=== PATIENT | male | born 1985 | race Caucasian/White ===

== ENCOUNTER 2016-12-15 19:39 | Emergency (ER) | payer SELFPAY ==
[2016-12-15 20:02] VITALS: BP 160/82
--- NOTE | 2016-12-15 20:08 | UC ---
Skin Complaint HPI - HPI Summary HPI Summary: The patient comes in today for: 1. Skin complaint: Onset: 2 days ago. Palliative/provocative: Touching makes is worse. Rest makes it better. Quality: Soreness. Region: Left upper leg. Severity: 8/10 Time: Constant. Associated symptoms: FEvers: None. Treatment: He poked it with a needle--2 days ago. No other abscesses. Diabetes: Present--"borderline type 2" diagnosed 2 years ago. He was on metformin, but not at this time. * - History of Current Complaint Chief Complaint: UCGeneralIllness Time Seen by Provider: 12/15/16 19:44 Stated Complaint: MATOS ON LEG Hx Obtained From: Patient - Allergy/Home Medications Allergies/Adverse Reactions: Allergies Allergy/AdvReac Type Severity Reaction Status Date / Time No Known Allergies Allergy Verified 12/15/16 19:49 Review of Systems Constitutional: Negative Skin: Rash Eyes: Negative ENT: Negative Respiratory: Negative Cardiovascular: Negative Gastrointestinal: Negative All Other Systems Reviewed And Are Negative: Yes PMH/Surg Hx/FS Hx/Imm Hx Previously Healthy: No Endocrine History Of: Reports: Diabetes - NOT ON MEDS--he stopped taking metformin due to $ Denies: Thyroid Disease, Hyperthyroidism, Hypothyroidism, Dyslipidemia Cardiovascular History Of: Reports: Hypertension - not on meds Denies: Cardiac Disorders, Pacemaker/ICD, Myocardial Infarction, Congestive Heart Failure, Atrial Fibrillation, Deep Vein Thrombosis, Bleeding Disorders Respiratory History Of: Reports: Asthma - He used to have this. GI/ History Of: Reports: Kidney Stones - Kidney stones 2 months ago. Denies: Gastroesophageal Reflux, Ulcer, Gastrointestinal Bleed, Gall Bladder Disease, Diverticulitis, Renal Disease, Urosepsis Neurological History Of: Denies: TIA, CVA, Dementia, Seizures, Migraine Psychological History Of: Reports: Anxiety, Depression - no depression over a year. Denies: Post Traumatic Stress Disorder Cancer History Of: Denies: Lung Cancer, Colorectal Cancer, Breast Cancer, Prostate Cancer, Cervical Cancer Other History Of: Negative For: HIV, Hepatitis B, Hepatitis C, Anticoagulant Therapy - Surgical History Surgical History: Yes Surgery Procedure, Year, and Place: T & A. Knee surgery 2005. Left ankle surgery - Family History Known Family History: Positive: Cardiac Disease - [place], Hypertension, Other - EtOH abuse - Social History Occupation: Employed Full-time Alcohol Use: None Alcohol Amount: once a month - h/o ETOH abuse Substance Use Type: None Substance Use Comment - Amount & Last Used: bottle of vodka 10/28 Smoking Status (MU): Heavy Every Day Tobacco Smoker Type: Cigarettes Amount Used/How Often: 1-2 PPD Have You Smoked in the Last Year: Yes Household Exposure Type: Cigarettes - Immunization History Most Recent Influenza Vaccination: Fall 2012 Most Recent Tetanus Shot: UTD Most Recent Pneumonia Vaccination: Never Physical Exam Triage Information Reviewed: Yes Appearance: Well-Appearing, No Pain Distress, Well-Nourished Vital Signs: Initial Vital Signs Temp 98.4 F 12/15/16 19:51 Pulse 97 12/15/16 19:51 Resp 18 12/15/16 19:51 BP 160/82 12/15/16 19:51 Pulse Ox 96 12/15/16 19:51 Vital Signs Reviewed: Yes Eyes: Positive: Conjunctiva Clear. Negative: Discharge ENT: Positive: Hearing grossly normal. Negative: Pharyngeal erythema, Nasal congestion, Nasal drainage, TM bulging, TM dull, TM red, Tonsillar swelling, Tonsillar exudate Dental: Negative: Gross Decay/Caries @, Dental Fracture @ Neck: Positive: Supple, Nontender, No Lymphadenopathy. Negative: Nuchal Rigidity Respiratory: Positive: Lungs clear, No respiratory distress, No accessory muscle use. Negative: Crackles, Wheezing Cardiovascular: Positive: RRR, No Murmur Abdomen Description: Positive: Nontender, No Organomegaly, Soft. Negative: Distended, Guarding Musculoskeletal: Positive: Strength Intact, ROM Intact Neurological: Positive: Alert, Muscle Tone Normal Psychological: Positive: Age Appropriate Behavior, Consolable Skin: Positive: Other - He has a 1-2 cm erythematous and fluctuant skin lesion of the upper, inner/posterior thigh.. Negative: rashes Diagnostics - Laboratory Diagnostic Studies Completed/Ordered: Random blood sugar was 377. Course/Dx - Course Course Of Treatment: I & D: After 1-2 cc of 2% lidocaine with epi was instilled and adequate anesthesia was obtained, a "X" incision was made in the fluctuant area and bloody purulent material came out. A gauze drain was put in after running the hemostat in to break up any pus pockets. Dressing was applied and the woman seat covers trimmer told how to dress the wound daily. He refused any diabetic medication at this time despite being told he had a 377 random blood sugar. - Differential Diagnoses - Skin Complaint Differential Diagnoses: Cellulitis, Impetigo - Diagnoses Provider Diagnoses: uncontrolled diabetes. Left upper, inner thigh abscess. High blood pressure. Discharge - Discharge Plan Condition: Stable Disposition: HOME Patient Education Materials: Abscess (ED), Cellulitis (ED), Incision and Drainage (ED) Referrals: Nick Shipley MD [Primary Care Provider] - 3 Days (Please see your primary care provider tomorrow or in the next several days to see how well you are doing. Please inspect the area for redness, swelling, drainage, bleeding and tenderness. This should be improving over the next several days to a week. Please be re-seen in several days to see how well you are doing. If you get worse, please be seen sooner. Apply hot compresses to the area for 20 minutes 4- 5 times a day. ) Additional Instructions: See your primary care provider as soon as you can for your diabetic care. See your primary care provider early next week to check your blood pressure.
[2016-12-15] MEDS ORDERED: Lidocaine 2% W/EPI 1:100,000* 20 ML MDV ONE (20:22)
[2016-12-15] MEDS ORDERED: Cephalexin CAP* 500 MG PO ONE (21:02)
[2016-12-15] MEDS ORDERED: HYDROcodone/ACETAMIN 5-325 MG* 1 TAB PO ONE (21:03)
== END 2016-12-15 21:15 | disposition home or self-care (01) ==
LOC: UCEAST 19:39
DX: L02.416 Cutaneous abscess of left lower limb (principal); E11.9 Type 2 diabetes mellitus without complications; R03.0 Elevated blood-pressure reading, without diagnosis of hypertension; F17.210 Nicotine dependence, cigarettes, uncomplicated
CPT/HCPCS: 10060; 87070; 87205; 87640; 87641; 99212; A9270-GY; G0463

== ENCOUNTER 2017-05-21 10:52 | Emergency (ER) | payer SELFPAY ==
[2017-05-21 13:26] VITALS: BP 160/100
--- NOTE | 2017-05-22 19:43 | UC ---
Abdominal Pain Male HPI - HPI Summary HPI Summary: pt presents with abd pain that started last night. earlier that day pt was lifting a 250lb tractor wheel. no pain in the moment. however, when the pt lay down for sleep that night, he developed severe pain in the epigastrium along with significant increase in the size of his ventral hernia. pain is worsened with the supine position and received by upright positions. pt also reports a 27 lbs unintentional wt loss in the past couple of months. he has been to busy with work in the past 6 months to get dm and htn meds refilled. - History of Current Complaint Chief Complaint: UCAbdominalPain Stated Complaint: PAIN WITH HERNIA Time Seen by Provider: 05/21/17 12:56 Hx Obtained From: Patient Onset/Duration: Sudden Onset, Lasting Days, Still Present Timing: Constant Severity Initially: Moderate Severity Currently: Moderate Pain Intensity: 8 Pain Scale Used: 0-10 Numeric Location: Epigastric Radiates: No Character: Sharp Aggravating Factor(s): Nothing - supine position Alleviating Factor(s): Position Associated Signs And Symptoms: Negative: Diaphoresis, Fever, Cough, Chest Pain, Dizzy, Back Pain, Constipation, Blood in Stool, Urinary Symptoms, Decreased Appetite, Nausea, Vomiting, Diarrhea - Risk Factors Cardiac Risk Factors: Hypertension, Smoking, Diabetes, Family History - Allergies/Home Medications Allergies/Adverse Reactions: Allergies Allergy/AdvReac Type Severity Reaction Status Date / Time No Known Allergies Allergy Verified 05/21/17 11:15 PMH/Surg Hx/FS Hx/Imm Hx Endocrine History: Diabetes Cardiovascular History: Hypertension Respiratory History: Asthma GI/ History: Other Other GI/ History: hernia Psychological History: Anxiety, Depression, Post Traumatic Stress Disorder Other History Of: Negative For: HIV, Hepatitis B, Hepatitis C, Anticoagulant Therapy - Surgical History Surgical History: Yes Surgery Procedure, Year, and Place: T & A. Knee surgery 2005. 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 Lives: With Family Alcohol Use: None Alcohol Amount: once a month - h/o ETOH abuse Substance Use Type: None Substance Use Comment - Amount & Last Used: bottle of vodka 10/28 Smoking Status (MU): Heavy Every Day Tobacco Smoker Type: Cigarettes Amount Used/How Often: 1-2 PPD Have You Smoked in the Last Year: Yes Household Exposure Type: Cigarettes - Immunization History Most Recent Influenza Vaccination: Fall 2012 Most Recent Tetanus Shot: UTD Most Recent Pneumonia Vaccination: Never Review of Systems Constitutional: Negative Skin: Negative ENT: Negative Respiratory: Negative Cardiovascular: Negative Gastrointestinal: Abdominal Pain Genitourinary: Negative Motor: Negative Neurovascular: Negative Musculoskeletal: Other: - hernia Neurological: Negative Is Patient Immunocompromised?: No All Other Systems Reviewed And Are Negative: Yes Physical Exam Triage Information Reviewed: Yes Appearance: Well-Appearing, Pain Distress - moderate, Obese Vital Signs: Initial Vital Signs Temp 96.3 F 05/21/17 11:11 Pulse 92 05/21/17 11:11 Resp 12 05/21/17 11:11 BP 179/92 05/21/17 11:11 Pulse Ox 98 05/21/17 11:11 Vital Signs Reviewed: Yes Eyes: Positive: Conjunctiva Clear. Negative: Discharge ENT: Positive: Hearing grossly normal. Negative: Muffled/hoarse voice Neck: Positive: Supple Respiratory: Positive: Lungs clear, Normal breath sounds, No respiratory distress, No accessory muscle use Cardiovascular: Positive: RRR, No Murmur Abdomen Description: Positive: Soft, Distended - over epigastrum, Hernia @ - ventral over epigastrum. Negative: Nontender - epigastrium, CVA Tenderness (R) , CVA Tenderness (L), McBurney's Point Tenderness Bowel Sounds: Positive: Present Musculoskeletal Exam: Normal Neurological: Positive: Alert, Muscle Tone Normal Psychological: Positive: Age Appropriate Behavior Skin Exam: Normal Abd Pain Male Course/Dx - Differential Dx/Clinical Impression Differential Diagnosis/HQI/PQRI: Abdominal Aortic Aneurysm, Bowel Obstruction, Constipation, Pancreatitis, Other - incarcerated hernia Provider Diagnoses: incarcerated hernia Discharge - Discharge Plan Condition: Stable Disposition: AGAINST MEDICAL ADVICE Referrals: No Primary Care Phys,NOPCP [Primary Care Provider] -
== END 2017-05-21 13:15 | disposition left against medical advice (07) ==
LOC: UCEAST 10:52
DX: K43.6 Other and unspecified ventral hernia with obstruction, without gangrene (principal); R10.13 Epigastric pain; E11.9 Type 2 diabetes mellitus without complications; I10 Essential (primary) hypertension; J45.909 Unspecified asthma, uncomplicated; F41.9 Anxiety disorder, unspecified; F32.9 Major depressive disorder, single episode, unspecified; E66.9 Obesity, unspecified; F17.210 Nicotine dependence, cigarettes, uncomplicated
CPT/HCPCS: 99212; G0463

== ENCOUNTER → 2017-05-24 14:09 | Emergency (ER) | payer SELFPAY ==
[~2017-05-24 14:09] MED LIST: Iodixanol* (CONTRAST) 320 MG/ML 100 ML SDV IV ONE; Ketorolac INJ* 30 MG/ML 1 ML VIAL IV PUSH ONE; NS 0.9% 1000 ML* 1,000 ML IV ONE; Ondansetron INJ* 2 MG/ML VIAL IV ONE; metFORMIN* 500 MG TAB PO ONE
[2017-05-24 15:29] LABS: Hematocrit 42 % (42-52); Hemoglobin 14.6 g/dl (14.0-18.0); Mean Corpuscular HGB Conc 35 g/dl (31-36); Mean Corpuscular Hemoglobin 30 pg (27-31); Mean Corpuscular Volume 85 fL (80-94); Mean Platelet Volume 10 um3 (7.4-10.4); Red Blood Count 4.95 10^6/ul (4.0-5.4); Red Cell Distribution Width 14 % (10.5-15); White Blood Count 9.4 10^3/ul (3.5-10.8)
[2017-05-24 15:48] LABS: Albumin 3.8 g/dL (3.2-5.2); BUN/Creatinine Ratio 13.8 (8-20); C Reactive Protein 15.75 mg/L (< 5.00); Calcium 9.3 mg/dL (8.6-10.3); EGFR African American 130.8 (>60); EGFR Non-African American 101.7 (>60); Globulin 3.3 g/dL (2-4); Total Bilirubin 0.4 mg/dL (0.2-1.0); Total Protein 7.1 g/dL (6.4-8.9)
[2017-05-24 16:18] VITALS: BP 134/61
--- NOTE | 2017-05-24 17:29 | RAD ---
INDICATION: Painful ventral hernia for multiple days with concern for potential incarceration. Elevated blood pressure. COMPARISON: May 26, 2016 RIGHT upper quadrant ultrasound. March 15, 2016 CT. TECHNIQUE: Multidetector CT images were obtained from the lung bases to the ischial tuberosities with 141 mL Visipaque 320 IV and oral contrast. Multiplanar reformation. REPORT: Unremarkable visualized inferior thorax. Fatty infiltration of the liver with focal sparing at the cody hepatis and gallbladder fossa. No suspicious focal hepatic lesions. Enlarged liver measuring [address] abnormality of the gallbladder. Mild partial fatty replacement of the pancreas. Small splenule at the hilum of the unremarkable spleen. Negative for CT abnormality of the upper GI, small bowel, retrocecal appendix, colon. Moderate stool in the colon without significant rectal distention. Negative for ascites or free air. Tiny fat-containing umbilical hernia without compelling inflammatory change. Normal adrenal glands. Unremarkable kidneys with symmetric nephrograms and pyelograms. Unremarkable nondilated ureters and partially distended urinary bladder. Unremarkable prostate and seminal vesicles. Upper normal short axis diameter external iliac lymph nodes with normal fatty hilar architecture without concern. Negative for lymphadenopathy. Normal diameter abdominal aorta and iliac arteries. Physiologic distention of the IVC. Bilateral L5 spondylolysis without significant associated spondylolisthesis. No suspicious focal osseous lesions evident. IMPRESSION: 1. Hepatomegaly. Fatty infiltration of the liver. 2. Normal appendix documented. 3. Tiny fat-containing umbilical hernia without compelling inflammatory change.
[2017-05-24 17:39] LABS: Urine Bacteria Absent (Absent); Urine Bilirubin Negative (Negative); Urine Glucose 3+(>=500 mg/dL) (Negative); Urine Nitrite Negative (Negative)
--- NOTE | 2017-05-24 18:27 | ED ---
Vasiliy Acharya Angela, scribed for Faraz Butler MD on 05/24/17 at 1512 . Abdominal Pain/Male - HPI Summary HPI Summary: This pt is a 32 y/o male presenting to [facility] c/o hernia abd pain for 1.5 weeks. Pt reports sharp sever sharp and it has never been this bad. His pain is aggravated with eating. Pt states that when he leans forward his hernia is more prominent. He notes that his bowel movements have been abnormal for a couple of weeks. Pt denies vomiting, fever, chills, diarrhea, SOB, chest pain. Pt went to Urgent care 3 days ago but was not transferred to the ED. He is a current every day smoker. Pt denies past abd surgeries. PMHx: diabetes. - History of Current Complaint Chief Complaint: EDAbdPain Stated Complaint: ABD PAIN/HIGH BP Time Seen by Provider: 05/24/17 14:54 Hx Obtained From: Patient Onset/Duration: Lasting Days Timing: Lasting Days Pain Intensity: 7 Pain Scale Used: 0-10 Numeric Location: Diffuse Radiates: No Character: Sharp Aggravating Factor(s): Other: - leaning forward Alleviating Factor(s): Nothing Associated Signs And Symptoms: Negative: Fever, Chest Pain, Back Pain, Vomiting , Diarrhea - Allergies/Home Medications Allergies/Adverse Reactions: Allergies Allergy/AdvReac Type Severity Reaction Status Date / Time No Known Allergies Allergy Verified 05/21/17 11:15 PMH/Surg Hx/FS Hx/Imm Hx Endocrine/Hematology History: Reports: Hx Diabetes - NOT ON MEDS--he stopped taking metformin due to $ Denies: Hx Anticoagulant Therapy, Hx Blood Disorders, Hx Blood Transfusions, Hx Bone Marrow Disease, Hx Systemic Lupus Erythematosus, Hx Sickle Cell Disease , Hx Thyroid Disease, Hx Anemia, Hx Unexplained Bleeding, Other Endocrine/ Hematological Disorders Cardiovascular History: Reports: Hx Hypertension - not on meds, Other Cardiovascular Problems/Disorders - CARDIAC CATH 2011 Denies: Hx Aneurysm, Hx Angina, Hx Angioplasty, Hx Auto Implanted Cardiovert Defib, Hx Cardiac Arrest, Hx Cardiomegaly, Hx Congenital Heart Disease, Hx Congestive Heart Failure, Hx Coronary Artery Disease, Hx Deep Vein Thrombosis, Hx Embolism, Hx Hypercholesterolemia, Hx Hypotension, Hx Myocardial Infarction, Hx Pacemaker/ICD, Hx Peripheral Vascular Disease, Hx Rheumatic Fever, Hx Syncope , Hx Valvular Heart Disease Respiratory History: Reports: Hx Asthma - He used to have this., Hx Chronic Bronchitis, Hx Seasonal Allergies Denies: Hx Chronic Obstructive Pulmonary Disease (COPD), Hx Cystic Fibrosis, Hx Lung Cancer, Hx Pleural Effusion, Hx Pneumonia, Hx Pulmonary Edema, Hx Pulmonary Embolism, Hx Sleep Apnea GI History: Reports: Hx Gastroesophageal Reflux Disease Denies: Hx Gall Bladder Disease, Hx Gastrointestinal Bleed, Hx Ulcer, Hx Urosepsis History: Reports: Hx Kidney Stones - Kidney stones 2 months ago. Denies: Hx Dialysis, Hx Renal Disease Musculoskeletal History: Reports: Hx Orthopedic Injury - Right Knee Sensory History: Reports: Hx Contacts or Glasses Denies: Hx Cataracts, Hx Eye Injury, Hx Eye Prosthesis, Hx Glaucoma, Hx Legally Blind, Hx Macular Degeneration, Hx Vision Problem, Hx Deafness, Hx Hearing Aid, Hx Hearing Problem, Other Sensory Impairments Opthamlomology History: Reports: Hx Contacts or Glasses Denies: Hx Cataracts, Hx Eye Injury, Hx Eye Prosthesis, Hx Glaucoma, Hx Legally Blind, Hx Macular Degeneration, Hx Vision Problem, Other Sensory Impairments Neurological History: Denies: Hx Dementia, Hx Developmental Delay, Hx Headaches, Hx Migraine, Hx Nerve Disease, Hx Seizures, Hx Spinal Cord Injury, Hx Transient Ischemic Attacks (TIA), Other Neuro Impairments/Disorders Psychiatric History: Reports: Hx Anxiety, Hx Depression - no depression over a year., Hx Inpatient Treatment, Hx Community Mental Health Tx, Hx Suicide Attempt - OD/Jump from parking garage, Hx of Violent Episodes Against Others, Hx Substance Abuse Denies: Hx Attention Deficit Hyperactivity Disorder, Hx Eating Disorder, Hx Panic Disorder, Hx Post Traumatic Stress Disorder, Hx Schizophrenia, Hx Bipolar Disorder, Other Psychiatric Issues/Disorders - Surgical History Surgery Procedure, Year, and Place: T & A. Knee surgery 2005. Left ankle surgery Hx Anesthesia Reactions: No - Immunization History Date of Tetanus Vaccine: Unknown Date of Influenza Vaccine: None Infectious Disease History: Denies: Hx Clostridium Difficile, Hx Hepatitis, Hx Human Immunodeficiency Virus (HIV), Hx of Known/Suspected MRSA, Hx Shingles, Hx Tuberculosis, Hx Known/ Suspected VRE, Hx Known/Suspected VRSA, History Other Infectious Disease, Traveled Outside the [place] in Last 30 Days - Family History Known Family History: Positive: None, Cardiac Disease - [place], Hypertension, Other - EtOH abuse - Social History Alcohol Use: None Alcohol Amount: once a month - h/o ETOH abuse Hx Substance Use: Yes - cocaine, marijuana - 2012 Substance Use Type: Reports: None Substance Use Comment - Amount & Last Used: bottle of vodka 10/28 Hx Tobacco Use: Yes Smoking Status (MU): Heavy Every Day Tobacco Smoker Type: Cigarettes Amount Used/How Often: 1-2 PPD Have You Smoked in the Last Year: Yes Review of Systems Negative: Fever, Chills Eyes: Negative ENT: Negative Negative: Chest Pain Negative: Shortness Of Breath Positive: Abdominal Pain, Other - different than usual bowel movements.. Negative: Vomiting, Diarrhea, Nausea Genitourinary: Negative Musculoskeletal: Negative Skin: Negative Neurological: Negative All Other Systems Reviewed And Are Negative: Yes Physical Exam - Summary Physical Exam Summary: The patient is well-nourished in no acute distress and in no acute pain. The skin is warm and dry and skin color reflects adequate perfusion. HEENT: The head is normocephalic and atraumatic. The pupils are equal and reactive. The conjunctivae are clear and without drainage. Nares are patent and without drainage. Mouth reveals moist mucous membranes and the throat is without erythema and exudate. The external ears are intact. The ear canals are patent and without drainage. The tympanic membranes are intact. Neck is supple with full range of motion and non-tender. Respiratory: Chest is non-tender. Lungs are clear to auscultation and breath sounds are symmetrical and equal. Cardiovascular: Hear is regular rate and rhythm. There is no murmur or rub auscultated. There is no peripheral edema. Abdomen: The abdomen is soft and non-tender. There are normal bowel sounds heard in all four quadrants. There is a ventral hernia that is exacerbated when leaning forward, it does not appear it is incarcerated. Musculoskeletal: There is no back pain noted. Extremities are non-tender with full range of motion. There is good capillary refill. There is no peripheral edema or calf tenderness elicited. Neurological: Patient is alert and oriented to person, place and time. The patient has symmetrical motor strength in all four extremities. Psychiatric: The patient has an appropriate affect and does not exhibit any anxiety or depression. Triage Information Reviewed: Yes Vital Signs On Initial Exam: Initial Vitals Temp Pulse Resp BP Pulse Ox 97.3 F 87 20 170/93 97 05/24/17 14:11 05/24/17 14:11 05/24/17 14:11 05/24/17 14:11 05/24/17 14:11 Vital Signs Reviewed: Yes Diagnostics - Vital Signs Vital Signs Temp Pulse Resp BP Pulse Ox 05/24/17 14:11 97.3 F 87 20 170/93 97 - Laboratory Lab Results: Lab Results 05/24/17 05/24/17 05/24/17 Range/Units 15:19 15:19 15:19 WBC 9.4 (3.5-10.8) 10^3/ul RBC 4.95 (4.0-5.4) 10^6/ul Hgb 14.6 (14.0-18.0) g/dl Hct 42 (42-52) % MCV 85 (80-94) fL MCH 30 (27-31) pg MCHC 35 (31-36) g/dl RDW 14 (10.5-15) % Plt Count 181 (150-450) 10^3/ul MPV 10 (7.4-10.4) um3 Neut % (Auto) 62.0 (38-83) % Lymph % (Auto) 29.7 (25-47) % [place] % (Auto) 5.9 (1-9) % Eos % (Auto) 1.3 (0-6) % Baso % (Auto) 1.1 (0-2) % Absolute Neuts (auto) 5.8 (1.5-7.7) 10^3/ul Absolute Lymphs (auto) 2.8 (1.0-4.8) 10^3/ul Absolute Monos (auto) 0.6 (0-0.8) 10^3/ul Absolute Eos (auto) 0.1 (0-0.6) 10^3/ul Absolute Basos (auto) 0.1 (0-0.2) 10^3/ul Absolute Nucleated RBC 0 10^3/ul Nucleated RBC % 0 Sodium 130 L (133-145) mmol/L Potassium 4.0 (3.5-5.0) mmol/L Chloride 98 L (101-111) mmol/L Carbon Dioxide 23 (22-32) mmol/L Anion Gap 9 (2-11) mmol/L BUN 12 (6-24) mg/dL Creatinine 0.87 (0.67-1.17) mg/dL Est GFR ( Amer) 130.8 (>60) Est GFR (Non-Af Amer) 101.7 (>60) BUN/Creatinine Ratio 13.8 (8-20) Glucose 479 H (70-100) mg/dL Lactic Acid 1.7 (0.5-2.0) mmol/L Calcium 9.3 (8.6-10.3) mg/dL Total Bilirubin 0.40 (0.2-1.0) mg/dL AST 26 (13-39) U/L ALT 27 (7-52) U/L Alkaline Phosphatase 101 (34-104) U/L C-Reactive Protein 15.75 H (< 5.00) mg/L Total Protein 7.1 (6.4-8.9) g/dL Albumin 3.8 (3.2-5.2) g/dL Globulin 3.3 (2-4) g/dL Albumin/Globulin Ratio 1.2 (1-3) Amylase 51 (29-103) U/L Lipase 35 (11.0-82.0) U/L Urine Color Urine Appearance Urine pH (5-9) Ur Specific [place] (1.010-1.030) Urine Protein (Negative) Urine Ketones (Negative) Urine Blood (Negative) Urine Nitrate (Negative) Urine Bilirubin (Negative) Urine Urobilinogen (Negative) Ur Leukocyte Esterase (Negative) Urine WBC (Auto) (Absent) Urine RBC (Auto) (Absent) Urine Bacteria (Absent) Urine Glucose (Negative) 05/24/17 Range/Units 17:11 WBC (3.5-10.8) 10^3/ul RBC (4.0-5.4) 10^6/ul Hgb (14.0-18.0) g/dl Hct (42-52) % MCV (80-94) fL MCH (27-31) pg MCHC (31-36) g/dl RDW (10.5-15) % Plt Count (150-450) 10^3/ul MPV (7.4-10.4) um3 Neut % (Auto) (38-83) % Lymph % (Auto) (25-47) % [place] % (Auto) (1-9) % Eos % (Auto) (0-6) % Baso % (Auto) (0-2) % Absolute Neuts (auto) (1.5-7.7) 10^3/ul Absolute Lymphs (auto) (1.0-4.8) 10^3/ul Absolute Monos (auto) (0-0.8) 10^3/ul Absolute Eos (auto) (0-0.6) 10^3/ul Absolute Basos (auto) (0-0.2) 10^3/ul Absolute Nucleated RBC 10^3/ul Nucleated RBC % Sodium (133-145) mmol/L Potassium (3.5-5.0) mmol/L Chloride (101-111) mmol/L Carbon Dioxide (22-32) mmol/L Anion Gap (2-11) mmol/L BUN (6-24) mg/dL Creatinine (0.67-1.17) mg/dL Est GFR ( Amer) (>60) Est GFR (Non-Af Amer) (>60) BUN/Creatinine Ratio (8-20) Glucose (70-100) mg/dL Lactic Acid (0.5-2.0) mmol/L Calcium (8.6-10.3) mg/dL Total Bilirubin (0.2-1.0) mg/dL AST (13-39) U/L ALT (7-52) U/L Alkaline Phosphatase (34-104) U/L C-Reactive Protein (< 5.00) mg/L Total Protein (6.4-8.9) g/dL Albumin (3.2-5.2) g/dL Globulin (2-4) g/dL Albumin/Globulin Ratio (1-3) Amylase (29-103) U/L Lipase (11.0-82.0) U/L Urine Color Straw Urine Appearance Clear Urine pH 6.0 (5-9) Ur Specific [place] > 1.060 H (1.010-1.030) Urine Protein 1+(30 mg/dl) H (Negative) Urine Ketones Negative (Negative) Urine Blood Negative (Negative) Urine Nitrate Negative (Negative) Urine Bilirubin Negative (Negative) Urine Urobilinogen Negative (Negative) Ur Leukocyte Esterase Negative (Negative) Urine WBC (Auto) Absent (Absent) Urine RBC (Auto) Absent (Absent) Urine Bacteria Absent (Absent) Urine Glucose 3+(>=500 mg/dl) H (Negative) Result Diagrams: 05/24/17 15:19 05/24/17 15:19 Lab Statement: Any lab studies that have been ordered have been reviewed, and results considered in the medical decision making process. - CT Abd/Pel CT CT Interpretation: Positive (See Comments) - IMPRESSION: 1. Hepatomegaly. Fatty infiltration of the liver. 2. Normal appendix documented. 3. Tiny fat- containing umbilical hernia without compelling inflammatory change. ED physician has reviewed this radiology report and agrees. CT Interpretation Completed By: Radiologist Abdominal Pain Fem Course/Dx - Course Assessment/Plan: Pt is a 32 y/o male presenting to [facility] c/o ventral hernia pain for 1.5 weeks. Elevated BP noted. Labs and CT abd/pel were obtained. In the ED course, pt was given IV fluids, Toradol, and zofran. Labs reveal glucose of 479 and CRP of 15.75. UA shows Ur specific gravity >1.060, Urine protein 1+, urine glucose of 3+. CT abd/pel reveals 1) Hepatomegaly. Fatty infiltration of the liver. 2) Normal appendix documented. 3) Tiny fat-containing umbilical hernia without compelling inflammatory change. Pt will be discharged home in stable condition with Metformin. - Diagnoses Differential Diagnosis/HQI/PQRI: Bowel Obstruction, Other - incarcerated hernia , diabetes mellitus with poor control, dehydration Provider Diagnoses: Small umbilical hernia, Hyperglycemia secondary to non-compliant Discharge - Discharge Plan Condition: Stable Disposition: HOME Prescriptions: metFORMIN* [Glucophage 500 MG TAB *] 500 mg PO BID #60 tab Patient Education Materials: Umbilical Hernia (ED), Diabetic Hyperglycemia (ED) Referrals: [facility] PHYSICIAN REFERRAL [Outside] Additional Instructions: Your blood pressure was elevated during today's visit. Please establish a primary care provider and follow up with your primary. The documentation as recorded by the Vasiliy peace Angela accurately reflects the service I personally performed and the decisions made by , Faraz Butler MD.
== END | disposition home or self-care (01) ==
LOC: ED 14:09
DX: R10.9 Unspecified abdominal pain (principal); K42.9 Umbilical hernia without obstruction or gangrene; E13.65 Other specified diabetes mellitus with hyperglycemia; F17.210 Nicotine dependence, cigarettes, uncomplicated
CPT/HCPCS: 36415; 74177; 80053; 81003; 81015; 82150; 83605; 83690; 85025; 86140; 96374; 99282; J1885; J2405; Q9967

== ENCOUNTER 2017-08-30 19:46 | Emergency (ER) | payer SELFPAY ==
[2017-08-30] MEDS ORDERED: ALPRAZolam TAB* 0.5 MG PO ONE (20:08)
[2017-08-30 20:40] LABS: Hemoglobin 15.4 g/dl (14.0-18.0); Mean Corpuscular HGB Conc 34 g/dl (31-36); Red Cell Distribution Width 13 % (10.5-15)
[2017-08-30 20:42] LABS: Hematocrit 45 % (42-52); Mean Corpuscular Hemoglobin 29 pg (27-31); Mean Corpuscular Volume 86 fL (80-94); Mean Platelet Volume 9 um3 (7.4-10.4); Red Blood Count 5.23 10^6/ul (4.0-5.4); White Blood Count 11.9 10^3/ul (3.5-10.8)
[2017-08-30 20:43] LABS: Comments Flag Yes
[2017-08-30 20:53] LABS: Albumin 3.8 g/dL (3.2-5.2); BUN/Creatinine Ratio 19.3 (8-20); Calcium 9.2 mg/dL (8.6-10.3); EGFR African American 129.1 (>60); EGFR Non-African American 100.4 (>60); Globulin 3.6 g/dL (2-4); Total Bilirubin 0.4 mg/dL (0.2-1.0); Total Protein 7.4 g/dL (6.4-8.9)
[2017-08-30 20:55] LABS: Troponin I 0.01 ng/mL (<0.04)
[2017-08-30] MEDS ORDERED: NS 0.9% 1000 ML* 1,000 ML IV ONE ×2 (20:57→23:04)
[2017-08-30] MEDS ORDERED: Insulin REGULAR(*) 1 UNITS UNIT IV PUSH ONE ×2 (20:58→23:03)
[2017-08-30] MEDS ORDERED: metFORMIN* 500 MG TAB PO ONE (21:00)
--- NOTE | 2017-08-30 21:09 | RAD ---
HISTORY: Chest pain COMPARISONS: April 06, 2015 VIEWS: 1: frontal portable view of the chest at 8:15 PM FINDINGS: LINES AND TUBES: None. CARDIOMEDIASTINAL SILHOUETTE: The cardiomediastinal silhouette is normal for portable technique. PLEURA: The costophrenic angles are sharp. No pleural abnormalities are noted. LUNG PARENCHYMA: The lungs are clear. ABDOMEN: The upper abdomen is clear. There is no subphrenic gas. BONES AND SOFT TISSUES: No bone or soft tissue abnormalities are noted. IMPRESSION: NO ACTIVE CARDIOPULMONARY DISEASE.
[2017-08-30 21:45] LABS: Venous Bicarbonate HCO3 23.5 mmol/L (24-28)
[2017-08-31] MEDS ORDERED: Insulin REGULAR(*) 1 UNITS UNIT IV PUSH ONE (00:30)
--- NOTE | 2017-08-31 00:50 | ED ---
Francia Acharya Gabriel, scribClark Fenton MD on 08/30/17 at 2007 . HPI Chest Pain - HPI Summary HPI Summary: This patient is a 32 year old M presenting to [facility] with a chief complaint of CP since 3 days prior. The patient rates the twitching pain 4/10 in severity, lasting for a few seconds, and coming in intermittent episodes. Symptoms aggravated by stress. Patient reports palpitations. He states the pain does not radiate and is brought on when he is stressed at work and fights with his fianc. - History of Current Complaint Chief Complaint: EDChestPainROMI Time Seen by Provider: 08/30/17 20:00 Hx Obtained From: Patient Onset/Duration: Resolved Timing: Intermittent, Lasting Seconds Initial Severity: Mild Current Severity: None Pain Intensity: 4 Pain Scale Used: 0-10 Numeric Chest Pain Location: Diffuse Chest Pain Radiates: No Character: Other: - palpitations - Allergy/Home Medications Allergies/Adverse Reactions: Allergies Allergy/AdvReac Type Severity Reaction Status Date / Time No Known Allergies Allergy Verified 05/21/17 11:15 PMH/Surg Hx/FS Hx/Imm Hx Previously Healthy: No Endocrine/Hematology History: Reports: Hx Diabetes - NOT ON MEDS--he stopped taking metformin due to $ Denies: Hx Anticoagulant Therapy, Hx Blood Disorders, Hx Blood Transfusions, Hx Bone Marrow Disease, Hx Systemic Lupus Erythematosus, Hx Sickle Cell Disease , Hx Thyroid Disease, Hx Anemia, Hx Unexplained Bleeding, Other Endocrine/ Hematological Disorders Cardiovascular History: Reports: Hx Hypertension - not on meds, Other Cardiovascular Problems/Disorders - CARDIAC CATH 2011 Denies: Hx Aneurysm, Hx Angina, Hx Angioplasty, Hx Auto Implanted Cardiovert Defib, Hx Cardiac Arrest, Hx Cardiomegaly, Hx Congenital Heart Disease, Hx Congestive Heart Failure, Hx Coronary Artery Disease, Hx Deep Vein Thrombosis, Hx Embolism, Hx Hypercholesterolemia, Hx Hypotension, Hx Myocardial Infarction, Hx Pacemaker/ICD, Hx Peripheral Vascular Disease, Hx Rheumatic Fever, Hx Syncope , Hx Valvular Heart Disease Respiratory History: Reports: Hx Asthma - He used to have this., Hx Chronic Bronchitis, Hx Seasonal Allergies Denies: Hx Chronic Obstructive Pulmonary Disease (COPD), Hx Cystic Fibrosis, Hx Lung Cancer, Hx Pleural Effusion, Hx Pneumonia, Hx Pulmonary Edema, Hx Pulmonary Embolism, Hx Sleep Apnea GI History: Reports: Hx Gastroesophageal Reflux Disease Denies: Hx Gall Bladder Disease, Hx Gastrointestinal Bleed, Hx Ulcer, Hx Urosepsis History: Reports: Hx Kidney Stones - Kidney stones 2 months ago. Denies: Hx Dialysis, Hx Renal Disease Musculoskeletal History: Reports: Hx Orthopedic Injury - Right Knee Sensory History: Reports: Hx Contacts or Glasses Denies: Hx Cataracts, Hx Eye Injury, Hx Eye Prosthesis, Hx Glaucoma, Hx Legally Blind, Hx Macular Degeneration, Hx Vision Problem, Hx Deafness, Hx Hearing Aid, Hx Hearing Problem, Other Sensory Impairments Opthamlomology History: Reports: Hx Contacts or Glasses Denies: Hx Cataracts, Hx Eye Injury, Hx Eye Prosthesis, Hx Glaucoma, Hx Legally Blind, Hx Macular Degeneration, Hx Vision Problem, Other Sensory Impairments Neurological History: Denies: Hx Dementia, Hx Developmental Delay, Hx Headaches, Hx Migraine, Hx Nerve Disease, Hx Seizures, Hx Spinal Cord Injury, Hx Transient Ischemic Attacks (TIA), Other Neuro Impairments/Disorders Psychiatric History: Reports: Hx Anxiety, Hx Depression - no depression over a year., Hx Inpatient Treatment, Hx Community Mental Health Tx, Hx Suicide Attempt - OD/Jump from parking garage, Hx of Violent Episodes Against Others, Hx Substance Abuse Denies: Hx Attention Deficit Hyperactivity Disorder, Hx Eating Disorder, Hx Panic Disorder, Hx Post Traumatic Stress Disorder, Hx Schizophrenia, Hx Bipolar Disorder, Other Psychiatric Issues/Disorders - Surgical History Surgery Procedure, Year, and Place: T & A. Knee surgery 2005. Left ankle surgery Hx Anesthesia Reactions: No - Immunization History Date of Tetanus Vaccine: Unknown Date of Influenza Vaccine: None Infectious Disease History: No Infectious Disease History: Denies: Hx Clostridium Difficile, Hx Hepatitis, Hx Human Immunodeficiency Virus (HIV), Hx of Known/Suspected MRSA, Hx Shingles, Hx Tuberculosis, Hx Known/ Suspected VRE, Hx Known/Suspected VRSA, History Other Infectious Disease, Traveled Outside the [place] in Last 30 Days - Family History Known Family History: Positive: Cardiac Disease - [place], Hypertension, Other - EtOH abuse - Social History Alcohol Use: None Alcohol Amount: once a month - h/o ETOH abuse Hx Substance Use: Yes - cocaine, marijuana - 2012 Substance Use Type: Reports: None Substance Use Comment - Amount & Last Used: bottle of vodka 10/28 Hx Tobacco Use: Yes Smoking Status (MU): Heavy Every Day Tobacco Smoker Type: Cigarettes Amount Used/How Often: 1-2 PPD Have You Smoked in the Last Year: Yes Review of Systems Negative: Fever Positive: Palpitations, Chest Pain All Other Systems Reviewed And Are Negative: Yes Physical Exam - Summary Physical Exam Summary: VITAL SIGNS: Reviewed. GENERAL: Patient is a morbidly obese male who is lying comfortable in the stretcher. Patient is not in any acute respiratory distress. Pt appears to be somewhat anxious HEAD AND FACE: No signs of trauma. No ecchymosis, hematomas or skull depressions. No sinus tenderness. EYES: PERRLA, EOMI x 2, No injected conjunctiva, no nystagmus. EARS: Hearing grossly intact. Ear canals and tympanic membranes are within normal limits. MOUTH: Oropharynx within normal limits. NECK: Supple, trachea is midline, no adenopathy, no JVD, no carotid bruit, no c- spine tenderness, neck with full ROM. CHEST: Symmetric, no tenderness at palpation LUNGS: Clear to auscultation bilaterally. No wheezing or crackles. CVS: Regular rate and rhythm, S1 and S2 present, no murmurs or gallops appreciated. ABDOMEN: Soft, non-tender. No signs of distention. No rebound no guarding, and no masses palpated. Bowel sounds are normal. EXTREMITIES: FROM in all major joints, no edema, no cyanosis or clubbing. NEURO: Alert and oriented x 3. No acute neurological deficits. Speech is normal and follows commands. SKIN: Dry and warm Triage Information Reviewed: Yes Vital Signs On Initial Exam: Initial Vitals Temp Pulse Resp BP Pulse Ox 98.6 F 102 16 188/64 96 08/30/17 19:49 08/30/17 19:49 08/30/17 19:49 08/30/17 19:49 08/30/17 19:49 Vital Signs Reviewed: Yes Diagnostics - Vital Signs Vital Signs Temp Pulse Resp BP Pulse Ox 08/30/17 19:49 98.6 F 102 16 188/64 96 - Laboratory Result Diagrams: 08/30/17 20:30 08/30/17 20:30 Lab Statement: Any lab studies that have been ordered have been reviewed, and results considered in the medical decision making process. - Radiology CXR Radiology Interpretation Completed By: Radiologist - NO ACTIVE CARDIOPULMONARY DISEASE. ED physician has reviewed this radiology report. - EKG 1950 Cardiac Rate: Tachycardia EKG Rhythm: Sinus Tachycardia - at 101 BPM EKG Interpretation: normal axis and interval, no acute ischemic changes Chest Pain Course/Dx - Course Assessment/Plan: This patient is a 32 year old M presenting to [facility] with a chief complaint of CP since 3 days prior. The patient rates the twitching pain 4 /10 in severity, lasting for a few seconds, and coming in intermittent episodes. Symptoms aggravated by stress. Patient reports palpitations. He states the pain does not radiate and is brought on when he is stressed at work and fights with his fianc. An EKG reveals 101 normal axis and interval no acute ischemic changes. CXR reveals, per radiologist, NO ACTIVE CARDIOPULMONARY DISEASE. Test results with no significant abnormalities except for Glucose of 471. In the ED course the patient was given insulin, Xanax, and IV fluids. There was an offer of admittance but he does not want to be admitted because he has to work in the morning. I explained risk elevated blood sugar, coma, and . Patient will be leaving AMA with prescription for metformin and referral packet. The patient is agreeable with this plan. - Diagnoses Provider Diagnoses: Hyperglycemia, Diabetes Discharge - Discharge Plan Condition: Stable Disposition: AGAINST MEDICAL ADVICE Prescriptions: Metformin HCl [Glucophage] 1,000 mg PO BID #60 tab Patient Education Materials: Metformin (By mouth) Referrals: [facility]IAN REFERRAL [Outside] - 3 Days No Primary Care Phys,NOPCP [Primary Care Provider] - Additional Instructions: RETURN TO THE EMERGENCY DEPARTMENT FOR CHANGING OR WORSENING SYMPTOMS. The documentation as recorded by the Francia peace Gabriel accurately reflects the service I personally performed and the decisions made by me, Clark Klein MD.
[2017-08-31 01:08] VITALS: BP 165/69
== END 2017-08-31 01:05 | disposition left against medical advice (07) ==
LOC: ED 19:46
DX: E11.65 Type 2 diabetes mellitus with hyperglycemia (principal); R00.2 Palpitations; R07.89 Other chest pain; R00.0 Tachycardia, unspecified; I10 Essential (primary) hypertension; J45.909 Unspecified asthma, uncomplicated; K21.9 Gastro-esophageal reflux disease without esophagitis; Z87.442 Personal history of urinary calculi; F41.9 Anxiety disorder, unspecified; F32.9 Major depressive disorder, single episode, unspecified; E66.01 Morbid (severe) obesity due to excess calories; F17.210 Nicotine dependence, cigarettes, uncomplicated
CPT/HCPCS: 36415; 71010; 80053; 82803; 84484; 85025; 93005; 96361; 96374; 96376; 99285; A9270-GY

== ENCOUNTER 2017-10-20 08:43 | Emergency (ER) | payer SELFPAY ==
[2017-10-20 09:04] VITALS: BP 160/100
[2017-10-20] MEDS ORDERED: Ibuprofen TAB* 800 MG PO ONE (09:30)
--- NOTE | 2017-10-20 09:36 | ED ---
Upper Extremity Pain - HPI Summary HPI Summary: Patient here with left upper extremity pain status post fall down stairs prior to arrival. Reports he was walking down the stairs holding the railing with his right hand when the railing gave out and he slipped and fell down the steps onto his left side. Currently has pain and limited range of motion in his left shoulder and elbow. Also has pain in his humeral area. Denies numbness tingling or weakness. Can move his fingers and wrists without difficulty although he does report some elbow pain with supination. No previous injury to this side. Denies head injury, neck injury, back injury. He also admits his ribs feel fine and he can take deep breaths without pain or shortness of breath. He has not had anything for pain prior to arrival. - History of Current Complaint Chief Complaint: EDExtremityUpper Stated Complaint: ARM AND SHOULDER INJURY Time Seen by Provider: 10/20/17 09:20 Hx Obtained From: Patient - Allergies/Home Medications Allergies/Adverse Reactions: Allergies Allergy/AdvReac Type Severity Reaction Status Date / Time No Known Allergies Allergy Verified 05/21/17 11:15 PMH/Surg Hx/FS Hx/Imm Hx Previously Healthy: Yes Endocrine/Hematology History: Reports: Hx Diabetes - NOT ON MEDS--he stopped taking metformin due to $ Denies: Hx Anticoagulant Therapy, Hx Blood Disorders, Hx Blood Transfusions, Hx Bone Marrow Disease, Hx Systemic Lupus Erythematosus, Hx Sickle Cell Disease , Hx Thyroid Disease, Hx Anemia, Hx Unexplained Bleeding, Other Endocrine/ Hematological Disorders Cardiovascular History: Reports: Hx Hypertension - was on atenolol - NOT ON MEDS --he stopped taking due to $, Other Cardiovascular Problems/Disorders - CARDIAC CATH 2011 Denies: Hx Aneurysm, Hx Angina, Hx Angioplasty, Hx Auto Implanted Cardiovert Defib, Hx Cardiac Arrest, Hx Cardiomegaly, Hx Congenital Heart Disease, Hx Congestive Heart Failure, Hx Coronary Artery Disease, Hx Deep Vein Thrombosis, Hx Embolism, Hx Hypercholesterolemia, Hx Hypotension, Hx Myocardial Infarction, Hx Pacemaker/ICD, Hx Peripheral Vascular Disease, Hx Rheumatic Fever, Hx Syncope , Hx Valvular Heart Disease Respiratory History: Reports: Hx Asthma - He used to have this., Hx Chronic Bronchitis, Hx Seasonal Allergies Denies: Hx Chronic Obstructive Pulmonary Disease (COPD), Hx Cystic Fibrosis, Hx Lung Cancer, Hx Pleural Effusion, Hx Pneumonia, Hx Pulmonary Edema, Hx Pulmonary Embolism, Hx Sleep Apnea GI History: Reports: Hx Gastroesophageal Reflux Disease - pt denies this today Denies: Hx Gall Bladder Disease, Hx Gastrointestinal Bleed, Hx Ulcer, Hx Urosepsis History: Reports: Hx Kidney Stones - Kidney stones 2 months ago. Denies: Hx Dialysis, Hx Renal Disease Musculoskeletal History: Reports: Hx Orthopedic Injury - Right Knee Sensory History: Reports: Hx Contacts or Glasses Denies: Hx Cataracts, Hx Eye Injury, Hx Eye Prosthesis, Hx Glaucoma, Hx Legally Blind, Hx Macular Degeneration, Hx Vision Problem, Hx Deafness, Hx Hearing Aid, Hx Hearing Problem, Other Sensory Impairments Opthamlomology History: Reports: Hx Contacts or Glasses Denies: Hx Cataracts, Hx Eye Injury, Hx Eye Prosthesis, Hx Glaucoma, Hx Legally Blind, Hx Macular Degeneration, Hx Vision Problem, Other Sensory Impairments Neurological History: Denies: Hx Dementia, Hx Developmental Delay, Hx Headaches, Hx Migraine, Hx Nerve Disease, Hx Seizures, Hx Spinal Cord Injury, Hx Transient Ischemic Attacks (TIA), Other Neuro Impairments/Disorders Psychiatric History: Reports: Hx Anxiety, Hx Depression - no depression over a year., Hx Inpatient Treatment, Hx Community Mental Health Tx, Hx Suicide Attempt - OD/Jump from parking garage, Hx of Violent Episodes Against Others, Hx Substance Abuse Denies: Hx Attention Deficit Hyperactivity Disorder, Hx Eating Disorder, Hx Panic Disorder, Hx Post Traumatic Stress Disorder, Hx Schizophrenia, Hx Bipolar Disorder, Other Psychiatric Issues/Disorders - Surgical History Surgery Procedure, Year, and Place: T & A. Knee surgery 2005. Left ankle surgery Hx Anesthesia Reactions: No - Immunization History Date of Tetanus Vaccine: Unknown Date of Influenza Vaccine: None Infectious Disease History: No Infectious Disease History: Denies: Hx Clostridium Difficile, Hx Hepatitis, Hx Human Immunodeficiency Virus (HIV), Hx of Known/Suspected MRSA, Hx Shingles, Hx Tuberculosis, Hx Known/ Suspected VRE, Hx Known/Suspected VRSA, History Other Infectious Disease, Traveled Outside the [place] in Last 30 Days - Family History Known Family History: Positive: Cardiac Disease - [place] - father, "9 times", Hypertension, Other - EtOH abuse - Social History Occupation: Employed Full-time - [employer] Lives: With Family - fiance Alcohol Use: None Alcohol Amount: once a month - h/o ETOH abuse Hx Substance Use: Yes - cocaine, marijuana - 2013 Substance Use Type: Reports: None Substance Use Comment - Amount & Last Used: bottle of vodka 10/28 Hx Tobacco Use: Yes - not currently smoking - switched to smokeless tob Smoking Status (MU): Heavy Every Day Tobacco Smoker Type: Cigarettes - quit last month Sep 2017, Smokeless Tobacco - as of now 2017 Amount Used/How Often: 1-2 PPD Have You Smoked in the Last Year: Yes Review of Systems Constitutional: Negative Negative: Fever, Chills, Fatigue Eyes: Negative Negative: Photophobia, Blurred Vision, Diplopia ENT: Negative Negative: Epistaxis, Dental Pain, Sore Throat Cardiovascular: Negative Negative: Chest Pain Respiratory: Negative Negative: Shortness Of Breath Gastrointestinal: Negative Negative: Abdominal Pain Positive: no symptoms reported Positive: Arthralgia, Myalgia, Decreased ROM. Negative: Edema Skin: Negative Neurological: Negative Psychological: Normal All Other Systems Reviewed And Are Negative: Yes Physical Exam Triage Information Reviewed: Yes Vital Signs On Initial Exam: Initial Vitals Temp Pulse Resp BP Pulse Ox 98.1 F 98 20 160/100 95 10/20/17 09:02 10/20/17 09:02 10/20/17 09:02 10/20/17 09:02 10/20/17 09:02 Vital Signs Reviewed: Yes Appearance: Positive: Well-Appearing, Pain Distress - mild to moderate at rest Skin: Positive: Warm, Skin Color Reflects Adequate Perfusion, Dry - no gross deformity, no ecchymosis, no erythema, no skin breakdown/tenting Head/Face: Positive: Normal Head/Face Inspection Eyes: Positive: Normal, EOMI, ASHLI, Conjunctiva Clear ENT: Positive: Normal ENT inspection, Hearing grossly normal, Pharynx normal - remnants of chewing tob present Neck: Positive: Supple, Nontender Respiratory/Lung Sounds: Positive: Clear to Auscultation, Breath Sounds Present - ribs NTTP Cardiovascular: Positive: Normal, Pulses are Symmetrical in both Upper and Lower Extremities Abdomen Description: Positive: Nontender, Soft Musculoskeletal: Positive: Strength/ROM Intact - phalanges, wrist, 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 Course/Dx - Course Course Of Treatment: Patient presents with left upper extremity pain after falling down steps this morning by accident. His x-ray was reviewed and reveals possible proximal radial head fracture, nondisplaced. He was placed in a sugar tong splint which he tolerated well and reports improvement of symptoms. He was also provided with pain medication, discharge instructions, danger signs and symptoms, and instructions on how to follow up with librarian specialist which he plans to do today. - Diagnoses Provider Diagnoses: Left radial head fracture Discharge - Discharge Plan Condition: Stable Disposition: HOME Prescriptions: Acetaminophen TAB* [Tylenol TAB*] 975 mg PO Q6H PRN #20 tab PRN Reason: Pain Ibuprofen TAB* [Motrin TAB* 800 MG] 800 mg PO Q8HR PRN #20 tab PRN Reason: Pain Patient Education Materials: Elbow Fracture (ED), How to Use a Sling (ED), Splint Care (ED) Forms: *Work Release Referrals: Chase Ritchie MD [Medical Doctor] - Additional Instructions: Rest, ice, elevate and keep splint clean, dry and in place until seen by librarian specialist. Call today to schedule an appointment. For pain, you may take ibuprofen 800mg every 8 hours with food with acetaminophen 975mg every 6 hours. *If you develop numbness, tingling, weakness of fingers or pain is worse in arm , you may loosen ROB wrap around splint and elevate arm for 20 minutes. If symptoms persist, return to ED
--- NOTE | 2017-10-20 10:29 | RAD ---
HISTORY: Left humerus pain status post fall, left elbow pain status post fall COMPARISONS: April 27, 2014 VIEWS: 4, Frontal, lateral, and oblique views of the left elbow FINDINGS: BONE DENSITY: Normal. BONES: There is minimal cortical irregularity of the articular surface of the radial head suggestive of nondisplaced fracture. JOINTS: There is no arthropathy. ALIGNMENT: There is no dislocation. SOFT TISSUES: Unremarkable. OTHER FINDINGS: None. IMPRESSION: PROBABLE NONDISPLACED FRACTURE OF THE RADIAL HEAD
--- NOTE | 2017-10-20 10:37 | RAD ---
HISTORY: Left humerus and shoulder pain, fall COMPARISONS: September 08, 2016 VIEWS: 7, Frontal internal rotation, external rotation, outlet, and axillary views of the left shoulder with frontal internal rotation and external rotation views of the left humerus FINDINGS: BONE DENSITY: Normal. BONES: There is no displaced fracture. JOINTS: There is mild osteoarthritis of the AC joint. ALIGNMENT: There is no dislocation. SOFT TISSUES: Unremarkable. OTHER FINDINGS: None. IMPRESSION: NO ACUTE OSSEOUS INJURY TO THE LEFT SHOULDER OR LEFT HUMERUS. IF SYMPTOMS PERSIST, RECOMMEND REPEAT IMAGING.
[2017-10-20] MEDS ORDERED: Acetaminophen TAB* 325 MG PO ONE (10:55)
== END 2017-10-20 11:14 | disposition home or self-care (01) ==
LOC: ED 08:43
DX: S52.122A Displaced fracture of head of left radius, initial encounter for closed fracture (principal); F17.210 Nicotine dependence, cigarettes, uncomplicated; W10.9XXA Fall (on) (from) unspecified stairs and steps, initial encounter; E11.9 Type 2 diabetes mellitus without complications; I10 Essential (primary) hypertension
CPT/HCPCS: 29125; 99282; A9270-GY

== ENCOUNTER 2018-01-12 13:12 | Emergency (ER) | payer SELFPAY ==
--- NOTE | 2018-01-12 14:16 | RAD ---
HISTORY: Palpitation COMPARISONS: August 30, 2017 VIEWS: 1: frontal portable view of the chest at 2:04 PM. The left costophrenic angle is cut off. FINDINGS: LINES AND TUBES: None. CARDIOMEDIASTINAL SILHOUETTE: The cardiomediastinal silhouette is normal for portable technique. PLEURA: The right costophrenic angle is sharp. The left costophrenic angle is cut off. LUNG PARENCHYMA: The lungs are clear. ABDOMEN: The upper abdomen is clear. There is no subphrenic gas. BONES AND SOFT TISSUES: No bone or soft tissue abnormalities are noted. IMPRESSION: LIMITED STUDY. NO ACTIVE CARDIOPULMONARY DISEASE.
[2018-01-12 14:24] LABS: ABS Basophils 0.1 10^3/ul (0-0.2); ABS Eosinophils 0.1 10^3/ul (0-0.6); ABS Lymphocytes 2.9 10^3/ul (1.0-4.8); ABS Monocytes 0.6 10^3/ul (0-0.8); ABS Neutrophils 6.9 10^3/ul (1.5-7.7); ABS Nucleated RBC 0 10^3/ul; Hematocrit 43 % (42-52); Lymphocyte % 27.2 % (25-47); Mean Corpuscular HGB Conc 35 g/dl (31-36); Mean Corpuscular Hemoglobin 30 pg (27-31); Mean Corpuscular Volume 84 fL (80-94); Nucleated Red Blood Cells % 0; Platelet Count 224 10^3/ul (150-450); Red Blood Count 5.05 10^6/ul (4.0-5.4); Red Cell Distribution Width 13 % (10.5-15); White Blood Count 10.6 10^3/ul (3.5-10.8)
[2018-01-12 14:42] LABS: EGFR Non-African American 110.4 (>60)
[2018-01-12] MEDS ORDERED: Magnesium Sulfate 1 GM IV* 1 GM/100 ML BAG IV ONE (14:48)
[2018-01-12 14:49] LABS: INR 0.9 (0.77-1.02)
[2018-01-12] MEDS ORDERED: Insulin REGULAR(*) 1 UNITS UNIT IV PUSH ONE (14:49)
[2018-01-12 15:37] LABS: Urine Appearance Clear; Urine Blood Negative (Negative); Urine Color Straw; Urine Ketones Negative (Negative); Urine Protein 2+(100 mg/dL) (Negative); Urine Specific Gravity 1.026 (1.010-1.030); Urine Urobilinogen Negative (Negative)
[2018-01-12 15:40] VITALS: BP 144/98
--- NOTE | 2018-01-12 21:09 | ED ---
Satnam Acharya Stephanie, scribed for Jeremy Eagle on 01/12/18 at 1358 . Palpitations / Dysrhythmia - HPI Summary HPI Summary: The pt is a 32 y/o M presenting to the ED with c/o palpitations that began at 13 :00 today. Symptoms include increased HR. The pt denies CP and SOB. The pt states he stood up out of his car and felt his HR elevated and checked his pulse and felt skips. He reports recent stress with being in-between jobs. The pt reports he has hx of uncontrolled diabetes which was diagnosed a few years ago.He has not taken medications in 3 months due to lack of insurance. A1C was 12.5 last month; blood sugar was 560 last month. - History of Current Complaint Chief Complaint: EDDysrhythmPalp Time Seen by Provider: 01/12/18 13:22 Hx Obtained From: Patient Onset/Duration: Sudden Onset, Lasting Minutes, Resolved Timing: Constant Severity Currently: Mild Character: Fast, Skipped Beats Aggravating: Exertion Alleviating: Nothing - Allergy/Home Medications Allergies/Adverse Reactions: Allergies Allergy/AdvReac Type Severity Reaction Status Date / Time No Known Allergies Allergy Verified 05/21/17 11:15 PMH/Surg Hx/FS Hx/Imm Hx Endocrine/Hematology History: Reports: Hx Diabetes - NOT ON MEDS--he stopped taking metformin due to $ Denies: Hx Anticoagulant Therapy, Hx Blood Disorders, Hx Blood Transfusions, Hx Bone Marrow Disease, Hx Systemic Lupus Erythematosus, Hx Sickle Cell Disease , Hx Thyroid Disease, Hx Anemia, Hx Unexplained Bleeding, Other Endocrine/ Hematological Disorders Cardiovascular History: Reports: Hx Hypertension - was on atenolol - NOT ON MEDS --he stopped taking due to $, Other Cardiovascular Problems/Disorders - CARDIAC CATH 2011 Denies: Hx Aneurysm, Hx Angina, Hx Angioplasty, Hx Auto Implanted Cardiovert Defib, Hx Cardiac Arrest, Hx Cardiomegaly, Hx Congenital Heart Disease, Hx Congestive Heart Failure, Hx Coronary Artery Disease, Hx Deep Vein Thrombosis, Hx Embolism, Hx Hypercholesterolemia, Hx Hypotension, Hx Myocardial Infarction, Hx Pacemaker/ICD, Hx Peripheral Vascular Disease, Hx Rheumatic Fever, Hx Syncope , Hx Valvular Heart Disease Respiratory History: Reports: Hx Asthma - He used to have this., Hx Chronic Bronchitis, Hx Seasonal Allergies Denies: Hx Chronic Obstructive Pulmonary Disease (COPD), Hx Cystic Fibrosis, Hx Lung Cancer, Hx Pleural Effusion, Hx Pneumonia, Hx Pulmonary Edema, Hx Pulmonary Embolism, Hx Sleep Apnea GI History: Reports: Hx Gastroesophageal Reflux Disease - pt denies this today Denies: Hx Gall Bladder Disease, Hx Gastrointestinal Bleed, Hx Ulcer, Hx Urosepsis History: Reports: Hx Kidney Stones - Kidney stones 2 months ago. Denies: Hx Dialysis, Hx Renal Disease Musculoskeletal History: Reports: Hx Orthopedic Injury - Right Knee Sensory History: Reports: Hx Contacts or Glasses Denies: Hx Cataracts, Hx Eye Injury, Hx Eye Prosthesis, Hx Glaucoma, Hx Legally Blind, Hx Macular Degeneration, Hx Vision Problem, Hx Deafness, Hx Hearing Aid, Hx Hearing Problem, Other Sensory Impairments Opthamlomology History: Reports: Hx Contacts or Glasses Denies: Hx Cataracts, Hx Eye Injury, Hx Eye Prosthesis, Hx Glaucoma, Hx Legally Blind, Hx Macular Degeneration, Hx Vision Problem, Other Sensory Impairments Neurological History: Denies: Hx Dementia, Hx Developmental Delay, Hx Headaches, Hx Migraine, Hx Nerve Disease, Hx Seizures, Hx Spinal Cord Injury, Hx Transient Ischemic Attacks (TIA), Other Neuro Impairments/Disorders Psychiatric History: Reports: Hx Anxiety, Hx Depression - no depression over a year., Hx Inpatient Treatment, Hx Community Mental Health Tx, Hx Suicide Attempt - OD/Jump from parking garage, Hx of Violent Episodes Against Others, Hx Substance Abuse Denies: Hx Attention Deficit Hyperactivity Disorder, Hx Eating Disorder, Hx Panic Disorder, Hx Post Traumatic Stress Disorder, Hx Schizophrenia, Hx Bipolar Disorder, Other Psychiatric Issues/Disorders - Surgical History Surgery Procedure, Year, and Place: T & A. Knee surgery 2005. Left ankle surgery Hx Anesthesia Reactions: No - Immunization History Date of Tetanus Vaccine: Unknown Date of Influenza Vaccine: None Infectious Disease History: No Infectious Disease History: Denies: Hx Clostridium Difficile, Hx Hepatitis, Hx Human Immunodeficiency Virus (HIV), Hx of Known/Suspected MRSA, Hx Shingles, Hx Tuberculosis, Hx Known/ Suspected VRE, Hx Known/Suspected VRSA, History Other Infectious Disease, Traveled Outside the [place] in Last 30 Days - Family History Known Family History: Positive: Cardiac Disease - [place] - father, "9 times", Hypertension, Other - EtOH abuse - Social History Occupation: Employed Part-time Lives: Alone Alcohol Use: None Alcohol Amount: once a month - h/o ETOH abuse Hx Substance Use: Yes - cocaine, marijuana - 2013 Substance Use Type: Reports: None Substance Use Comment - Amount & Last Used: bottle of vodka 10/28 Hx Tobacco Use: Yes - not currently smoking - switched to smokeless tob Smoking Status (MU): Former Smoker Type: Cigarettes - quit last month Sep 2017, Smokeless Tobacco - as of now 2017 Amount Used/How Often: 1-2 PPD Have You Smoked in the Last Year: Yes Review of Systems Negative: Fever Positive: Other - palpitation, increased HR. Negative: Chest Pain Negative: Shortness Of Breath All Other Systems Reviewed And Are Negative: Yes Physical Exam - Summary Physical Exam Summary: Appearance: Well appearing, no pain distress Skin: warm, dry, reflects adequate perfusion Head/face: normal Eyes: EOMI, ASHLI ENT: normal Neck: supple, non-tender Respiratory: CTA, breath sounds present Cardiovascular: RRR, pulses symmetrical Abdomen: non-tender, soft Bowel: present Musculoskeletal: normal, strength/ROM intact Neuro: normal, sensory motor intact, A&Ox3 Triage Information Reviewed: Yes Vital Signs On Initial Exam: Initial Vitals Temp Pulse Resp BP Pulse Ox 97.1 F 101 18 165/84 97 01/12/18 13:18 01/12/18 13:18 01/12/18 13:18 01/12/18 13:18 01/12/18 13:18 Vital Signs Reviewed: Yes Diagnostics - Vital Signs Vital Signs Temp Pulse Resp BP Pulse Ox 01/12/18 13:28 112 15 178/102 95 01/12/18 13:18 97.1 F 101 18 165/84 97 - Laboratory Lab Results: Lab Results 01/12/18 01/12/18 01/12/18 Range/Units 14:11 14:11 14:11 WBC 10.6 (3.5-10.8) 10^3/ul RBC 5.05 (4.0-5.4) 10^6/ul Hgb 15.0 (14.0-18.0) g/dl Hct 43 (42-52) % MCV 84 (80-94) fL MCH 30 (27-31) pg MCHC 35 (31-36) g/dl RDW 13 (10.5-15) % Plt Count 224 (150-450) 10^3/ul MPV 9.0 (7.4-10.4) um3 Neut % (Auto) 65.2 (38-83) % Lymph % (Auto) 27.2 (25-47) % [place] % (Auto) 5.4 (0-7) % Eos % (Auto) 1.0 (0-6) % Baso % (Auto) 1.2 (0-2) % Absolute Neuts (auto) 6.9 (1.5-7.7) 10^3/ul Absolute Lymphs (auto) 2.9 (1.0-4.8) 10^3/ul Absolute Monos (auto) 0.6 (0-0.8) 10^3/ul Absolute Eos (auto) 0.1 (0-0.6) 10^3/ul Absolute Basos (auto) 0.1 (0-0.2) 10^3/ul Absolute Nucleated RBC 0 10^3/ul Nucleated RBC % 0 INR (Anticoag Therapy) (0.77-1.02) APTT (26.0-36.3) seconds Sodium 133 L (139-145) mmol/L Potassium 4.2 (3.5-5.0) mmol/L Chloride 99 L (101-111) mmol/L Carbon Dioxide 25 (22-32) mmol/L Anion Gap 9 (2-11) mmol/L BUN 12 (6-24) mg/dL Creatinine 0.81 (0.67-1.17) mg/dL Est GFR ( Amer) 142.0 (>60) Est GFR (Non-Af Amer) 110.4 (>60) BUN/Creatinine Ratio 14.8 (8-20) Glucose 402 H (70-100) mg/dL Calcium 9.3 (8.6-10.3) mg/dL Magnesium 1.8 L (1.9-2.7) mg/dL Total Bilirubin 0.40 (0.2-1.0) mg/dL AST 45 H (13-39) U/L ALT 39 (7-52) U/L Alkaline Phosphatase 106 H (34-104) U/L Troponin I 0.00 (<0.04) ng/mL B-Natriuretic Peptide 28 ( - 100) pg/mL Total Protein 7.6 (6.4-8.9) g/dL Albumin 4.0 (3.2-5.2) g/dL Globulin 3.6 (2-4) g/dL Albumin/Globulin Ratio 1.1 (1-3) TSH 2.23 (0.34-5.60) mcIU/mL Urine Color Urine Appearance Urine pH (5-9) Ur Specific [place] (1.010-1.030) Urine Protein (Negative) Urine Ketones (Negative) Urine Blood (Negative) Urine Nitrate (Negative) Urine Bilirubin (Negative) Urine Urobilinogen (Negative) Ur Leukocyte Esterase (Negative) Urine WBC (Auto) (Absent) Urine RBC (Auto) (Absent) Urine Bacteria (Absent) Urine Glucose (Negative) 01/12/18 01/12/18 01/12/18 Range/Units 14:11 15:22 16:31 WBC (3.5-10.8) 10^3/ul RBC (4.0-5.4) 10^6/ul Hgb (14.0-18.0) g/dl Hct (42-52) % MCV (80-94) fL MCH (27-31) pg MCHC (31-36) g/dl RDW (10.5-15) % Plt Count (150-450) 10^3/ul MPV (7.4-10.4) um3 Neut % (Auto) (38-83) % Lymph % (Auto) (25-47) % [place] % (Auto) (0-7) % Eos % (Auto) (0-6) % Baso % (Auto) (0-2) % Absolute Neuts (auto) (1.5-7.7) 10^3/ul Absolute Lymphs (auto) (1.0-4.8) 10^3/ul Absolute Monos (auto) (0-0.8) 10^3/ul Absolute Eos (auto) (0-0.6) 10^3/ul Absolute Basos (auto) (0-0.2) 10^3/ul Absolute Nucleated RBC 10^3/ul Nucleated RBC % INR (Anticoag Therapy) 0.90 (0.77-1.02) APTT 33.7 (26.0-36.3) seconds Sodium (139-145) mmol/L Potassium (3.5-5.0) mmol/L Chloride (101-111) mmol/L Carbon Dioxide (22-32) mmol/L Anion Gap (2-11) mmol/L BUN (6-24) mg/dL Creatinine (0.67-1.17) mg/dL Est GFR ( Amer) (>60) Est GFR (Non-Af Amer) (>60) BUN/Creatinine Ratio (8-20) Glucose 313 H (70-100) mg/dL Calcium (8.6-10.3) mg/dL Magnesium (1.9-2.7) mg/dL Total Bilirubin (0.2-1.0) mg/dL AST (13-39) U/L ALT (7-52) U/L Alkaline Phosphatase (34-104) U/L Troponin I (<0.04) ng/mL B-Natriuretic Peptide ( - 100) pg/mL Total Protein (6.4-8.9) g/dL Albumin (3.2-5.2) g/dL Globulin (2-4) g/dL Albumin/Globulin Ratio (1-3) TSH (0.34-5.60) mcIU/mL Urine Color Straw Urine Appearance Clear Urine pH 6.0 (5-9) Ur Specific [place] 1.026 (1.010-1.030) Urine Protein 2+(100 mg/dl) A (Negative) Urine Ketones Negative (Negative) Urine Blood Negative (Negative) Urine Nitrate Negative (Negative) Urine Bilirubin Negative (Negative) Urine Urobilinogen Negative (Negative) Ur Leukocyte Esterase Negative (Negative) Urine WBC (Auto) Absent (Absent) Urine RBC (Auto) Trace(0-2/hpf) (Absent) Urine Bacteria Absent (Absent) Urine Glucose 3+(>=500 mg/dl) A (Negative) Result Diagrams: 01/12/18 14:11 01/12/18 14:11 Lab Statement: Any lab studies that have been ordered have been reviewed, and results considered in the medical decision making process. - Radiology CXR Xray Interpretation: No Acute Changes Radiology Interpretation Completed By: Radiologist - LIMITED STUDY. NO ACTIVE CARDIOPULMONARY DISEASE. ED physician has reviewed this report. - EKG 14:00 Cardiac Rate: NL - 98 PM EKG Interpretation: Sinus arrhythmia Course/Dx - Course Assessment/Plan: Pt is a 32 y/o M presenting to the ED with c/o palpitations that began at 13:00 today. Symptoms include increased HR. The pt denies CP and SOB. Blood work, urinalysis, chest XR, EKG were obtained. In the ED the pt's glucose level is still elevated at 313. Pt reports he would like to leave against medical advice. Benefits and risks of leaving AMA were discussed with the pt. The pt has signed the AMA form. Pt was given a prescription for Metformin. - Diagnoses Differential Diagnosis/HQI/PQRI: Positive: Hyperventilation, Paroxymal SVT, Other - hyperglycemia Provider Diagnoses: Diabetes, Hyperglycemia, Palpitations Discharge - Sign-Out/Discharge Documenting (check all that apply): Discharge/Admit/Transfer - discharge - Discharge Plan Condition: Good Disposition: AGAINST MEDICAL ADVICE Prescriptions: Metformin ER (NF) 500 mg PO BID #60 tab Patient Education Materials: Heart Palpitations (ED), Type 2 Diabetes in Adults (ED), Diabetic Hyperglycemia (ED) Referrals: [facility] [place] PHYSICIAN REFERRAL [Outside] No Primary Care Phys,NOPCP [Primary Care Provider] - Additional Instructions: Please establish a primary care provider and follow up in 3 days. RETURN TO THE ED FOR ANY WORSENING SYMPTOMS. - Billing Disposition and Condition Condition: GOOD Disposition: AMA The documentation as recorded by the Satnam peace Stephanie accurately reflects the service I personally performed and the decisions made by , Jeremy Eagle.
== END 2018-01-12 17:26 | disposition left against medical advice (07) ==
LOC: ED 13:12
DX: E11.65 Type 2 diabetes mellitus with hyperglycemia (principal); R00.2 Palpitations
CPT/HCPCS: 36415; 71045; 80053; 81003; 81015; 82947; 83735; 83880; 84443; 84484; 85025; 85610; 85730; 93005; 96374; 99283; J3475

== ENCOUNTER 2018-02-18 07:46 | Emergency (ER) | payer SELFPAY ==
[2018-02-18] MEDS ORDERED: Aspirin 81 mg CHEW TAB* 81 MG TAB.CHEW PO ONE (08:02)
[2018-02-18] MEDS ORDERED: NS 0.9% 1000 ML* 2,000 ML IV ONE (08:07)
[2018-02-18 08:30] LABS: ABS Basophils 0.1 10^3/ul (0-0.2); ABS Eosinophils 0.2 10^3/ul (0-0.6); ABS Lymphocytes 3.7 10^3/ul (1.0-4.8); ABS Monocytes 0.6 10^3/ul (0-0.8); ABS Neutrophils 6.7 10^3/ul (1.5-7.7); ABS Nucleated RBC 0 10^3/ul; Eosinophil % 1.5 % (0-6); Hematocrit 39 % (42-52); Hemoglobin 13.6 g/dl (14.0-18.0); Lymphocyte % 32.9 % (25-47); Mean Corpuscular HGB Conc 35 g/dl (31-36); Mean Corpuscular Hemoglobin 30 pg (27-31); Mean Corpuscular Volume 84 fL (80-94); Mean Platelet Volume 9.1 um3 (7.4-10.4); Nucleated Red Blood Cells % 0; Platelet Count 205 10^3/ul (150-450); Red Cell Distribution Width 13 % (10.5-15); White Blood Count 11.2 10^3/ul (3.5-10.8)
[2018-02-18 08:39] LABS: INR 0.88 (0.77-1.02)
[2018-02-18 08:49] LABS: EGFR Non-African American 113.7 (>60)
--- NOTE | 2018-02-18 09:08 | RAD ---
INDICATION: Chest pain. History of obstructive lung disease and tobacco use. COMPARISON: January 12, 2018 chest radiograph and May 24, [address] TECHNIQUE: Dual energy PA and routine lateral views of the chest were obtained. REPORT: Clear lungs and pleural spaces. Negative for pneumothorax. The heart, pulmonary vasculature, and mediastinal contours are unremarkable. Unremarkable osseous structures and soft tissue contours. IMPRESSION: No evidence for acute intrathoracic disease.
[2018-02-18 10:55] LABS: Urine Appearance Clear; Urine Blood Negative (Negative); Urine Color Yellow; Urine Ketones Negative (Negative); Urine Protein 2+(100 mg/dL) (Negative); Urine Specific Gravity 1.029 (1.010-1.030); Urine Urobilinogen Negative (Negative)
[2018-02-18] MEDS ORDERED: Omeprazole CAP* 20 MG PO ONE (11:10)
[2018-02-18] MEDS ORDERED: metFORMIN* 500 MG TAB PO ONE (11:10)
[2018-02-18 11:16] VITALS: BP 129/78
--- NOTE | 2018-02-18 11:20 | ED ---
Kelly Acharya Emily, scribed for Dustin Mera MD on 02/18/18 at 0939 . HPI Chest Pain - HPI Summary HPI Summary: This patient is a 32 year old M presenting to [facility] with a chief complaint of intermittent chest tightness that began yesterday night approximately 2200 while working. He reports that the chest pain lasts 5 to 6 seconds begins slightly left of mid sternal and radiates to left chest. The patient rates the pain 3/10 in severity. Symptoms aggravated by nothing. Symptoms alleviated by nothing. Patient reports L shoulder pain that is aggravated by movement of the arm. Patient denies SOB, diaphoresis, nausea, vomiting, diarrhea, fever, chills , cough, and chest congestion. - History of Current Complaint Chief Complaint: EDChestPainROMI Time Seen by Provider: 02/18/18 08:00 Hx Obtained From: Patient Onset/Duration: Started Hours Ago, Still Present Timing: Constant Initial Severity: Mild Current Severity: Mild Pain Intensity: 3 Pain Scale Used: 0-10 Numeric Chest Pain Location: Left Lateral Chest Pain Radiates: Yes Chest Pain Radiates To:: Other - L chest Character: Tightness Aggravating Factor(s): Nothing Alleviating Factor(s): Nothing Associated Signs and Symptoms: Positive: Other: - Positive L shoulder pain. Negative SOB, diaphoresis, nausea, vomiting, diarrhea, fever, chills, cough, and chest congestion. - Allergy/Home Medications Allergies/Adverse Reactions: Allergies Allergy/AdvReac Type Severity Reaction Status Date / Time No Known Allergies Allergy Verified 02/18/18 07:49 Home Medications: Home Medications Naproxen Sodium [Aleve] 2 tab PO DAILY 02/18/18 [History Confirmed 02/18/18] PMH/Surg Hx/FS Hx/Imm Hx Previously Healthy: No Endocrine/Hematology History: Reports: Hx Diabetes - NOT ON MEDS--he stopped taking metformin due to $ Denies: Hx Anticoagulant Therapy, Hx Blood Disorders, Hx Blood Transfusions, Hx Bone Marrow Disease, Hx Systemic Lupus Erythematosus, Hx Sickle Cell Disease , Hx Thyroid Disease, Hx Anemia, Hx Unexplained Bleeding, Other Endocrine/ Hematological Disorders Cardiovascular History: Reports: Hx Hypertension - was on atenolol - NOT ON MEDS --he stopped taking due to $, Other Cardiovascular Problems/Disorders - CARDIAC CATH 2011 Denies: Hx Aneurysm, Hx Angina, Hx Angioplasty, Hx Auto Implanted Cardiovert Defib, Hx Cardiac Arrest, Hx Cardiomegaly, Hx Congenital Heart Disease, Hx Congestive Heart Failure, Hx Coronary Artery Disease, Hx Deep Vein Thrombosis, Hx Embolism, Hx Hypercholesterolemia, Hx Hypotension, Hx Myocardial Infarction, Hx Pacemaker/ICD, Hx Peripheral Vascular Disease, Hx Rheumatic Fever, Hx Syncope , Hx Valvular Heart Disease Respiratory History: Reports: Hx Asthma - He used to have this., Hx Chronic Bronchitis, Hx Seasonal Allergies Denies: Hx Chronic Obstructive Pulmonary Disease (COPD), Hx Cystic Fibrosis, Hx Lung Cancer, Hx Pleural Effusion, Hx Pneumonia, Hx Pulmonary Edema, Hx Pulmonary Embolism, Hx Sleep Apnea GI History: Reports: Hx Gastroesophageal Reflux Disease - pt denies this today Denies: Hx Gall Bladder Disease, Hx Gastrointestinal Bleed, Hx Ulcer, Hx Urosepsis History: Reports: Hx Kidney Stones - Kidney stones 2 months ago. Denies: Hx Dialysis, Hx Renal Disease Musculoskeletal History: Reports: Hx Orthopedic Injury - Right Knee Sensory History: Reports: Hx Contacts or Glasses Denies: Hx Cataracts, Hx Eye Injury, Hx Eye Prosthesis, Hx Glaucoma, Hx Legally Blind, Hx Macular Degeneration, Hx Vision Problem, Hx Deafness, Hx Hearing Aid, Hx Hearing Problem, Other Sensory Impairments Opthamlomology History: Reports: Hx Contacts or Glasses Denies: Hx Cataracts, Hx Eye Injury, Hx Eye Prosthesis, Hx Glaucoma, Hx Legally Blind, Hx Macular Degeneration, Hx Vision Problem, Other Sensory Impairments Neurological History: Denies: Hx Dementia, Hx Developmental Delay, Hx Headaches, Hx Migraine, Hx Nerve Disease, Hx Seizures, Hx Spinal Cord Injury, Hx Transient Ischemic Attacks (TIA), Other Neuro Impairments/Disorders Psychiatric History: Reports: Hx Anxiety, Hx Depression - no depression over a year., Hx Inpatient Treatment, Hx Community Mental Health Tx, Hx Suicide Attempt - OD/Jump from parking garage, Hx of Violent Episodes Against Others, Hx Substance Abuse Denies: Hx Attention Deficit Hyperactivity Disorder, Hx Eating Disorder, Hx Panic Disorder, Hx Post Traumatic Stress Disorder, Hx Schizophrenia, Hx Bipolar Disorder, Other Psychiatric Issues/Disorders - Surgical History Surgery Procedure, Year, and Place: T & A. Knee surgery 2005. Left ankle surgery Hx Anesthesia Reactions: No - Immunization History Date of Tetanus Vaccine: Unknown Date of Influenza Vaccine: None Infectious Disease History: No Infectious Disease History: Denies: Hx Clostridium Difficile, Hx Hepatitis, Hx Human Immunodeficiency Virus (HIV), Hx of Known/Suspected MRSA, Hx Shingles, Hx Tuberculosis, Hx Known/ Suspected VRE, Hx Known/Suspected VRSA, History Other Infectious Disease, Traveled Outside the [place] in Last 30 Days - Family History Known Family History: Positive: Cardiac Disease - [place] - father, "9 times", father at 55 from [place], Hypertension, Other - EtOH abuse - Social History Occupation: Employed Full-time Lives: With Family Alcohol Use: Occasionally Alcohol Amount: once a month - h/o ETOH abuse Hx Substance Use: Yes - cocaine, marijuana - 2012 Substance Use Type: Reports: Cocaine, Marijuana Substance Use Comment - Amount & Last Used: bottle of vodka 10/28 Hx Tobacco Use: Yes - not currently smoking - switched to smokeless tob Smoking Status (MU): Current Every Day Smoker Type: Cigarettes - quit last month Sep 2017, Smokeless Tobacco - as of now 2017 Amount Used/How Often: 1-2 PPD Have You Smoked in the Last Year: Yes Review of Systems Negative: Fever, Chills, Skin Diaphoresis Positive: Chest Pain Positive: Other - Negative chest congestion. Negative: Shortness Of Breath, Cough Negative: Vomiting, Diarrhea, Nausea Positive: Other - Positive L shoulder pain All Other Systems Reviewed And Are Negative: Yes Physical Exam - Summary Physical Exam Summary: General: well-appearing, no pain distress Skin: warm, color reflects adequate perfusion, dry Head: normal Eyes: EOMI, ASHLI ENT: normal Neck: supple, nontender Respiratory: CTA, breath sounds present Cardiovascular: RRR Abdomen: soft, nontender Bowel: present Musculoskeletal: normal, strength/ROM intact Neurological: sensory/motor intact, A&O x3 Psychological: affect/mood appropriate Triage Information Reviewed: Yes Vital Signs On Initial Exam: Initial Vitals Temp Pulse Resp BP Pulse Ox 97.2 F 107 18 151/104 96 02/18/18 07:50 02/18/18 07:50 02/18/18 07:50 02/18/18 07:50 02/18/18 07:50 Vital Signs Reviewed: Yes Diagnostics - Vital Signs Vital Signs Temp Pulse Resp BP Pulse Ox 02/18/18 09:19 100 24 149/102 96 02/18/18 09:18 18 02/18/18 08:33 97 16 137/84 97 02/18/18 08:11 97 02/18/18 08:00 107 16 96 02/18/18 07:56 111 16 164/98 97 02/18/18 07:50 97.2 F 107 18 151/104 96 - Laboratory Lab Results: Lab Results 02/18/18 02/18/18 02/18/18 Range/Units 08:20 08:20 08:20 WBC 11.2 H (3.5-10.8) 10^3/ul RBC 4.60 (4.0-5.4) 10^6/ul Hgb 13.6 L (14.0-18.0) g/dl Hct 39 L (42-52) % MCV 84 (80-94) fL MCH 30 (27-31) pg MCHC 35 (31-36) g/dl RDW 13 (10.5-15) % Plt Count 205 (150-450) 10^3/ul MPV 9.1 (7.4-10.4) um3 Neut % (Auto) 59.5 (38-83) % Lymph % (Auto) 32.9 (25-47) % [place] % (Auto) 5.1 (0-7) % Eos % (Auto) 1.5 (0-6) % Baso % (Auto) 1.0 (0-2) % Absolute Neuts (auto) 6.7 (1.5-7.7) 10^3/ul Absolute Lymphs (auto) 3.7 (1.0-4.8) 10^3/ul Absolute Monos (auto) 0.6 (0-0.8) 10^3/ul Absolute Eos (auto) 0.2 (0-0.6) 10^3/ul Absolute Basos (auto) 0.1 (0-0.2) 10^3/ul Absolute Nucleated RBC 0 10^3/ul Nucleated RBC % 0 INR (Anticoag Therapy) 0.88 (0.77-1.02) APTT 34.1 (26.0-36.3) seconds D-Dimer, Quantitative < 200 (Less Than 230) ng/mL Sodium 132 L (139-145) mmol/L Potassium 3.8 (3.5-5.0) mmol/L Chloride 98 L (101-111) mmol/L Carbon Dioxide 25 (22-32) mmol/L Anion Gap 9 (2-11) mmol/L BUN 14 (6-24) mg/dL Creatinine 0.79 (0.67-1.17) mg/dL Est GFR ( Amer) 146.2 (>60) Est GFR (Non-Af Amer) 113.7 (>60) BUN/Creatinine Ratio 17.7 (8-20) Glucose 443 H (70-100) mg/dL Lactic Acid (0.5-2.0) mmol/L Calcium 9.1 (8.6-10.3) mg/dL Magnesium 1.8 L (1.9-2.7) mg/dL Total Bilirubin 0.40 (0.2-1.0) mg/dL AST 34 (13-39) U/L ALT 39 (7-52) U/L Alkaline Phosphatase 120 H (34-104) U/L Total Creatine Kinase 139 (10-223) U/L CK-MB (CK-2) 2.0 (0.6-6.3) ng/mL Troponin I 0.00 (<0.04) ng/mL B-Natriuretic Peptide ( - 100) pg/mL Total Protein 6.8 (6.4-8.9) g/dL Albumin 3.7 (3.2-5.2) g/dL Globulin 3.1 (2-4) g/dL Albumin/Globulin Ratio 1.2 (1-3) TSH 3.81 (0.34-5.60) mcIU/mL 02/18/18 02/18/18 Range/Units 08:20 08:20 WBC (3.5-10.8) 10^3/ul RBC (4.0-5.4) 10^6/ul Hgb (14.0-18.0) g/dl Hct (42-52) % MCV (80-94) fL MCH (27-31) pg MCHC (31-36) g/dl RDW (10.5-15) % Plt Count (150-450) 10^3/ul MPV (7.4-10.4) um3 Neut % (Auto) (38-83) % Lymph % (Auto) (25-47) % [place] % (Auto) (0-7) % Eos % (Auto) (0-6) % Baso % (Auto) (0-2) % Absolute Neuts (auto) (1.5-7.7) 10^3/ul Absolute Lymphs (auto) (1.0-4.8) 10^3/ul Absolute Monos (auto) (0-0.8) 10^3/ul Absolute Eos (auto) (0-0.6) 10^3/ul Absolute Basos (auto) (0-0.2) 10^3/ul Absolute Nucleated RBC 10^3/ul Nucleated RBC % INR (Anticoag Therapy) (0.77-1.02) APTT (26.0-36.3) seconds D-Dimer, Quantitative (Less Than 230) ng/mL Sodium (139-145) mmol/L Potassium (3.5-5.0) mmol/L Chloride (101-111) mmol/L Carbon Dioxide (22-32) mmol/L Anion Gap (2-11) mmol/L BUN (6-24) mg/dL Creatinine (0.67-1.17) mg/dL Est GFR ( Amer) (>60) Est GFR (Non-Af Amer) (>60) BUN/Creatinine Ratio (8-20) Glucose (70-100) mg/dL Lactic Acid 1.8 (0.5-2.0) mmol/L Calcium (8.6-10.3) mg/dL Magnesium (1.9-2.7) mg/dL Total Bilirubin (0.2-1.0) mg/dL AST (13-39) U/L ALT (7-52) U/L Alkaline Phosphatase (34-104) U/L Total Creatine Kinase (10-223) U/L CK-MB (CK-2) (0.6-6.3) ng/mL Troponin I (<0.04) ng/mL B-Natriuretic Peptide 16 ( - 100) pg/mL Total Protein (6.4-8.9) g/dL Albumin (3.2-5.2) g/dL Globulin (2-4) g/dL Albumin/Globulin Ratio (1-3) TSH (0.34-5.60) mcIU/mL Result Diagrams: 02/18/18 08:20 02/18/18 08:20 Lab Statement: Any lab studies that have been ordered have been reviewed, and results considered in the medical decision making process. - Radiology CXR Radiology Interpretation Completed By: Radiologist - CXR reveals, per radiologist, no evidence for acute intrathoracic disease. ED physician has reviewed this radiology report. - EKG 0752 Cardiac Rate: Tachycardia EKG Rhythm: Sinus Rhythm - [address] Segment: Normal EKG Interpretation: Flipped T wave in lead 3 EKG Comparison: No Significant Change - Since EKG taken on 01/12/2018 Re-Evaluation - Re-Evaluation First Eval Re-Evaluation Time: 11:05 Change: Improved Comment: Discussed results and plan of care with pt Chest Pain Course/Dx - Course Course Of Treatment: CHEST PAIN WAS AT 10PM YESTERDAY THEREFORE, NO SECOND TROPONIN DRAWN. DISCUSSED BLOOD SUGAR CONTROL. THE PATIENT HAD BEEN ON METFORMIN 1000MG PO BID WHICH WAS NOT ADEQUATELY CONTROLLING HIS BLOOD SUGAR. HE GOT A NEW RX FOR DM THAT WAS TOO EXPENSIVE SO, HAS NOT BEEN TAKING ANY MEDICATION. HE HAS NO HEALTH INSURANCE WITH HIS NEW JOB. HE IS DUE TO QUALIFY FOR HEALTH INSURANCE IN APRIL OF THIS YEAR. HE STATES HE COULD AFFORD THE METFORMIN 1000MG PO BID IT IS GENERIC. HAS HAD GERD SX. WILL TAKE OMEPRAZOLE OTC. F/U PMD; RETURN IF WORSE. - Diagnoses Provider Diagnoses: Chest pain, GERD (gastroesophageal reflux disease), Diabetes type 2, uncontrolled Discharge - Sign-Out/Discharge Documenting (check all that apply): Discharge/Admit/Transfer - Discharge Plan Condition: Stable Disposition: HOME Prescriptions: metFORMIN* [Glucophage 1000 MG TAB *] 1,000 mg PO BID #60 tab Patient Education Materials: Chest Pain (ED), Type 2 Diabetes in Adults (ED), Diabetic Hyperglycemia (ED), Gastroesophageal Reflux Disease (ED) Referrals: [facility] [place] [facility]IAN REFERRAL [Outside] Additional Instructions: FOLLOW UP WITH YOUR DOCTOR. TAKE THE METFORMIN 1000MG TWICE A DAY. TAKE OMEPRAZOLE 20MG TWICE A DAY. RETURN TO THE EMERGENCY DEPARTMENT FOR ANY WORSENING OF YOUR CONDITION; CHEST PAIN, SHORTNESS OF BREATH, YOU FEEL ILL OR QUESTIONS OR CONCERNS. - Billing Disposition and Condition Condition: STABLE Disposition: HOME The documentation as recorded by the Kelly peace Emily accurately reflects the service I personally performed and the decisions made by me, Dustin Mera MD.
== END 2018-02-18 11:24 | disposition home or self-care (01) ==
LOC: ED 07:46
DX: M25.512 Pain in left shoulder (principal); K21.9 Gastro-esophageal reflux disease without esophagitis; E11.9 Type 2 diabetes mellitus without complications; R07.9 Chest pain, unspecified; F17.210 Nicotine dependence, cigarettes, uncomplicated
CPT/HCPCS: 36415; 71046; 80053; 81003; 81015; 82550; 82553; 83605; 83735; 83880; 84443; 84484; 85025; 85379; 85610; 85730; 87086; 93005; 96360; 99283; A9270-GY

== ENCOUNTER 2018-03-30 04:37 | Emergency (ER) | payer OTHER ==
[2018-03-30] MEDS ORDERED: Ibuprofen TAB* 400 MG PO ONE (05:03)
--- NOTE | 2018-03-30 05:10 | ED ---
Upper Extremity Pain - HPI Summary HPI Summary: Pt is a 33 y/o M w/ left forearm pain and tingling. At work at around 0330 today , a hoist dropped a 35 lbs load on pt's left forearm. Pt states that pain is worst close to back of elbow. Pain is rated 7/10 on triage and pt notes that movement worsens pain. He reports taking an Aleve at 0345. Pt has HTN. - History of Current Complaint Chief Complaint: EDExtremityUpper Stated Complaint: LT ARM INJURY Time Seen by Provider: 03/30/18 04:57 Hx Obtained From: Patient Mechanism Of Injury: Blunt Trauma - 35 lbs load dropped from a raised hoist. Onset/Duration: Started Hours Ago - accident occurred around 0330 at work today , Still Present Timing: Lasting Hours Severity Currently: Moderate - 6/10 Pain Location: Forearm - left Aggravating Factor(s): Movement Alleviating Factor(s): Nothing - Allergies/Home Medications Allergies/Adverse Reactions: Allergies Allergy/AdvReac Type Severity Reaction Status Date / Time No Known Allergies Allergy Verified 03/30/18 04:40 Home Medications: Home Medications NK [No Home Medications Reported] 03/30/18 [History Confirmed 03/30/18] PMH/Surg Hx/FS Hx/Imm Hx Endocrine/Hematology History: Reports: Hx Diabetes - NOT ON MEDS--he stopped taking metformin due to $ Denies: Hx Anticoagulant Therapy, Hx Blood Disorders, Hx Blood Transfusions, Hx Bone Marrow Disease, Hx Systemic Lupus Erythematosus, Hx Sickle Cell Disease , Hx Thyroid Disease, Hx Anemia, Hx Unexplained Bleeding, Other Endocrine/ Hematological Disorders Cardiovascular History: Reports: Hx Hypertension - was on atenolol - NOT ON MEDS --he stopped taking due to $, Other Cardiovascular Problems/Disorders - CARDIAC CATH 2011 Denies: Hx Aneurysm, Hx Angina, Hx Angioplasty, Hx Auto Implanted Cardiovert Defib, Hx Cardiac Arrest, Hx Cardiomegaly, Hx Congenital Heart Disease, Hx Congestive Heart Failure, Hx Coronary Artery Disease, Hx Deep Vein Thrombosis, Hx Embolism, Hx Hypercholesterolemia, Hx Hypotension, Hx Myocardial Infarction, Hx Pacemaker/ICD, Hx Peripheral Vascular Disease, Hx Rheumatic Fever, Hx Syncope , Hx Valvular Heart Disease Respiratory History: Reports: Hx Asthma - He used to have this., Hx Chronic Bronchitis, Hx Seasonal Allergies Denies: Hx Chronic Obstructive Pulmonary Disease (COPD), Hx Cystic Fibrosis, Hx Lung Cancer, Hx Pleural Effusion, Hx Pneumonia, Hx Pulmonary Edema, Hx Pulmonary Embolism, Hx Sleep Apnea GI History: Reports: Hx Gastroesophageal Reflux Disease - pt denies this today Denies: Hx Gall Bladder Disease, Hx Gastrointestinal Bleed, Hx Ulcer, Hx Urosepsis History: Reports: Hx Kidney Stones - Kidney stones 2 months ago. Denies: Hx Dialysis, Hx Renal Disease Musculoskeletal History: Reports: Hx Orthopedic Injury - Right Knee Sensory History: Reports: Hx Contacts or Glasses Denies: Hx Cataracts, Hx Eye Injury, Hx Eye Prosthesis, Hx Glaucoma, Hx Legally Blind, Hx Macular Degeneration, Hx Vision Problem, Hx Deafness, Hx Hearing Aid, Hx Hearing Problem, Other Sensory Impairments Opthamlomology History: Reports: Hx Contacts or Glasses Denies: Hx Cataracts, Hx Eye Injury, Hx Eye Prosthesis, Hx Glaucoma, Hx Legally Blind, Hx Macular Degeneration, Hx Vision Problem, Other Sensory Impairments Neurological History: Denies: Hx Dementia, Hx Developmental Delay, Hx Headaches, Hx Migraine, Hx Nerve Disease, Hx Seizures, Hx Spinal Cord Injury, Hx Transient Ischemic Attacks (TIA), Other Neuro Impairments/Disorders Psychiatric History: Reports: Hx Anxiety, Hx Depression - no depression over a year., Hx Inpatient Treatment, Hx Community Mental Health Tx, Hx Suicide Attempt - OD/Jump from parking garage, Hx of Violent Episodes Against Others, Hx Substance Abuse Denies: Hx Attention Deficit Hyperactivity Disorder, Hx Eating Disorder, Hx Panic Disorder, Hx Post Traumatic Stress Disorder, Hx Schizophrenia, Hx Bipolar Disorder, Other Psychiatric Issues/Disorders - Surgical History Surgery Procedure, Year, and Place: T & A. Knee surgery 2005. Left ankle surgery Hx Anesthesia Reactions: No - Immunization History Date of Tetanus Vaccine: Unknown Date of Influenza Vaccine: None Infectious Disease History: No Infectious Disease History: Denies: Hx Clostridium Difficile, Hx Hepatitis, Hx Human Immunodeficiency Virus (HIV), Hx of Known/Suspected MRSA, Hx Shingles, Hx Tuberculosis, Hx Known/ Suspected VRE, Hx Known/Suspected VRSA, History Other Infectious Disease, Traveled Outside the [place] in Last 30 Days - Family History Known Family History: Positive: Cardiac Disease - [place] - father, "9 times", father at 55 from [place], Hypertension, Other - EtOH abuse - Social History Alcohol Use: Occasionally Alcohol Amount: once a month - h/o ETOH abuse Hx Substance Use: Yes - cocaine, marijuana - 2013 Substance Use Type: Reports: Cocaine, Marijuana Substance Use Comment - Amount & Last Used: bottle of vodka 10/28 Hx Tobacco Use: Yes - not currently smoking - switched to smokeless tob Smoking Status (MU): Current Every Day Smoker Type: Cigarettes - quit last month Sep 2017, Smokeless Tobacco - as of now 2017 Amount Used/How Often: 1-2 PPD Have You Smoked in the Last Year: Yes Review of Systems Positive: Other - high BP Positive: Other - left forearm pain and tingling sensation All Other Systems Reviewed And Are Negative: Yes Physical Exam - Summary Physical Exam Summary: Appearance: Well-appearing, Well-nourished, lying in bed comfortably Skin: Warm, dry, no obvious rash Eyes: sclera anicteric, no conjunctival pallor ENT: mucous membranes moist, pharynx appears normal Neck: Supple, nontender Respiratory: Clear to auscultation, no signs of respiratory distress Cardiovascular: Normal S1, S2. No murmurs. Normal distal pulses in tibial and radial bilaterally. Abdomen: Soft, nontender, normal active bowel sounds present Musculoskeletal: Normal, Strength/ROM Intact. Tenderness on left proximal forearm next to the elbow. Neurological: A&Ox3, awake and alert, mentation is normal, speech is fluent and appropriate Psychiatric: affect is normal, does not appear anxious or depressed Triage Information Reviewed: Yes Vital Signs On Initial Exam: Initial Vitals Temp Pulse Resp BP Pulse Ox 97.6 F 100 17 161/107 97 03/30/18 04:40 03/30/18 04:40 03/30/18 04:40 03/30/18 04:40 03/30/18 04:40 Vital Signs Reviewed: Yes Diagnostics - Vital Signs Vital Signs Temp Pulse Resp BP Pulse Ox 03/30/18 04:40 97.6 F 100 17 161/107 97 - Laboratory Lab Statement: Any lab studies that have been ordered have been reviewed, and results considered in the medical decision making process. - Radiology Left Forearm X-Ray Xray Interpretation: No Acute Changes Radiology Interpretation Completed By: ED Physician - Normal forearm, pending official report Left Elbow X-Ray Xray Interpretation: No Acute Changes Radiology Interpretation Completed By: ED Physician - Normal Elbow X-Ray, pending official report Course/Dx - Diagnoses Provider Diagnoses: Contusion of left forearm Discharge - Sign-Out/Discharge Documenting (check all that apply): Patient Departure - Discharge Plan Condition: Good Disposition: HOME Patient Education Materials: Contusion in Adults (ED) Referrals: Eduardo NEGRO,Alfredito Blackwell [Primary Care Provider] - - Billing Disposition and Condition Condition: GOOD Disposition: Home
[2018-03-30 06:27] VITALS: BP 147/96
--- NOTE | 2018-03-30 08:28 | RAD ---
Indication: Left elbow pain and injury 4 views of left elbow are reviewed and compared to previous exam dated November 13, 2014. There is deformity of the radial head which is unchanged from previous exam. No definite joint effusion is noted. No definite fracture is noted. IMPRESSION: There is slight deformity of the radial head which is likely due to prior injury as it appears to be similar to that seen on November 13, 2017. No joint effusion is noted.
--- NOTE | 2018-03-30 08:35 | RAD ---
Indication: Left forearm injury. 2 views of the forearm demonstrates hyper ostosis of the ulna. No fracture is noted. IMPRESSION: Hyperostosis of the ulna without evidence of fracture.
== END 2018-03-30 06:26 | disposition home or self-care (01) ==
LOC: ED 04:37
DX: S50.12XA Contusion of left forearm, initial encounter (principal); W20.8XXA Other cause of strike by thrown, projected or falling object, initial encounter; Y92.9 Unspecified place or not applicable; M85.832 Other specified disorders of bone density and structure, left forearm; I10 Essential (primary) hypertension; E11.9 Type 2 diabetes mellitus without complications; F17.290 Nicotine dependence, other tobacco product, uncomplicated; Z91.120 Patient's intentional underdosing of medication regimen due to financial hardship
CPT/HCPCS: 99282; A9270-GY

== ENCOUNTER 2018-05-27 07:28 | Emergency (ER) | payer SELFPAY ==
--- NOTE | 2018-05-27 08:11 | ED ---
Lower Extremity - HPI Summary HPI Summary: Pt. is a 33 y.o male who presents emergency department for right calf pain times roughly one week. Patient does not recall any specific injuries but notes that he was camping last week and was stepping in and out of a camper. He was seen at [facility] yesterday and they were concerned for possible DVT and he is referred to the ER. Patient denies chest pain or shortness of breath. Past medical history of diabetes. Symptoms are mild in severity. Walking makes symptoms worse. Rest makes symptoms better. Denies recent surgeries, long car trips, history of hypercoagulability. - History of Current Complaint Chief Complaint: EDExtremityLower Stated Complaint: POSS BLOOD CLOT RT LEG Time Seen by Provider: 05/27/18 07:50 Hx Obtained From: Patient Pain Intensity: 6 - Allergies/Home Medications Allergies/Adverse Reactions: Allergies Allergy/AdvReac Type Severity Reaction Status Date / Time No Known Allergies Allergy Verified 05/27/18 07:48 PMH/Surg Hx/FS Hx/Imm Hx Previously Healthy: Yes Endocrine/Hematology History: Reports: Hx Diabetes - NOT ON MEDS--he stopped taking metformin due to $ Denies: Hx Anticoagulant Therapy, Hx Blood Disorders, Hx Blood Transfusions, Hx Bone Marrow Disease, Hx Systemic Lupus Erythematosus, Hx Sickle Cell Disease , Hx Thyroid Disease, Hx Anemia, Hx Unexplained Bleeding, Other Endocrine/ Hematological Disorders Cardiovascular History: Reports: Hx Hypertension - was on atenolol - NOT ON MEDS --he stopped taking due to $, Other Cardiovascular Problems/Disorders - CARDIAC CATH 2011 Denies: Hx Aneurysm, Hx Angina, Hx Angioplasty, Hx Auto Implanted Cardiovert Defib, Hx Cardiac Arrest, Hx Cardiomegaly, Hx Congenital Heart Disease, Hx Congestive Heart Failure, Hx Coronary Artery Disease, Hx Deep Vein Thrombosis, Hx Embolism, Hx Hypercholesterolemia, Hx Hypotension, Hx Myocardial Infarction, Hx Pacemaker/ICD, Hx Peripheral Vascular Disease, Hx Rheumatic Fever, Hx Syncope , Hx Valvular Heart Disease Respiratory History: Reports: Hx Asthma - He used to have this., Hx Chronic Bronchitis, Hx Seasonal Allergies Denies: Hx Chronic Obstructive Pulmonary Disease (COPD), Hx Cystic Fibrosis, Hx Lung Cancer, Hx Pleural Effusion, Hx Pneumonia, Hx Pulmonary Edema, Hx Pulmonary Embolism, Hx Sleep Apnea GI History: Reports: Hx Gastroesophageal Reflux Disease - pt denies this today Denies: Hx Gall Bladder Disease, Hx Gastrointestinal Bleed, Hx Ulcer, Hx Urosepsis History: Reports: Hx Kidney Stones - Kidney stones 2 months ago. Denies: Hx Dialysis, Hx Renal Disease Musculoskeletal History: Reports: Hx Orthopedic Injury - Right Knee Sensory History: Reports: Hx Contacts or Glasses Denies: Hx Cataracts, Hx Eye Injury, Hx Eye Prosthesis, Hx Glaucoma, Hx Legally Blind, Hx Macular Degeneration, Hx Vision Problem, Hx Deafness, Hx Hearing Aid, Hx Hearing Problem, Other Sensory Impairments Opthamlomology History: Reports: Hx Contacts or Glasses Denies: Hx Cataracts, Hx Eye Injury, Hx Eye Prosthesis, Hx Glaucoma, Hx Legally Blind, Hx Macular Degeneration, Hx Vision Problem, Other Sensory Impairments Neurological History: Denies: Hx Dementia, Hx Developmental Delay, Hx Headaches, Hx Migraine, Hx Nerve Disease, Hx Seizures, Hx Spinal Cord Injury, Hx Transient Ischemic Attacks (TIA), Other Neuro Impairments/Disorders Psychiatric History: Reports: Hx Anxiety, Hx Depression - no depression over a year., Hx Inpatient Treatment, Hx Community Mental Health Tx, Hx Suicide Attempt - OD/Jump from parking garage, Hx of Violent Episodes Against Others, Hx Substance Abuse Denies: Hx Attention Deficit Hyperactivity Disorder, Hx Eating Disorder, Hx Panic Disorder, Hx Post Traumatic Stress Disorder, Hx Schizophrenia, Hx Bipolar Disorder, Other Psychiatric Issues/Disorders - Surgical History Surgery Procedure, Year, and Place: T & A. Knee surgery 2005. Left ankle surgery Hx Anesthesia Reactions: No - Immunization History Date of Tetanus Vaccine: Unknown Date of Influenza Vaccine: None Infectious Disease History: No Infectious Disease History: Denies: Hx Clostridium Difficile, Hx Hepatitis, Hx Human Immunodeficiency Virus (HIV), Hx of Known/Suspected MRSA, Hx Shingles, Hx Tuberculosis, Hx Known/ Suspected VRE, Hx Known/Suspected VRSA, History Other Infectious Disease, Traveled Outside the [place] in Last 30 Days - Family History Known Family History: Positive: Cardiac Disease - [place] - father, "9 times", father at 55 from [place], Hypertension, Other - EtOH abuse - Social History Occupation: Employed Full-time Lives: With Family Alcohol Use: None Alcohol Amount: once a month - h/o ETOH abuse Hx Substance Use: Yes - cocaine, marijuana - 2012 Substance Use Type: Reports: None Substance Use Comment - Amount & Last Used: bottle of vodka 10/28 Hx Tobacco Use: Yes - not currently smoking - switched to smokeless tob Smoking Status (MU): Heavy Every Day Tobacco Smoker Type: Cigarettes, Smokeless Tobacco Amount Used/How Often: 1-2 PPD Have You Smoked in the Last Year: Yes Review of Systems Constitutional: Negative Negative: Fever, Chills Cardiovascular: Negative Negative: Chest Pain Respiratory: Negative Negative: Shortness Of Breath Positive: Other - Right calf pain Skin: Negative All Other Systems Reviewed And Are Negative: Yes Physical Exam Triage Information Reviewed: Yes Vital Signs On Initial Exam: Initial Vitals Temp Pulse Resp BP Pulse Ox 97.0 F 90 16 155/92 98 05/27/18 07:46 05/27/18 07:46 05/27/18 07:46 05/27/18 07:46 05/27/18 07:46 Vital Signs Reviewed: Yes Appearance: Positive: Well-Appearing - Pt. sitting on bed in NAD. Skin: Positive: Warm, Dry Head/Face: Positive: Normal Head/Face Inspection Eyes: Positive: Normal, EOMI Neck: Positive: Supple Musculoskeletal: Positive: Other - Mild tenderness to the mid lateral aspect of the right calf. No erythema, edema, increased warmth, or breaks in the skin. Neurological: Positive: Normal, CN Intact II-III Psychiatric: Positive: Affect/Mood Appropriate Diagnostics - Vital Signs Vital Signs Temp Pulse Resp BP Pulse Ox 05/27/18 07:46 97.0 F 90 16 155/92 98 - Laboratory Lab Statement: Any lab studies that have been ordered have been reviewed, and results considered in the medical decision making process. Lower Extremity Course/Dx - Course Course Of Treatment: Pt. presenting for ongoing right calf pain. No signs of infection or trauma on exam. Venous duplex is negative for DVT or acute findings , per radiology. Results discussed. Advised to ice and elevate, activity as tolerated, NSAIDS. It was noted that pt. has stopped DM and HTN meds due to tello. Strongly advised pt. to call his PCP tomorrow for re-evaluation and to discuss medications. Pt understands and agrees with plan. - Diagnoses Differential Diagnosis/HQI/PQRI: Positive: Cellulitis, Contusion, DVT, Sprain, Strain Provider Diagnoses: Strain of calf muscle Discharge - Sign-Out/Discharge Documenting (check all that apply): Patient Departure - Discharge Plan Condition: Good Disposition: HOME Patient Education Materials: Muscle Strain (ED) Forms: *Work Release Referrals: [facility] [Outside] No Primary Care Phys,NOPCP [Primary Care Provider] - Additional Instructions: Call your PCP tomorrow for an appointment Ice and elevate NSAIDS for pain as directed such as ibuprofen Return to ER if symptoms change or worsen - Billing Disposition and Condition Condition: GOOD Disposition: Home
--- NOTE | 2018-05-27 09:00 | RAD ---
Indication: Right lower extremity pain.. Duplex Doppler sonography of the deep venous system of the right lower extremity deep venous system was performed. Bilaterally the common femoral veins appear patent and compressible. Right proximal greater saphenous vein, proximal deep femoral vein, femoral vein, popliteal vein, posterior tibial veins and peroneal veins appear patent and compressible. IMPRESSION: NO EVIDENCE OF DEEP VENOUS THROMBOSIS IS IDENTIFIED.
[2018-05-27 09:23] VITALS: BP 154/123
== END 2018-05-27 09:21 | disposition home or self-care (01) ==
LOC: ED 07:28
DX: S86.911A Strain of unspecified muscle(s) and tendon(s) at lower leg level, right leg, initial encounter (principal); X58.XXXA Exposure to other specified factors, initial encounter; Y93.9 Activity, unspecified; Y92.9 Unspecified place or not applicable; F17.210 Nicotine dependence, cigarettes, uncomplicated
CPT/HCPCS: 99282

== ENCOUNTER 2018-05-30 16:24 | Emergency (ER) | payer SELFPAY ==
[2018-05-30 16:36] VITALS: BP 179/105
== END 2018-05-30 19:00 | disposition left against medical advice (07) ==
LOC: ED 16:24
DX: R00.2 Palpitations (principal); Z53.21 Procedure and treatment not carried out due to patient leaving prior to being seen by health care provider

== ENCOUNTER 2018-05-30 18:09 | Emergency (ER) | payer SELFPAY ==
--- NOTE | 2018-05-30 18:46 | UC ---
Palpitation/Dysrhythmia HP - HPI Summary HPI Summary: The patient is a 33-year-old male that presents here for evaluation of palpitations. He has a long history of palpitations. Out 4 months ago he had a Holter monitor as well as an echocardiogram. He has been on a beta juanita in the past for hypertension but has not taken one for a number of months. Smokes one and half to 2 packs of cigarettes a day. He drinks 10 sodas a day. He states that he has been experiencing palpitations which have worsened over the past 3-4 days. He was seen in the emergency room a few days ago and had a DVT ruled out in his right leg. He has had a small patch of pain tenderness and warmth in his right calf. He has had no chest pain or shortness of breath. He has had no syncope or near syncope. - History of Current Complaint Chief Complaint: UCCardiac Stated Complaint: RACING HEART Time Seen by Provider: 05/30/18 18:24 Hx Obtained From: Patient Onset/Duration: Gradual Onset, Lasting Days Timing: Constant Severity Initially: Mild Severity Currently: Mild Pain Intensity: 0 Pain Scale Used: 0-10 Numeric Character: Fast Aggravating Factor(s): Nothing Alleviating Factor(s): Nothing Associated Signs & Symptoms: Negative: Lightheadedness, Dizzy, Syncope, Chest Pain, Shortness of Breath, Diaphoresis, Nausea, Vomiting - Allergy/Home Medications Allergies/Adverse Reactions: Allergies Allergy/AdvReac Type Severity Reaction Status Date / Time No Known Allergies Allergy Verified 05/30/18 18:17 PMH/Surg Hx/FS Hx/Imm Hx Previously Healthy: Yes Endocrine History: Diabetes - non compliant with meds Cardiovascular History: Hypertension - stopped beta juanita Other History Of: Negative For: HIV, Hepatitis B, Hepatitis C, Anticoagulant Therapy - Surgical History Surgical History: Yes Surgery Procedure, Year, and Place: T & A. Knee surgery 2005. Left ankle surgery - Family History Known Family History: Positive: Cardiac Disease - [place] - father, "9 times", father at 55 from [place], Hypertension, Other - EtOH abuse - Social History Alcohol Use: None Alcohol Amount: once a month - h/o ETOH abuse Substance Use Type: None Substance Use Comment - Amount & Last Used: bottle of vodka 10/28 Smoking Status (MU): Heavy Every Day Tobacco Smoker Type: Cigarettes, Smokeless Tobacco Amount Used/How Often: 1-2 PPD Have You Smoked in the Last Year: Yes Household Exposure Type: Cigarettes Cessation Counseling: Patient Advised to Stop - Immunization History Most Recent Influenza Vaccination: Fall 2012 Most Recent Tetanus Shot: UTD Most Recent Pneumonia Vaccination: Never Review of Systems Constitutional: Negative Skin: Negative Eyes: Negative ENT: Negative Respiratory: Negative Cardiovascular: Palpitations Gastrointestinal: Negative Genitourinary: Negative Motor: Negative Neurovascular: Negative Musculoskeletal: Calf Tenderness - see image Neurological: Negative Psychological: Negative Is Patient Immunocompromised?: No All Other Systems Reviewed And Are Negative: Yes Physical Exam Triage Information Reviewed: Yes Appearance: Well-Appearing, No Pain Distress, Other: - bmi 44+ Vital Signs: Initial Vital Signs Temp 98.9 F 05/30/18 18:14 Pulse 121 05/30/18 18:14 Resp 21 05/30/18 18:14 BP 173/109 05/30/18 18:14 Pulse Ox 97 05/30/18 18:14 Eyes: Positive: Conjunctiva Clear ENT: Positive: Hearing grossly normal. Negative: Pharyngeal erythema, Nasal congestion, Trismus, Muffled voice, Hoarse voice Neck: Positive: Supple, Nontender, No Lymphadenopathy Respiratory: Positive: Lungs clear, Normal breath sounds, No respiratory distress, No accessory muscle use Cardiovascular: Positive: RRR, No Murmur, Tachycardia Abdomen Description: Positive: Nontender Bowel Sounds: Positive: Present Musculoskeletal: Positive: ROM Intact, No Edema, Other: - see image Neurological: Positive: Alert Psychological Exam: Normal Skin Exam: Other - RASH LEFT AXILLA C/W LIBAN Palpitations Course/Dx - Differential Dx/Diagnosis Provider Diagnoses: palpitations. hypertension- untreated. diabetes - untreated. yeast infection left axilla Discharge - Sign-Out/Discharge Documenting (check all that apply): Patient Departure All imaging exams completed and their final reports reviewed: No Studies - Discharge Plan Condition: Stable Disposition: HOME Prescriptions: Atenolol TAB* [Tenormin TAB* 25 MG] 25 mg PO DAILY #30 tab Clotrimazole/Betamethasone* [Lotrisone Cream*] 1 applic TOPICAL BID #1 tube Naproxen Sodium [Naproxen ER 375 mg tab] 375 mg PO TID PRN #30 tab PRN Reason: Pain Patient Education Materials: Heart Palpitations (ED), Superficial Thrombophlebitis (ED), Hypertension (ED) Referrals: No Primary Care Phys,NOPCP [Primary Care Provider] - Additional Instructions: heat to painful area on calf decrease your aspirin use to 81 mg day YOU NEED TO STOP SMOKING YOU NEED TO DECREASE OR STOP YOU CAFFEINE USE SEE YOUR MD AT [facility]...FIRST AVAILABLE APPT YOU NEED TO GET RESTARTED ON YOUR DIABETIC MEDS AND F/U RE. YOUR PALPITATIONS AND BP TO ER FOR NEW OR WORSENING SYMPTOMS - Billing Disposition and Condition Condition: STABLE Disposition: Home Images Front/Back of Body, Lg ([place]): 1 - red/warm/ no calf swelling or popliteal tenderness
[2018-05-30 18:52] VITALS: BP 153/96
== END 2018-05-30 19:17 | disposition home or self-care (01) ==
LOC: UCEAST 18:09
DX: R00.2 Palpitations (principal); I10 Essential (primary) hypertension; E11.9 Type 2 diabetes mellitus without complications; B37.2 Candidiasis of skin and nail; F17.210 Nicotine dependence, cigarettes, uncomplicated
CPT/HCPCS: 93005; 99211; G0463

== ENCOUNTER 2018-06-03 11:30 | Emergency (ER) | payer SELFPAY ==
[2018-06-03 12:19] VITALS: BP 148/96
--- NOTE | 2018-06-03 13:19 | UC ---
Lower Extremity/Ankle HPI - HPI Summary HPI Summary: The patient is a 33-year-old male who comes in for evaluation of right calf pain. He was seen here on 05/27/18 for evaluation of the same. He was sent to the emergency room. There he had a venous Doppler study. The venous Doppler study showed no DVT. He states they diagnosed him with a muscle strain. Then he was told to take ibuprofen. I saw the patient here on 05/30/18. At that point he was complaining of palpitations. Been noncompliant with his beta juanita. He told me his right calf pain had not changed since his ER visit. I saw him his exam was consistent with some superficial thrombophlebitis. I had him stop his his Motrin. We started him on naproxen. I told him to apply heat to the area frequently. He started using a heating pad. Followed up with his primary the next day. He states at [facility] he had another ultrasound performed. This ultrasound was done on 05/31 or 06/01. Again he was told that he did not have a blood clot. He presents here today for reexamination due to worsening calf pain and swelling. He denies any chest pain or shortness of breath. His palpitations have resolved since restarting his beta juanita. He denies any chest pain or shortness of breath. - History of Current Complaint Chief Complaint: UCLowerExtremity Stated Complaint: RIGHT CALF COMPLAINT Time Seen by Provider: 06/03/18 12:56 Hx Obtained From: Patient Onset/Duration: Gradual Onset, Lasting Days Severity Initially: Mild Severity Currently: Moderate Pain Intensity: 6 Pain Scale Used: 0-10 Numeric Aggravating Factor(s): Standing, Ambulation Alleviating Factor(s): Rest, Elevation, Other - heat Able to Bear Weight: Yes Legs: 1 - 10 cm below tibial tubercle. R 50cm. L47cm 2 - 20 cm below tibial tubercle. R 38.5 L35.5cm 3 - tender /warm/indurated/no redness - Allergies/Home Medications Allergies/Adverse Reactions: Allergies Allergy/AdvReac Type Severity Reaction Status Date / Time No Known Allergies Allergy Verified 06/03/18 12:20 Home Medications: Home Medications Aspirin [Aspir-Low] 2 tab PO DAILY 06/03/18 [History Confirmed 06/03/18] PMH/Surg Hx/FS Hx/Imm Hx Previously Healthy: Yes Endocrine History: Diabetes Cardiovascular History: Hypertension Other History Of: Negative For: HIV, Hepatitis B, Hepatitis C, Anticoagulant Therapy - Surgical History Surgical History: Yes Surgery Procedure, Year, and Place: T & A. Knee surgery 2005. Left ankle surgery - Family History Known Family History: Positive: Cardiac Disease - [place] - father, "9 times", father at 55 from [place], Hypertension, Other - EtOH abuse - Social History Alcohol Use: None Alcohol Amount: once a month - h/o ETOH abuse Substance Use Type: None Substance Use Comment - Amount & Last Used: bottle of vodka 10/28 Smoking Status (MU): Heavy Every Day Tobacco Smoker Type: Cigarettes, Smokeless Tobacco Amount Used/How Often: 1-2 PPD Have You Smoked in the Last Year: Yes Household Exposure Type: Cigarettes - Immunization History Most Recent Influenza Vaccination: Fall 2012 Most Recent Tetanus Shot: UTD Most Recent Pneumonia Vaccination: Never Review of Systems Constitutional: Negative Skin: Negative Eyes: Negative ENT: Negative Respiratory: Negative Cardiovascular: Negative Gastrointestinal: Negative Genitourinary: Negative Motor: Negative Neurovascular: Negative Musculoskeletal: Myalgia Neurological: Negative Psychological: Negative Is Patient Immunocompromised?: No All Other Systems Reviewed And Are Negative: Yes Physical Exam Triage Information Reviewed: Yes Appearance: Well-Appearing, No Pain Distress, Well-Nourished Vital Signs: Initial Vital Signs Temp 98.9 F 06/03/18 12:16 Pulse 90 06/03/18 12:16 Resp 18 06/03/18 12:16 BP 148/96 06/03/18 12:16 Pulse Ox 95 06/03/18 12:16 Vital Signs Reviewed: Yes Eyes: Positive: Conjunctiva Clear ENT: Positive: Hearing grossly normal. Negative: Nasal congestion, Nasal drainage, Muffled voice, Hoarse voice Neck: Positive: Supple, Nontender, No Lymphadenopathy Respiratory: Positive: Lungs clear, Normal breath sounds, No respiratory distress, Respiratory distress Cardiovascular: Positive: RRR, No Murmur Musculoskeletal: Positive: Edema @ - right calf swollen, Other: - see image Neurological: Positive: Alert Psychological Exam: Normal Skin Exam: Normal Lower Extremity Course/Dx - Course Course Of Treatment: Patients area of tenderness/induration has increased in size since initial visit. Warned re possibility of extension to DVT. area of swelling is very localized. No popliteal tenderness or cords. He declines going to ER for repeat doppler. will follow up with his PMD tomorrow - Differential Dx/Diagnosis Provider Diagnoses: worsening superfical thrombophelitis Discharge - Sign-Out/Discharge Documenting (check all that apply): Patient Departure All imaging exams completed and their final reports reviewed: No Studies - Discharge Plan Condition: Stable Disposition: HOME Prescriptions: Indomethacin CAP* [Indocin CAP*] 50 mg PO TID PRN #9 cap PRN Reason: Pain Patient Education Materials: Superficial Thrombophlebitis (ED) Referrals: No Primary Care Phys,NOPCP [Primary Care Provider] - Additional Instructions: see your MD tomorrow You need another ultrasound stop naproxen take indocin with food to er for new or worsening symptoms - Billing Disposition and Condition Condition: STABLE Disposition: Home
== END 2018-06-03 13:29 | disposition home or self-care (01) ==
LOC: UCEAST 11:30
DX: I80.01 Phlebitis and thrombophlebitis of superficial vessels of right lower extremity (principal); Z79.82 Long term (current) use of aspirin; F17.210 Nicotine dependence, cigarettes, uncomplicated
CPT/HCPCS: 99212; G0463

== ENCOUNTER 2018-06-04 18:25 | Observation (INO) | payer SELFPAY ==
--- NOTE | 2018-06-04 18:40 | ED ---
Lower Extremity - HPI Summary HPI Summary: This pt is a 33 y/o male presenting to [facility] c/o persistent right leg pain, swelling and redness for the past 1 week. Pt reports he had an ultrasound of right lower extremity on 05/27/19 which resulted negative for DVT. Pt went to [facility] on 05/31 or 06/01 and had another ultrasound that also resulted negative for DVT. Pt presents today for persistent right leg swelling and redness. Additionally notes palpitations, characterized as fast, according to his watch his HR was 143 [address] and since then it has been between 90-119 bpm. Denies chest pain, SOB, fever, knee pain. He states he saw Dr. Nieto yesterday and was told his right leg was 2 inches bigger than the left. Pt was advised to see his PCP today. NKDA. He is currently on 25 mg atenolol, aspirin BID (650 mg one in the morning and one at night). PMHx includes HTN, s/p cardiac cath in 2011. - History of Current Complaint Chief Complaint: EDExtremityLower Stated Complaint: RT LEG SWOLLEN AND PAIN Time Seen by Provider: 06/04/18 18:36 Hx Obtained From: Patient Mechanism Of Injury: Other - no trauma Onset of Pain: Days Onset/Duration: Days Severity Initially: Moderate Severity Currently: Severe Pain Intensity: 8 Pain Scale Used: 0-10 Numeric Timing: Constant Location: Is Discrete @ - right lower leg Character Of Pain: Aching Associated Signs And Symptoms: Positive: Swelling, Redness, Other - POS: palpitations. NEG: chest pain, SOB, fever.. Negative: Fever, Knee Pain Aggravating Factor(s): Nothing Alleviating Factor(s): Nothing Able to Bear Weight: Yes - Allergies/Home Medications Allergies/Adverse Reactions: Allergies Allergy/AdvReac Type Severity Reaction Status Date / Time No Known Allergies Allergy Verified 06/04/18 18:33 PMH/Surg Hx/FS Hx/Imm Hx Previously Healthy: No Endocrine/Hematology History: Reports: Hx Diabetes Denies: Hx Anticoagulant Therapy, Hx Blood Disorders, Hx Blood Transfusions, Hx Bone Marrow Disease, Hx Systemic Lupus Erythematosus, Hx Sickle Cell Disease , Hx Thyroid Disease, Hx Anemia, Hx Unexplained Bleeding, Other Endocrine/ Hematological Disorders Cardiovascular History: Reports: Hx Hypertension, Other Cardiovascular Problems/ Disorders - CARDIAC CATH 2011 Denies: Hx Aneurysm, Hx Angina, Hx Angioplasty, Hx Auto Implanted Cardiovert Defib, Hx Cardiac Arrest, Hx Cardiomegaly, Hx Congenital Heart Disease, Hx Congestive Heart Failure, Hx Coronary Artery Disease, Hx Deep Vein Thrombosis, Hx Embolism, Hx Hypercholesterolemia, Hx Hypotension, Hx Myocardial Infarction, Hx Pacemaker/ICD, Hx Peripheral Vascular Disease, Hx Rheumatic Fever, Hx Syncope , Hx Valvular Heart Disease Respiratory History: Reports: Hx Asthma, Hx Chronic Bronchitis, Hx Seasonal Allergies Denies: Hx Chronic Obstructive Pulmonary Disease (COPD), Hx Cystic Fibrosis, Hx Lung Cancer, Hx Pleural Effusion, Hx Pneumonia, Hx Pulmonary Edema, Hx Pulmonary Embolism, Hx Sleep Apnea GI History: Reports: Hx Gastroesophageal Reflux Disease Denies: Hx Gall Bladder Disease, Hx Gastrointestinal Bleed, Hx Ulcer, Hx Urosepsis History: Reports: Hx Kidney Stones Denies: Hx Dialysis, Hx Renal Disease Musculoskeletal History: Reports: Hx Orthopedic Injury - Right Knee Sensory History: Reports: Hx Contacts or Glasses Denies: Hx Cataracts, Hx Eye Injury, Hx Eye Prosthesis, Hx Glaucoma, Hx Legally Blind, Hx Macular Degeneration, Hx Vision Problem, Hx Deafness, Hx Hearing Aid, Hx Hearing Problem, Other Sensory Impairments Opthamlomology History: Reports: Hx Contacts or Glasses Denies: Hx Cataracts, Hx Eye Injury, Hx Eye Prosthesis, Hx Glaucoma, Hx Legally Blind, Hx Macular Degeneration, Hx Vision Problem, Other Sensory Impairments Neurological History: Denies: Hx Dementia, Hx Developmental Delay, Hx Headaches, Hx Migraine, Hx Nerve Disease, Hx Seizures, Hx Spinal Cord Injury, Hx Transient Ischemic Attacks (TIA), Other Neuro Impairments/Disorders Psychiatric History: Reports: Hx Anxiety, Hx Depression - no depression over a year., Hx Inpatient Treatment, Hx Community Mental Health Tx, Hx Suicide Attempt - OD/Jump from parking garage, Hx of Violent Episodes Against Others, Hx Substance Abuse Denies: Hx Attention Deficit Hyperactivity Disorder, Hx Eating Disorder, Hx Panic Disorder, Hx Post Traumatic Stress Disorder, Hx Schizophrenia, Hx Bipolar Disorder, Other Psychiatric Issues/Disorders - Surgical History Surgery Procedure, Year, and Place: T & A 1992. Knee surgery 2005. Left ankle surgery Hx Anesthesia Reactions: No - Immunization History Date of Tetanus Vaccine: Unknown Date of Influenza Vaccine: None Infectious Disease History: No Infectious Disease History: Denies: Hx Clostridium Difficile, Hx Hepatitis, Hx Human Immunodeficiency Virus (HIV), Hx of Known/Suspected MRSA, Hx Shingles, Hx Tuberculosis, Hx Known/ Suspected VRE, Hx Known/Suspected VRSA, History Other Infectious Disease, Traveled Outside the [place] in Last 30 Days - Family History Known Family History: Positive: Cardiac Disease - [place] - father, "9 times", father at 55 from [place], Hypertension, Other - EtOH abuse - Social History Alcohol Use: None Alcohol Amount: once a month - h/o ETOH abuse Hx Substance Use: Yes - cocaine, marijuana - 2012 Substance Use Type: Reports: None Substance Use Comment - Amount & Last Used: bottle of vodka 10/28 Hx Tobacco Use: Yes - not currently smoking - switched to smokeless tob Smoking Status (MU): Heavy Every Day Tobacco Smoker Type: Cigarettes, Smokeless Tobacco Amount Used/How Often: 1-2 PPD Have You Smoked in the Last Year: Yes Review of Systems Negative: Fever, Chills Positive: Palpitations. Negative: Chest Pain Negative: Shortness Of Breath Musculoskeletal: Other - right leg pain Positive: Edema - right leg Skin: Other - redness on right leg Neurological: Negative Psychological: Normal All Other Systems Reviewed And Are Negative: Yes Physical Exam - Summary Physical Exam Summary: Appearance: Well-appearing, moderate pain distress, well-nourished Skin: Warm, color reflects adequate perfusion, dry. Multiple tattoos on extremities, redness right lateral calf with induration, no fluctuance or mass Head: Normal Head/Face inspection, atraumatic Eyes: Conjunctiva clear ENT: Normal inspection Neck: Supple, no nodes, no JVD Respiratory: Lungs clear, normal breath sounds, no respiratory distress Cardio: Tachycardic, No murmur, pulses normal, brisk capillary refill Abdomen: Soft, nontender. Ventral hernia. Bowel sounds: Present Musculoskeletal: Strength Intact/ROM intact. Edema on right lower extremity. Pt has a 5 cm indurated red area on right lateral calf that is painful. Psychological: Normal Neuro: Alert, muscle tone normal, no focal deficit Triage Information Reviewed: Yes Vital Signs On Initial Exam: Initial Vitals Temp Pulse Resp BP Pulse Ox 97.6 F 97 20 166/99 96 06/04/18 18:31 06/04/18 18:31 06/04/18 18:31 06/04/18 18:31 06/04/18 18:31 Vital Signs Reviewed: Yes Diagnostics - Vital Signs Vital Signs Temp Pulse Resp BP Pulse Ox 06/04/18 18:31 97.6 F 97 20 166/99 96 - Laboratory Result Diagrams: 06/05/18 06:47 06/05/18 06:47 Lab Statement: Any lab studies that have been ordered have been reviewed, and results considered in the medical decision making process. - Radiology Chest XR Xray Interpretation: No Acute Changes - chest XR is negative Radiology Interpretation Completed By: ED Physician - Ultrasound No standard instances Ultrasound Interpretation: No Acute Changes - US of RLE IMPRESSION: Normal right lower extremity duplex venous ultrasound. Dr. Martinez has reviewed this report. Ultrasound Interpretation Completed By: Radiologist - EKG 19:47 Cardiac Rate: Tachycardia - at 101 bpm EKG Rhythm: Sinus Bradycardia ST Segment: Non-Specific - with normal early repolarization EKG Comparison: No Significant Change - no acute changes compared to prior on 09/04. Re-Evaluation - Re-Evaluation First Eval Re-Evaluation Time: 20:40 Change: Unchanged Comment: I reviewed the glucose level of 479 with the pt. Pt states he has been told he was diabetic and was placed on Metformin. The last time he took it was "months ago." I also reviewed the rest of the lab results, chest XR, and US results showing no DVT. His PCP is at [facility], unable to recall name. Currently notes right leg pain and feeling "edgy and antsy." Second Eval Re-Evaluation Time: 21:23 Change: Worse Comment: Pt has a 5 cm indurated red area on right lateral calf that is painful. Denies injection at site or new tattoo at site. No known injury. Pt will be admitted to Dr. Moon. Denies hx of MRSA. Third Eval Re-Evaluation Time: 22:30 Change: Unchanged Comment: c/o continued right leg pain. Will give hydrocodone 2 tabs po now x 1. Glu increased to 499. Fluids infusing. Insulin sub cut just being given 10 U. Lower Extremity Course/Dx - Course Course Of Treatment: Pt medications reviewed this visit. High blood pressure noted. Pt is a 33 y/o male who presents to the ED c/o persistent right leg swelling and redness for the past 1 week. ED provider noticed blood glucose of 479. Pt will be given IV fluids. Pt reports he was diagnosed diabetes and was placed on Metformin. He states he is noncompliant with medication and the last time he took Metformin was "months ago." States he was also recommeded a combo medication for DM but his insurance company denied it. Chest XR is negative. US of right lower extremity is negative for DVT. I consulted pt's case with Dr. Moon, hospitalist, who recommends IV fluids and Insulin with follow up from [facility] tomorrow. Pt has a 5 cm indurated red area on right lateral calf that is painful. Denies injection at site or new tattoo at site. No known injury reported. Given elevated glucoses with minimal response to fluids and insulin and persistent calf pain and swelling and now redness and induration and several outpatient visits for the same, pt will be admitted for control of his glucoses and initiation of therapy for cellulitis with IV antibiotics. He will be given Cefazolin for the cellulitis and Toradol for the pain. Pt will be admitted to [facility]. - Diagnoses Differential Diagnosis/HQI/PQRI: Positive: Cellulitis, DVT, Infection, Sprain, Strain Provider Diagnoses: Elevated blood pressure reading with diagnosis of hypertension, Poorly controlled diabetes mellitus, Right leg pain, Cellulitis - Physician Notifications Discussed Care Of Patient With: Myrna Moon - hospitalist Time Discussed With Above Provider: 20:51 Instructed by Provider To: Other - I discussed pt care with Dr. Moon, reeceist, who reports pt does not meet admission criteria and can be discharged home after fluids and Insulin with follow up from [facility] tomorrow. Discharge - Sign-Out/Discharge Documenting (check all that apply): Patient Departure - Admit to [facility] - Discharge Plan Condition: Guarded Disposition: ADMITTED TO [facility] - Billing Disposition and Condition Condition: GUARDED Disposition: Admitted to [facility] - Attestation Statements Document Initiated by Mary Aliceibjuan: Yes Documenting Scribe: Mariah Amanda Provider For Whom Pablo is Documenting (Include Credential): Dr. Breanne Martinez MD Scribe Attestation: Mariah Acharya scribed for Dr. Breanne Martinez MD on 06/11/18 at 2009. Scribe Documentation Reviewed: Yes Provider Attestation: The documentation as recorded by the Mariah epace accurately reflects the service I personally performed and the decisions made by me, Dr. Breanne Martinez MD
[2018-06-04 19:24] LABS: ABS Basophils 0.2 10^3/ul (0-0.2); ABS Eosinophils 0.2 10^3/ul (0-0.6); ABS Lymphocytes 3.5 10^3/ul (1.0-4.8); ABS Monocytes 0.6 10^3/ul (0-0.8); ABS Nucleated RBC 0 10^3/ul; Eosinophil % 1.2 % (0-6); Hematocrit 44 % (42-52); Hemoglobin 15.3 g/dl (14.0-18.0); Lymphocyte % 25.9 % (25-47); Mean Corpuscular HGB Conc 35 g/dl (31-36); Mean Corpuscular Hemoglobin 30 pg (27-31); Mean Corpuscular Volume 86 fL (80-94); Mean Platelet Volume 8.7 um3 (7.4-10.4); Nucleated Red Blood Cells % 0.2; Platelet Count 281 10^3/ul (150-450); Red Blood Count 5.11 10^6/ul (4.00-5.40); Red Cell Distribution Width 13 % (10.5-15); White Blood Count 13.4 10^3/ul (3.5-10.8)
[2018-06-04 19:34] LABS: INR 0.89 (0.77-1.02)
[2018-06-04 19:47] LABS: EGFR Non-African American 108.2 (>60)
--- NOTE | 2018-06-04 20:00 | RAD ---
EXAM: US Duplex Right Lower Extremity Veins CLINICAL HISTORY: 33 years old, male; Pain; Leg, lower; Right; Additional info: Right leg swelling, pain, worse since previous us TECHNIQUE: Real-time duplex ultrasound scan of the right lower extremity veins integrating B-mode two-dimensional vascular structure, Doppler spectral analysis, color flow Doppler imaging and compression. COMPARISON: US - LE VEIN R VL LOWER EXT VEINS RIGHT 05/27/2018 8:32 AM FINDINGS: Deep veins: Normal. No DVT in the visualized common femoral, femoral, proximal deep femoral or popliteal veins. The veins demonstrate normal color flow, are normally compressible, with normal phasic flow and/or augmentation response. Superficial veins: Normal. No thrombus in the visualized great saphenous vein. Soft tissues: Normal. No popliteal cyst. IMPRESSION: Normal right lower extremity duplex venous ultrasound.
[2018-06-04] MEDS ORDERED: Insulin LISPRO* 1 UNITS UNIT SUBCUT ONE ×2 (20:52→23:06)
[2018-06-04] MEDS ORDERED: Dextrose 50% Syringe 50 ML* 25 GM/50 ML SYRINGE IV PUSH PRN ×4 (20:52→23:06)
[2018-06-04] MEDS ORDERED: ceFAZolin 1 GM ADVAN(*) 1 GM in NS 0.9% 50 ML* 50 ML IVPB ONE (21:30)
[2018-06-04] MEDS: NS 0.9% 1000 ML* 2,000 ML IV ONE ×2 (21:31→21:32)
[2018-06-04] MEDS ORDERED: Ketorolac INJ* 30 MG/ML 1 ML VIAL IV PUSH ONE (21:33)
[2018-06-04] MEDS ORDERED: HYDROcodone/ACETAMIN 5-325 MG* 1 TAB PO ONE (22:32)
[2018-06-04 22:51] LABS: Urine Appearance Clear; Urine Blood Negative (Negative); Urine Color Straw; Urine Ketones Negative (Negative); Urine Protein 2+(100 mg/dL) (Negative); Urine Red Blood Cell Trace(0-2/hpf) (Absent); Urine Specific Gravity 1.033 (1.010-1.030); Urine Urobilinogen Negative (Negative); Urine White Blood Cell Absent (Absent)
[2018-06-04] MEDS ORDERED: Al Hydrox/Mg Hydrox/Simet LIQ* 30 ML UDC PO PRN (23:02)
[2018-06-04] MEDS ORDERED: Ondansetron INJ* 2 MG/ML VIAL IV PRN (23:02)
[2018-06-04] MEDS ORDERED: Senna TAB PO PRN (23:02)
[2018-06-04] MEDS ORDERED: Acetaminophen TAB* 325 MG PO PRN (23:02)
[2018-06-04] MEDS ORDERED: Docusate CAP* 100 MG PO PRN (23:02)
[2018-06-04] MEDS ORDERED: Insulin GLARGINE(*) 1 UNITS UNIT SUBCUT SCH (23:45)
[2018-06-04] MEDS: NS 0.9% 1000 ML*IV.FLUID IV ONE ×2 (23:49→23:50)
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
[2018-06-05] MEDS: NS 0.9% 1000 ML* 1,000 ML IV SCH ×2 (01:30→07:58)
[2018-06-05] MEDS ORDERED: Heparin VIAL(*) 5000 UNITS/ML VIAL (FIVE THOUSAND) SUBCUT SCH (06:00)
[2018-06-05] MEDS ORDERED: ceFAZolin 1 GM in Dextrose (*) 1 GM/50 ML BAG IVPB SCH (06:00)
[2018-06-05] MEDS ORDERED: oxyCODONE/Acetamin 5/325 MG* TAB PO PRN (06:56)
[2018-06-05 07:04] LABS: ABS Basophils 0.1 10^3/ul (0-0.2); ABS Eosinophils 0.2 10^3/ul (0-0.6); ABS Lymphocytes 3.4 10^3/ul (1.0-4.8); ABS Monocytes 0.7 10^3/ul (0-0.8); ABS Neutrophils 6.2 10^3/ul (1.5-7.7); ABS Nucleated RBC 0 10^3/ul; Hematocrit 37 % (42-52); Hemoglobin 13.1 g/dl (14.0-18.0); Lymphocyte % 32.1 % (25-47); Mean Corpuscular HGB Conc 35 g/dl (31-36); Mean Corpuscular Hemoglobin 30 pg (27-31); Mean Corpuscular Volume 84 fL (80-94); Mean Platelet Volume 8.8 um3 (7.4-10.4); Nucleated Red Blood Cells % 0; Platelet Count 222 10^3/ul (150-450); Red Cell Distribution Width 13 % (10.5-15); White Blood Count 10.6 10^3/ul (3.5-10.8)
[2018-06-05 07:21] LABS: EGFR Non-African American 129.9 (>60)
[2018-06-05] MEDS ORDERED: Insulin LISPRO* 1 UNITS UNIT SUBCUT SCH ×2 (07:30)
--- NOTE | 2018-06-05 08:02 | RAD ---
Indication: Tachycardia, hypertension. 2 views of the chest including dual energy PA views demonstrate no mediastinal shift. Heart is of normal size and configuration. Lung barrios are clear. When compared to previous exam of February 18, 2018 no significant change is noted. IMPRESSION: No active cardiopulmonary disease is noted. R0
[2018-06-05 08:36] VITALS: BP 158/85
[2018-06-05] MEDS ORDERED: Insulin GLARGINE(*) 1 UNITS UNIT SUBCUT SCH (09:00)
[2018-06-05] MEDS ORDERED: ceFAZolin 1 GM ADVAN(*) 1 GM in NS 0.9% 50 ML* 50 ML IVPB SCH ×2 (09:00→14:00)
[2018-06-05] MEDS ORDERED: Atenolol TAB* 25 MG PO SCH (11:00)
--- NOTE | 2018-06-06 10:39 | DS ---
CC: Dr. Dobson at [place]; Brandy Olvera DO; Dr. Patricio Marrufo at the [facility] DISCHARGE SUMMARY AGAINST MEDICAL ADVICE: DATE OF ADMISSION: 06/04/18 DATE OF DISCHARGE AGAINST MEDICAL ADVICE: 06/05/18 PRIMARY CARE PROVIDER: Dr. Dobson at [place]. DISCHARGE DIAGNOSES: 1. Uncontrolled type 2 diabetes. 2. Right lower extremity cellulitis. SECONDARY DIAGNOSES: 1. Hypertension. 2. History of alcohol and polysubstance abuse. 3. Depressive mood disorder. 4. Posttraumatic stress disorder. 5. Anxiety. 6. Personality disorder. MEDICATIONS LIST: 1. Atenolol 25 mg p.o. daily. 2. Aspirin 81 mg p.o. daily. 3. Metformin 500 mg p.o. b.i.d. New medications: 1. Naproxen 500 mg p.o. b.i.d. 2. Cephalexin 500 p.o. q.i.d. for 7 days. HOSPITAL COURSE: Mr. Carrillo is a 33-year-old male with a past medical history as stated above that presented to the emergency room with complaints of right lower extremity pain that has been going for approximately 3 weeks. He does not have insurance and has had poor followup. This was his 7th visi t between emergency room and urgent care for this pain. For more details about his presentation, I r efer you to his history and physical. His workup included a right lower extremity Doppler that showe d no DVT, it was normal study and a chest x-ray with no active cardiopulmonary disease. His CBC showed mild leukocytosis at 13.4, his ESR was elevated at 86 as well as his CRP at 44. The patient had been started on cefazolin IV, but he decided that he does not want to stay in the [facility] anymore. We talked about his right lower extremity cellulitis and his uncontrolled diabetes. The patient is aware that his A1c is 13.5. I had requested Endocrinology consultation, but the patie nt states that he cannot stay any longer. He is aware of the risks including progression of infectio n, loss of limb, and , but he states that he understands the risk, but cannot stay in the hospit al any longer. He does not have insurance. He is concerned with the bill that he is going to get. He states that in the near future, he will receive his card for [employer] and he underst ands that he needs to be seen by his primary care provider and follow up with Endocrinology. He says that his major issue now is medication as his primary care provider had prescribed other medication, but it would cost him 600 dollars a month and he says that this is his mortgage payment. At this poi nt, I prescribe cephalexin and naproxen. They are on the urgent rec's list. The patient will be dis charged against medical advice and he received education about the symptoms that should prompt his re turn to the emergency room. DIET: Heart-healthy, consistent carb diet. ACTIVITIES: As tolerated. DISPOSITION: Home against medical advice. STATUS WHILE IN THE HOSPITAL: Observation. Please keep in mind this is a summarized version of this patient's hospital stay. If you need more in formation, please feel free to call me at [phone] or please obtain full medical records. TIME SPENT: Approximately 40 minutes was spent to complete this discharge. [id number]/CPS #: [id number]
== END 2018-06-05 11:15 | disposition left against medical advice (07) ==
LOC: ED 18:25 → MED 23:02
PROVIDERS: ADMIT Pediatrics; ATTEND Internal Medicine
DX: E11.69 Type 2 diabetes mellitus with other specified complication (principal); L03.115 Cellulitis of right lower limb; I10 Essential (primary) hypertension; F10.11 Alcohol abuse, in remission; F19.10 Other psychoactive substance abuse, uncomplicated; F43.10 Post-traumatic stress disorder, unspecified; X58.XXXA Exposure to other specified factors, initial encounter; Y92.9 Unspecified place or not applicable; F41.9 Anxiety disorder, unspecified; F60.89 Other specific personality disorders; F32.9 Major depressive disorder, single episode, unspecified; Z79.82 Long term (current) use of aspirin
CPT/HCPCS: 36415; 71046; 80048; 80053; 80307; 80320; 81003; 81015; 82550; 82553; 82947; 83036; 83605; 83735; 83880; 84436; 84443; 84484; 85025; 85379; 85610; 85652; 85730; 86140; 87040; 93005; 96365; 96375; 96376; 99283; 99406; A9270-GY; G0378; G0480; J0690; J1644; J1885

== ENCOUNTER 2018-10-03 06:41 | Emergency (ER) | payer SELFPAY ==
[2018-10-03] MEDS ORDERED: Ketorolac INJ* 30 MG/ML 1 ML VIAL IV PUSH ONE (07:17)
[2018-10-03] MEDS ORDERED: NS 0.9% 1000 ML* 1,000 ML IV ONE (07:17)
[2018-10-03] MEDS ORDERED: Ondansetron ODT TAB* 4 MG PO ONE (07:17)
[2018-10-03 07:27] LABS: ABS Basophils 0 10^3/ul (0-0.2); ABS Eosinophils 0.2 10^3/ul (0-0.6); ABS Monocytes 0.5 10^3/ul (0-0.8); ABS Neutrophils 5.6 10^3/ul (1.5-7.7); ABS Nucleated RBC 0 10^3/ul; Eosinophil % 2.4 %; Hematocrit 43 % (42-52); Lymphocyte % 32.1 %; Mean Corpuscular HGB Conc 35 g/dl (31-36); Mean Corpuscular Hemoglobin 30 pg (27-31); Mean Corpuscular Volume 85 fL (80-94); Mean Platelet Volume 8.7 fL (7.4-10.4); Nucleated Red Blood Cells % 0.1; Platelet Count 198 10^3/ul (150-450); Red Blood Count 5.03 10^6/ul (4.00-5.40); Red Cell Distribution Width 13 % (10.5-15); White Blood Count 9.4 10^3/ul (3.5-10.8)
[2018-10-03] MEDS ORDERED: Ondansetron INJ* 2 MG/ML VIAL IV ONE (07:37)
[2018-10-03 07:43] LABS: Activated Partial Thrombo Time 33.7 seconds (26.0-36.3); INR 0.89 (0.77-1.02)
[2018-10-03 07:46] LABS: Albumin 3.5 g/dL (3.2-5.2); Albumin/Globulin Ratio 0.9 (1-3); BUN/Creatinine Ratio 15.5 (8-20); C Reactive Protein 13.43 mg/L (<8.01); Calcium 9.2 mg/dL (8.6-10.3); EGFR Non-African American 127.8 (>60); Globulin 3.7 g/dL (2-4); Magnesium 1.8 mg/dL (1.9-2.7); Potassium 4.2 mmol/L (3.5-5.0); Total Bilirubin 0.5 mg/dL (0.2-1.0); Total Protein 7.2 g/dL (6.4-8.9)
[2018-10-03] MEDS ORDERED: Insulin GLARGINE(*) 1 UNITS UNIT SUBCUT ONE (07:51)
[2018-10-03] MEDS ORDERED: Magnesium Oxide TAB* 400 MG PO ONE (08:26)
--- NOTE | 2018-10-03 08:31 | ED ---
Abdominal Pain/Male - HPI Summary HPI Summary: Patient presents with what he believes is a kidney stone. He reports he had right flank and side pain yesterday with blood in his urine and passed a yellow whitish stone through his urine. He did not save this. Seemed to feel better however later into the evening he developed right flank pain which led to nausea. This pain radiates around to side. He always has urinary frequency due to his poorly controlled diabetes - no changes of late. Denies dysuria, pyuria, penile or testicular pain and discharge. He has a history of kidney stones and this feels the same. He was followed by Dr. Holland many years ago however has not followed up since. He does admit to drinking multiple cups of caffeine a day. Also has diabetes which she treats with metformin 1000 mg by mouth twice a day and Lantus 10 mg at night. His blood sugars have been a little more elevated than usual however he admits he is usually in the 200-400 range (200 better, 400 worse). Has not taken metformin and uses Lantus since symptoms started yesterday. Denies fever, chills, headache, chest pain, shortness of breath, change in bowel habits. - History of Current Complaint Chief Complaint: EDFlankPain Stated Complaint: BACK PAIN Time Seen by Provider: 10/03/18 06:54 Hx Obtained From: Patient Pain Intensity: 6 - Allergies/Home Medications Allergies/Adverse Reactions: Allergies Allergy/AdvReac Type Severity Reaction Status Date / Time No Known Allergies Allergy Verified 10/03/18 06:48 PMH/Surg Hx/FS Hx/Imm Hx Previously Healthy: Yes Endocrine/Hematology History: Reports: Hx Diabetes - metformin and lantus Denies: Hx Anticoagulant Therapy, Hx Blood Disorders, Hx Blood Transfusions, Hx Bone Marrow Disease, Hx Systemic Lupus Erythematosus, Hx Sickle Cell Disease , Hx Thyroid Disease, Hx Anemia, Hx Unexplained Bleeding, Other Endocrine/ Hematological Disorders Cardiovascular History: Reports: Hx Hypertension, Other Cardiovascular Problems/ Disorders - CARDIAC CATH 2011 Denies: Hx Aneurysm, Hx Angina, Hx Angioplasty, Hx Auto Implanted Cardiovert Defib, Hx Cardiac Arrest, Hx Cardiomegaly, Hx Congenital Heart Disease, Hx Congestive Heart Failure, Hx Coronary Artery Disease, Hx Deep Vein Thrombosis, Hx Embolism, Hx Hypercholesterolemia, Hx Hypotension, Hx Myocardial Infarction, Hx Pacemaker/ICD, Hx Peripheral Vascular Disease, Hx Rheumatic Fever, Hx Syncope , Hx Valvular Heart Disease Respiratory History: Reports: Hx Asthma, Hx Chronic Bronchitis, Hx Seasonal Allergies Denies: Hx Chronic Obstructive Pulmonary Disease (COPD), Hx Cystic Fibrosis, Hx Lung Cancer, Hx Pleural Effusion, Hx Pneumonia, Hx Pulmonary Edema, Hx Pulmonary Embolism, Hx Sleep Apnea GI History: Reports: Hx Gastroesophageal Reflux Disease, Other GI Disorders - fatty liver Denies: Hx Gall Bladder Disease, Hx Gastrointestinal Bleed, Hx Ulcer, Hx Urosepsis History: Reports: Hx Kidney Stones Denies: Hx Dialysis, Hx Renal Disease Musculoskeletal History: Reports: Hx Orthopedic Injury - Right Knee Sensory History: Reports: Hx Contacts or Glasses Denies: Hx Cataracts, Hx Eye Injury, Hx Eye Prosthesis, Hx Glaucoma, Hx Legally Blind, Hx Macular Degeneration, Hx Vision Problem, Hx Deafness, Hx Hearing Aid, Hx Hearing Problem, Other Sensory Impairments Opthamlomology History: Reports: Hx Contacts or Glasses Denies: Hx Cataracts, Hx Eye Injury, Hx Eye Prosthesis, Hx Glaucoma, Hx Legally Blind, Hx Macular Degeneration, Hx Vision Problem, Other Sensory Impairments Neurological History: Denies: Hx Dementia, Hx Developmental Delay, Hx Headaches, Hx Migraine, Hx Nerve Disease, Hx Seizures, Hx Spinal Cord Injury, Hx Transient Ischemic Attacks (TIA), Other Neuro Impairments/Disorders Psychiatric History: Reports: Hx Anxiety, Hx Depression - no depression over a year., Hx Inpatient Treatment, Hx Community Mental Health Tx, Hx Suicide Attempt - OD/Jump from parking garage, Hx of Violent Episodes Against Others, Hx Substance Abuse Denies: Hx Attention Deficit Hyperactivity Disorder, Hx Eating Disorder, Hx Panic Disorder, Hx Post Traumatic Stress Disorder, Hx Schizophrenia, Hx Bipolar Disorder, Other Psychiatric Issues/Disorders - Surgical History Surgery Procedure, Year, and Place: T & A 1992. Knee surgery 2005. Left ankle surgery Hx Anesthesia Reactions: No - Immunization History Date of Tetanus Vaccine: utd Date of Influenza Vaccine: no Infectious Disease History: No Infectious Disease History: Denies: Hx Clostridium Difficile, Hx Hepatitis, Hx Human Immunodeficiency Virus (HIV), Hx of Known/Suspected MRSA, Hx Shingles, Hx Tuberculosis, Hx Known/ Suspected VRE, Hx Known/Suspected VRSA, History Other Infectious Disease, Traveled Outside the [place] in Last 30 Days - Family History Known Family History: Positive: Cardiac Disease - [place] - father, "9 times", father at 55 from [place], Hypertension, Other - EtOH abuse - Social History 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 Lives: With Family Alcohol Use: Occasionally Alcohol Amount: once a month - h/o ETOH abuse; bottle of vodka 10/28 Hx Substance Use: Yes - cocaine, marijuana - 2012 Substance Use Comment - Amount & Last Used: none currently Hx Tobacco Use: Yes - not currently smoking - switched to smokeless tob Smoking Status (MU): Current Every Day Smoker Type: Cigarettes, Smokeless Tobacco Amount Used/How Often: 1-2 PPD Have You Smoked in the Last Year: Yes Review of Systems Constitutional: Negative Negative: Fever, Chills Eyes: Negative ENT: Negative Cardiovascular: Negative Respiratory: Negative Positive: Abdominal Pain, Vomiting, Nausea Positive: see HPI Musculoskeletal: Negative Skin: Negative Neurological: Negative Psychological: Normal All Other Systems Reviewed And Are Negative: Yes Physical Exam Triage Information Reviewed: Yes Vital Signs On Initial Exam: Initial Vitals Temp Pulse Resp BP Pulse Ox 97.5 F 86 16 181/103 98 10/03/18 06:45 10/03/18 06:45 10/03/18 06:45 10/03/18 06:45 10/03/18 06:45 Vital Signs Reviewed: Yes Appearance: Positive: Well-Appearing, Pain Distress - mild, Obese Skin: Positive: Warm, Skin Color Reflects Adequate Perfusion, Dry Head/Face: Positive: Normal Head/Face Inspection Eyes: Positive: Normal, EOMI, ASHLI, Conjunctiva Clear - anicteric sclera ENT: Positive: Normal ENT inspection, Hearing grossly normal, Pharynx normal - mucosa moist Respiratory/Lung Sounds: Positive: Clear to Auscultation, Breath Sounds Present. Negative: Rales, Rhonchi, Wheezes Cardiovascular: Positive: Normal, RRR, S1, S2 Abdomen Description: Positive: Soft, CVA Tenderness (R) - mild, Other: - difficult to assess organs d/t body habitus. Negative: Nontender - Rt side TTP - no rebounding, CVA Tenderness (L), Distended, Guarding, McBurney's Point Tenderness Bowel Sounds: Positive: Present Musculoskeletal: Positive: Normal, Strength/ROM Intact, Other - deferred Neurological: Positive: Normal, Sensory/Motor Intact, Alert, Oriented to Person Place, Time, CN Intact II-III Psychiatric: Positive: Normal Diagnostics - Vital Signs Vital Signs Temp Pulse Resp BP Pulse Ox 10/03/18 06:45 97.5 F 86 16 181/103 98 - Laboratory Lab Results: Lab Results 10/03/18 10/03/18 10/03/18 Range/Units 07:18 07:18 07:18 WBC 9.4 (3.5-10.8) 10^3/ul RBC 5.03 (4.00-5.40) 10^6/ul Hgb 15.0 (14.0-18.0) g/dl Hct 43 (42-52) % MCV 85 (80-94) fL MCH 30 (27-31) pg MCHC 35 (31-36) g/dl RDW 13 (10.5-15) % Plt Count 198 (150-450) 10^3/ul MPV 8.7 (7.4-10.4) fL Neut % (Auto) 60.2 % Lymph % (Auto) 32.1 % Cuming % (Auto) 5.0 % Eos % (Auto) 2.4 % Baso % (Auto) 0.3 % Absolute Neuts (auto) 5.6 (1.5-7.7) 10^3/ul Absolute Lymphs (auto) 3.0 (1.0-4.8) 10^3/ul Absolute Monos (auto) 0.5 (0-0.8) 10^3/ul Absolute Eos (auto) 0.2 (0-0.6) 10^3/ul Absolute Basos (auto) 0 (0-0.2) 10^3/ul Absolute Nucleated RBC 0 10^3/ul Nucleated RBC % 0.1 INR (Anticoag Therapy) (0.77-1.02) APTT (26.0-36.3) seconds Sodium 132 L (135-145) mmol/L Potassium 4.2 (3.5-5.0) mmol/L Chloride 100 L (101-111) mmol/L Carbon Dioxide 23 (22-32) mmol/L Anion Gap 9 (2-11) mmol/L BUN 11 (6-24) mg/dL Creatinine 0.71 (0.67-1.17) mg/dL Est GFR ( Amer) 154.6 (>60) Est GFR (Non-Af Amer) 127.8 (>60) BUN/Creatinine Ratio 15.5 (8-20) Glucose 380 H (70-100) mg/dL Lactic Acid 1.8 (0.5-2.0) mmol/L Calcium 9.2 (8.6-10.3) mg/dL Magnesium 1.8 L (1.9-2.7) mg/dL Total Bilirubin 0.50 (0.2-1.0) mg/dL AST 37 (13-39) U/L ALT 33 (7-52) U/L Alkaline Phosphatase 103 (34-104) U/L C-Reactive Protein 13.43 H (<8.01) mg/L Total Protein 7.2 (6.4-8.9) g/dL Albumin 3.5 (3.2-5.2) g/dL Globulin 3.7 (2-4) g/dL Albumin/Globulin Ratio 0.9 L (1-3) Lipase 38 (11.0-82.0) U/L 10/03/18 Range/Units 07:18 WBC (3.5-10.8) 10^3/ul RBC (4.00-5.40) 10^6/ul Hgb (14.0-18.0) g/dl Hct (42-52) % MCV (80-94) fL MCH (27-31) pg MCHC (31-36) g/dl RDW (10.5-15) % Plt Count (150-450) 10^3/ul MPV (7.4-10.4) fL Neut % (Auto) % Lymph % (Auto) % Cuming % (Auto) % Eos % (Auto) % Baso % (Auto) % Absolute Neuts (auto) (1.5-7.7) 10^3/ul Absolute Lymphs (auto) (1.0-4.8) 10^3/ul Absolute Monos (auto) (0-0.8) 10^3/ul Absolute Eos (auto) (0-0.6) 10^3/ul Absolute Basos (auto) (0-0.2) 10^3/ul Absolute Nucleated RBC 10^3/ul Nucleated RBC % INR (Anticoag Therapy) 0.89 (0.77-1.02) APTT 33.7 (26.0-36.3) seconds Sodium (135-145) mmol/L Potassium (3.5-5.0) mmol/L Chloride (101-111) mmol/L Carbon Dioxide (22-32) mmol/L Anion Gap (2-11) mmol/L BUN (6-24) mg/dL Creatinine (0.67-1.17) mg/dL Est GFR ( Amer) (>60) Est GFR (Non-Af Amer) (>60) BUN/Creatinine Ratio (8-20) Glucose (70-100) mg/dL Lactic Acid (0.5-2.0) mmol/L Calcium (8.6-10.3) mg/dL Magnesium (1.9-2.7) mg/dL Total Bilirubin (0.2-1.0) mg/dL AST (13-39) U/L ALT (7-52) U/L Alkaline Phosphatase (34-104) U/L C-Reactive Protein (<8.01) mg/L Total Protein (6.4-8.9) g/dL Albumin (3.2-5.2) g/dL Globulin (2-4) g/dL Albumin/Globulin Ratio (1-3) Lipase (11.0-82.0) U/L Result Diagrams: 10/03/18 07:18 10/03/18 07:18 Lab Statement: Any lab studies that have been ordered have been reviewed, and results considered in the medical decision making process. Abdominal Pain Fem Course/Dx - Course Course Of Treatment: Labs: unremarkable for araceli infection; glucose 380. U/A: + protein, glucose, RBC, sperm. CT: no stone or hydronephrosis/-ureter/pyelo; consistent hepatomegaly. Provided with NS, Toradol for pain, zofran for nausea and lantus for glucose. Pt may have passed stone earlier and is dealing with residual pain. Advised to continue to strain urine in the event he has a small stone that is undetected on CT that way it can be evaluated. . Encouraged reducing caffeine intake, increasing water intake. Danger s/sx reviewed - pt will f/u w/ PCP re: liver findings. - Diagnoses Provider Diagnoses: Right flank pain, Hepatomegaly Discharge - Sign-Out/Discharge Documenting (check all that apply): Patient Departure - Discharge Plan Condition: Stable Disposition: HOME Prescriptions: Ondansetron ODT TAB* [Zofran 4 MG Odt TAB*] 8 mg PO Q8H PRN #9 tab.odt PRN Reason: Nausea Phenazopyridine 200 mg (NF) [Pyridium 200 MG tab *] 200 mg PO TID PRN #6 tab PRN Reason: Pain Patient Education Materials: Non-Alcoholic Fatty Liver Disease (ED), Kidney Stones (ED), How to Strain Your Urine (ED) Referrals: Satish Dobson DO [Primary Care Provider] - Additional Instructions: You do not appear to have a kidney stone, infection on your CT scan today. It is important however that you continue to strain your urine until the her pain resolves in the event you have tiny stones. If you are able to pass and catch them, they may be evaluated to help prevent future incidences. In the meantime drink plenty of water, avoid caffeine and follow-up with your PCP. If you do catch any stones, you may take them in for further evaluation. You have been prescribed Pyridium for pain and Zofran for nausea. You may continue to use NSAID's such as ibuprofen or Aleve for pain as well and alternating with Tylenol extra strength as needed. Additionally, you were found to have an enlarged liver/fatty liver. This has been consistently found on your CT scans over the past couple of years. If you have not addressed this with your PCP, call today schedule an appointment to discuss. *If symptoms worsen, return to the emergency department. - Billing Disposition and Condition Condition: STABLE Disposition: Home
[2018-10-03 09:08] LABS: Urine Appearance Clear; Urine Bacteria Absent (Absent); Urine Bilirubin Negative (Negative); Urine Blood Negative (Negative); Urine Color Yellow; Urine Glucose 3+(>=500 mg/dL) (Negative); Urine Ketones Negative (Negative); Urine Nitrite Negative (Negative); Urine Protein 2+(100 mg/dL) (Negative); Urine Red Blood Cell 1+(3-5/hpf) (Absent); Urine Specific Gravity 1.039 (1.010-1.030); Urine Urobilinogen Negative (Negative); Urine White Blood Cell Trace(0-5/hpf) (Absent)
[2018-10-03 09:36] VITALS: BP 156/98
== END 2018-10-03 09:35 | disposition home or self-care (01) ==
LOC: ED 06:41
DX: M54.5 Low back pain (principal); R16.0 Hepatomegaly, not elsewhere classified; R11.2 Nausea with vomiting, unspecified; Z87.442 Personal history of urinary calculi; E11.21 Type 2 diabetes mellitus with diabetic nephropathy; Z79.4 Long term (current) use of insulin; Z79.84 Long term (current) use of oral hypoglycemic drugs; F17.210 Nicotine dependence, cigarettes, uncomplicated
CPT/HCPCS: 36415; 74176; 80053; 81003; 81015; 83605; 83690; 83735; 85025; 85610; 85730; 86140; 87086; 96372; 96374; 96375; 99283; J1885; J2405

== ENCOUNTER 2018-12-01 12:14 | Emergency (ER) | payer SELFPAY | END 2018-12-01 12:37 | disposition left against medical advice (07) | LOC: UCEAST 12:14 | DX: Z53.21 Procedure and treatment not carried out due to patient leaving prior to being seen by health care provider (principal) ==

== ENCOUNTER 2018-12-01 13:42 | Emergency (ER) | payer SELFPAY ==
--- NOTE | 2018-12-01 14:49 | ED ---
Back Pain - HPI Summary HPI Summary: This patient is a 33 year old M presenting to [facility] with a chief complaint of right, lower back pain that shoots down right leg that began earlier today. The patient rates the pain 6/10 in severity. Symptoms aggravated by position. Symptoms alleviated by nothing. Patient reports numbness in R leg from knee down. Patient denies urinary symptoms and bowel symptoms. - History of Current Complaint Chief Complaint: EDBackInjuryPain Stated Complaint: "LOWER RIGHT SIDE BACK PAIN GOING DOWN LEG" PER PT Time Seen by Provider: 12/01/18 14:33 Hx Obtained From: Patient Onset/Duration: Sudden Onset, Lasting Hours, Still Present Onset/Duration: Started Hours Ago, Still Present Timing: Constant Back Pain Location: Is Discrete @ - Right lower back Severity Initially: Moderate Severity Currently: Moderate Pain Intensity: 6 Pain Scale Used: 0-10 Numeric Aggravating Symptom(s): Other - Position Alleviating Symptom(s): Nothing Associated Signs And Symptoms: Positive: Other - Positive numbness in R leg from knee down. Negative urinary symptoms and bowel symptoms. - Allergies/Home Medications Allergies/Adverse Reactions: Allergies Allergy/AdvReac Type Severity Reaction Status Date / Time No Known Allergies Allergy Verified 10/05/18 15:32 Home Medications: Home Medications Aspirin TAB* [Aspirin 325 MG TAB*] 650 mg PO Q8H 12/01/18 [History Confirmed ] Atenolol TAB* [Tenormin TAB* 25 MG] 100 mg PO DAILY 12/01/18 [History Confirmed 12/01/18] PMH/Surg Hx/FS Hx/Imm Hx Previously Healthy: No Endocrine/Hematology History: Reports: Hx Diabetes - metformin and lantus Denies: Hx Anticoagulant Therapy, Hx Blood Disorders, Hx Blood Transfusions, Hx Bone Marrow Disease, Hx Systemic Lupus Erythematosus, Hx Sickle Cell Disease , Hx Thyroid Disease, Hx Anemia, Hx Unexplained Bleeding, Other Endocrine/ Hematological Disorders Cardiovascular History: Reports: Hx Hypertension, Other Cardiovascular Problems/ Disorders - CARDIAC CATH 2011 Denies: Hx Aneurysm, Hx Angina, Hx Angioplasty, Hx Auto Implanted Cardiovert Defib, Hx Cardiac Arrest, Hx Cardiomegaly, Hx Congenital Heart Disease, Hx Congestive Heart Failure, Hx Coronary Artery Disease, Hx Deep Vein Thrombosis, Hx Embolism, Hx Hypercholesterolemia, Hx Hypotension, Hx Myocardial Infarction, Hx Pacemaker/ICD, Hx Peripheral Vascular Disease, Hx Rheumatic Fever, Hx Syncope , Hx Valvular Heart Disease Respiratory History: Reports: Hx Asthma - A CHILD, Hx Chronic Bronchitis, Hx Seasonal Allergies Denies: Hx Chronic Obstructive Pulmonary Disease (COPD), Hx Cystic Fibrosis, Hx Lung Cancer, Hx Pleural Effusion, Hx Pneumonia, Hx Pulmonary Edema, Hx Pulmonary Embolism, Hx Sleep Apnea GI History: Reports: Hx Gastroesophageal Reflux Disease, Other GI Disorders - fatty liver Denies: Hx Gall Bladder Disease, Hx Gastrointestinal Bleed, Hx Ulcer, Hx Urosepsis History: Reports: Hx Kidney Stones Denies: Hx Dialysis, Hx Renal Disease Musculoskeletal History: Reports: Hx Orthopedic Injury - Right Knee Sensory History: Reports: Hx Contacts or Glasses Denies: Hx Cataracts, Hx Eye Injury, Hx Eye Prosthesis, Hx Glaucoma, Hx Legally Blind, Hx Macular Degeneration, Hx Vision Problem, Hx Deafness, Hx Hearing Aid, Hx Hearing Problem, Other Sensory Impairments Opthamlomology History: Reports: Hx Contacts or Glasses Denies: Hx Cataracts, Hx Eye Injury, Hx Eye Prosthesis, Hx Glaucoma, Hx Legally Blind, Hx Macular Degeneration, Hx Vision Problem, Other Sensory Impairments Neurological History: Denies: Hx Dementia, Hx Developmental Delay, Hx Headaches, Hx Migraine, Hx Nerve Disease, Hx Seizures, Hx Spinal Cord Injury, Hx Transient Ischemic Attacks (TIA), Other Neuro Impairments/Disorders Psychiatric History: Reports: Hx Anxiety, Hx Depression - no depression over a year., Hx Inpatient Treatment, Hx Community Mental Health Tx, Hx Suicide Attempt - OD/Jump from parking garage, Hx of Violent Episodes Against Others, Hx Substance Abuse Denies: Hx Attention Deficit Hyperactivity Disorder, Hx Eating Disorder, Hx Panic Disorder, Hx Post Traumatic Stress Disorder, Hx Schizophrenia, Hx Bipolar Disorder, Other Psychiatric Issues/Disorders - Surgical History Surgery Procedure, Year, and Place: T & A 1992. Knee surgery 2005. Left ankle surgery Hx Anesthesia Reactions: No - Immunization History Date of Tetanus Vaccine: utd Date of Influenza Vaccine: no Infectious Disease History: No Infectious Disease History: Denies: Hx Clostridium Difficile, Hx Hepatitis, Hx Human Immunodeficiency Virus (HIV), Hx of Known/Suspected MRSA, Hx Shingles, Hx Tuberculosis, Hx Known/ Suspected VRE, Hx Known/Suspected VRSA, History Other Infectious Disease, Traveled Outside the [place] in Last 30 Days - Family History Known Family History: Positive: Cardiac Disease - [place] - father, "9 times", father at 55 from [place], Hypertension, Other - EtOH abuse - Social History Occupation: Employed Full-time Lives: With Family Alcohol Use: Occasionally Alcohol Amount: once a month - h/o ETOH abuse; bottle of vodka 10/28 Hx Substance Use: Yes - cocaine, marijuana - 2012 Substance Use Type: Reports: None Substance Use Comment - Amount & Last Used: none currently Hx Tobacco Use: Yes - not currently smoking - switched to smokeless tob Smoking Status (MU): Current Every Day Smoker Type: Cigarettes, Smokeless Tobacco Amount Used/How Often: 1-2 PPD Have You Smoked in the Last Year: Yes Review of Systems Gastrointestinal: Negative Genitourinary: Negative Positive: Other - Positive right lower back pain. Positive: Numbness All Other Systems Reviewed And Are Negative: Yes Physical Exam - Summary Physical Exam Summary: Appearance: Well appearing, no pain distress Skin: warm, dry, reflects adequate perfusion Head/face: normal Eyes: EOMI, ASHLI ENT: mucous membranes moist Neck: supple, non-tender Respiratory: CTA, breath sounds present Cardiovascular: RRR, pulses symmetrical Abdomen: non-tender, soft Bowel Sounds: present Musculoskeletal: Negative straight leg raise. Tenderness at the R pyriformis muscle, strength/ROM intact Neuro: normal, sensory motor intact, A&Ox3 Triage Information Reviewed: Yes Vital Signs On Initial Exam: Initial Vitals Temp Pulse Resp BP Pulse Ox 98 F 78 20 170/111 98 12/01/18 13:44 12/01/18 13:44 12/01/18 13:44 12/01/18 13:44 12/01/18 13:44 Vital Signs Reviewed: Yes Diagnostics - Vital Signs Vital Signs Temp Pulse Resp BP Pulse Ox 12/01/18 13:44 98 F 78 20 170/111 98 - Laboratory Lab Statement: Any lab studies that have been ordered have been reviewed, and results considered in the medical decision making process. Back Pain Course/Dx - Course Course Of Treatment: Nurse's notes reviewed. Patient with radicular pain and pain at the sciatic notch. Neurologically intact without saddle anesthesia, difficulty with gait and no weakness. Treat symptomatically, follow up primary care physician. - Diagnoses Differential Diagnosis/HQI/PQRI: Positive: Cauda Equina Syndrome, Compressive Cord Syndrome, Herniated Disc, Other - Radiculopathy/Piriformis syndrome Provider Diagnoses: Pyriformis syndrome, Lumbar radiculopathy Discharge - Sign-Out/Discharge Documenting (check all that apply): Patient Departure - Discharge home Patient Received Moderate/Deep Sedation with Procedure: No - Discharge Plan Condition: Improved Disposition: HOME Prescriptions: Cyclobenzaprine (NF) [Cyclobenzaprine 5 MG (NF)] 5 mg PO TID PRN #15 tab PRN Reason: leg pain methylPREDNISolone [Medrol] 4 mg PO .SEE CRIS INSTRUCTION #1 packet Naproxen [Naproxen 500 mg tab] 500 mg PO BID PRN #12 tablet PRN Reason: Pain Patient Education Materials: Piriformis Syndrome (ED) Referrals: Satish Dobson DO [Primary Care Provider] - Additional Instructions: Lookup online stretches for Pirformis syndrome and lumbar radiculopathy. Call for follow-up with her primary care physician on Monday. Cyclobenzaprine can cause sedation, do not drive while taking. Return with difficulty with bowel/ bladder, new numbness/weakness, worse or other concerns. - Billing Disposition and Condition Condition: IMPROVED Disposition: Home - Attestation Statements Document Initiated by Scribe: Yes Documenting Scribe: Ariana Mendoza Provider For Whom Dayanarae is Documenting (Include Credential): Dr. Clovis Hood MD Scribe Attestation: IAriana scribed for Dr. Clovis Hood MD on 12/01/18 at 1610. Scribe Documentation Reviewed: Yes Provider Attestation: The documentation as recorded by the Ariana peace accurately reflects the service I personally performed and the decisions made by me, Dr. Clovis Hood MD Status of Scribe Document: Viewed
[2018-12-01 15:25] VITALS: BP 149/92
== END 2018-12-01 15:21 | disposition home or self-care (01) ==
LOC: ED 13:42
DX: G57.01 Lesion of sciatic nerve, right lower limb (principal); E11.9 Type 2 diabetes mellitus without complications; Z79.84 Long term (current) use of oral hypoglycemic drugs; I10 Essential (primary) hypertension; F17.210 Nicotine dependence, cigarettes, uncomplicated
CPT/HCPCS: 99282

== ENCOUNTER 2018-12-02 02:49 | Emergency (ER) | payer SELFPAY ==
[2018-12-02] MEDS ORDERED: NS 0.9% 1000 ML** 1,000 ML IV ONE (03:20)
[2018-12-02] MEDS ORDERED: Ketorolac INJ* 30 MG/ML 1 ML VIAL IV PUSH ONE (03:20)
[2018-12-02] MEDS ORDERED: Morphine 4 MG/ML VIAL (1 ml) 4 MG/ML VIAL IV ONE (03:20)
--- NOTE | 2018-12-02 03:25 | ED ---
Lower Extremity - HPI Summary HPI Summary: This patient is a 33 year old M presenting to ED with a chief complaint of R- sided back pain radiating down to his R leg since 1130 yesterday. He was seen here in the ED yesterday and was D/C and was given rx that was sent to [facility], but they were out of stock and told him to return today to get it. Earlier this morning, his leg buckled while he was trying to get to the bathroom at home. He also reports that there is numbness from his R knee and down to his ankle. The patient rates the pain 8/10 in severity. Symptoms aggravated by nothing. Symptoms alleviated by nothing. Patient denies urinary sx and BM issues. - History of Current Complaint Chief Complaint: EDExtremitRose Stated Complaint: I WAS HERE EARLIER FOR WHATEVER NERVE IT IS PER PT Hx Obtained From: Patient Mechanism Of Injury: Fall From A Standing Position Onset of Pain: Immediate Onset/Duration: Still Present Severity Initially: Severe Severity Currently: Severe Pain Intensity: 8 Pain Scale Used: 0-10 Numeric Timing: Constant, Lasting Days Location: Is Discrete @ - R-sided back radiating down the R leg Aggravating Factor(s): Nothing Alleviating Factor(s): Nothing - Allergies/Home Medications Allergies/Adverse Reactions: Allergies Allergy/AdvReac Type Severity Reaction Status Date / Time No Known Allergies Allergy Verified 12/02/18 02:52 PMH/Surg Hx/FS Hx/Imm Hx Endocrine/Hematology History: Reports: Hx Diabetes - metformin and lantus Denies: Hx Anticoagulant Therapy, Hx Blood Disorders, Hx Blood Transfusions, Hx Bone Marrow Disease, Hx Systemic Lupus Erythematosus, Hx Sickle Cell Disease , Hx Thyroid Disease, Hx Anemia, Hx Unexplained Bleeding, Other Endocrine/ Hematological Disorders Cardiovascular History: Reports: Hx Hypertension, Other Cardiovascular Problems/ Disorders - CARDIAC CATH 2011 Denies: Hx Aneurysm, Hx Angina, Hx Angioplasty, Hx Auto Implanted Cardiovert Defib, Hx Cardiac Arrest, Hx Cardiomegaly, Hx Congenital Heart Disease, Hx Congestive Heart Failure, Hx Coronary Artery Disease, Hx Deep Vein Thrombosis, Hx Embolism, Hx Hypercholesterolemia, Hx Hypotension, Hx Myocardial Infarction, Hx Pacemaker/ICD, Hx Peripheral Vascular Disease, Hx Rheumatic Fever, Hx Syncope , Hx Valvular Heart Disease Respiratory History: Reports: Hx Asthma - A CHILD, Hx Chronic Bronchitis, Hx Seasonal Allergies Denies: Hx Chronic Obstructive Pulmonary Disease (COPD), Hx Cystic Fibrosis, Hx Lung Cancer, Hx Pleural Effusion, Hx Pneumonia, Hx Pulmonary Edema, Hx Pulmonary Embolism, Hx Sleep Apnea GI History: Reports: Hx Gastroesophageal Reflux Disease, Other GI Disorders - fatty liver Denies: Hx Gall Bladder Disease, Hx Gastrointestinal Bleed, Hx Ulcer, Hx Urosepsis History: Reports: Hx Kidney Stones Denies: Hx Dialysis, Hx Renal Disease Musculoskeletal History: Reports: Hx Orthopedic Injury - Right Knee Sensory History: Reports: Hx Contacts or Glasses Denies: Hx Cataracts, Hx Eye Injury, Hx Eye Prosthesis, Hx Glaucoma, Hx Legally Blind, Hx Macular Degeneration, Hx Vision Problem, Hx Deafness, Hx Hearing Aid, Hx Hearing Problem, Other Sensory Impairments Opthamlomology History: Reports: Hx Contacts or Glasses Denies: Hx Cataracts, Hx Eye Injury, Hx Eye Prosthesis, Hx Glaucoma, Hx Legally Blind, Hx Macular Degeneration, Hx Vision Problem, Other Sensory Impairments Neurological History: Denies: Hx Dementia, Hx Developmental Delay, Hx Headaches, Hx Migraine, Hx Nerve Disease, Hx Seizures, Hx Spinal Cord Injury, Hx Transient Ischemic Attacks (TIA), Other Neuro Impairments/Disorders Psychiatric History: Reports: Hx Anxiety, Hx Depression - no depression over a year., Hx Inpatient Treatment, Hx Community Mental Health Tx, Hx Suicide Attempt - OD/Jump from parking garage, Hx of Violent Episodes Against Others, Hx Substance Abuse Denies: Hx Attention Deficit Hyperactivity Disorder, Hx Eating Disorder, Hx Panic Disorder, Hx Post Traumatic Stress Disorder, Hx Schizophrenia, Hx Bipolar Disorder, Other Psychiatric Issues/Disorders - Surgical History Surgery Procedure, Year, and Place: T & A 1992. Knee surgery 2005. Left ankle surgery Hx Anesthesia Reactions: No - Immunization History Date of Tetanus Vaccine: utd Date of Influenza Vaccine: no Infectious Disease History: No Infectious Disease History: Denies: Hx Clostridium Difficile, Hx Hepatitis, Hx Human Immunodeficiency Virus (HIV), Hx of Known/Suspected MRSA, Hx Shingles, Hx Tuberculosis, Hx Known/ Suspected VRE, Hx Known/Suspected VRSA, History Other Infectious Disease, Traveled Outside the [place] in Last 30 Days - Family History Known Family History: Positive: Cardiac Disease - [place] - father, "9 times", father at 55 from [place], Hypertension, Other - EtOH abuse - Social History Alcohol Use: Occasionally Alcohol Amount: once a month - h/o ETOH abuse; bottle of vodka 10/28 Hx Substance Use: Yes - cocaine, marijuana - 2012 Substance Use Type: Reports: None Substance Use Comment - Amount & Last Used: none currently Hx Tobacco Use: Yes - not currently smoking - switched to smokeless tob Smoking Status (MU): Current Every Day Smoker Type: Cigarettes, Smokeless Tobacco Amount Used/How Often: 1-2 PPD Have You Smoked in the Last Year: Yes Review of Systems Positive: Other - denies BM issues Positive: no symptoms reported Positive: Other - R-sided back pain radiating down to his R leg Positive: Numbness - numbness from his R knee and down to his ankle All Other Systems Reviewed And Are Negative: Yes Physical Exam - Summary Physical Exam Summary: Appearance: Well-appearing, obese, white male, lying in bed comfortable and in no acute distress Skin: Warm, dry, no obvious rash Eyes: sclera anicteric, no conjunctival pallor ENT: mucous membranes moist Neck: deferred Respiratory: No signs of respiratory distress Cardiovascular: Appears well perfused, pulses are nml Abdomen: deferred Musculoskeletal: Moving all 4 extremities without obvious discomfort Neurological: Awake and alert, mentation is normal, speech is fluent and appropriate, good dorsal and plant flexion of foot, Knee and ankle are normal without clonus, Diminished light touch in lower R leg Psychiatric: affect is normal, does not appear anxious or depressed Triage Information Reviewed: Yes Vital Signs On Initial Exam: Initial Vitals Temp Pulse Resp BP Pulse Ox 96.8 F 87 18 183/113 98 12/02/18 02:49 12/02/18 02:49 12/02/18 02:49 12/02/18 02:49 12/02/18 02:49 Vital Signs Reviewed: Yes Diagnostics - Vital Signs Vital Signs Temp Pulse Resp BP Pulse Ox 12/02/18 02:49 96.8 F 87 18 183/113 98 - Laboratory Result Diagrams: 12/02/18 03:33 12/02/18 03:33 Lab Statement: Any lab studies that have been ordered have been reviewed, and results considered in the medical decision making process. Re-Evaluation - Re-Evaluation First Eval Re-Evaluation Time: 05:00 Comment: Awoke patient from sleep. Discussed results with the patient and plan for discharge. Lower Extremity Course/Dx - Course Assessment/Plan: This patient is a 33 year old M presenting to ED with a chief complaint of R-sided back pain radiating down to his R leg since 1130 yesterday. In the ED course, the patient was given Toradol, Morphine, and fluids. Blood sugars noted to be elevated due to his steroids, he only be on this for a few days to this should not be a major problem. The patient will be discharged with dx of sciatica. Patient understands and agrees with this plan. - Diagnoses Differential Diagnosis/HQI/PQRI: Positive: Sciatica Provider Diagnoses: Sciatica Discharge - Sign-Out/Discharge Documenting (check all that apply): Patient Departure - discharge Patient Received Moderate/Deep Sedation with Procedure: No - Discharge Plan Condition: Good Disposition: HOME Prescriptions: oxyCODONE/Acetamin 5/325 MG* [Percocet 5/325 TAB*] 2 tab PO Q4H PRN #10 tab MDD 4 tabs PRN Reason: Pain - Breakthrough Patient Education Materials: Sciatica (ED) Referrals: Satish Dobson DO [Primary Care Provider] - 2 Days - Billing Disposition and Condition Condition: GOOD Disposition: Home - Attestation Statements Document Initiated by Pablo: Yes Documenting Scribe: Keanu Mckoy Provider For Whom Pablo is Documenting (Include Credential): Dung Hickman MD Scribe Attestation: Keanu Acharya, scribed for Dung Hickman MD on 12/02/18 at 0503. Scribe Documentation Reviewed: Yes Provider Attestation: The documentation as recorded by the Keanu peace accurately reflects the service I personally performed and the decisions made by me, Dung Hickman MD Status of Scribe Document: Viewed
[2018-12-02 04:03] LABS: ABS Basophils 0.1 10^3/ul (0-0.2); ABS Eosinophils 0.2 10^3/ul (0-0.6); ABS Lymphocytes 2.8 10^3/ul (1.0-4.8); ABS Monocytes 0.7 10^3/ul (0-0.8); ABS Neutrophils 4.7 10^3/ul (1.5-7.7); ABS Nucleated RBC 0 10^3/ul; Eosinophil % 1.8 %; Hematocrit 42 % (36-46); Hemoglobin 14.4 g/dL (14.0-18.0); Lymphocyte % 33.4 %; Mean Corpuscular HGB Conc 35 g/dL (31-36); Mean Corpuscular Hemoglobin 30 pg (27-31); Mean Corpuscular Volume 85 fL (80-94); Nucleated Red Blood Cells % 0.1; Platelet Count 182 10^3/uL (150-450); Red Blood Count 4.87 10^6 /uL (4.18-5.48); Red Cell Distribution Width 13 % (10.5-15); White Blood Count 8.4 10^3/uL (3.5-10.8)
[2018-12-02 04:19] LABS: Albumin 3.7 g/dL (3.2-5.2); Albumin/Globulin Ratio 1.2 (1-3); BUN/Creatinine Ratio 11.6 (8-20); C Reactive Protein 14.75 mg/L (<8.01); Calcium 8.5 mg/dL (8.6-10.3); EGFR African American 159.8 (>60); EGFR Non-African American 132.1 (>60); Globulin 3.1 g/dL (2-4); Potassium 3.6 mmol/L (3.5-5.0); Total Bilirubin 0.3 mg/dL (0.2-1.0); Total Protein 6.8 g/dL (6.4-8.9)
[2018-12-02 05:14] VITALS: BP 145/69
== END 2018-12-02 05:13 | disposition home or self-care (01) ==
LOC: ED 02:49
DX: M54.31 Sciatica, right side (principal); F17.210 Nicotine dependence, cigarettes, uncomplicated; Z82.49 Family history of ischemic heart disease and other diseases of the circulatory system; E11.9 Type 2 diabetes mellitus without complications; Z79.84 Long term (current) use of oral hypoglycemic drugs; I10 Essential (primary) hypertension; K21.9 Gastro-esophageal reflux disease without esophagitis; Z87.442 Personal history of urinary calculi
CPT/HCPCS: 36415; 80053; 85025; 86140; 96361; 96374; 96375; 99283; J1885; J2270

== ENCOUNTER 2018-12-04 11:39 | Emergency (ER) | payer SELFPAY ==
[2018-12-04 11:50] VITALS: BP 174/107
== END 2018-12-04 14:03 | disposition left against medical advice (07) ==
LOC: ED 11:39
DX: M54.30 Sciatica, unspecified side (principal)

== ENCOUNTER 2019-01-26 08:41 | Emergency (ER) | payer SELFPAY ==
[2019-01-26 09:12] VITALS: BP 161/100
--- NOTE | 2019-01-26 10:19 | UC ---
Lower Extremity/Ankle HPI - HPI Summary HPI Summary: 33 year old male with no PMH presents with pain to left ankle, left knee after twisting injury stepping into hole in ground yesterday while doing yard work. + immediate pain, some swelling, no bruising. Ambulatory but with significant pain at lower tib, later super fib. no knee swelling, pain. - History of Current Complaint Chief Complaint: UCLowerExtremity Stated Complaint: LT LEG/ANKLE INJURY Time Seen by Provider: 01/26/19 08:57 Hx Obtained From: Patient Onset/Duration: Sudden Onset, Lasting Days Severity Initially: Severe Severity Currently: Severe Pain Intensity: 7 Pain Scale Used: 0-10 Numeric Aggravating Factor(s): Standing, Ambulation Alleviating Factor(s): Rest Able to Bear Weight: Yes - + limp - Allergies/Home Medications Allergies/Adverse Reactions: Allergies Allergy/AdvReac Type Severity Reaction Status Date / Time No Known Allergies Allergy Verified 01/26/19 09:12 PMH/Surg Hx/FS Hx/Imm Hx Previously Healthy: Yes Other History Of: Negative For: HIV, Hepatitis B, Hepatitis C, Anticoagulant Therapy - Surgical History Surgical History: Yes Surgery Procedure, Year, and Place: T & A 1992. Knee surgery 2005. Left ankle surgery - Family History Known Family History: Positive: Cardiac Disease - [place] - father, "9 times", father at 55 from [place], Hypertension, Other - EtOH abuse - Social History Alcohol Use: None Alcohol Amount: once a month - h/o ETOH abuse; bottle of vodka 10/28 Substance Use Type: None Substance Use Comment - Amount & Last Used: none currently Smoking Status (MU): Former Smoker Type: Cigarettes, Smokeless Tobacco Amount Used/How Often: 1-2 PPD Have You Smoked in the Last Year: Yes Household Exposure Type: Cigarettes - Immunization History Most Recent Influenza Vaccination: Fall 2012 Most Recent Tetanus Shot: UTD Most Recent Pneumonia Vaccination: Never Review of Systems All Other Systems Reviewed And Are Negative: Yes Musculoskeletal: Positive: Arthralgia, Decreased ROM, Edema, Myalgia Psychological: Positive: Anxious Is Patient Immunocompromised?: No Physical Exam Triage Information Reviewed: Yes Appearance: Well-Appearing, Well-Nourished, Pain Distress - moderate with WB Vital Signs: Initial Vital Signs Temp 96.9 F 01/26/19 09:08 Pulse 80 05/11/19 09:08 Resp 18 01/26/19 09:08 BP 161/100 01/26/19 09:08 Pulse Ox 97 01/26/19 09:08 Eyes: Positive: Conjunctiva Clear Musculoskeletal: Positive: ROM Intact - L ankle joint without pain, no TTP over b/l malleous, no bruising, edema noted, no TTP over ankle ligaments, PT, DP 2+, stength in ankle maintained against resistence. TTP over superior fib without edema,, No Edema, Edema @, Other: - No instability at knee joint L Neurological Exam: Normal Neurological: Positive: Alert, Muscle Tone Normal, Other: - SITLT distal to L knee Psychological Exam: Normal Skin Exam: Normal Skin: Positive: Other - no bruising, no skin breakdown. Lower Extremity Course/Dx - Course Course Of Treatment: radiograph negative. likely sprain, WBAT, crutches ( patient has at home, declined crutches here) work note, follow up with orthopedics if no improvement within 2-3 days, RICE - Differential Dx/Diagnosis Provider Diagnosis: Sprain, knee Discharge - Sign-Out/Discharge Documenting (check all that apply): Patient Departure All imaging exams completed and their final reports reviewed: No Studies - Discharge Plan Condition: Good Disposition: HOME Prescriptions: oxyCODONE/Acetamin 5/325 MG* [Percocet 5/325 TAB*] 1 tab PO Q4H PRN #20 tab MDD 4 PRN Reason: Pain Patient Education Materials: Ankle Sprain (ED), Knee Sprain (ED) Forms: *Work Release Referrals: Charlotte Naqvi MD [Medical Doctor] - Satish Dobson DO [Primary Care Provider] - Additional Instructions: - FOllow up with orthopedic on Monday if no improvement - Weight bearing as tolerated over weekend, patient has crutches at home - Rest, Ice, Elevation - Billing Disposition and Condition Condition: GOOD Disposition: Home
--- NOTE | 2019-01-27 08:48 | UC ---
- Progress Note Progress Note: Patient Name: EVANGELISTA HAYNES Medical Record#: [id number] Ordering Physician: Holly TRACEY Acct.#: [id number] : 1985 Age: 33 Sex: M Location: [facility] Exam Date: 01/26/19945 ADM Status: REG ER Order Information: TIBIA FIBULA LEFT Accession Number: [id number] CPT: 32031 INDICATION: Left lower leg injury. TECHNIQUE: 2 views of the left lower leg were obtained. FINDINGS: There are calcific densities which project over the soft tissues in the mid and lower leg these appear relatively superficial. Recommend clinical correlation. The bones are normal alignment. No fracture is seen. IMPRESSION: 1. NO EVIDENCE FOR FRACTURE. 2. SOFT TISSUE CALCIFIC DENSITIES RECOMMEND CLINICAL CORRELATION. <Electronically signed by Georgi Nash MD in OV> 01/26/19 1011 Dictated By: Georgi Nash MD Dictated Date/Time: 01/26/19 1011 Transcribed Date/Time: 01/26/19 1008 Copy to: CC:Chase Escobar MD; Holly TRACEY; Satish Dobson DO [facility] - [facility] [address] [address] ph ([phone]) ph ([phone]) ph ([phone]) This report is only to be considered final once signed by the Provider(s) as displayed in the "<Electronically Signed by >" field (s). Absence of a signature indicates the report is in a draft status and still needs to be finalized. In the event this document was created by someone other than the signing Provider, the individual initiating the document will be listed in the "Entered by:" or "Dictated by:" barrios. 1 of 1 Course/Dx - Diagnoses Provider Diagnoses: Sprain, knee Discharge - Sign-Out/Discharge Documenting (check all that apply): Post-Discharge Follow Up All imaging exams completed and their final reports reviewed: Yes - Discharge Plan Condition: Good Disposition: HOME Prescriptions: oxyCODONE/Acetamin 5/325 MG* [Percocet 5/325 TAB*] 1 tab PO Q4H PRN #20 tab MDD 4 PRN Reason: Pain Patient Education Materials: Ankle Sprain (ED), Knee Sprain (ED) Forms: *Work Release Referrals: Charlotte Naqvi MD [Medical Doctor] - Satish Dobson DO [Primary Care Provider] - Additional Instructions: - FOllow up with orthopedic on Monday if no improvement - Weight bearing as tolerated over weekend, patient has crutches at home - Rest, Ice, Elevation - Billing Disposition and Condition Condition: GOOD Disposition: Home
== END 2019-01-26 10:50 | disposition home or self-care (01) ==
LOC: UCEAST 08:41
DX: S83.92XA Sprain of unspecified site of left knee, initial encounter (principal); M25.572 Pain in left ankle and joints of left foot; X50.1XXA Overexertion from prolonged static or awkward postures, initial encounter; Y93.H2 Activity, gardening and landscaping; Y92.096 Garden or yard of other non-institutional residence as the place of occurrence of the external cause; F41.9 Anxiety disorder, unspecified; Z87.891 Personal history of nicotine dependence
CPT/HCPCS: 99212; G0463

== ENCOUNTER 2019-04-25 10:21 | Emergency (ER) | payer MEDICAID ==
[2019-04-25] MEDS ORDERED: Metoprolol Tartrate IV* 1 MG/ML 5 ML VIAL IV ONE ×2 (10:43)
[2019-04-25 10:57] LABS: ABS Basophils 0.1 10^3/ul (0-0.2); ABS Eosinophils 0.2 10^3/ul (0-0.6); ABS Monocytes 0.6 10^3/ul (0-0.8); ABS Neutrophils 9.2 10^3/ul (1.5-7.7); Eosinophil % 1.3 %; Hematocrit 43 % (42-52); Hemoglobin 15.1 g/dL (14.0-18.0); Lymphocyte % 23.2 %; Mean Corpuscular HGB Conc 35 g/dL (31-36); Mean Corpuscular Hemoglobin 30 pg (27-31); Mean Corpuscular Volume 85 fL (80-94); Mean Platelet Volume 8.9 fL (7.4-10.4); Platelet Count 239 10^3/uL (150-450); Red Blood Count 5.06 10^6 /uL (4.18-5.48); Red Cell Distribution Width 13 % (10-15); White Blood Count 13.1 10^3/uL (3.5-10.8)
--- OUTSIDE RECORDS SUMMARY | 2019-04-25 11:00 | XMS REPORT | Summary of Care ---
:1985 Author Organization [facility] Address [address] [place] [address] Care Team Providers Name Role Phone Renay Blackburn RN Unavailable Satish Dobson DO Primary Care Provider Reason for Referral Diagnostic Testing (Routine) Status Reason Specialty Diagnoses / Referred By Referred To Procedures Contact Contact Authorized Diagnoses Exertional chest pain Satish Dobson DO Procedures EXERCISE STRESS ECHO W/TREADMILL [address] [place] [address] Reason for Visit Reason Comments Follow Up here for follow up; c/o chest pain when climbing stairs or during exertion (sex) Encounter Details Date Type Department Care Team Description 04/24/2019 Office Visit [facility] Satish Dobson DO Exertional chest pain (Primary Dx); Practice [address] [facility] Uncontrolled hypertension; [address] [place] [address] Uncontrolled type 2 diabetes mellitus with hyperglycemia (HCC); [place] [address] Dysuria; [phone] Dyslipidemia (Fax) Allergies No Known Allergiesdocumented as of this encounter (statuses as of 04/25/2019) Medications Medication Sig Dispensed Refills Start Date End Date Status metFORMIN Take 2 Tabs by 360 Tab 0 09/26/2018 Active (GLUCOPHAGE XR) mouth TWICE 500 MG Oral TABLET DAILY. SR 24 HRIndications: Uncontrolled type 2 diabetes mellitus with hyperglycemia (HCC) Blood Glucose 1 Device by 1 Device 0 09/26/2018 Active Monitor Software Does not apply Does not apply route Device DIRECTED. Test blood sugar twice a day DX: diabetes. Brand: Insurance preferred Glucose Blood In 1 Strip by In 100 Strip 5 09/26/2018 Active Vitro Strip Vitro route TWICE DAILY. Lancets Does not by Does not 60 Each 5 09/26/2018 Active apply Misc apply route TWICE DAILY. Brand: insurance preferred Dx: diabetes Test Blood Glucose 2 time(s) A DAY Insulin Glargine Inject 7 Units 3 mL 1 12/05/2018 Active 100 UNIT/ML beneath the Subcutaneous skin TWICE Solution DAILY. Pen-injectorIndica tions: Uncontrolled type 2 diabetes mellitus with hyperglycemia (HCC) atenolol Take 1 Tab by 30 Tab 0 04/12/2019 Active (TENORMIN) 100 MG mouth DAILY. Oral TabIndications: Hypertension, unspecified type Aspirin 81 MG Oral Take 1 Tab by 30 Tab 0 04/24/2019 Active Tab ECIndications: mouth DAILY. Exertional chest pain LISINOPRIL-HCTZ Take 1 Tab by 30 Tab 0 04/24/2019 Active 10-12.5 MG Oral mouth DAILY. TabIndications: Uncontrolled hypertension atorvastatin Take 1 Tab by 90 Tab 1 04/24/2019 Active (LIPITOR) 40 MG mouth DAILY. Oral TabIndications: Dyslipidemia lisinopril Take 1 Tab by 30 Tab 0 01/29/2019 Discontinued (PRINIVIL, mouth DAILY. 9 ZESTRIL) 10 MG Oral TabIndications: Hypertension, unspecified type Rosuvastatin Take 1 Tab by 90 Tab 1 01/29/2019 Discontinued Calcium (CRESTOR) mouth DAILY. 9 20 MG Oral TabIndications: Dyslipidemia LISINOPRIL-HCTZ Take 1 Tab by 30 Tab 0 04/24/2019 Discontinued 10-12.5 MG Oral mouth DAILY. 9 (Reorder) TabIndications: Uncontrolled hypertension documented as of this encounter (statuses as of 04/25/2019) Active Problems Problem Noted Date Uncontrolled type 2 diabetes mellitus without complication, without 12/07/2017 long-term current use of insulin Hypertriglyceridemia 12/07/2017 BMI 40.0-44.9, adult 12/07/2017 HTN (hypertension) documented as of this encounter (statuses as of 04/25/2019) Resolved Problems Problem Noted Date Resolved Date Injury, other and unspecified, unspecified site 10/21/2005 08/05/2016 documented as of this encounter (statuses as of 04/25/2019) Social History Tobacco Use Types Packs/Day Years Used Date Former Smoker 0.5 Smokeless Tobacco: Former User Chew Alcohol Use Drinks/Week oz/Week Comments No Sex Assigned at Date Recorded Not on file Job Start Date Occupation Industry Not on file Not on file Not on file Travel History Travel Start Travel End No recent travel history available. documented as of this encounter Last Filed Vital Signs Vital Sign Reading Time Taken Comments Blood Pressure 162/90 04/24/2019 5:09 PM EDT Pulse 76 04/24/2019 4:38 PM EDT Temperature - - Respiratory Rate - - Oxygen Saturation 97% 04/24/2019 4:38 PM EDT Inhaled Oxygen Concentration - - Weight 136.6 kg (301 lb 3.2 oz) 04/24/2019 4:38 PM EDT Height 180.3 cm (5' 11") 04/24/2019 4:38 PM EDT Body Mass Index 42.01 04/24/2019 4:38 PM EDT documented in this encounter Patient Instructions Patient InstructionsSatish Dobson DO - 04/24/2019 4:40 PM EDTWe will get back to your regarding cheaper insulin answer Do blood work tomorrow Schedule stress test Avoid strenuous activity Start aspirin Start lisinopril-HCTZ from [facility] as they have a cheaper prescription plan 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 Any time you get chest pain not going away with rest or happening without rest, call 911 documented in this encounter Progress Notes Satish Dobson DO - 04/24/2019 4:40 PM EDT PATIENT: Justin Carrillo : 1985 DATE OF SERVICE: 04/24/2019 CHIEF COMPLAINT: Chief Complaint Patient presents with Follow Up here for follow up; c/o chest pain when climbing stairs or during exertion ( sex) Subjective HISTORY OF PRESENT ILLNESS: Justin Carrillo is a 34-y.o. male. HPI Here for new issue Chest pain: Last 2 months Happening when going up stairs In center Feels like someone sitting on him After doing a flight of stairs, it takes few minutes of rest to go away Doesn't do anything else which is strenuous as going up flight of stairs Also palpitations during sex No dizziness or lightheadedness No nausea, sweats No pain at rest Uncontrolled HTN: Didn't follow up after last OV States has lost insurance due to change in work again Self pay now On atenolol only Uncontrolled diabetes: States can't afford insulin Just using metformin 1 g bid Dysuria a few times last few weeks Past Medical History: Diagnosis Date Anorexia Asthma Diabetes mellitus Drug abuse (HCC) cocaine, alcohol, and opiates Hematemesis HTN (hypertension) Family History Problem Relation Age of Onset Diabetes Mother Cancer Mother 46 non hodgkins lymphoma Lupus Mother Heart Father Current Outpatient Medications Medication Sig Aspirin 81 MG Oral Tab EC Take 1 Tab by mouth DAILY. atenolol (TENORMIN) 100 MG Oral Tab Take 1 Tab by mouth DAILY. atorvastatin (LIPITOR) 40 MG Oral Tab Take 1 Tab by mouth DAILY. Blood Glucose Monitor Software Does not apply Device 1 Device by Does not apply route DIRECTED. Test blood sugar twice a day DX: diabetes. Brand: Insurance preferred Glucose Blood In Vitro Strip 1 Strip by In Vitro route TWICE DAILY. Insulin Glargine 100 UNIT/ML Subcutaneous Solution Pen-injector Inject 7 Units beneath the skin TWICE DAILY. Lancets Does not apply Misc by Does not apply route TWICE DAILY. Brand: insurance preferred Dx: diabetes Test Blood Glucose 2 time(s) A DAY LISINOPRIL-HCTZ 10-12.5 MG Oral Tab Take 1 Tab by mouth DAILY. metFORMIN (GLUCOPHAGE XR) 500 MG Oral TABLET SR 24 HR Take 2 Tabs by mouth TWICE DAILY. No current facility-administered medications for this visit. No Known Allergies Social History Socioeconomic History Marital status: Single Spouse name: Not on file Number of children: Not on file Years of education: Not on file Highest education level: Not on file Occupational History Not on file Social Needs Financial resource strain: Not on file Food insecurity: Worry: Not on file Inability: Not on file Transportation needs: Medical: Not on file Non-medical: Not on file Tobacco Use Smoking status: Former Smoker Packs/day: 0.50 Smokeless tobacco: Former User Types: Chew Substance and Sexual Activity Alcohol use: No Drug use: No Sexual activity: Yes Lifestyle Physical activity: Days per week: Not on file Minutes per session: Not on file Stress: Not on file Relationships Social connections: Talks on phone: Not on file Gets together: Not on file Attends anabaptism service: Not on file Active member of club or organization: Not on file Attends meetings of clubs or organizations: Not on file Relationship status: Not on file Intimate partner violence: Fear of current or ex partner: Not on file Emotionally abused: Not on file Physically abused: Not on file Forced sexual activity: Not on file Other Topics Concern Back Care Not Asked Bike Helmet Not Asked Blood Transfusions Not Asked Caffeine Concern Not Asked Exercise Not Asked Hobby Hazards Not Asked International Travel Not Asked Service Not Asked Occupational Exposure Not Asked Seat Belt Not Asked Self-Exams Not Asked Sleep Concern Not Asked Special Diet Not Asked Stress Concern Not Asked Weight Concern Not Asked Social History Narrative Working at [employer] REVIEW OF SYSTEMS: Review of Systems Constitutional: Negative for fever. Cardiovascular: Positive for chest pain. Gastrointestinal: Negative for abdominal pain. Genitourinary: Positive for dysuria. Negative for frequency, hematuria and urgency. Neurological: Negative for dizziness. Objective PHYSICAL EXAM: VITALS: BP 162/90 | Pulse 76 | Ht 5' 11" (1.803 m) | Wt 301 lb 3.2 oz ( 136.6 kg) | SpO2 97% | BMI 42.01 kg/m Body mass index is 42.01 kg/m. Physical Exam Constitutional: He appears well-developed and well-nourished. No distress. HENT: Head: Normocephalic and atraumatic. Mouth/Throat: Oropharynx is clear and moist. No oropharyngeal exudate. Cardiovascular: Normal rate and regular rhythm. Pulmonary/Chest: Effort normal and breath sounds normal. Skin: He is not diaphoretic. ASSESSMENT / IMPRESSION: ICD-9-CM ICD-10-CM 1. Exertional chest pain 786.50 R07.9 Aspirin 81 MG Oral Tab EC AMBULATORY 12 LEAD EKG (GLOBAL) EXERCISE STRESS ECHO W/TREADMILL 2. Uncontrolled hypertension 401.9 I10 LISINOPRIL-HCTZ 10-12.5 MG Oral Tab DISCONTINUED: LISINOPRIL-HCTZ 10-12.5 MG Oral Tab 3. Uncontrolled type 2 diabetes mellitus with hyperglycemia (HCC) 250.02 E11.65 4. Dysuria 788.1 R30.0 5. Dyslipidemia 272.4 E78.5 atorvastatin (LIPITOR) 40 MG Oral Tab Plan Dipstick didn't show infection: just protein and glucose Will see if persisting symptoms next OV in few weeks. He had intermittent symptoms EKG: NSR today No ST changes His chest pain sounds very concerning for CAD. Has risk factors: obesity, smoking 1 pack per day andhe agreed today to stop cold turkey, father had CAD age 38, uncontrolled diabetes and hypertension. Made him aware of my CAD concerns in extensive talk. 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 Any time you get chest pain not going away with rest or happening without rest, call 911 Author: Satish Dobson DO 04/25/2019 08:12 documented in this encounter Plan of Treatment Date Type Specialty Care Team Description 04/25/2019 Lab Internal Medicine 05/15/2019 Office Visit Family Practice Satish Dobson DO [facility] [place] [address] [phone] Name Type Priority Associated Diagnoses Order Schedule AMBULATORY 12 LEAD EKG EKG Routine Exertional chest pain Ordered: 2018 (GLOBAL) EXERCISE STRESS ECHO CV Lab Routine Exertional chest pain Expected: 2018, W/TREADMILL Expires: 05/28/2020 Health Maintenance Due Date Last Done Comments Diabetic Eye Exam 1985 PNEUMOCOCCAL 0-64 YRS (1 of 1991 1 - PPSV23) FOOT EXAM 2003 HEMOGLOBIN A1C 12/25/2018 09/26/2018, 01/18/2018, 11/14/2017, Additional history exists INFLUENZA VACCINE (#1) 2019 DEPRESSION SCREENING 01/30/2020 01/29/2019 HPV IMMUNIZATION SERIES Aged Out No longer eligible based on patient's age to complete this topic MENINGOCOCCAL VACCINE IMM Aged Out No longer eligible based on patient's age to complete this topic documented as of this encounter Goals Goal Patient Goal Associated Recent Patient-Stated? Author Type Problems Progress Blood Pressure Blood Pressure 162/90 No Satish Dobson < 140/90 (04/24/2019 DO Abby 5:09 PM EDT) Note: This is an individualized treatment (blood pressure) goal for Justin Carrillo: Displayed above (on the left) is your goal for blood pressure control. Your most recent blood pressure is also shown above, on the right. You should try to achieve blood pressures that are lower than your goal listed above (on the left). Glycohemoglobin A1c < 7.0 Diabetes 13.5 (09/26/2018 9:36 No Joy Blackburn RN AM EST) Note: This is an individualized treatment (diabetes control, HgbA1C) goal for Justin Carrillo: Displayed above is your progress towards your HgbA1C goal. Your goal is shown above (on the left); your most recent HgbA1C is shown on the right. Note that lower numbers are better. Weight loss vs. 18 mo Lifestyle 25.1 (04/24/2019 4:38 PM No Joy Blackburn RN max (lbs) >=10 EDT) Note: This is an individualized lifestyle goal for Justin Carrillo: Your body mass index (BMI) is more than 30. You should lose weight. A reasonable starting goal is to lose 10 pounds. Displayed above is how many pounds you have lost thus far towards your 10 pound weight loss goal. Keep immunizations current Lifestyle No Renay Blackburn RN Note: This is an individualized lifestyle goal for Justin Carrillo: Please be sure to keep up-to-date on recommended immunizations. For example, this would include a yearly influenza vaccine. Immunization status can be seen by looking at the Health Maintenance sections of your [facility], Plan of Care, and any After Visit Summaries. Take all prescribed medications as Self-management No Renay Blackburn RN directed Note: This is an individualized self-management goal for Justin Carrillo: Please take all prescribed medications as directed. 1. Do not skip doses. If you cannot afford your medications, talk with your doctor. 2. Use a pill reminder system such as a pill box if needed. Your pharmacist can help you with this. 3. Contact your Pharmacy 5 days before your medication runs out. If you cannot take your medications for any reasons, talk with your doctor. 4. Please bring all of your medication bottles and inhalers (or a list of all your medications/inhalers) with you to every visit. Potential barriers to meeting all of your care plan goals will continue to be addressed on an ongoing basis. documented as of this encounter Results Not on filedocumented in this encounter Visit Diagnoses Diagnosis Exertional chest pain - Primary Chest pain, unspecified Uncontrolled hypertension Unspecified essential hypertension Uncontrolled type 2 diabetes mellitus with hyperglycemia (HCC) Dysuria Dyslipidemia Other and unspecified hyperlipidemia documented in this encounter Advance Directives Type Date Recorded Patient Panel Monitor Explanation Advance Directives 11/15/2017 9:11 AM [employer] responsibility acknowledgement form Advance Directives 11/24/2017 1:16 PM [employer] responsibility acknowledgement form
--- NOTE | 2019-04-25 11:03 | ED ---
HPI Chest Pain - HPI Summary HPI Summary: 34 year old M patient presenting to [facility] with a chief complaint of intermittent chest pain since 2-3 days ago rated at 3/10 in severity, per triage. Patient reports he started having fatigue a couple nights ago and took a nap after which he woke up with chest pain. Patient reports he checked his pulse on his phone and his pulse looked normal but the chest pain returned today. Patient reports when he went to work (no strenuous work- sits at desk) this morning he started having heaviness in the middle of his chest rated at 1- 2 in pain that lasted for less than 2 seconds. Patient reports he has been taking Atenolol 100 mg for some time and recently started taking Lisinopril for which he took for the first time this morning at 0645, 04/25/19. Patient reports he took multiple aspirins this morning as he usually does to treat chest pain. Patient reports its hard to breath. Patient reports he has back pain on the kidney side. Patient denies shortness of breath, swelling or pain in legs, fevers, sweats, chills, shoulders pain, arm pain, jaw pain, blurry vision, and lightheadedness. Patient reports recent weight loss without trying to.Patient reports he does not have full feeling in his right leg since January and that he has a hernia in the middle of his abdomen. Patient has a cough due to smoking. Fhx cardiac disease, cancer.Hx diabetes (could not get pills to treat it recently). Per triage, patient saw PCP yesterday and had a normal EKG. Symptoms aggravated by nothing. Symptoms alleviated by nothing. - History of Current Complaint Chief Complaint: EDChestPainROMI Time Seen by Provider: 04/25/19 10:34 Hx Obtained From: Patient Onset/Duration: Started Days Ago - 2-3 Timing: Intermittent Pain Intensity: 3 Pain Scale Used: 0-10 Numeric Chest Pain Radiates: No Aggravating Factor(s): Nothing Alleviating Factor(s): Nothing Associated Signs and Symptoms: Positive: Cough - due to smoking, Back Pain, Other: - denies: swelling or pain in legs, shoulder pain, arm pain, jaw pain, blurry vision reports difficulty breathing. Negative: Shortness of Breath, Swelling, Fever, Chills, Lightheadedness, Diaphoresis - Additional Pertinent History Primary Care Physician: [id number] - Allergy/Home Medications Allergies/Adverse Reactions: Allergies Allergy/AdvReac Type Severity Reaction Status Date / Time No Known Allergies Allergy Verified 04/26/19 21:42 Home Medications: Home Medications Lisinopril/HCTZ (NF) [Zestoretic 06/29.(NF)] 1 tab PO DAILY 04/25/19 [ History Confirmed 04/25/19] PMH/Surg Hx/FS Hx/Imm Hx Endocrine/Hematology History: Reports: Hx Diabetes - metformin and lantus Denies: Hx Anticoagulant Therapy, Hx Blood Disorders, Hx Blood Transfusions, Hx Bone Marrow Disease, Hx Systemic Lupus Erythematosus, Hx Sickle Cell Disease , Hx Thyroid Disease, Hx Anemia, Hx Unexplained Bleeding, Other Endocrine/ Hematological Disorders Cardiovascular History: Reports: Hx Hypertension, Other Cardiovascular Problems/ Disorders - CARDIAC CATH 2011 Denies: Hx Aneurysm, Hx Angina, Hx Angioplasty, Hx Auto Implanted Cardiovert Defib, Hx Cardiac Arrest, Hx Cardiomegaly, Hx Congenital Heart Disease, Hx Congestive Heart Failure, Hx Coronary Artery Disease, Hx Deep Vein Thrombosis, Hx Embolism, Hx Hypercholesterolemia, Hx Hypotension, Hx Myocardial Infarction, Hx Pacemaker/ICD, Hx Peripheral Vascular Disease, Hx Rheumatic Fever, Hx Syncope , Hx Valvular Heart Disease Respiratory History: Reports: Hx Asthma - A CHILD, Hx Chronic Bronchitis, Hx Seasonal Allergies Denies: Hx Chronic Obstructive Pulmonary Disease (COPD), Hx Cystic Fibrosis, Hx Lung Cancer, Hx Pleural Effusion, Hx Pneumonia, Hx Pulmonary Edema, Hx Pulmonary Embolism, Hx Sleep Apnea GI History: Reports: Hx Gastroesophageal Reflux Disease, Other GI Disorders - fatty liver Denies: Hx Gall Bladder Disease, Hx Gastrointestinal Bleed, Hx Ulcer, Hx Urosepsis History: Reports: Hx Kidney Stones Denies: Hx Dialysis, Hx Renal Disease Musculoskeletal History: Reports: Hx Orthopedic Injury - Right Knee Sensory History: Reports: Hx Contacts or Glasses Denies: Hx Cataracts, Hx Eye Injury, Hx Eye Prosthesis, Hx Glaucoma, Hx Legally Blind, Hx Macular Degeneration, Hx Vision Problem, Hx Deafness, Hx Hearing Aid, Hx Hearing Problem, Other Sensory Impairments Opthamlomology History: Reports: Hx Contacts or Glasses Denies: Hx Cataracts, Hx Eye Injury, Hx Eye Prosthesis, Hx Glaucoma, Hx Legally Blind, Hx Macular Degeneration, Hx Vision Problem, Other Sensory Impairments Neurological History: Denies: Hx Dementia, Hx Developmental Delay, Hx Headaches, Hx Migraine, Hx Nerve Disease, Hx Seizures, Hx Spinal Cord Injury, Hx Transient Ischemic Attacks (TIA), Other Neuro Impairments/Disorders Psychiatric History: Reports: Hx Anxiety, Hx Depression - no depression over a year., Hx Inpatient Treatment, Hx Community Mental Health Tx, Hx Suicide Attempt - OD/Jump from parking garage, Hx of Violent Episodes Against Others, Hx Substance Abuse Denies: Hx Attention Deficit Hyperactivity Disorder, Hx Eating Disorder, Hx Panic Disorder, Hx Post Traumatic Stress Disorder, Hx Schizophrenia, Hx Bipolar Disorder, Other Psychiatric Issues/Disorders - Surgical History Surgery Procedure, Year, and Place: T & A 1992. Knee surgery 2005. Left ankle surgery Hx Anesthesia Reactions: No - Immunization History Date of Tetanus Vaccine: utd Date of Influenza Vaccine: no Infectious Disease History: No Infectious Disease History: Denies: Hx Clostridium Difficile, Hx Hepatitis, Hx Human Immunodeficiency Virus (HIV), Hx of Known/Suspected MRSA, Hx Shingles, Hx Tuberculosis, Hx Known/ Suspected VRE, Hx Known/Suspected VRSA, History Other Infectious Disease, Traveled Outside the [place] in Last 30 Days - Family History Known Family History: Positive: Cardiac Disease - [place] - father, "9 times", father at 55 from [place], Hypertension, Other - EtOH abuse - Social History Alcohol Use: None Alcohol Amount: once a month - h/o ETOH abuse; bottle of vodka 10/28 Hx Substance Use: Yes - cocaine, marijuana - 2012 Substance Use Type: Reports: None Substance Use Comment - Amount & Last Used: none currently Hx Tobacco Use: Yes - not currently smoking - switched to smokeless tob Smoking Status (MU): Former Smoker Type: Cigarettes, Smokeless Tobacco Amount Used/How Often: 1-2 PPD Have You Smoked in the Last Year: Yes Review of Systems Positive: Fatigue. Negative: Fever, Chills, Skin Diaphoresis Negative: Blurred Vision Positive: Chest Pain Positive: Cough, Other - difficulty breathing. Negative: Shortness Of Breath Negative: Abdominal Pain Positive: Other - back pain; denies: swelling or pain in legs, shoulders pain, arm pain, jaw pain Neurological: Other - denies lightheadedness All Other Systems Reviewed And Are Negative: Yes Physical Exam - Summary Physical Exam Summary: Constitutional: Well-developed, Well-nourished, Alert. (-) Distressed Skin: Warm, Dry HENT: Normocephalic; Atraumatic Eyes: Conjunctiva normal Neck: Musculoskeletal ROM normal neck. (-) JVD, (-) Stridor, (-) Tracheal deviation Cardio: Rhythm regular, rate normal, Heart sounds normal; Intact distal pulses; The pedal pulses are 2+ and symmetric. Radial pulses are 2+ and symmetric. (-) Murmur Pulmonary/Chest wall: Effort normal. (-) Respiratory distress, (-) Wheezes, (-) Rales Abd: Soft, (-) tenderness, (-) Distension, (-) Guarding, (-) Rebound Musculoskeletal: (-) Edema Lymph: (-) Cervical adenopathy Neuro: Alert, Oriented x3 Psych: Mood and affect Normal Triage Information Reviewed: Yes Vital Signs On Initial Exam: Initial Vitals Temp Pulse Resp BP Pulse Ox 98.4 F 78 16 175/93 99 04/25/19 10:30 04/25/19 10:30 04/25/19 10:30 04/25/19 10:30 04/25/19 10:30 Vital Signs Reviewed: Yes Diagnostics - Vital Signs Vital Signs Temp Pulse Resp BP Pulse Ox 04/25/19 10:30 98.4 F 78 16 175/93 99 - Laboratory Result Diagrams: 04/25/19 10:49 04/25/19 10:49 Lab Statement: Any lab studies that have been ordered have been reviewed, and results considered in the medical decision making process. - Radiology Chest X-Ray Radiology Interpretation Completed By: Radiologist Summary of Radiographic Findings: Per radiologist,. NO ACTIVE CARDIOPULMONARY DISEASE IS NOTED. ED physician has reviewed this imaging report. - EKG 1022 Cardiac Rate: NL - 79 EKG Rhythm: Sinus Rhythm Summary of EKG Findings: Sinus rhythm at 79 BPM. 1453 Cardiac Rate: NL - 73 BPM EKG Rhythm: Sinus Rhythm Summary of EKG Findings: Sinus Rhythm at 73 BPM. Chest Pain Course/Dx - Course Course Of Treatment: The patient was evaluated by the hospitalist service, recommended admission. They've evaluated, elected to arrange expedited outpatient stress test. The patient has been ruled out for acute coronary syndrome by 2 negative troponins. He took his first dose of the new antihypertensives today, currently asymptomatic. I did encourage him to follow up with his doctor about a diabetic regimen, I did point him to [facility] having discounted rates or insulin as cost was initiated. 34 year old M patient presenting to [facility] with a chief complaint of intermittent chest pain since 2-3 days ago rated at 3/10 in severity, per triage. Patient reports he started having fatigue a couple nights ago and took a nap after which he woke up with chest pain. Patient reports he checked his pulse on his phone and his pulse looked normal but the chest pain returned today. Patient reports when he went to work (no strenuous work- sits at desk) this morning he started having heaviness in the middle of his chest rated at 1-2 in pain that lasted for less than 2 seconds. Patient reports he has been taking Atenolol 100 mg for some time and recently started taking Lisinopril for which he took for the first time this morning at 0645, 04/25/19. Patient reports he took multiple aspirins this morning as he usually does to treat chest pain. Patient reports its hard to breath. Patient reports he has back pain on the kidney side. Patient denies shortness of breath, swelling or pain in legs, fevers, sweats, chills, shoulders pain, arm pain, jaw pain, blurry vision, and lightheadedness. Patient reports recent weight loss without trying to. Patient reports he does not have full feeling in his right leg since January and that he has a hernia in the middle of his abdomen. Patient has a cough due to smoking. Fhx cardiac disease, cancer. Hx diabetes (could not get pills to treat it recently). Per triage, patient saw PCP yesterday and had a normal EKG. Physical exam reveals no abnormalities. Blood work shows no abnormalities except for WBC 13.1 H, Absolute Neuts 9.2 H, Sodium 134 L, Chloride 100 L, Glucose 275 H, and AST 46 H. INR is 1.02 and D-Dimer is <200. EKG reveals sinus rhythm at 79 BPM. 2nd EKG reveals sinus rhythm at 73 BPM. Chest X-Ray reveals no active cardiopulmonary disease is noted. Physician discussed discharge with patient who agrees to discharge. Patient will follow up with primary care provider within 2 days. - Diagnoses Provider Diagnoses: Chest pain, unspecified, Noncompliance with medication regimen, Uncontrolled hypertension Discharge ED - Sign-Out/Discharge Documenting (check all that apply): Patient Departure Patient Received Moderate/Deep Sedation with Procedure: No - Discharge Plan Condition: Good Disposition: HOME Patient Education Materials: Chest Pain (ED), Hypertension (ED), Diabetes and Nutrition (ED) Referrals: Satish Dobson DO [Primary Care Provider] - 2 Days - Billing Disposition and Condition Condition: GOOD Disposition: Home - Attestation Statements Document Initiated by Scribe: Yes Documenting Scribe: Winsome Blount Provider For Whom Scribe is Documenting (Include Credential): Dr. Khris Medina, ED Scribe Attestation: Winsome Acharya scribed for Dr. Khris Medina, ED on 05/07/19 at 1426. Scribe Documentation Reviewed: Yes Provider Attestation: The documentation as recorded by the Winsome peace accurately reflects the service I personally performed and the decisions made by me, Dr. Khris Medina, ED Status of Scribe Document: Viewed
[2019-04-25 11:10] LABS: INR 1.02 (0.82-1.09)
[2019-04-25 11:19] LABS: Albumin 4.1 g/dL (3.2-5.2); Albumin/Globulin Ratio 1.2 (1-3); BUN/Creatinine Ratio 12.5 (8-20); Calcium 9.5 mg/dL (8.6-10.3); EGFR African American 151.2 (>60); Globulin 3.5 g/dL (2-4); Potassium 4.3 mmol/L (3.5-5.0); Total Bilirubin 0.6 mg/dL (0.2-1.0); Total Protein 7.6 g/dL (6.4-8.9)
[2019-04-25] MEDS ORDERED: amLODIPine TAB* 5 MG PO ONE ×2 (12:08)
[2019-04-25] MEDS ORDERED: Acetaminophen TAB* 325 MG PO ONE ×2 (14:43)
[2019-04-25 17:41] VITALS: BP 0/0
--- NOTE | 2019-04-25 20:01 | CONS ---
CONSULTATION REPORT: DATE OF CONSULT: 04/25/19 PROVIDER: KYUNG Manzano REQUESTING PROVIDER: Dr. Medina. REASON FOR CONSULT: Chest pain with risk factors. HISTORY OF PRESENT ILLNESS: Justin Carrillo is a 34-year-old white male with past medical history significant for obesity, diabetes mellitus type 2, hypertension, history of alcohol use disorder, PTSD, panic disorder, and anxiety who presents to the emergency department today for intermittent chest pain. The patient reports that he has been intermittently having chest pain on his left side of his chest that lasts 5 to 10 seconds over the last several months. He has not noticed a particular pattern to his pain. He notes that it frequently happens when he is at rest such as when he is relaxing at home or lying down. The patient saw his primary care provider, Dr. Dobson for this in the office yesterday. Dr. Dobson ordered an EKG, which was performed, which was reportedly normal per the patient. Dr. Dobson then ordered a stress test to be performed outpatient, which is yet to be scheduled but the estimated time of stress test was 6 weeks from yesterday per patient. Additionally, the patient had elevated blood pressure in his office visit and he was prescribed new antihypertensive medication of combined lisinopril and hydrochlorothiazide and thus, the patient's first dose was this morning. He otherwise reports being compliant to his amlodipine. The patient reports he is not compliant to his diabetes medication regimen because he is prescribed insulin and cannot afford it because he does not have insurance. The patient reports he is going to have insurance starting on 05/19/19 and it has been already confirmed that any medical care that he receives will be back paid the last 3 months. Further regarding this patient's chest pain, he reports that it is on the left side. What ultimately brought him to the emergency department today was that he was still feeling frustrated that he was having this intermittent chest pain. He rates the pain as a 3/10 and does not have associated symptoms with it such as visual changes, headaches, shortness of breath, radiating pain, or chest palpitations. He describes it not so much of a pain, but as a discomfort on the left side of his chest. At the time of my evaluation, the patient reports that he is chest pain- free and has no symptoms. As previously described, he did experience chest discomfort today which only lasted 5 seconds and it occurred when he was smoking a cigarette. The patient has been taking aspirin very frequently due to the pain that he is having, but did not notice relief from the chest discomfort when he takes aspirin. He does note that he gets short of breath when walking upstairs, but admits that the last time he walked upstairs was 1 month ago and very, very infrequently uses stairs. His shortness of breath recovers after rest. He never experiences shortness of breath at rest. Additionally, the patient reports that he had an echocardiogram in May, which was reportedly normal. The patient has a history of anxiety. The patient has not been prescribed medications for his anxiety recently. ED COURSE: In the emergency department, his vital signs were temperature 98.4 degrees Fahrenheit, heart rate 78, respiratory rate 16, oxygen saturation 99%, blood pressure 175/93, which was then 183/98 and then after receiving metoprolol ultimately was 130/80. The hospitalists were asked to evaluate the patient given his chest pain and risk factors. PAST MEDICAL HISTORY: 1. Diabetes mellitus type 2. 2. Hypertension. 3. History of alcohol use disorder. 4. PTSD. 5. Panic disorder. 6. Anxiety. 7. History of asthma. PAST SURGICAL HISTORY: 1. Tonsillectomy. 2. Adenoidectomy. 3. Meniscus and ACL repair of the left knee. HOME MEDICATIONS: 1. Aspirin 81 mg p.o. q.4 hours p.r.n. pain. 2. Lisinopril/hydrochlorothiazide 10 mg/12.5 mg p.o. daily. 3. Atenolol 100 mg p.o. daily. 4. Metformin 500 mg p.o. b.i.d. ALLERGIES: No known drug allergies. FAMILY HISTORY: Father at age 57 due to an [place]. Mother at age 52 due to progressive multifocal leukoencephalopathy. She had a history of non- Hodgkin's lymphoma. SOCIAL HISTORY: The patient is engaged and lives with his fiancee in [place]. He has 1 son from a previous relationship. 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 He previously drank 30 beers per day over the course of 1 year, but has not done so since approximately 2011, now he drinks approximately 1 alcoholic beverage per week. He smokes 1.5 packs per day and has been doing so since the age of 16. Denies illicit drug use. REVIEW OF SYSTEMS: An 11-point review of systems was completed and all pertinent positives and negatives are above in the HPI. All other systems are negative. PHYSICAL EXAM: General: Obese white male, sitting upright in hospital bed, appearing comfortable, in no acute distress. Head: Normocephalic, atraumatic. Eyes: PERRL. Sclerae anicteric. ENT: Mucous membranes are moist. Neck: Supple without JVD. Cardio: Regular rate and rhythm without murmurs, rubs, or gallops. Lungs: Clear to auscultation throughout. Abdomen: Soft, nontender, nondistended. Extremities: No cyanosis, clubbing, or edema. Neuro: The patient is alert and oriented x3. No focal deficits. Able to move all extremities. Psych: The patient is calm, cooperative, and pleasant. Skin: Warm, dry, and intact. DIAGNOSTIC STUDIES/LAB DATA: Troponin 0.0 x3. EKG: Normal axis, no ST elevations or depressions, isolated T-wave inversion in lead III, which is consistent with prior EKG. Heart rate is 71 beats per minute. Repeat EKG with T-wave flattening in lead III, which is isolated and isolated T - wave inversion in V1, and otherwise EKG is unchanged. White blood cell count 13.1, hemoglobin 15.1, hematocrit 43, platelet count 239. Sodium 134, potassium 4.3, chloride 100, carbon dioxide 25, anion gap 9, BUN 9, creatinine 0.72, glucose 275. AST 46, ALT 27, total bili 0.60. Chest x-ray, no cardiopulmonary disease. ASSESSMENT AND PLAN: Justin Carrillo is a 34-year-old white male with past medical history significant for diabetes mellitus type 2, hypertension, history of alcohol use, posttraumatic stress disorder, panic disorder, anxiety, and history of asthma who presents to the emergency department complaining of left- sided chest pain intermittently over the past several months. 1. Atypical chest pain. The patient has been experiencing left-sided chest pain, which lasts 5 to 10 seconds intermittently over the past several months. His troponins are negative here. His EKG is unchanged from previous EKG at this facility. Overall, he is not currently symptomatic and his symptoms did not last longer than 5 seconds today. He already has outpatient stress test due to be scheduled with his primary care provider's office; however, given that the patient has HEART score of 2, considering his risk factors, it would be of benefit for him to have an outpatient stress test that is expedited. We have ordered an outpatient stress test to be performed at this facility, which should be performed within the next 48 hours. The patient does have a history of anxiety, which is currently untreated and this is very likely to be the cause of this intermittent atypical chest pain. The patient was advised to follow up with his primary care provider regarding restarting treatment for his anxiety. The patient is advised to return to the emergency department if his chest pain last longer than 5 to 10 minutes, is severe, or if he has any shortness of breath at rest or with exertion, especially if associated with chest pain. 2. Hypertension. The patient did have elevated blood pressure today, which was noted yesterday in his office visit with his primary care provider which is why new combination medication of hydrochlorothiazide and lisinopril was started. His first dose is only taken this morning. He has not had sufficient doses to properly treat his hypertension yet at this point and needs a few more daily doses to be well controlled in addition to his normal atenolol, which he is compliant with. He was given 1 dose of metoprolol in the emergency department to decrease his blood pressure. The patient was advised to continue his current medications, to daily check his blood pressure and to report to the emergency department if it exceeds 200/100 or if he has a severe headache. 3. Diabetes. The patient was advised the need for insulin; however. He is unable to afford it and he is uninsured, but he will be receiving insurance next month and we will start it at that time. His uncontrolled diabetes is a contributing factor to his risk factors of possible heart disease. The patient should follow up with his primary care provider. 4. Disposition. Home, to be discharged by emergency physician, Dr. Medina. KYUNG MANZANO [id number]/[facility] #: [id number]
== END 2019-04-25 17:39 | disposition home or self-care (01) ==
LOC: ED 10:21
DX: R07.9 Chest pain, unspecified (principal); I10 Essential (primary) hypertension; Z91.14 Patient's other noncompliance with medication regimen; E11.9 Type 2 diabetes mellitus without complications; K21.9 Gastro-esophageal reflux disease without esophagitis; E66.9 Obesity, unspecified; F43.10 Post-traumatic stress disorder, unspecified; F41.0 Panic disorder [episodic paroxysmal anxiety]; F41.9 Anxiety disorder, unspecified; Z87.891 Personal history of nicotine dependence; Z79.4 Long term (current) use of insulin; Z79.82 Long term (current) use of aspirin; Z79.899 Other long term (current) drug therapy
CPT/HCPCS: 36415; 71045; 80053; 84484; 85025; 85379; 85610; 93005; 96374; 99283; A9270-GY; J3490

== ENCOUNTER 2019-04-26 21:02 | Observation (INO) | payer MEDICAID ==
[2019-04-26 22:08] LABS: ABS Basophils 0.1 10^3/ul (0-0.2); ABS Eosinophils 0.2 10^3/ul (0-0.6); ABS Lymphocytes 3.1 10^3/ul (1.0-4.8); ABS Monocytes 0.8 10^3/ul (0-0.8); ABS Neutrophils 9.8 10^3/ul (1.5-7.7); Eosinophil % 1.3 %; Hematocrit 44 % (42-52); Mean Corpuscular HGB Conc 34 g/dL (31-36); Mean Corpuscular Hemoglobin 30 pg (27-31); Mean Corpuscular Volume 86 fL (80-94); Mean Platelet Volume 8.8 fL (7.4-10.4); Nucleated Red Blood Cells % 0.1; Platelet Count 251 10^3/uL (150-450); Red Blood Count 5.07 10^6 /uL (4.18-5.48); Red Cell Distribution Width 13 % (10-15)
[2019-04-26 22:15] LABS: INR 1.01 (0.82-1.09)
[2019-04-26 22:25] LABS: Albumin 4.2 g/dL (3.2-5.2); Albumin/Globulin Ratio 1.1 (1-3); Calcium 10.2 mg/dL (8.6-10.3); EGFR African American 112.5 (>60); Potassium 4.6 mmol/L (3.5-5.0); Total Bilirubin 0.4 mg/dL (0.2-1.0); Total Protein 8.2 g/dL (6.4-8.9)
--- NOTE | 2019-04-26 22:51 | ED ---
HPI Chest Pain - HPI Summary HPI Summary: This patient is a 34 year old male presenting to [facility] with a chief complaint of cardiac problems 2 hours DUMPER. The patient was in the hospital yesterday for chest pain. He presents today with left jaw pain with pain radiating down his left arm. He states these are new symptoms and he only had chest pressure yesterday. He reports diaphoresis. The patient has a Hx of diabetes and HTN. - History of Current Complaint Chief Complaint: EDChestPainROMI Time Seen by Provider: 04/26/19 22:40 Hx Obtained From: Patient Onset/Duration: Started Hours Ago Timing: Constant, Lasting Minutes Initial Severity: Moderate Current Severity: Moderate Pain Intensity: 6 Pain Scale Used: 0-10 Numeric - Additional Pertinent History Primary Care Physician: EARL - Allergy/Home Medications Allergies/Adverse Reactions: Allergies Allergy/AdvReac Type Severity Reaction Status Date / Time No Known Allergies Allergy Verified 04/26/19 21:42 PMH/Surg Hx/FS Hx/Imm Hx Endocrine/Hematology History: Reports: Hx Diabetes - metformin and lantus Denies: Hx Anticoagulant Therapy, Hx Blood Disorders, Hx Blood Transfusions, Hx Bone Marrow Disease, Hx Systemic Lupus Erythematosus, Hx Sickle Cell Disease , Hx Thyroid Disease, Hx Anemia, Hx Unexplained Bleeding, Other Endocrine/ Hematological Disorders Cardiovascular History: Reports: Hx Hypertension, Other Cardiovascular Problems/ Disorders - CARDIAC CATH 2011 Denies: Hx Aneurysm, Hx Angina, Hx Angioplasty, Hx Auto Implanted Cardiovert Defib, Hx Cardiac Arrest, Hx Cardiomegaly, Hx Congenital Heart Disease, Hx Congestive Heart Failure, Hx Coronary Artery Disease, Hx Deep Vein Thrombosis, Hx Embolism, Hx Hypercholesterolemia, Hx Hypotension, Hx Myocardial Infarction, Hx Pacemaker/ICD, Hx Peripheral Vascular Disease, Hx Rheumatic Fever, Hx Syncope , Hx Valvular Heart Disease Respiratory History: Reports: Hx Asthma - A CHILD, Hx Chronic Bronchitis, Hx Seasonal Allergies Denies: Hx Chronic Obstructive Pulmonary Disease (COPD), Hx Cystic Fibrosis, Hx Lung Cancer, Hx Pleural Effusion, Hx Pneumonia, Hx Pulmonary Edema, Hx Pulmonary Embolism, Hx Sleep Apnea GI History: Reports: Hx Gastroesophageal Reflux Disease, Other GI Disorders - fatty liver Denies: Hx Gall Bladder Disease, Hx Gastrointestinal Bleed, Hx Ulcer, Hx Urosepsis History: Reports: Hx Kidney Stones Denies: Hx Dialysis, Hx Renal Disease Musculoskeletal History: Reports: Hx Orthopedic Injury - Right Knee Sensory History: Reports: Hx Contacts or Glasses Denies: Hx Cataracts, Hx Eye Injury, Hx Eye Prosthesis, Hx Glaucoma, Hx Legally Blind, Hx Macular Degeneration, Hx Vision Problem, Hx Deafness, Hx Hearing Aid, Hx Hearing Problem, Other Sensory Impairments Opthamlomology History: Reports: Hx Contacts or Glasses Denies: Hx Cataracts, Hx Eye Injury, Hx Eye Prosthesis, Hx Glaucoma, Hx Legally Blind, Hx Macular Degeneration, Hx Vision Problem, Other Sensory Impairments Neurological History: Denies: Hx Dementia, Hx Developmental Delay, Hx Headaches, Hx Migraine, Hx Nerve Disease, Hx Seizures, Hx Spinal Cord Injury, Hx Transient Ischemic Attacks (TIA), Other Neuro Impairments/Disorders Psychiatric History: Reports: Hx Anxiety, Hx Depression - no depression over a year., Hx Inpatient Treatment, Hx Community Mental Health Tx, Hx Suicide Attempt - OD/Jump from parking garage, Hx of Violent Episodes Against Others, Hx Substance Abuse Denies: Hx Attention Deficit Hyperactivity Disorder, Hx Eating Disorder, Hx Panic Disorder, Hx Post Traumatic Stress Disorder, Hx Schizophrenia, Hx Bipolar Disorder, Other Psychiatric Issues/Disorders - Surgical History Surgery Procedure, Year, and Place: T & A 1992. Knee surgery 2005. Left ankle surgery Hx Anesthesia Reactions: No - Immunization History Date of Tetanus Vaccine: utd Date of Influenza Vaccine: no Infectious Disease History: No Infectious Disease History: Denies: Hx Clostridium Difficile, Hx Hepatitis, Hx Human Immunodeficiency Virus (HIV), Hx of Known/Suspected MRSA, Hx Shingles, Hx Tuberculosis, Hx Known/ Suspected VRE, Hx Known/Suspected VRSA, History Other Infectious Disease, Traveled Outside the [place] in Last 30 Days - Family History Known Family History: Positive: Cardiac Disease - PA - father, "9 times", father at 55 from PA, Hypertension, Other - EtOH abuse - Social History Alcohol Use: None Alcohol Amount: once a month - h/o ETOH abuse; bottle of vodka 10/28 Hx Substance Use: Yes - cocaine, marijuana - 2012 Substance Use Type: Reports: None Substance Use Comment - Amount & Last Used: none currently Hx Tobacco Use: Yes - not currently smoking - switched to smokeless tob Smoking Status (MU): Former Smoker Type: Cigarettes, Smokeless Tobacco Amount Used/How Often: 1-2 PPD Have You Smoked in the Last Year: Yes Review of Systems Positive: Other - Left jaw pain radiating down left arm. Positive: Chest Pain - Resolved yesterday All Other Systems Reviewed And Are Negative: Yes Physical Exam - Summary Physical Exam Summary: VITAL SIGNS: Reviewed. GENERAL: Patient is a well-developed and nourished MALE who is lying comfortable in the stretcher. Patient is not in any acute respiratory distress. HEAD AND FACE: No signs of trauma. No ecchymosis, hematomas or skull depressions. No sinus tenderness. EYES: PERRLA, EOMI x 2, No injected conjunctiva, no nystagmus. EARS: Hearing grossly intact. Ear canals and tympanic membranes are within normal limits. MOUTH: Oropharynx within normal limits. NECK: Supple, trachea is midline, no adenopathy, no JVD, no carotid bruit, no c- spine tenderness, neck with full ROM. CHEST: Symmetric, no tenderness at palpation LUNGS: Clear to auscultation bilaterally. No wheezing or crackles. CVS: Regular rate and rhythm, S1 and S2 present, no murmurs or gallops appreciated. ABDOMEN: Soft, non-tender. No signs of distention. No rebound no guarding, and no masses palpated. Bowel sounds are normal. EXTREMITIES: FROM in all major joints, no edema, no cyanosis or clubbing. NEURO: Alert and oriented x 3. No acute neurological deficits. Speech is normal and follows commands. SKIN: Dry and warm Triage Information Reviewed: Yes Vital Signs On Initial Exam: Initial Vitals Temp Pulse Resp BP Pulse Ox 98.2 F 95 20 196/114 95 04/26/19 21:10 04/26/19 21:10 04/26/19 21:10 04/26/19 21:10 04/26/19 21:10 Vital Signs Reviewed: Yes Diagnostics - Vital Signs Vital Signs Temp Pulse Resp BP Pulse Ox 04/26/19 21:10 98.2 F 95 20 196/114 95 - Laboratory Lab Results: Lab Results 04/26/19 04/26/19 04/26/19 Range/Units 21:59 21:59 21:59 WBC 14.0 H (3.5-10.8) 10^3/uL RBC 5.07 (4.18-5.48) 10^6 /uL Hgb 15.0 (14.0-18.0) g/dL Hct 44 (42-52) % MCV 86 (80-94) fL MCH 30 (27-31) pg MCHC 34 (31-36) g/dL RDW 13 (10-15) % Plt Count 251 (150-450) 10^3/uL MPV 8.8 (7.4-10.4) fL Neut % (Auto) 70.4 % Lymph % (Auto) 22.0 % [place] % (Auto) 5.7 % Eos % (Auto) 1.3 % Baso % (Auto) 0.6 % Absolute Neuts (auto) 9.8 H (1.5-7.7) 10^3/ul Absolute Lymphs (auto) 3.1 (1.0-4.8) 10^3/ul Absolute Monos (auto) 0.8 (0-0.8) 10^3/ul Absolute Eos (auto) 0.2 (0-0.6) 10^3/ul Absolute Basos (auto) 0.1 (0-0.2) 10^3/ul Absolute Nucleated RBC 0.0 10^3/ul Nucleated RBC % 0.1 INR (Anticoag Therapy) 1.01 (0.82-1.09) Sodium 133 L (135-145) mmol/L Potassium 4.6 (3.5-5.0) mmol/L Chloride 98 L (101-111) mmol/L Carbon Dioxide 25 (22-32) mmol/L Anion Gap 10 (2-11) mmol/L BUN 13 (6-24) mg/dL Creatinine 0.93 (0.67-1.17) mg/dL Est GFR ( Amer) 112.5 (>60) Est GFR (Non-Af Amer) 93.0 (>60) BUN/Creatinine Ratio 14.0 (8-20) Glucose 428 H (70-100) mg/dL Calcium 10.2 (8.6-10.3) mg/dL Total Bilirubin 0.40 (0.2-1.0) mg/dL AST 34 (13-39) U/L ALT 26 (7-52) U/L Alkaline Phosphatase 110 H (34-104) U/L Total Creatine Kinase 51 (10-223) U/L Troponin I 0.00 (<0.04) ng/mL Total Protein 8.2 (6.4-8.9) g/dL Albumin 4.2 (3.2-5.2) g/dL Globulin 4.0 (2-4) g/dL Albumin/Globulin Ratio 1.1 (1-3) Result Diagrams: 04/26/19 21:59 04/26/19 21:59 Lab Statement: Any lab studies that have been ordered have been reviewed, and results considered in the medical decision making process. - EKG 2111 Cardiac Rate: NL - 93 BPM EKG Rhythm: Sinus Rhythm Summary of EKG Findings: Normal axis, normal interval, no ischemic changes. Chest Pain Course/Dx - Course Course Of Treatment: This patient is a 34 year old male presenting to [facility] with a chief complaint of cardiac problems 2 hours DUMPER. The patient was in the hospital yesterday for chest pain. EKG was unremarkable for cardiac problems. Due to the new symptoms, the patient will be admitted to the hospital. Dr. Copeland , Hospitalist, accepted the patient for admission. This plan was discussed with the patient and he was agreeable with this plan. - Diagnoses Provider Diagnoses: Chest pain, Hypertension, Hyperglycemia Discharge - Sign-Out/Discharge Documenting (check all that apply): Patient Departure - Admission - Discharge Plan Condition: Stable Disposition: ADMITTED TO [facility] Referrals: Satish Dobson DO [Primary Care Provider] - - Attestation Statements Document Initiated by Scribe: Yes Documenting Scribe: Alfredito Ackerman Provider For Whom Scribe is Documenting (Include Credential): Clark Klein MD Scribe Attestation: Alfredito Acharya, scribed for Clark Klein MD on 04/26/19 at 2340. Status of Scribe Document: Ready
[2019-04-26] MEDS ORDERED: Labetalol IV* 5 MG/ML 20 ML VIAL IV PUSH ONE ×2 (22:55)
[2019-04-26] MEDS ORDERED: Insulin REGULAR(*) 1 UNITS UNIT IV PUSH ONE (22:56)
[2019-04-27] MEDS ORDERED: oxyCODONE/Acetamin 5/325 MG* TAB PO ONE ×3 (00:28→02:07)
[2019-04-27 01:12] LABS: Urine Benzodiazepine Screen None Detected (None Detect); Urine Opiates Screen None Detected (None Detect)
[2019-04-27] MEDS ORDERED: Aspirin EC TAB* 81 MG TAB.EC PO PRN (03:57)
[2019-04-27] MEDS: oxyCODONE/Acetamin 5/325 MG* TAB PO PRN ×5 (04:31→21:05)
--- NOTE | 2019-04-27 07:43 | HP ---
CC: Dr. Satish Dobson. ADMISSION HISTORY AND PHYSICAL: DATE OF ADMISSION: 04/27/19. CHIEF COMPLAINT: Jaw and chest pain. HISTORY OF PRESENT ILLNESS: This is a 34-year-old male with past medical history of morbid obesity, types 2 diabetes, hypertension, PTSD, panic and anxiety disorder, came into the emergency room due to jaw pain. The patient was apparently at the race cars today and started having severely bad toothac he which went down his neck and onto his left arm. He was also noted to be very diaphoretic, who cam e into the ER for further evaluation. The patient recently was discharged from the ER day prior for chest pain with significant risk factors. The ER physician thought that the patient may have a coron jeanette event and is at very high risk and wanted the patient to be admitted for rule out any coronary ev ent. The patient was also noted to have uncontrolled diabetes and uncontrolled blood pressure while in the ER, which I suspect could be related to the pain. The patient otherwise offers no other compl aints such as shortness of breath, palpations, abdominal pain, nausea, vomiting or diarrhea. PAST MEDICAL HISTORY: As mentioned, type 2 diabetes, which is uncontrolled, hypertension, previous h istory of alcohol use disorder, PTSD, panic disorder, anxiety and history of asthma. PAST SURGICAL HISTORY: Include tonsillectomy, adenoidectomy, meniscus and ACL repair of the left kne e. HOME MEDICATIONS: 1. Aspirin 81 mg oral daily. 2. Lisinopril/hydrochlorothiazide 10/12.5 mg oral daily. 3. Atenolol 100 mg oral daily. 4. Metformin 500 mg oral twice a day. ALLERGIES: No known drug allergies. FAMILY HISTORY: Father at age 57 with an MD. Prior to that, he had a history of elevated álvaro sterol. Mother at age 52 with lupus and non-Hodgkin's lymphoma and progressive multifocal leuko encephalopathy. SOCIAL HISTORY: He is engaged and lives his fiance, has a son from a previous relationship. 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 He had a previous history of alcohol abuse. He used to drink 30 beers on a daily basis, but has not done so since 2011 and he became clean now. He drinks roughly about an al coholic beverage every weak or so. He also has a smoking history significant for smoking one-and-a- half pack per day since age 16. Denies any other illicit drug use. He has tried marijuana occasiona lly. REVIEW OF SYSTEMS: A 14-point review of systems did not reveal any new information other than what i s stated in the HPI. PHYSICAL EXAMINATION GENERAL: The patient is awake, alert, and oriented x3. Did not appear to be in any acute distress. GEMINI SIGNS: In the ER, BP was noted to be 126/81, temperature 97.2, heart rate 82, respiratory rate 18, saturating 96% on room air. HEAD AND NECK: Atraumatic, normocephalic. Bilateral pupils are reactive. Oral mucosa shows poor de ntition. Neck: Supple. No jugular venous distention. LUNGS: Clear to auscultation bilaterally. No wheezing, rhonchi, or rales. HEART: S1, S2. Regular rate and rhythm. ABDOMEN: Soft, nontender, nondistended. EXTREMITIES: No cyanosis, clubbing, or edema. DIAGNOSTIC STUDIES/LAB DATA: CBC showed mildly elevated white count of 14.0, hemoglobin and hematoc rit are stable. Coagulation profile unremarkable. Comprehensive metabolic panel was significant for elevated glucose at 428 and minimally elevated alkaline phosphatase. A set of cardiac enzymes was ne gative. Urine drug screen was negative. EKG showed sinus rhythm at 93 beats per minute without any ST elevation when compared to his old EKG from yesterday. There were no significant changes. IMPRESSION: This is a 34-year-old gentleman here again at this time with jaw pain, appears to be a p oor dentition and was apparently having uncontrolled diabetes and hypertension and ER physician suspe cts possible coronary event; however, I do not fully agree with him. He has had two sets of troponin , which are negative. We will monitor for another third set. We will get risk factor stratification including A1c and lipid panel in the morning. ASSESSMENT AND PLAN: 1. Jaw pain with radiation to the left arm. We will get serial cardiac enzymes to rule out any quentin nary event, which I really do not suspect and could consider either an echo or stress test if necessa ry. 2. Uncontrolled hypertension likely secondary to the pain. We will restart home medications and fol low his blood pressure. 3. History of diabetes, uncontrolled. The patient is only taking metformin 500 twice a day. We ludwig l also add glipizide and we will consider starting insulin, but the patient needs education with insu mikayla. We could consider an endocrine consult or even follow up on an outpatient basis with an endocri nologist. 4. History of PTSD and anxiety disorder. Restart home medications. 5. History of smoking. Smoking cessation advised. 6. DVT prophylaxis with encouraging ambulation. [id number]/[facility] #: [id number]
[2019-04-27] MEDS: Hydrochlorothiazide TAB* 25 MG PO SCH (08:42)
[2019-04-27] MEDS: Atenolol TAB* 50 MG PO SCH (08:43)
[2019-04-27] MEDS: glipiZIDE TAB* 5 MG PO SCH (08:43)
[2019-04-27] MEDS: Lisinopril TAB* 10 MG PO SCH (08:43)
[2019-04-27] MEDS ORDERED: glipiZIDE TAB* 5 MG PO ONE (09:00)
[2019-04-27] MEDS ORDERED: Lisinopril/HCTZ 10/12.5(NF) TAB PO SCH (09:00)
[2019-04-27] MEDS ORDERED: Lisinopril TAB* 10 MG PO ONE (09:00)
[2019-04-27] MEDS ORDERED: metFORMIN* 500 MG TAB PO ONE (09:00)
[2019-04-27] MEDS ORDERED: metFORMIN* 500 MG TAB PO SCH (09:00)
[2019-04-27] MEDS ORDERED: Atenolol TAB* 50 MG PO ONE (09:00)
[2019-04-27] MEDS ORDERED: Hydrochlorothiazide TAB* 25 MG PO ONE (09:00)
[2019-04-27 09:27] LABS: ABS Basophils 0.1 10^3/ul (0-0.2); ABS Eosinophils 0.2 10^3/ul (0-0.6); ABS Lymphocytes 4.7 10^3/ul (1.0-4.8); ABS Monocytes 0.8 10^3/ul (0-0.8); ABS Neutrophils 6.7 10^3/ul (1.5-7.7); Eosinophil % 1.8 %; Hematocrit 40 % (42-52); Hemoglobin 13.5 g/dL (14.0-18.0); Lymphocyte % 37.4 %; Mean Corpuscular HGB Conc 34 g/dL (31-36); Mean Corpuscular Hemoglobin 30 pg (27-31); Mean Corpuscular Volume 86 fL (80-94); Mean Platelet Volume 9.5 fL (7.4-10.4); Platelet Count 227 10^3/uL (150-450); Red Blood Count 4.59 10^6 /uL (4.18-5.48); Red Cell Distribution Width 13 % (10-15); White Blood Count 12.4 10^3/uL (3.5-10.8)
[2019-04-27 09:36] LABS: Calcium 9.2 mg/dL (8.6-10.3); Potassium 3.8 mmol/L (3.5-5.0)
[2019-04-27 09:42] LABS: BUN/Creatinine Ratio 16.4 (8-20); EGFR African American 148.8 (>60)
--- NOTE | 2019-04-27 10:19 | PN ---
Subjective Date of Service: 04/27/19 Interval History: Mr. Carrillo is feeling better today. He has not had any further chest pain since arrival to the floor. Denies SOB, diaphoresis, N/V. The pain he had yesterday was different than his usual CP as this was the first time he had any jaw pain. He reports having chest pain during exertion (mostly stairs) since May 2018. He completely avoids stairs because of this. Over the last 2 months, chest pain has been occurring spontaneously. Nothing in particular makes the pain better or worse. He reports taking 9 Aleve yesterday d/t the pain. He also states he sometimes takes up to 12 full strength aspirin a day when he is having CP. Has not had recent sexual relations with his fiance because of pain/ palpitations. He last had a stress test at [facility] in 2009. Also had a cardiac cath at [facility] in 2009, NO stents placed. Father in his 50s of an PA. Maternal grandmother had an PA in her 50s and now has multiple stents. No concerns from nursing. Family History: Unchanged from Admission Social History: Unchanged from Admission Past Medical History: Unchanged from Admission Objective Active Medications: Atenolol (Tenormin Tab*) 100 mg PO DAILY YAIMA Glipizide (Glucotrol Tab*) 5 mg PO DAILY YAIMA Hydrochlorothiazide (Hydrodiuril Tab*) 12.5 mg PO DAILY YAIMA Lisinopril (Prinivil Tab*) 10 mg PO DAILY YAIMA Metformin HCl (Glucophage*) 500 mg PO BID YAIMA Oxycodone/Acetaminophen (Percocet 5/325 Tab*) 1 tab PO Q4H PRN PAIN - MODERATE Vital Signs - 8 hr 04/27/19 04/27/19 04/27/19 02:30 03:07 04:31 Temperature 97.2 F 98.1 F Pulse Rate 82 84 Respiratory 18 10 14 Rate Blood Pressure 126/81 130/74 (mmHg) O2 Sat by Pulse 96 98 Oximetry Oxygen Devices in Use Now: None Appearance: Middle-aged male sitting in bed in NAD Eyes: No Scleral Icterus Ears/Nose/Mouth/Throat: Mucous Membranes Moist Neck: NL Appearance and Movements; NL JVP, Trachea Midline Respiratory: Symmetrical Chest Expansion and Respiratory Effort, Clear to Auscultation Cardiovascular: NL Sounds; No Murmurs; No JVD, RRR Extremities: No Edema Neurological: Alert and Oriented x 3 Lines/Tubes/Other Access: Clean, Dry and Intact Peripheral IV Nutrition: Taking PO's Result Diagrams: 04/27/19 06:16 04/27/19 06:16 Assess/Plan/Problems-Billing Assessment: Mr. Carrillo is a 34 yo M with PMH of HTN, DM2, obesity, and PTSD; who presented to the ED with c/o CP for the second time in 24 hour period and was admitted d/ t significant cardiac risk factors. - Patient Problems (1) Chest pain Code(s): R07.9 - CHEST PAIN, UNSPECIFIED Comment: - Now asymptomatic - Has experienced CP with exertion over the last year with spontaneous intermittent CP over the last 2 months; typically left chest, radiating to the arm - Significant risk factors; PASCUAL score is 3: obesity, DM, HTN, smoker, family history, aspirin use, 2 episodes w/in 24 hours - Awaiting records for: echo from PCP in the last few days, cardiac cath at [facility] in 2009, stress test at [facility] in 2009 - Stress test Monday (2) Hypertension Code(s): I10 - ESSENTIAL (PRIMARY) HYPERTENSION Comment: - Normotensive, SBP 110-130s - Continue atenolol, lisinopril, HCTZ (3) Diabetes mellitus, type 2 Comment: - A1c 11.7% - Continue glipizide; increase metformin (4) DVT prophylaxis Code(s): Z29.9 - ENCOUNTER FOR PROPHYLACTIC MEASURES, UNSPECIFIED Comment: - Ambulation (5) Full code status Code(s): Z78.9 - OTHER SPECIFIED HEALTH STATUS Comment: Status and Disposition: Observation for stress test Monday. Anticipate d/c home when medically stable. Attending: Aruna Hunt
[2019-04-27] MEDS ORDERED: Dextrose 50% VIAL 50 ml IV PUSH PRN (10:58)
[2019-04-27] MEDS: Insulin LISPRO* 1 UNITS UNIT SUBCUT SCH ×3 (12:54→20:37)
[2019-04-27] MEDS: metFORMIN* 850 MG TAB PO SCH (20:38)
[2019-04-27] MEDS ORDERED: metFORMIN* 850 MG TAB PO ONE (21:00)
[2019-04-28 07:41] LABS: ABS Basophils 0.1 10^3/ul (0-0.2); ABS Eosinophils 0.3 10^3/ul (0-0.6); ABS Lymphocytes 3.9 10^3/ul (1.0-4.8); ABS Monocytes 0.6 10^3/ul (0-0.8); ABS Neutrophils 6.5 10^3/ul (1.5-7.7); Eosinophil % 2.2 %; Hematocrit 43 % (42-52); Hemoglobin 14.8 g/dL (14.0-18.0); Lymphocyte % 34.2 %; Mean Corpuscular HGB Conc 34 g/dL (31-36); Mean Corpuscular Hemoglobin 29 pg (27-31); Mean Corpuscular Volume 85 fL (80-94); Mean Platelet Volume 9.1 fL (7.4-10.4); Platelet Count 243 10^3/uL (150-450); Red Blood Count 5.05 10^6 /uL (4.18-5.48); Red Cell Distribution Width 13 % (10-15); White Blood Count 11.3 10^3/uL (3.5-10.8)
[2019-04-28] MEDS: Insulin LISPRO* 1 UNITS UNIT SUBCUT SCH ×4 (08:01→20:39)
[2019-04-28] MEDS: Hydrochlorothiazide TAB* 25 MG PO SCH (08:02)
[2019-04-28] MEDS: Atenolol TAB* 50 MG PO SCH (08:02)
[2019-04-28] MEDS: metFORMIN* 850 MG TAB PO SCH (08:02)
[2019-04-28] MEDS: glipiZIDE TAB* 5 MG PO SCH (08:03)
[2019-04-28] MEDS: Lisinopril TAB* 10 MG PO SCH (08:03)
[2019-04-28] MEDS: oxyCODONE/Acetamin 5/325 MG* TAB PO PRN ×4 (08:03→21:07)
[2019-04-28] MEDS ORDERED: Nitroglycerin TAB 0.4 MG* 0.4 MG TAB SL ONE (08:49)
[2019-04-28] MEDS: Nitroglycerin TAB 0.4 MG* 0.4 MG TAB SL ONE ×2 (09:13→09:14)
[2019-04-28] MEDS ORDERED: Nitroglycerin TAB 0.4 MG* 0.4 MG TAB SL PRN (11:31)
--- NOTE | 2019-04-28 14:09 | PN ---
Subjective Date of Service: 04/28/19 Interval History: Mr. Carrillo is feeling a little better. He had CP with exertion this morning and took some aspirin that he had from home. Pain resolved with rest and he did not take nitro that the nurse offered. He otherwise denies complaints. No SOB, N /V. No further concerns from nursing. Family History: Unchanged from Admission Social History: Unchanged from Admission Past Medical History: Unchanged from Admission Objective Active Medications: Atenolol (Tenormin Tab*) 100 mg PO DAILY YAIMA Atorvastatin Calcium (Lipitor*) 40 mg PO 1700 YAIMA Dextrose (Dextrose 50% Vial 50 Ml*) 25 ml IV PUSH .FOR FS < 60 - SS PRN FS < 60 Glipizide (Glucotrol Tab*) 5 mg PO DAILY YAIMA Hydrochlorothiazide (Hydrodiuril Tab*) 12.5 mg PO DAILY [facility] Insulin Human Lispro (Humalog*) 0 units SUBCUT ACHS YAIMA; Protocol Lisinopril (Prinivil Tab*) 10 mg PO DAILY YAIMA Nitroglycerin (Nitroglycerin Tab 0.4 Mg*) 0.4 mg SL Q5M PRN Angina not relieved with rest Oxycodone/Acetaminophen (Percocet 5/325 Tab*) 1 tab PO Q4H PRN PAIN - MODERATE Vital Signs - 8 hr 04/28/19 04/28/19 04/28/19 07:42 08:03 11:15 Temperature 98 F 97.8 F Pulse Rate 77 75 Respiratory 16 16 16 Rate Blood Pressure 133/83 124/60 (mmHg) O2 Sat by Pulse 100 100 Oximetry Oxygen Devices in Use Now: None Appearance: Middle-aged male laying in bed in NAD Eyes: No Scleral Icterus Ears/Nose/Mouth/Throat: Mucous Membranes Moist Neck: NL Appearance and Movements; NL JVP, Trachea Midline Respiratory: Symmetrical Chest Expansion and Respiratory Effort, Clear to Auscultation Cardiovascular: NL Sounds; No Murmurs; No JVD, RRR Abdominal: NL Sounds; No Tenderness; No Distention Extremities: No Edema Neurological: Alert and Oriented x 3 Lines/Tubes/Other Access: Clean, Dry and Intact Peripheral IV Nutrition: Taking PO's Result Diagrams: 04/28/19 07:08 04/27/19 06:16 Assess/Plan/Problems-Billing Assessment: Mr. Carrillo is a 34 yo M with PMH of HTN, DM2, obesity, and PTSD; who presented to the ED with c/o CP for the second time in 24 hour period and was admitted d/ t significant cardiac risk factors. - Patient Problems (1) Chest pain Code(s): R07.9 - CHEST PAIN, UNSPECIFIED Comment: - Now asymptomatic - Has experienced CP with exertion over the last year with spontaneous intermittent CP over the last 2 months; typically left chest, radiating to the arm - Significant risk factors; PASCUAL score is 3: obesity, DM, HTN, smoker, family history, aspirin use, 2 episodes w/in 24 hours - Awaiting records for: echo from PCP in the last few days, cardiac cath at [facility] in 2009, stress test at [facility] in 2009 - Stress test tomorrow (2) Hypertension Code(s): I10 - ESSENTIAL (PRIMARY) HYPERTENSION Comment: - Normotensive, SBP 110-130s - Continue atenolol, lisinopril, HCTZ (3) Diabetes mellitus, type 2 Comment: - A1c 11.7% - Continue glipizide, Lispro SS (4) DVT prophylaxis Code(s): Z29.9 - ENCOUNTER FOR PROPHYLACTIC MEASURES, UNSPECIFIED Comment: - Ambulation (5) Full code status Code(s): Z78.9 - OTHER SPECIFIED HEALTH STATUS Comment: Status and Disposition: Observation for stress test Monday. Anticipate d/c home when medically stable. Attending: Aruna Hunt
[2019-04-28] MEDS ORDERED: Atorvastatin* 40 MG TAB PO SCH (17:00)
[2019-04-28] MEDS ORDERED: Atorvastatin* 40 MG TAB PO ONE (17:00)
[2019-04-29] MEDS ORDERED: glipiZIDE TAB* 5 MG PO SCH (08:30)
[2019-04-29] MEDS ORDERED: glipiZIDE TAB* 5 MG PO ONE (08:30)
[2019-04-29] MEDS: Insulin LISPRO* 1 UNITS UNIT SUBCUT SCH ×2 (11:12→12:00)
[2019-04-29] MEDS: oxyCODONE/Acetamin 5/325 MG* TAB PO PRN (11:18)
[2019-04-29] MEDS: Hydrochlorothiazide TAB* 25 MG PO SCH (11:19)
[2019-04-29] MEDS: Lisinopril TAB* 10 MG PO SCH (11:20)
[2019-04-29] MEDS: Atenolol TAB* 50 MG PO SCH (11:20)
[2019-04-29 12:16] VITALS: BP 134/84
[2019-04-29] MEDS ORDERED: Regadenoson* 0.4 MG/5 ML SYRINGE ONE ×2 (13:00)
[2019-04-29] MEDS ORDERED: Sucralfate TAB* 1 GM PO SCH (14:00)
[2019-04-29] MEDS ORDERED: Sucralfate TAB* 1 GM PO ONE (14:00)
--- NOTE | 2019-04-29 23:29 | DS ---
CC: Dr. Satish Dobson * DISCHARGE SUMMARY: DATE OF ADMISSION: 04/27/19 DATE OF DISCHARGE: 04/29/19 PRIMARY CARE PROVIDER: Dr. Satish Dobson. ATTENDING PHYSICIAN: Dr. Aruna Hunt * (dictated by Leticia Casey NP). PRIMARY DIAGNOSES: 1. Chest pain, unclear etiology. 2. Diabetes mellitus type 2, uncontrolled. SECONDARY DIAGNOSIS: 1. Hypertension. STUDIES DONE WHILE IN THE HOSPITAL: 1. EKG on 04/26/19 shows normal sinus rhythm with a rate of 93, QTc 471. No ST changes. 2. EKG on 04/28/19 shows normal sinus rhythm with a rate of 73, QTc 447. No ST changes. 3. Nuclear cardiac stress test on 04/29/19 reads as no compelling stress- induced ischemia or evidence for infarct. Mildly decreased estimated left ventricular ejection fraction at 47%. Corresponding global hypokinesia. Assessment is intermediate risk based on mild left ventricular dysfunction. HISTORY OF PRESENT ILLNESS AND HOSPITAL COURSE: Mr. Carrillo is a 34-year-old male with a past medical history of uncontrolled type 2 diabetes, hypertension, PTSD, and anxiety, who presented to the emergency room on 04/27/19, with complaints of jaw and chest pain. Please see the history and physical by Dr. Copeland for complete summary of the events leading up to this hospitalization. In short, the patient was in our emergency room on 04/25/19 for chest pain. At that point he was discharged home from the emergency room with the understanding that the patient would have an outpatient stress test. The patient had recurrent chest pain and returned to the emergency room on . The patient reports pain that started in his jaw, that felt like a toothache, which radiated down his neck and into his left arm. He was also diaphoretic. The patient is noted to have a significant history of chest pain, although the jaw pain was new for him. His chest pain is typically centered in the left chest, occasionally radiating into the left arm. The patient was noted to have many risk factors including obesity, diabetes, hypertension, smoking history, family history of coronary artery disease, recent aspirin use, and 2 episodes of chest pain within 24 hours, and so the patient had a PASCUAL score of 3. At that point, it was determined that he should be admitted for an inpatient stress test and so he was admitted by the hospitalist service. The patient had 3 negative troponins and EKG was unremarkable for any acute changes. The chest pain did resolve. He did admit to me that he has had chest pain for a number of years and avoids taking stairs as stairs always induce chest pain for him. He also does not have sexual intercourse as this induces chest pain. He reports that when he does have chest pain, he sometimes takes up to 12 aspirin and 9 Aleve in 1 day, and he reports that this typically resolves his pain. The patient was here over the weekend and on 04/28/19, while ambulating in the hallway, did report chest pain to his nurse. At that time, a troponin was drawn and it was noted to be 0.00. An EKG was also done, which showed no acute changes. Chest pain resolved with just a minute or two of rest. The patient did undergo a stress test this morning. The plan was for him to undergo a exercise stress test, which he attempted and quickly developed chest pain and so the patient had a chemical stress test. There was some concern regarding the patient's decreased ejection fraction, though, as there is no evidence of ischemia or infarct, it was determined that the patient was stable for discharge with outpatient followup. I will additionally note that the patient had an A1c of 11.7 while here and was noted to have an elevated LDL at 108. On exam today, he reports feeling well and offers no complaints. He has no focal neurological deficits. His heart has a regular rate and rhythm, without murmurs, rubs or gallops. His lungs are clear to auscultation without rhonchi, wheezes or rubs. There is no edema. Physical assessment is otherwise benign. Mr. Carrillo is stable for discharge today. Vital signs are as follows: Temp 97.4, heart rate 88, respiratory rate 16, oxygen saturation 98% on room air, and blood pressure 134/84. DISCHARGE MEDICATIONS: New medications: 1. Glipizide 5 mg p.o. daily. 2. Percocet 5/325 one tab p.o. q.6 hours p.r.n. pain. 3. Pantoprazole 40 mg p.o. daily. 4. Carafate 1 g p.o. a.c. Changed medications: 1. Metformin 850 mg p.o. b.i.d. (previously was 500 mg b.i.d.) Continued medications: 1. Aspirin 81 mg p.o. daily. 2. Atenolol 100 mg p.o. daily. 3. Lisinopril/hydrochlorothiazide 06/29.5 one tab p.o. daily. DISCHARGE PLAN: Mr. Carrillo will be discharged to home. Activity will be as tolerated. Diet should be heart healthy, diabetic ADA. The patient has been given instructions on diet changes in order to lower his LDL in an attempt to avoid adding statin at this point as I think it is certainly reasonable to attempt dietary changes at this point. Medications are noted above. We have added glipizide and increased the patient's metformin dosing as his A1c is noted to be elevated at 11.7, and this is a significant cardiac risk factor. I have also added pantoprazole and Carafate to the patient' daily regimen, as he has admitted to taking excessive amounts of aspirin and NSAIDs and there is some concern that he may have some gastric effects from these medications. I did prescribe him 4 days' worth of Percocet for his continued left-sided tooth pain. He does report that he has an appointment to see his dentist on Monday and so this medication will get him through that point. I did I-STOP him and the patient has not filled any narcotic prescriptions for the last 2 months. I certainly agree with continuing the patient on aspirin, atenolol, and lisinopril due to his decreased ejection fraction. The etiology of this low EF is not clear, though at this point he would certainly warrant further outpatient workup and treatment with a vp purchasing. The patient will talk with his PCP and plans to see a vp purchasing in the [facility]. Again, I have advised the patient that he stop taking NSAIDs and aspirin when he has chest pain and have advised him that he should only be taking 1 aspirin per day. I have advised him that if he does have chest pain, he should sit and rest as he does note that this typically resolves his chest pain. If that does not resolve his chest pain, he should call his primary care provider or present to the emergency room. The patient will need to follow up with his primary care provider in the next 4 to 7 days. I have provided him with a work release to be out of work for the remainder of this week until he is able to see his dentist. The patient has been instructed to return to the emergency room or nearest hospital for any worsening of symptoms, shortness of breath, lightheadedness, dizziness, chest discomfort, high fevers, chills, night sweats , loss of consciousness or any other worrisome signs or symptoms. DISCHARGE CONDITION: Stable. DISCHARGE DISPOSITION: Home. This is a summarized report of a complex medical history and hospital stay. For further details, please see the entire medical record. TIME SPENT: Approximately 50 minutes were spent on this discharge. LETICIA CASEY, CYNTHIA [id number]/CPS #: [id number] MARYLIN
[2019-04-30] MEDS ORDERED: Pantoprazole TAB * 40 MG TAB PO SCH (09:00)
== END 2019-04-29 14:42 | disposition home or self-care (01) ==
LOC: ED 21:02 → MEDTELE 04-27 02:07
PROVIDERS: ADMIT Internal Medicine; ATTEND Internal Medicine
DX: R07.9 Chest pain, unspecified (principal); E11.65 Type 2 diabetes mellitus with hyperglycemia; I10 Essential (primary) hypertension; F43.10 Post-traumatic stress disorder, unspecified; F41.9 Anxiety disorder, unspecified; Z79.82 Long term (current) use of aspirin; Z79.899 Other long term (current) drug therapy; Z79.84 Long term (current) use of oral hypoglycemic drugs; Z86.79 Personal history of other diseases of the circulatory system; K21.9 Gastro-esophageal reflux disease without esophagitis; F17.220 Nicotine dependence, chewing tobacco, uncomplicated
CPT/HCPCS: 36415; 78452; 80048; 80053; 80061; 80307; 82550; 83036; 84484; 85025; 85610; 87641; 93005; 93017; 96374; 99284; A9270-GY; A9502; G0378; J2785

== ENCOUNTER 2019-06-03 15:32 | Observation (INO) | payer MEDICAID ==
[2019-06-03 16:20] LABS: ABS Basophils 0.2 10^3/ul (0-0.2); ABS Eosinophils 0.3 10^3/ul (0-0.6); ABS Lymphocytes 3.7 10^3/ul (1.0-4.8); ABS Monocytes 0.7 10^3/ul (0-0.8); ABS Neutrophils 8.4 10^3/ul (1.5-7.7); Eosinophil % 2.1 %; Hematocrit 40 % (42-52); Lymphocyte % 27.8 %; Mean Corpuscular HGB Conc 35 g/dL (31-36); Mean Corpuscular Hemoglobin 30 pg (27-31); Mean Corpuscular Volume 85 fL (80-94); Mean Platelet Volume 9.2 fL (7.4-10.4); Nucleated Red Blood Cells % 0.1; Platelet Count 257 10^3/uL (150-450); Red Blood Count 4.74 10^6 /uL (4.18-5.48); Red Cell Distribution Width 13 % (10-15); White Blood Count 13.3 10^3/uL (3.5-10.8)
--- NOTE | 2019-06-03 16:30 | ED ---
Syncope/Near Syncope - HPI Summary HPI Summary: Pt is a 34 y/o M presenting to the ED brought in by EMS for syncope. He states he was in his driveway outside today when he lost consciousness. He was incontinent, hit his arm and his head, and experienced diplopia as well as tunnel vision. He currently reports MARTINO. Pt denies any fever, chills, erythema of eyes, sore throat, CP, SOB, cough, abdominal pain, N/V, dysuria, hematuria, myalgia, edema, rash, or dizziness. - History Of Current Complaint Chief Complaint: EDSyncope Hx Obtained From: Patient Onset/Duration: Sudden Onset, Lasting Minutes, Resolved Timing: Minutes Context: Loss Of Consciousness Activity At Onset: At Rest Associated Head Trauma: Yes Aggravating Factor(s): Nothing Alleviating Factor(s): Spontaneous Resolution Associated Signs And Symptoms: Head Trauma (Recent), Headache - Allergies/Home Medications Allergies/Adverse Reactions: Allergies Allergy/AdvReac Type Severity Reaction Status Date / Time No Known Allergies Allergy Verified 04/26/19 21:42 Home Medications: Home Medications Aspirin EC TAB* [Ecotrin EC Low Dose 81 MG*] 81 mg PO DAILY 06/03/19 [History Confirmed 06/03/19] Atenolol TAB* [Tenormin TAB* 50 MG] 100 mg PO DAILY 06/03/19 [History Confirmed 06/03/19] metFORMIN* [Glucophage 500 MG TAB *] 875 mg PO BID 06/03/19 [History Confirmed 06/03/19] PMH/Surg Hx/FS Hx/Imm Hx Previously Healthy: Yes Endocrine/Hematology History: Reports: Hx Diabetes - metformin and lantus Denies: Hx Anticoagulant Therapy, Hx Blood Disorders, Hx Blood Transfusions, Hx Bone Marrow Disease, Hx Systemic Lupus Erythematosus, Hx Sickle Cell Disease , Hx Thyroid Disease, Hx Anemia, Hx Unexplained Bleeding, Other Endocrine/ Hematological Disorders Cardiovascular History: Reports: Hx Angina, Hx Hypertension, Other Cardiovascular Problems/Disorders - CARDIAC CATH 2011 Denies: Hx Aneurysm, Hx Angioplasty, Hx Auto Implanted Cardiovert Defib, Hx Cardiac Arrest, Hx Cardiomegaly, Hx Congenital Heart Disease, Hx Congestive Heart Failure, Hx Coronary Artery Disease, Hx Deep Vein Thrombosis, Hx Embolism , Hx Hypercholesterolemia, Hx Hypotension, Hx Myocardial Infarction, Hx Pacemaker/ICD, Hx Peripheral Vascular Disease, Hx Rheumatic Fever, Hx Syncope, Hx Valvular Heart Disease Respiratory History: Reports: Hx Asthma - A CHILD, Hx Chronic Bronchitis, Hx Seasonal Allergies Denies: Hx Bronchopulmonary Dysplasia, Hx Chronic Obstructive Pulmonary Disease (COPD), Hx Cystic Fibrosis, Hx Lung Cancer, Hx Pleural Effusion, Hx Pneumonia, Hx Pulmonary Edema, Hx Pulmonary Embolism, Hx Sleep Apnea, Other Respiratory Problems/Disorders GI History: Reports: Hx Gastroesophageal Reflux Disease, Other GI Disorders - fatty liver Denies: Hx Cirrhosis, Hx Crohn's Disease, Hx Diverticulosis, Hx Gall Bladder Disease, Hx Gastrointestinal Bleed, Hx Hiatal Hernia, Hx Irritable Bowel, Hx Jaundice, Hx Obstructive Bowel, Hx Ileostomy, Hx Pyloric Stenosis, Hx Ulcer, Hx Urosepsis History: Reports: Hx Kidney Stones Denies: Hx Acute Renal Failure, Hx Benign Prostatic Hyperplasia, Hx Chronic Renal Failure, Hx Dialysis, Hx Kidney Infection, Hx Renal Disease, Other Problems/Disorders Musculoskeletal History: Reports: Hx Orthopedic Injury - Right Knee Denies: Hx Arthritis, Hx Back Problems, Hx Bursitis, Hx Congenital Bone Abnormalities, Hx Fibromyalgia, Hx Gout, Hx Osteoporosis, Hx Scoliosis, Hx Tendonitis, Other Musculoskeletal History Sensory History: Reports: Hx Contacts or Glasses Denies: Hx Cataracts, Hx Eye Injury, Hx Eye Prosthesis, Hx Glaucoma, Hx Legally Blind, Hx Macular Degeneration, Hx Vision Problem, Hx Deafness, Hx Hearing Aid, Hx Hearing Problem, Other Sensory Impairments Opthamlomology History: Reports: Hx Contacts or Glasses Denies: Hx Cataracts, Hx Eye Injury, Hx Eye Prosthesis, Hx Glaucoma, Hx Legally Blind, Hx Macular Degeneration, Hx Vision Problem, Other Sensory Impairments Neurological History: Denies: Hx Dementia, Hx Developmental Delay, Hx Headaches, Hx Migraine, Hx Nerve Disease, Hx Seizures, Hx Spinal Cord Injury, Hx Transient Ischemic Attacks (TIA), Other Neuro Impairments/Disorders Psychiatric History: Reports: Hx Anxiety, Hx Depression - no depression over a year., Hx Inpatient Treatment, Hx Community Mental Health Tx, Hx Suicide Attempt - OD/Jump from parking garage, Hx of Violent Episodes Against Others, Hx Substance Abuse Denies: Hx Attention Deficit Hyperactivity Disorder, Hx Autism, Hx Eating Disorder, Hx Oppositional Mobile Disorder, Hx Panic Disorder, Hx Post Traumatic Stress Disorder, Hx Schizophrenia, Hx Bipolar Disorder, Other Psychiatric Issues/Disorders - Cancer History Hx Hematologic Symptoms: No Hx Chemotherapy: No Hx Radiation Therapy: No Hx Palliative Cancer Treatment: No - Surgical History Surgery Procedure, Year, and Place: T & A 1992. Knee surgery 2005. Left ankle surgery Hx Anesthesia Reactions: No - Immunization History Date of Tetanus Vaccine: utd Date of Influenza Vaccine: no Immunizations Up to Date: Yes Infectious Disease History: No Infectious Disease History: Denies: Hx Clostridium Difficile, Hx Hepatitis, Hx Human Immunodeficiency Virus (HIV), Hx of Known/Suspected MRSA, Hx Shingles, Hx Tuberculosis, Hx Known/ Suspected VRE, Hx Known/Suspected VRSA, History Other Infectious Disease, Traveled Outside the [place] in Last 30 Days - Family History Known Family History: Positive: Cardiac Disease - [place] - father, "9 times", father at 55 from [place], Hypertension, Other - EtOH abuse - Social History Alcohol Use: Rare Alcohol Amount: once a month - h/o ETOH abuse; bottle of vodka 10/28 Hx Substance Use: Yes - cocaine, marijuana - 2012 Substance Use Type: Reports: None Substance Use Comment - Amount & Last Used: none currently Hx Tobacco Use: Yes - not currently smoking - switched to smokeless tob Smoking Status (MU): Heavy Every Day Tobacco Smoker Type: Cigarettes, Smokeless Tobacco Amount Used/How Often: 1-2 PPD Length of Time of Smoking/Using Tobacco: since 2003 Have You Smoked in the Last Year: Yes Review of Systems Positive: Skin Diaphoresis. Negative: Fever, Chills Positive: Diplopia, Other - tunnel vision. Negative: Erythema Negative: Sore Throat Positive: Chest Pain Negative: Shortness Of Breath, Cough Negative: Abdominal Pain, Vomiting, Nausea Positive: incontinence. Negative: discharge, hematuria Negative: Myalgia, Edema Negative: Rash Neurological: Negative - dizziness Positive: Headache, Weakness, Syncope All Other Systems Reviewed And Are Negative: Yes Physical Exam - Summary Physical Exam Summary: Constitutional: Well-developed, Well-nourished, Alert. (-) Distressed Skin: Warm, Dry HENT: Normocephalic; Atraumatic Eyes: Conjunctiva normal Neck: Musculoskeletal ROM normal neck. (-) JVD, (-) Stridor, (-) Tracheal deviation Cardio: Rhythm regular, rate normal, Heart sounds normal; Intact distal pulses; The pedal pulses are 2+ and symmetric. Radial pulses are 2+ and symmetric. (-) Murmur Pulmonary/Chest wall: Effort normal. (-) Respiratory distress, (-) Wheezes, (-) Rales Abd: Soft, (-) tenderness, (-) Distension, (-) Guarding, (-) Rebound Musculoskeletal: (-) Edema, R snuffbox tenderness Lymph: (-) Cervical adenopathy Neuro: Alert, Oriented x3 Psych: Mood and affect Normal Triage Information Reviewed: Yes Vital Signs On Initial Exam: Initial Vitals Temp Pulse Resp BP Pulse Ox 97.6 F 84 17 124/71 97 06/03/19 15:35 06/03/19 15:35 06/03/19 15:35 06/03/19 15:35 06/03/19 15:35 Vital Signs Reviewed: Yes - Afshan Coma Scale Best Eye Response: 4 - Spontaneous Best Motor Response: 6 - Obeys Commands Best Verbal Response: 5 - Oriented Coma Scale Total: 15 Diagnostics - Vital Signs Vital Signs Temp Pulse Resp BP Pulse Ox 06/03/19 15:35 97.6 F 84 17 124/71 97 - Laboratory Lab Results: Lab Results 06/03/19 06/03/19 Range/Units 16:09 16:09 WBC 13.3 H (3.5-10.8) 10^3/uL RBC 4.74 (4.18-5.48) 10^6 /uL Hgb 14.0 (14.0-18.0) g/dL Hct 40 L (42-52) % MCV 85 (80-94) fL MCH 30 (27-31) pg MCHC 35 (31-36) g/dL RDW 13 (10-15) % Plt Count 257 (150-450) 10^3/uL MPV 9.2 (7.4-10.4) fL Neut % (Auto) 63.2 % Lymph % (Auto) 27.8 % Preston % (Auto) 5.6 % Eos % (Auto) 2.1 % Baso % (Auto) 1.3 % Absolute Neuts (auto) 8.4 H (1.5-7.7) 10^3/ul Absolute Lymphs (auto) 3.7 (1.0-4.8) 10^3/ul Absolute Monos (auto) 0.7 (0-0.8) 10^3/ul Absolute Eos (auto) 0.3 (0-0.6) 10^3/ul Absolute Basos (auto) 0.2 (0-0.2) 10^3/ul Absolute Nucleated RBC 0.0 10^3/ul Nucleated RBC % 0.1 VBG pH 7.42 (7.32-7.43) VBG pCO2 38 L (41-51) mmHg VBG pO2 53.0 H (35-45) mmHg VBG HCO3 24.9 (24-28) mmol/L VBG O2 Saturation 91.1 H (70-80) % VBG Base Excess 0.3 (0.0-4.0) mmol/L Result Diagrams: 06/03/19 16:09 06/03/19 16:09 Lab Statement: Any lab studies that have been ordered have been reviewed, and results considered in the medical decision making process. - CT Brain CT CT Interpretation Completed By: Radiologist Summary of CT Findings: No evidence of intracranial mass or hemorrhage is noted. ED physician has reviewed this report. CT C-spine CT Interpretation Completed By: Radiologist Summary of CT Findings: Straightening of the normal lordosis without definite evidence of fracture. ED physician has reviewed this report. - EKG 1623 Cardiac Rate: NL - 86bpm EKG Rhythm: Sinus Rhythm ST Segment: Normal Ectopy: None Summary of EKG Findings: EKG at 1623 shows NSR at 84bpm with no STEMI. Re-Evaluation - Re-Evaluation 1st re-eval Re-Evaluation Time: 17:00 Change: Unchanged Comment: Pt states this is his 3rd time in 6 days of experiencing syncope. He states it starts with tunnel vision. Currently reports some CP, chills, weakness , and diaphoresis. He denies change in appetite. Course/Dx Course Of Treatment: Pt is a 34 y/o M presenting to the ED brought in by EMS for syncope. He states he was in his driveway outside today when he lost consciousness. He was incontinent, hit his arm and his head, and experienced diplopia as well as tunnel vision. He currently reports MARTINO and R hand pain. Pt denies any fever, erythema of eyes, sore throat, SOB, cough, abdominal pain, N/V , dysuria, hematuria, myalgia, edema, rash, or dizziness. As of 1699, pt states this is his 3rd time in 6 days of experiencing syncope. He states it starts with tunnel vision. Currently reports some CP, chills, weakness, and diaphoresis. He denies change in appetite. Pt has snuffbox tenderness on the R hand. EKG at 1623 shows NSR at 84bpm with no STEMI. Brain CT shows: No evidence of intracranial mass or hemorrhage is noted. C-spine CT shows: Straightening of the normal lordosis without definite evidence of fracture. [place] [facility] [place]. - Diagnoses Provider Diagnoses: Recurrent syncope Discharge ED - Sign-Out/Discharge Documenting (check all that apply): Patient Departure - Discharge Plan Condition: Stable Disposition: ADMITTED TO [facility] Referrals: Satish Dobson DO [Primary Care Provider] - - Attestation Statements Document Initiated by Scribe: Yes Documenting Scribe: Myrna Marte Provider For Whom Scribe is Documenting (Include Credential): Khris Medina MD. Scribe Attestation: Myrna Acharya, scribed for Khris Medina MD. on 06/03/19 at 1825. Status of Scribe Document: Ready
--- OUTSIDE RECORDS SUMMARY | 2019-06-03 16:57 | XMS REPORT | Summary of Care ---
:1985 Author Organization [facility] Address [address] [facility] [place] [address] Care Team Providers Name Role Phone Renay Blackburn RN Unavailable Satish Dobson DO Primary Care Provider Reason for Referral Diagnostic Testing (Routine) Status Reason Specialty Diagnoses / Referred By Referred To Procedures Contact Contact Authorized Diagnoses Systolic congestive heart failure, unspecified HF chronicity (HCC) Mehran Rodriguez Procedures ECHOCARDIOGRAM [place] [address] [place] Phone: [phone] Phone: [phone] MRI/CAT/PET Scan (Routine) Status Reason Specialty Diagnoses / Referred By Referred To Procedures Contact Contact Pending Review Diagnoses Chronic chest pain Systolic congestive heart failure, unspecified HF chronicity (HCC) Jennifer, Procedures CT CHEST HEART CORONARY ANGIOGRAPHY Geovany Carrillo MD [facility] [place] [id number] Reason for Visit Reason Comments New Patient Pt. referred by Dr. Badillo. Admitted to [facility] 04/27/19 for Chest Pain. Nuc Stress Test done 04/29/19 Breathing Problem Pt. reports SOB with exertion. Reports having Frequent Palpitations. Encounter Details Date Type Department Care Team Description 05/15/2019 Office Visit [facility], Exertional chest pain ( Primary Dx); Cardiology MD Gerardo Systolic congestive heart failure, unspecified HF chronicity (HCC); [address] Essential hypertension; [place] [address] [place] [address] OROZCO (dyspnea on exertion); [phone] Chronic chest pain Allergies No Known Allergiesdocumented as of this encounter (statuses as of 05/15/2019) Medications Medication Sig Dispensed Refills Start Date End Date Status Glucose Blood In 1 Strip by In 100 Strip 5 09/26/2018 Active Vitro Strip Vitro route TWICE DAILY. Lancets Does not by Does not 60 Each 5 09/26/2018 Active apply Misc apply route TWICE DAILY. Brand: insurance preferred Dx: diabetes Test Blood Glucose 2 time(s) A DAY atorvastatin Take 1 Tab by 90 Tab 1 04/24/2019 Active (LIPITOR) 40 MG mouth DAILY. Oral TabIndications: Dyslipidemia aspirin 325 MG Take 325 mg by 0 Active Oral Tab mouth DAILY. glipiZIDE Take 1 Tab by 90 Tab 4 05/03/2019 Active (GLUCOTROL) 5 MG mouth DAILY. Oral Tab LISINOPRIL-HCTZ Take 1 Tab by 90 Tab 3 05/03/2019 Active 10-12.5 MG Oral mouth DAILY. TabIndications: Uncontrolled hypertension metFORMIN Take 1 Tab by 180 Tab 3 05/03/2019 Active (GLUCOPHAGE) 850 mouth TWICE MG Oral Tab DAILY. diclofenac Take 1 Tab by 90 Tab 1 05/03/2019 Active (VOLTAREN) 50 MG mouth THREE Oral Tab EC TIMES DAILY. with food Blood Glucose 1 Device by 1 Device 0 05/14/2019 Active Monitor Software Does not apply Does not apply route Device DIRECTED. Test blood sugar twice a day DX: diabetes. Brand: Insurance preferred Metoprolol Take 1 Tab by 30 Tab 2 05/15/2019 Active Succinate 200 MG mouth DAILY. Oral TABLET SR 24 HRIndications: Systolic congestive heart failure, unspecified HF chronicity (HCC) atenolol Take 1 Tab by 120 Tab 0 05/14/2019 Discontinued (TENORMIN) 100 MG mouth DAILY. 9 (Provider Oral Discontinued) TabIndications: Hypertension, unspecified type documented as of this encounter (statuses as of 05/15/2019) Active Problems Problem Noted Date Uncontrolled type 2 diabetes mellitus without complication, without 12/07/2017 long-term current use of insulin Hypertriglyceridemia 12/07/2017 BMI 40.0-44.9, adult 12/07/2017 Essential hypertension documented as of this encounter (statuses as of 05/15/2019) Resolved Problems Problem Noted Date Resolved Date Injury, other and unspecified, unspecified site 10/21/2005 08/05/2016 documented as of this encounter (statuses as of 05/15/2019) Social History Tobacco Use Types Packs/Day Years [...] Sign Reading Time Taken Comments Blood Pressure 140/78 05/15/2019 8:20 AM EDT Pulse 72 05/15/2019 8:20 AM EDT Temperature - - Respiratory Rate - - Oxygen Saturation - - Inhaled Oxygen Concentration - - Weight 136.1 kg (300 lb) 05/15/2019 8:20 AM EDT Height - - Body Mass Index 41.84 05/03/2019 1:56 PM EDT documented in this encounter Patient Instructions Patient InstructionsMcGerardo Nicole MD - 05/15/2019 8:20 AM EDT STOP taking atenolol for now and START taking Toprol XL 200mg once daily. No other medication changes for now. Get your bloodwork checked today. Schedule a coronary CT scan and echocardiogram in [place] sometime in the next few weeks. Follow up with me in about 1 month. documented in this encounter Progress Notes Gerardo Rodriguez MD - 05/15/2019 8:20 AM EDT [facility] Note Patient: Justin Carrillo Date of : 1985 Date of Service: 05/15/2019 REFERRING PRACTITIONER: Gerardo Rodriguez PRIMARY CARE PROVIDER: Satish Dobson Chief Complaint: Chief Complaint Patient presents with New Patient Pt. referred by Dr. Badillo. Admitted to [facility] 04/27/19 for Chest Pain. Nuc Stress Test done 04/29/19 Breathing Problem Pt. reports SOB with exertion. Reports having Frequent Palpitations. History of Present Illness: We had the pleasure of seeing Justin Carrillo today at the [facility]. He is a 34-y.o. male with obesity, tobacco abuse, uncontrolled DM2, HTN, hyperlipidemia, and atypical chest pain with mild LV systolic dysfunction seen on nuclear stress testing at [facility] 04/2019. Mr. Carrillo presents to cardiology clinic today for further evaluation of chest pain and LV dysfunction. He recently presented to [facility] with CP and was admitted there from 04/27 to 04/29. He says that he's had 3-4 months of CP and OROZCO. He says that he gets a pressure in his mid chest that comes on randomly with driving, climbing stairs, etc, but he does say that he's been avoiding stairs and sexual intercourse b/c those activities predictably bring on CP (ie, seems to have an exertional component). He also says that the CP was so intense over the past month or two that he was using a bottle or two of aspirin per week. In the hospital he ruled out for TN by troponins and they ordered a nuclear stress test. He initially started it as an exercise stress test but got CP so they converted it to a Lexiscan. This showed an LVEF of 47% but no ischemia or infarct so he was sent home. CP has continuedsince d/c but seems to have lessened in frequency a bit. Gets occasional palpitations but no lightheadedness or syncope. No orthopnea, paroxysmal dyspnea, or lower extremity edema. Continues to smoke occasionally (~3 cigarettes daily) but has cut down from 2 ppd. Also chews tobacco. Patient Active Problem List Diagnosis Uncontrolled type 2 diabetes mellitus without complication, without long- term current use of insulin ([facility]) Hypertriglyceridemia BMI 40.0-44.9, adult (HCC) Essential hypertension Past Medical History: Diagnosis Date Anorexia Asthma Diabetes mellitus Drug abuse (HCC) cocaine, alcohol, and opiates Hematemesis HTN (hypertension) Past Surgical History: Procedure Laterality Date TONSILLECTOMY & ADENOIDECTOMY No Known Allergies Current Outpatient Medications Medication Sig aspirin 325 MG Oral Tab Take 325 mg by mouth DAILY. atorvastatin (LIPITOR) 40 MG Oral Tab Take 1 Tab by mouth DAILY. Blood Glucose Monitor Software Does not apply Device 1 Device by Does not apply route DIRECTED. Test blood sugar twice a day DX: diabetes. Brand: Insurance preferred diclofenac (VOLTAREN) 50 MG Oral Tab EC Take 1 Tab by mouth THREE TIMES DAILY. with food glipiZIDE (GLUCOTROL) 5 MG Oral Tab Take 1 Tab by mouth DAILY. Glucose Blood In Vitro Strip 1 Strip by In Vitro route TWICE DAILY. Lancets Does not apply Misc by Does not apply route TWICE DAILY. Brand: insurance preferred Dx: diabetes Test Blood Glucose 2 time(s) A DAY LISINOPRIL-HCTZ 10-12.5 MG Oral Tab Take 1 Tab by mouth DAILY. metFORMIN (GLUCOPHAGE) 850 MG Oral Tab Take 1 Tab by mouth TWICE DAILY. Metoprolol Succinate 200 MG Oral TABLET SR 24 HR Take 1 Tab by mouth DAILY. No current facility-administered medications for this visit. 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 Nursing Notes: Sima Wang LPN 05/15/2019 8:28 AM Signed PATIENT: Justin Carrillo : 1985 DATE OF SERVICE: 05/15/2019 CARDIOLOGY AMBULATORY NURSING INTAKE FORM HISTORY COLLECTED BY CLINICAL STAFF: Adam REVIEW OF SYSTEMS: GENERAL: Fever: no Weight loss/gain: yes - Fatigue: yes - Increased over past few months Recent febrile illness: no NEUROLOGIC: Headache: no Syncope: no CVA/TIA: no Change in sensation: yes - Toes CARDIOVASCULAR: Chest Pain: yes - Chest pressure/pain radiates Palpitations: yes - frequent Orthopnea: no Rheumatic Fever (history of): no Edema: no RESPIRATORY: Cough: no Shortness Of Breath: yes - with minimal exertion Hemoptysis: no Underlying Lung Disease: no GASTROINTESTINAL: Nausea: no Vomiting: no Constipation: no Diarrhea: no Melena: no PUD (history of): no Hematemesis: no Gastrointestinal Disorder: no GENITOURINARY: Hematuria: no Urinary Tract Infection(s): no Nocturia: no Prostate Problem(s): no HEMATOLOGIC: Easy bruising: no Bleeding: no MUSCULOSKELETAL/PERIPHERAL VASCULAR SYSTEM: Muscle Pain: no Muscle Cramping: yes - legs Stiffness: no Muscle Weakness: no BEHAVIORAL/PSYCH: Depression: no ENDOCRINE: Tremors: Yes with resting Heat or cold intolerance: yes - heat Author: Sima Wang LPN 05/15/2019 08:21 I have reviewed the ROS obtained by my nurse and concur as detailed above. Physical Exam: Vitals: 05/15/19 0820 BP: 140/78 BP Location: Right arm Patient Position: Sitting Pulse: 72 Weight: 300 lb (136.1 kg) Body mass index is 41.84 kg/m. General: Morbidly obese, alert 34-y.o. male in NAD HEENT: anicteric, MMM, no E/E OP, conj pink Neck: JVP difficult to appreciate d/t body habitus; no carotid bruits. CV: RRR, normal s1/s2, no appreciable murmurs, rubs, or gallops Pulm: CTA bilaterally without wheezes, rhonchi, or rales. No increased work of breathing. Abd: soft, obese, NT, ND, +BS. No appreciable pulsatile masses or bruits. Ext: no lower extremity edema, no cyanosis, no cords, redness, or warmth, 2+ distal pulses Neuro: no gross focal deficits Skin: Multiple tattoos noted. Labs: Lab Results Component Value Date NA 134 09/26/2018 K 4.8 09/26/2018 CL 99 09/26/2018 CO2 23 09/26/2018 GLUCOSE 396 (H) 09/26/2018 BUN 12 09/26/2018 CREATININE 0.7 (L) 09/26/2018 CALCIUM 9.9 09/26/2018 TP 8.1 09/26/2018 ALBUMIN 4.4 09/26/2018 AST 70 (H) 09/26/2018 ALT 46 09/26/2018 ALK 126 09/26/2018 TBILI 0.6 09/26/2018 EGFR >60 09/26/2018 No results found for: BNP Lab Results Component Value Date CHOL 215 (H) 09/26/2018 TRIG 372 (H) 09/26/2018 HDL 30 (L) 09/26/2018 LDL 111 (H) 09/26/2018 LDLHDLRATIO 3.7 09/26/2018 CHOLHDLRATIO 7.2 09/26/2018 Cardiac Studies: EKG 04/24/19 (I personally reviewed): NSR in 70s. RSR' in V1. Otherwise normal. Regadenoson SPECT at [facility] 04/29/2019: 1. No compelling stress-induced ischemia or evidence for infarct 2. Mildly decreased LVEF at 47% with global hypokinesis. TTE 02/02/18: FINAL IMPRESSION: Technically difficult study with limited acoustic windows and very limited endocardial visualization. Concentric LVH with grossly normal left atrial size. Normal LV systolic function with no gross regional wall motion abnormalities; estimated LVEF 55-60%. Grossly normal right heart size and RV systolic function. No hemodynamically significant valvular abnormalities on limited imaging. No pericardial effusion. Compared to prior echo report 09/25/2009, no significant changes are apparent. Holter Monitor 02/01/18: CONCLUSION: 24-hour Holter monitor recording reveals somewhat frequent sinus tachycardia, but is otherwise within normal limits as described above. Assessment & Plan: Justin Carrillo is a 34-y.o. male with obesity, tobacco abuse, uncontrolled DM2 , HTN, hyperlipidemia, and atypical chest pain with mild LV systolic dysfunction seen on nuclear stress testing at [facility] 04/2019. ICD-9-CM ICD-10-CM 1. Exertional chest pain 786.50 R07.9 2. Systolic congestive heart failure, unspecified HF chronicity (HCC) 428.20 I50.20 BASIC METABOLIC PANEL 428.0 CT CHEST HEART CORONARY ANGIOGRAPHY W CALCIFICATION ECHOCARDIOGRAM TTE Metoprolol Succinate 200 MG Oral TABLET SR 24 HR BASIC METABOLIC PANEL 3. Essential hypertension 401.9 I10 4. OROZCO (dyspnea on exertion) 786.09 R06.09 5. Chronic chest pain 786.[address] CHEST HEART CORONARY ANGIOGRAPHY W CALCIFICATION 338.29 G89.29 1. Mild Cardiomyopathy with NYHA Class II-III symptoms along with Exertional CP : Despite his young age, the description of his symptoms on the backdrop of his significant CAD risk factors makes me concerned that his CP may indeed have represented angina. His nuclear stress test did not show definitive ischemia, but his LVEF was reported as low on that test, and I explained to him that I feel some additional w/u is needed. Will proceed as follows: I've ordered a coronary CTA to be done in [place] sometime in the next few weeks. Both to hopefully lower his BP and HR further, I'm stopping his atenolol today and replacing it with Toprol XL 200mg daily. Checking a resting echo with [facility] on the same day as his CTA in [place] to see if his LVEF isin fact reduced (sometimes LVEF determination on SPECT is inaccurate depending on the software used). Continue aspirin for now. He's been taking more than 81mg d/t pain, but ultimately I'd prefer he be on the lower dose. 2. HTN: BP uncontrolled today, and he'll likely need an increase in his Zestoretic dose to achieve adequate control. For now, I'm making the change in his BB and will reassess his BP at f/u. Thank you for allowing me to participate in the care of Justin Carole Acevedok. We will plan on f/u in [place] in ~1 month to review the results of his testing and see how his BP is doing. If you have any questions or concerns please feel free to call our office at . Gerardo Rodriguez MD, 05/15/2019, 12:08 documented in this encounter Plan of Treatment Date Type Specialty Care Team Description 05/23/2019 Office Visit Internal Medicine [place] [address], [address] [place] [address] [phone] 06/06/2019 Office Visit Family Practice Satish Dobson DO [address] [place] [address] 06/11/2019 Appointment Radiology 06/11/2019 Appointment Cardiology 06/26/2019 Office Visit Cardiology Gerardo Rodriguez MD [address] [place] [address] Name Type Priority Associated Diagnoses Date/Time BASIC METABOLIC PANEL Lab Routine Systolic congestive heart 05/15/2019 9: 17 AM EDT failure, unspecified HF chronicity (HCC) Name Type Priority Associated Diagnoses Order Schedule BASIC METABOLIC PANEL Lab Routine Systolic congestive Expected: heart failure, 05/15/2019 unspecified HF (Approximate), chronicity (HCC) Expires: 11/11/2019 CT CHEST HEART CORONARY Imaging Routine Chronic chest pain Expected: ANGIOGRAPHY W Systolic congestive 05/15/2019, CALCIFICATION heart failure, Expires: 05/14/2020 unspecified HF chronicity (HCC) ECHOCARDIOGRAM TTE CV Lab Routine Systolic congestive Expected: heart failure, 05/15/2019 unspecified HF (Approximate), chronicity (HCC) Expires: 06/18/2020 Health Maintenance Due Date Last Done Comments Diabetic Eye Exam 1985 PNEUMOCOCCAL 0-64 YRS (1 of 1991 1 - PPSV23) FOOT EXAM 2003 INFLUENZA VACCINE (#1) 2019 HEMOGLOBIN A1C 07/28/2019 04/27/2019, 09/26/2018, 01/18/2018, Additional history exists DEPRESSION SCREENING 01/30/2020 01/29/2019 HPV IMMUNIZATION SERIES Aged Out No longer eligible based on patient's age to complete this topic MENINGOCOCCAL VACCINE IMM Aged Out No longer eligible based on patient's age to complete this topic documented as of this encounter Goals Goal Patient Goal Associated Recent Patient-Stated? Author Type Problems Progress Blood Pressure Blood Pressure 140/78 No Satish Dobson < 140/90 (05/15/2019 J, DO 8:20 AM EDT) Note: This is an individualized treatment [...] better. Weight loss vs. 18 mo Lifestyle 26.3 (05/15/2019 8:20 AM No Joy Blackburn RN max (lbs) >= 10 EDT) Note: This is an individualized lifestyle [...] chest pain - Primary Chest pain, unspecified Systolic congestive heart failure, unspecified HF chronicity (HCC) Essential hypertension Unspecified essential hypertension OROZCO (dyspnea on exertion) Other dyspnea and respiratory abnormality Chronic chest pain Chest pain, unspecified documented in this encounter Insurance Payer Benefit Plan / Subscriber ID Effective Dates Phone Address Type Group [place] xxxxxxxx 2019-Present Medicaid [place] Guarantor Name Account Type Relation to Date of Phone Billing Patient Address Justin Carrillo Personal/Family 1985 [address] (Home) [facility] [phone] [place], [place] (Work) [id number] documented as of this encounter Advance Directives Type Date Recorded Patient Machine Taper Explanation Advance Directives 11/15/2017 9:11 AM [employer] responsibility acknowledgement form Advance Directives 11/24/2017 1:16 PM [employer] responsibility acknowledgement form
[2019-06-03 16:59] LABS: ALT 27 U/L (7-52); AST 49 U/L (13-39); Albumin/Globulin Ratio 1.2 (1-3); Alkaline Phosphatase 91 U/L (34-104); Anion Gap 10 mmol/L (2-11); BUN/Creatinine Ratio 18.7 (8-20); Blood Urea Nitrogen 14 mg/dL (6-24); C Reactive Protein 16.43 mg/L (<8.01); CO2 Carbon Dioxide 24 mmol/L (22-32); Calcium 9.3 mg/dL (8.6-10.3); Chloride 99 mmol/L (101-111); EGFR African American 144.2 (>60); EGFR Non-African American 119.2 (>60); Globulin 3.3 g/dL (2-4); Glucose 296 mg/dL (70-100); Sodium 133 mmol/L (135-145); Total Protein 7.3 g/dL (6.4-8.9)
[2019-06-03] MEDS ORDERED: Acetaminophen TAB* 325 MG PO ONE (17:03)
[2019-06-03] MEDS ORDERED: NS 0.9% 1000 ML** 2,000 ML IV ONE (17:22)
[2019-06-03 17:25] LABS: Alcohol < 10 mg/dL (<10)
[2019-06-03] MEDS ORDERED: Senna TAB 8.6 mg* TAB PO PRN (17:44)
[2019-06-03] MEDS ORDERED: Al Hydrox/Mg Hydrox/Simet LIQ* 30 ML UDC PO PRN (17:44)
[2019-06-03] MEDS ORDERED: Acetaminophen TAB* 325 MG PO PRN (17:44)
[2019-06-03] MEDS ORDERED: Ondansetron INJ* 2 MG/ML VIAL IV PRN (17:44)
[2019-06-03] MEDS ORDERED: Enoxaparin(*) 40 MG/0.4 ML SYR SUBCUT SCH (18:00)
[2019-06-03] MEDS ORDERED: Iodixanol* (CONTRAST) 320 MG/ML 100 ML SDV IV ONE (18:05)
[2019-06-03 18:20] LABS: Urine Appearance Clear; Urine Bacteria Absent (Absent); Urine Bilirubin Negative (Negative); Urine Blood Negative (Negative); Urine Color Yellow; Urine Glucose 3+(>=500 mg/dL) (Negative); Urine Ketones Negative (Negative); Urine Nitrite Negative (Negative); Urine Protein 2+(100 mg/dL) (Negative); Urine Red Blood Cell Trace(0-2/hpf) (Absent); Urine Squamous Epithelial Cell Present (Absent); Urine Urobilinogen Negative (Negative); Urine White Blood Cell Trace(0-5/hpf) (Absent)
[2019-06-03 18:42] LABS: Urine Benzodiazepine Screen None Detected (None Detect); Urine Opiates Screen None Detected (None Detect)
[2019-06-03] MEDS: oxyCODONE/Acetamin 5/325 MG* TAB PO PRN (19:42)
[2019-06-03] MEDS ORDERED: busPIRone TAB* 15 MG PO PRN (20:17)
[2019-06-03] MEDS ORDERED: metFORMIN* 500 MG TAB PO SCH (21:00)
[2019-06-03] MEDS ORDERED: Dextrose 50% VIAL 50 ml IV PUSH PRN (21:06)
--- NOTE | 2019-06-03 21:09 | HP ---
CC: Dr. Dobson* HISTORY AND PHYSICAL: DATE OF ADMISSION: 06/03/19 PRIMARY CARE PROVIDER: Dr. Dobson. ATTENDING PHYSICIAN: Dr. Adrien Yun * (dictated by KYUNG Manzano) . CHIEF COMPLAINT: Syncope x3 episodes. HISTORY OF PRESENT ILLNESS: Justin Carrillo is a 34-year-old white male with past medical history significant for poorly controlled diabetes mellitus type 2 , hypertension, history of alcohol use disorder, PTSD, panic disorder, anxiety and recently diagnosed heart failure with reduced ejection fraction, who presents to the emergency department today due to 3 syncopal episodes in the last week. The patient has over the last week been feeling overall fatigued. On 05/31/19, he was at work and he was standing and his boss observed him suddenly collapsing. His loss of consciousness lasted only seconds and his boss helped him into a chair and apparently he was acting normally after that. The patient denies loss of bowel or bladder control. His boss did not tell him if he observed convulsions. The patient tells me leading up to this episode he was experiencing tunnel vision. Then, 2 days later on 06/02/19, the patient was walking down steps outside his house and suddenly felt lightheaded and was having double vision and then collapsed. Again, his loss of consciousness was less than a minute and he landed on the grass and is unsure if he had head trauma. Today, he had an additional unwitnessed syncopal episode. He remembers feeling very suddenly exhausted and nauseous and experiencing tunnel vision. Then, he had an episode of loss of consciousness where he fell on his driveway of his house. He believes he hit his head because he has much head pain. He is unsure how long his loss of consciousness lasted, but he believes that it may be around 45 minutes considering when he woke up and checked the time, approximately 45 minutes had passed since the last time he had checked the time. He tells me that also he has been having increased frequency of palpitations in his chest. The patient does continue to have intermittent atypical chest pain, but this has not changed in frequency or quality since his last admission. Additionally, he tells me he has been having very dark urine. He did recently get health insurance and has been able to take medications as prescribed now. He denies abdominal pain, vomiting, current chest pain, difficulty breathing. He tells me he is still having double vision. Additionally, he is having right wrist pain at this time. EMERGENCY DEPARTMENT COURSE: When the patient arrived to the emergency department, his vital signs were temperature of 97.6 degrees Fahrenheit, pulse 84, respiratory rate 17, oxygen saturation 97% on room air, blood pressure 154/ 71. In the emergency department, the patient was provided with a wrist splint and Tylenol and 2 L of normal saline was started. Hospitalists were then asked to evaluate the patient for admission. PAST MEDICAL HISTORY: 1. Diabetes mellitus, type 2. 2. Hypertension. 3. History of alcohol use disorder. 4. PTSD. 5. Panic disorder. 6. Anxiety. 7. History of asthma. 8. Heart failure with reduced ejection fraction, EF of 47% on recent admission. PAST SURGICAL HISTORY: 1. Tonsillectomy. 2. Adenoidectomy. 3. Meniscus and ACL repair of the left knee. HOME MEDICATIONS: 1. Metformin 875 mg p.o. b.i.d. 2. Lisinopril/hydrochlorothiazide 10 mg/12.5 mg p.o. daily. 3. Atenolol 100 mg p.o. daily. 4. Aspirin 81 mg p.o. daily. 5. Glipizide 5 mg p.o. daily. 6. Protonix 40 mg p.o. daily. 7. Oxycodone/acetaminophen 5/325 mg 1 tab p.o. q.6 hours p.r.n. pain. ALLERGIES: No known drug allergies. FAMILY HISTORY: His father at age 57 due to an AR. His mother at age 52 due to progressive multifocal leukoencephalopathy. His mother previously had a history of non-Hodgkin's lymphoma. SOCIAL HISTORY: The patient has recently cut back his smoking. He previously was smoking 1.5 packs of cigarettes per day for the last almost 20 years. He has more recently been smoking 6 cigarettes per day. He denies illicit drug use. He has previous history of drinking 30 beers per day over the course of 1 year, but stopped in 2011. He now drinks approximately 1 alcoholic drink per week. He has 1 son. He is engaged and lives with his fiancee in [place]. He works for a [employer]. The patient's fiancee, Jessie Bethea, his surrogate medical decision maker should he need one. [place] phone number is [phone]. REVIEW OF SYSTEMS: An 11-point review of systems was completed and all pertinent positives and negatives are above in the HPI. All other systems are negative. PHYSICAL EXAMINATION GENERAL: An obese, young male, lying upright in hospital bed, appearing comfortable, in no acute distress. HEENT: Head: Normocephalic, atraumatic. Eyes: PERRL. Sclerae anicteric. Reports diplopia in only right eye when left side is covered. No nystagmus. ENT: Mucous membranes moist. No tongue lacerations. NECK: Supple. LUNGS: Clear to auscultation throughout. CARDIO: Regular rate and rhythm without murmurs, rubs, or gallops. ABDOMEN: Soft, nontender, nondistended without hepatosplenomegaly. EXTREMITIES: No clubbing, cyanosis, or edema. NEURO: The patient is alert and oriented x3. Diminished sensation to light touch in the right leg from knee down, which the patient tells me is chronic. Bottom Sander strength is 3/5 in the right arm, which is new since falling on his arm today and he tells me he is restricted due to pain. Bottom Sander strength of the left arm is 5/5. Face is symmetrical. Tongue is midline. Sensation to light touch is intact throughout face. DIAGNOSTIC STUDIES/LAB DATA: White blood cell count 13.3, hemoglobin 14, hematocrit 40, platelets 257. Sodium 133, potassium 4.0, chloride 99, carbon dioxide 24, anion gap 10, BUN 14, creatinine 0.75, lactic acid 2.2, glucose 296 , calcium 9.3. Bilirubin 0.5, AST 49, ALT 27. CRP 60.43. Serum alcohol was less than 10. VBG; pH 7.42, pCO2 of 38, pO2 of 53, bicarb 24.9, O2 saturation 91.1%. EKG: Heart rate 84 beats per minute, normal sinus rhythm, normal axis. No ST depressions or elevations. There is T-wave flattening in V2 and T-wave inversion in V1, which is consistent with previous EKG. CT of the brain, impression: No evidence of intracranial mass or hemorrhage is noted. CT cervical spine: Straightening of the normal lordosis without definite evidence of fracture. ASSESSMENT AND PLAN: Justin Carrillo is a 34-year-old white male with past medical history significant for heart failure with reduced ejection fraction, diabetes mellitus type 2, hypertension, who presents to the emergency room due to syncopal episodes. The patient will be admitted OBV for: 1. Syncope. The patient had a stress test in the recent hospitalization, but he did not have an echocardiogram. I will order this. Given that he had these prodromal tunnel vision and double vision leading up to syncopal episodes, I have consulted Dr. Mahan of the neurology service. I will order a CTA of the head and neck due to concern for posterior stroke. I have ordered an LDL, TSH, and vitamin B12. The patient tells me he has chronic neuropathy of his right lower extremity, which is not focal. B12 deficiency should still be ruled out. Additionally, the patient will be admitted on telemetry. I will continue his home aspirin, which he takes for primary prevention. I will be checking orthostatic vital signs as well. I will be checking a troponin as well. 2. Wrist pain. X-ray of the wrist is pending at this time. The ED provider will provide a wrist splint. I believe that given his wrist pain on this side is due to the pain in his wrist and not due to any focal abnormality, though we will continue to assess this. 3. Leukocytosis. It is possible that the patient may have an underlying infection causing the syncopal episodes. I will check a chest x-ray and urinalysis with reflex urine culture is pending. The lactic acid of 2.2 is also concerning; however, the patient does not otherwise meet for sepsis criteria. I will repeat the lactic acid and continue to monitor this. 4. Diabetes. The patient 1 month ago had an hemoglobin A1c of 11.7 and was prescribed insulin, but could not afford it. It appears that he is now only taking glipizide and metformin. I will repeat his A1c to see if there has been any change since starting his oral medications, but I suspect we may need to start long-acting insulin on this patient. 5. Hypertension. I will continue the patient's home atenolol, lisinopril and hydrochlorothiazide. He has been normotensive in the emergency department. 6. Elevated AST. The patient has an AST to ALT ratio that is almost 2:1 and the patient does have a previous history of drinking, which is consistent with this. I will continue to monitor this. His bilirubin, ALT and alk phos are otherwise normal. 7. Anxiety. I've ordered prn buspar. 8. FEN. The patient is receiving 2 L of fluid in the emergency department. The patient will have a diabetic diet. 9. Code status. The patient is a full code. 10. DVT prophylaxis. The patient has a DVT Risk Score of 2 and I will start Lovenox 40 mg subcu daily. TIME SPENT: Approximately 50 minutes was spent on this admission, approximately half this time was spent at bedside evaluating the patient. This case has been reviewed by my attending, Dr. Adrien Yun, and he agrees with this plan of care. KYUNG MANZANO [id number]/[facility] #: [id number] MTDD
[2019-06-04] MEDS: oxyCODONE/Acetamin 5/325 MG* TAB PO PRN ×2 (02:15→09:46)
[2019-06-04 06:02] LABS: ABS Basophils 0.1 10^3/ul (0-0.2); ABS Eosinophils 0.3 10^3/ul (0-0.6); ABS Lymphocytes 3.9 10^3/ul (1.0-4.8); ABS Monocytes 0.6 10^3/ul (0-0.8); ABS Neutrophils 5.6 10^3/ul (1.5-7.7); Eosinophil % 2.6 %; Hematocrit 38 % (42-52); Hemoglobin 13.3 g/dL (14.0-18.0); Lymphocyte % 37.3 %; Mean Corpuscular HGB Conc 35 g/dL (31-36); Mean Corpuscular Hemoglobin 30 pg (27-31); Mean Corpuscular Volume 85 fL (80-94); Mean Platelet Volume 9.2 fL (7.4-10.4); Platelet Count 226 10^3/uL (150-450); Red Blood Count 4.48 10^6 /uL (4.18-5.48); Red Cell Distribution Width 13 % (10-15); White Blood Count 10.6 10^3/uL (3.5-10.8)
[2019-06-04 06:20] LABS: BUN/Creatinine Ratio 17.6 (8-20); Calcium 8.7 mg/dL (8.6-10.3); EGFR African American 161.5 (>60); EGFR Non-African American 133.5 (>60); HDL Cholesterol 21.3 mg/dL; Potassium 4.1 mmol/L (3.5-5.0)
[2019-06-04 06:43] LABS: TSH (Thyroid Stimulating Horm) 4.54 mcIU/mL (0.34-5.60)
[2019-06-04] MEDS: Insulin LISPRO* 1 UNITS UNIT SUBCUT SCH ×2 (08:17→11:54)
[2019-06-04] MEDS ORDERED: glipiZIDE TAB* 5 MG PO SCH (08:30)
--- NOTE | 2019-06-04 08:58 | PN ---
Subjective Date of Service: 06/04/19 Interval History: HD1 on 06/04 34 y/o M with DM, HTN, obesity presented with 3 syncopal episodes in last 1 week. Found to have orthostatic hypotension. VS: Orthostatic hypotension FElt dizzy while going to bathroom this morning No other complain at present VS stable Objective Active Medications: Acetaminophen (Tylenol Tab*) 650 mg PO Q4H PRN PRN Reason: MILD PAIN or TEMP > 100.4 Al Hydrox/Mg Hydrox/Simethicone (Maalox Plus*) 30 ml PO Q6H PRN PRN Reason: INDIGESTION Aspirin (Aspirin Ec Tab*) 81 mg PO DAILY FORMERLY [facility], 1928[facility]1983 Last Admin: 06/04/19 08:16 Dose: 81 mg Atenolol (Tenormin Tab*) 100 mg PO DAILY FOR[facility], [facility]1983 Last Admin: 06/04/19 08:17 Dose: 100 mg Buspirone HCl (Buspar Tab *) 15 mg PO TID PRN PRN Reason: ANXIETY Dextrose (Dextrose 50% Vial 50 Ml*) 25 ml IV PUSH .FOR FS < 60 - SS PRN PRN Reason: FS < 60 Enoxaparin Sodium (Lovenox(*)) 40 mg SUBCUT Q24H FOR[facility], [facility] Last Admin: 06/03/19 19:43 Dose: 40 mg Hydrochlorothiazide (Hydrodiuril Tab*) 12.5 mg PO DAILY FOR[facility] Last Admin: 06/04/19 08:16 Dose: 12.5 mg Insulin Human Lispro (Humalog*) 0 units SUBCUT AC FOR[facility], [facility]1983; Protocol Last Admin: 06/04/19 08:17 Dose: 6 units Lisinopril (Prinivil Tab*) 10 mg PO DAILY FOR[facility], [facility]; Protocol Last Admin: 06/04/19 08:16 Dose: 10 mg Ondansetron HCl (Zofran Inj*) 4 mg IV Q4H PRN PRN Reason: NAUSEA/VOMITING Oxycodone/Acetaminophen (Percocet 5/325 Tab*) 1 tab PO Q6H PRN PRN Reason: PAIN - SEVERE Last Admin: 06/04/19 02:15 Dose: 1 tab Pantoprazole Sodium (Protonix Tab*) 40 mg PO DAILY [facility] Last Admin: 06/04/19 08:17 Dose: 40 mg Senna (Senokot 8.6 Mg Tab*) 1 tab PO BID PRN PRN Reason: CONSTIPATION Vital Signs - 8 hr 06/04/19 06/04/19 06/04/19 02:15 03:15 04:13 Temperature 97.4 F Pulse Rate 69 Respiratory 18 16 16 Rate Blood Pressure 137/77 (mmHg) O2 Sat by Pulse 98 Oximetry Oxygen Devices in Use Now: None Exam: Patient is lying on a bed with no acute distress. HEENT: NOrmocephalic and atraumatic Lungs: clear Heart: S1/S2 heard with no murmur Abdomen: soft, nondistended and nontender Extremity: normal Neuro: ALert, oriented . moving all four extremity Result Diagrams: 06/04/19 05:37 06/04/19 05:37 Additional Lab and Data: Lab Results 06/03/19 06/03/19 Range/Units 16:09 16:09 WBC 13.3 H (3.5-10.8) 10^3/uL RBC 4.74 (4.18-5.48) 10^6 /uL Hgb 14.0 (14.0-18.0) g/dL Hct 40 L (42-52) % MCV 85 (80-94) fL MCH 30 (27-31) pg MCHC 35 (31-36) g/dL RDW 13 (10-15) % Plt Count 257 (150-450) 10^3/uL MPV 9.2 (7.4-10.4) fL Neut % (Auto) 63.2 % Lymph % (Auto) 27.8 % [place] % (Auto) 5.6 % Eos % (Auto) 2.1 % Baso % (Auto) 1.3 % Absolute Neuts (auto) 8.4 H (1.5-7.7) 10^3/ul Absolute Lymphs (auto) 3.7 (1.0-4.8) 10^3/ul Absolute Monos (auto) 0.7 (0-0.8) 10^3/ul Absolute Eos (auto) 0.3 (0-0.6) 10^3/ul Absolute Basos (auto) 0.2 (0-0.2) 10^3/ul Absolute Nucleated RBC 0.0 10^3/ul Nucleated RBC % 0.1 VBG pH 7.42 (7.32-7.43) VBG pCO2 38 L (41-51) mmHg VBG pO2 53.0 H (35-45) mmHg VBG HCO3 24.9 (24-28) mmol/L VBG O2 Saturation 91.1 H (70-80) % VBG Base Excess 0.3 (0.0-4.0) mmol/L Assess/Plan/Problems-Billing Assessment: 34 y/o M with obesity, DM, HTN, alcohol use disorder, ptsd presented with 3 syncopal episodes and vision changes in last 1 week. Found to have orthostatic hypotension. Echo and brain CT normal - Patient Problems (1) Syncope Status: Acute Code(s): R55 - SYNCOPE AND COLLAPSE SNOMED Code(s): 788594877 Comment: most likely orthostatic hypotension>vasovagal ppt by dehydration and hctz ecg, echo an dbrain ct normal neuro consulted; doesnot think has any neuro component counselled about staying hydrated and hctz stopped (2) Diabetes Status: Acute Code(s): E11.9 - TYPE 2 DIABETES MELLITUS WITHOUT COMPLICATIONS SNOMED Code(s): 84540489 Comment: for 2 years started taking oral meds for just few months because he didnot liked the medicine now on metformin and sulfonylurea BMI 43.2 counselled about methods of weight loss and complication of obesity has component of SARAH; advised to follow up with pulmonology (3) Hypertension Status: Acute Code(s): I10 - ESSENTIAL (PRIMARY) HYPERTENSION SNOMED Code(s) : 65883260 Comment: - BP controlled - Continue atenolol, lisinopril. stopped hctz (4) DVT prophylaxis Status: Acute Code(s): Z29.9 - ENCOUNTER FOR PROPHYLACTIC MEASURES, UNSPECIFIED SNOMED Code(s): 563887814 Comment: on lovenox (5) Full code status Status: Acute Code(s): Z78.9 - OTHER SPECIFIED HEALTH STATUS SNOMED Code(s) : 360551650 Comment: Status and Disposition: Inpatient Attending: Mariah Wilson Attestation Documenting Resident: Melissa Kahn Supervising Physician: Mariah Wilson Attestation: This service has been performed in part by a resident under the direction of a teaching physician.I, Mariah Wilson, performed the service, or was physically present during the critical, or segura portions of the service, furnished by the resident. I participated in the management of the patient.
[2019-06-04] MEDS ORDERED: Atenolol TAB* 50 MG PO SCH (09:00)
[2019-06-04] MEDS ORDERED: Aspirin EC TAB* 81 MG TAB.EC PO SCH (09:00)
[2019-06-04] MEDS ORDERED: Hydrochlorothiazide TAB* 25 MG PO SCH (09:00)
[2019-06-04] MEDS ORDERED: Pantoprazole TAB * 40 MG TAB PO SCH (09:00)
[2019-06-04] MEDS ORDERED: Lisinopril TAB* 10 MG PO SCH (09:00)
[2019-06-04] MEDS ORDERED: Perflutren Lipid Microsphere* 3 ML VIAL ONE (09:16)
--- NOTE | 2019-06-04 11:18 | ECHO ---
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 History: Risk factors: Hypertension. Diabetes mellitus, noncompliant with medication. Obese. Labs, prior tests, procedures, and surgery: Catheterization (2011). Normal. Conclusions Summary: - Left ventricle: Systolic function is normal. The estimated ejection fraction is 60-65%. Wall motion is normal; there are no regional wall motion abnormalities. - Right ventricle: Systolic function is normal. - Mitral valve: There is trace regurgitation. - Aortic valve: There is no evidence of stenosis. There is no significant regurgitation. - Tricuspid valve: There is physiologic regurgitation. - Pulmonary arteries: Systolic pressure can not be accurately estimated. - Compared to study of 06/19/13, there is little change. Study data: Transthoracic echocardiogram. Procedure: Transthoracic echocardiography was performed. Image quality was suboptimal. The study was technically limited due to poor acoustic window availability and body habitus. Intravenous Definity , 4.5 mlswas administered. Complete 2D, spectral Doppler, and color flow Doppler. Location: Bedside. Patient status: Inpatient. Patient room number: 431. Rhythm: Normal sinus rhythm. Findings Left ventricle: The cavity size is normal. There is mild concentric hypertrophy. Systolic function is normal. The estimated ejection fraction is 60-65%. Wall motion is normal; there are no regional wall motion abnormalities. There is no consistent Doppler evidence of clinically significant diastolic dysfunction. Right ventricle: The cavity size is mildly dilated. Wall thickness is mildly increased. Systolic function is normal. Left atrium: The atrium is mildly to moderately dilated. Right atrium: The atrium is mildly dilated. Mitral valve: The leaflets are mildly thickened. There is no evidence of stenosis. There is trace regurgitation. Aortic valve: The valve is trileaflet. The leaflets are normal thickness. There is no evidence of stenosis. There is no significant regurgitation. Tricuspid valve: The leaflets are normal thickness. There is no evidence of stenosis. There is physiologic regurgitation. Pulmonic valve: The leaflets are normal thickness. There is no evidence of stenosis. There is trace regurgitation. Aorta: Ascending aorta: The ascending aorta is appears normal. The aortic root appears normal. The aortic arch appears normal. Pericardium: A prominent pericardial fat pad is present. There is no significant pericardial effusion. Pulmonary arteries: The main pulmonary artery is normal-sized. Systolic pressure can not be accurately estimated. Systemic veins: Inferior vena cava: The vessel is normal in size. There is (< 50%) respiratory change in the IVC dimension. Measurements Left ventricle Value Ref Right atrium continued Value Ref GREGG, LAX 5.1 cm 4.2 - 5.8 SI dim/bsa, ES, 2.2 cm/m^2 1.8 - ESD, LAX 3.4 cm 2.5 - 4.0 A4C 3.0 FS, LAX 34 % 25 43 Estimated RAP 8 mm Hg -------- PW, ED, LAX (H) 1.2 cm 0.6 - 1.0 FS 34 % 25 Aortic valve Value Ref PW, ED (H) 1.2 cm 0.6 - 1.0 Evan diam, ED 2.0 cm -------- E', lat evan, TDI 10.6 cm/sec >=10.0 Evan diam/bsa, ED 0.8 cm/m^2 - ------- E/e', lat evan, 10 Peak v, S 1.53 m/sec ---- ---- TDI VTI, S 30.9 cm -------- E', med evan, TDI 8.7 cm/sec >=7.0 Mean grad, S 6.0 mm Hg - ------- E/e', med evan, 12 Peak grad, S 9.0 mm Hg ---- ---- TDI LVOT/AV, VTI ratio 0.78 -------- E', avg, TDI 9.7 cm/sec E/e', avg, TDI 10 <=14 Mitral valve Value R ef Peak E 1.01 m/sec -------- LVOT Value Ref Peak A 0.81 m/sec -------- Peak yamilet, S 1.13 m/sec Decel time 155 ms -------- VTI, S 24.0 cm Peak grad, D 4.1 mm Hg -------- Peak grad, S 5 mm Hg Peak E/A ratio 1.2 -------- Mean grad, S 3 mm Hg Pulmonic valve Value Ref Ventricular septum Value Ref Peak v, S 1.16 m/sec -------- IVS, ED (H) 1.1 cm 0.6 - 1.0 Peak grad, S 5.0 mm Hg -------- Right ventricle Value Ref Aortic root Value Ref AW thickness, ED (H) 0.7 cm 0.1 - 0.5 Root diam 3.2 cm <4.2 GREGG, LAX 3.6 cm GREGG minor ax, (H) 4.7 cm 1.9 - 3.5 Ascending aorta Value Ref A4C mid AAo AP diam, S 2.9 cm -------- Left atrium Value Ref Aortic arch Value Ref AP dim, ES 3.70 cm 3.00 - Arch diam 2.3 cm -------- 4.00 ML dim, A4C 4.4 cm Decending aorta Value Ref SI dim, A4C 6.0 cm Chuck peak yamilet 0.94 m/sec -------- Vol/bsa, ES, 1-p 32 ml/m^2 12 - 37 A4C Inferior vena cava Value Ref Vol/bsa, ES, A/L (H) 41 ml/m^2 16 - 34 Diam 2.1 cm -------- Right atrium Value Ref SI dim, ES (H) 5.4 cm 3.4 - 5.3 ML dim, ES, A4C 3.8 cm 2.6 - 4.4 SI dim, ES, A4C (H) 5.6 cm 3.4 - 5.3 Legend: (L) and (H) ayo values outside specified reference range. Prepared and electronically signed by Nathaniel Ryan MD 06/04/2019 11:18
[2019-06-04 11:42] VITALS: BP 149/83
--- NOTE | 2019-06-04 12:22 | CONS ---
NEUROLOGY CONSULTATION NOTE: DATE OF CONSULT: 06/04/19 CONSULTING PROVIDER: KYUNG Manzano. REASON FOR CONSULT: Syncope. CHIEF COMPLAINT: Passing out. HISTORY OF PRESENT ILLNESS: Mr. Justin Carrillo is a 34-year-old right-handed man with history of type 2 diabetes, hypertension; who is on hydrochlorothiazide and lisinopril, who [facility] having 3 passing-out events. The episodes first started last Monday. The patient stated that he was sitting at a desk at work, doing paperwork. He got up and after 1 minute, he felt dizzy, lightheaded, and nauseous. He walked outside the office and subsequently fell down on the driveway. He thinks he passed out. His boss brought him apple juice and took him home. The second episode occurred Monday. The patient was sitting on the couch for a few hours. He then got up and suddenly felt woozy, dizzy, went outside and within a minute had to grab the handle of the barbeque grill and went down. He thinks he passed out. The grill apparently fell on top of him. The third event took place yesterday when the patient was feeling "weird" at home. He got out of the van and then after a minute collapsed on the driveway. Apparently, he remembers the clock was about 1:35 p.m. and then when he woke up and noticed the EMS around him. It was 2:40 p.m. There were no witnesses to any of these episodes. Prior to falling, he developed prodromal symptoms of double vision only in the right eye, lightheadedness, and diaphoresis. He did feel clammy following the event. He denied any chest pain or palpitation. The patient had lightheadedness today when he got up to use the bathroom. He had to sit down on the toilet for a few minutes before he was back to his normal self. He did not lose consciousness. The patient never had any seizure-like activity, urinary incontinence, or tongue biting following these 3 events. He has been feeling fatigue and tiredness all week. He denied any upper respiratory tract infection. He denied any focal weakness or paresthesias. He denied any impairment in his bowel or bladder functions. The patient has chronic right lower extremity paresthesias. He has been worked up by his PCP, who informed him that he may have diabetic neuropathy. SEIZURE RISK FACTORS: The patient has no history of meningitis or encephalitis. He has no history of febrile seizures. He has never had seizures. He has no family history of epilepsy. He denied any history of head trauma. PAST MEDICAL HISTORY: Diabetes mellitus type 2, hypertension, PTSD, panic disorder, anxiety, history of asthma, heart failure with reduced ejection fraction, and history of prior alcohol use. The patient was obese and weighed over 600 pounds. He attended a camp that was paid for by his grandmother in [place] in which he lost approximately 300 pounds. PAST SURGICAL HISTORY: Tonsillectomy, adenoidectomy, meniscus and ACL repair of the left knee. HOME MEDICATIONS: 1. Metformin 875 mg p.o. b.i.d. 2. Lisinopril/hydrochlorothiazide 10 mg/12.5 mg p.o. daily. 3. Atenolol 100 mg p.o. daily. 4. Aspirin 81 mg p.o. daily. 5. Glipizide 5 mg p.o. daily. 6. Protonix 40 mg p.o. daily. 7. Oxycodone/acetaminophen 5 mg/325 mg every 6 hours as needed for pain. ALLERGIES: No known drug allergies. FAMILY HISTORY: Mother of non-Hodgkin lymphoma. Father had a heart attack. His mother was again due to progressed multifocal leukoencephalopathy. SOCIAL HISTORY: He used to smoke 1-1/2 packs a day for almost 20 years. He has cut back and now only smokes 2 to 3 cigarettes a day. He stopped consuming alcohol in 2011. He works at a [employer]. 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 PHYSICAL EXAM: Vitals: Temperature of 98.1, heart rate of 77, respiratory rate of 18, oxygen saturation of 99% on room air, blood pressure of 155/88. General: Well- nourished, well-developed overweight man, in no acute distress. Head: Atraumatic, normocephalic without any obvious abnormality. Eyes: Conjunctivae are clear. Neck: Is supple and symmetrical with no nuchal rigidity. Cardiovascular: Regular rate and rhythm, with normal S1 and S2. Respiratory: Clear to auscultation bilaterally with no wheezing or rhonchi. Extremities: Normal range of motion with no cyanosis or edema. No hammertoes or high arches. Skin: No skin lesions or lacerations. Psych: Affect is broad , normal mood. He has no obvious symptoms of panic attack or anxiety. Neurological Examination: Mental Status: Awake, alert, oriented to person; place ; time; and general circumstance. Speech and language including comprehension and repetition were assessed and found to be normal. Cranial Nerves: Pupils equal, round, reactive to light. Extraocular muscles are intact. No facial asymmetry. Tongue is symmetric and midline with no atrophy. No sensation abnormality on either side of the face. Motor Examination: 5/5 strength in the upper and lower extremities with normal tone and bulk throughout. Reflexes trace throughout with absent at the knee and ankle on the right side. Absent ankle reflex on the left side. Sensation: Distal to proximal sensory gradient at the ankle felt bilaterally. He has got reduced sensation on the L4-L5 dermatomal distribution on the right. He has no back pain. Coordination: Normal finger-to- nose and [id number] testing. Gait: Normal stance. No ataxia. DIAGNOSTIC STUDIES/LAB DATA: Labs, imaging, and other diagnostic testing: WBC of 13.3, but improved to 10.6; hemoglobin of 13.3; hematocrit of 38; platelet count of 226. Sodium of 133, potassium of 4.1, chloride of 102, anion gap of 6 , BUN of 12, creatinine is 0.68, glucose of 257, hemoglobin A1c of 10. AST 49, ALT 27, C- reactive protein 16.43. LDL is 100, cholesterol 165, triglycerides 497. Vitamin B12 of 364. TSH is 4.54. Urinalysis showed no evidence of pyuria. Urine toxicology screen is negative. A brain CT was unremarkable. Cervical CT showed straightening of the normal lordosis. CTA head and neck showed no evidence of large-vessel occlusion or stenosis. Please note the patient had orthostatic vitals checked last night after he received 2 L of IV fluids. Orthostatic vitals showed the blood pressure was 123 /78 supine with a heart rate of 81; sitting at the edge of the chair, the heart rate was 82 and blood pressure was 144/81; and when standing, his blood pressure dropped to 124 mmHg systolic, with a pulse of 100. ASSESSMENT AND RECOMMENDATIONS: Mr. Justin French is a 34-year-old man who has had 3 episodes of syncope. 1. Syncope: With positive orthostatic vitals, I suspect he has orthostatic hypotension. I do not think this is related to a cerebrovascular syncope based off the semiological description of the events. He does not have evidence of vertebrobasilar insufficiency or subclavian steal syndrome on CTA head and neck. He seems to have the episodes after standing. Risk factors include dehydration and hydrochlorothiazide use. I do not think this is autonomic dysfunction related to diabetes given his normal compensatory tachycardia that occurred today after he stood up from a seated position. 2. Suspect peripheral neuropathy. 3. Suspect L4-L5 radiculopathy on the right. 4. Lower range of vitamin B12 Recommendations: Recommend continued hydration. Compressive stocking. We discussed certain maneuvers that he can perform prior to standing. Defer antihypertensive management to the primary team. He should take vitamin B12 oral supplements 500 mcg daily. We discussed fall precautions. Please cancel any MRIs or EEGs that are ordered as I do not suspect this presentation to be related to an intracranial abnormality or seizures. Neurology will sign off. Please contact us for any questions or concerns. [id number]/[facility] #: [id number] [place]
--- NOTE | 2019-06-04 23:44 | DS ---
CC: Dr. Satish Dobson; Dr. Mahan * DISCHARGE SUMMARY: DATE OF ADMISSION: 06/03/19 DATE OF DISCHARGE: 06/04/19 PRIMARY CARE PHYSICIAN: Dr. Satish Dobson. DISCHARGE DIAGNOSIS: Orthostatic hypotension. SECONDARY DIAGNOSES: 1. Morbid obesity. 2. Type 2 diabetes. 3. Hypertension. 4. Posttraumatic stress disorder. 5. Panic disorder. CONSULTS: Dr. Mahan of Neurology. DISCHARGE MEDICATIONS: 1. Atenolol 25 mg daily. 2. Lisinopril 10 mg daily. 3. Amlodipine 5 mg daily. 4. Buspirone 15 mg 3 times a day. 5. Pantoprazole 40 mg daily. 6. Metformin 875 mg twice a day. 7. Glipizide 5 mg daily. 8. Oxycodone/acetaminophen 5/325 one tab every 6 hours as needed for pain. 9. Aspirin 81 mg daily. HISTORY OF PRESENT ILLNESS: Mr. Carrillo is a 34-year-old man with morbid obesity, diabetes, hypertension, PTSD, and panic disorder who presents to the emergency room after 3 syncopal episodes in the prior week. He reports feeling overall fatigued this last week. Three days prior to admission, he was at work and standing for a long period of time and his boss observed him suddenly collapsing. The patient had loss of consciousness for a few seconds and had no described postictal state. He denies bowel or bladder incontinence. Prior to this episode, the patient had experienced tunnel vision and possibly diaphoresis and 1 day prior to presentation the patient was walking down the steps outside his house, suddenly felt lightheaded, and reports having blurry vision and then again collapsing, and losing consciousness for just a few seconds. On day of presentation, the patient had an unwitnessed syncopal episode after going from seated to standing and reports that he just felt exhausted, experienced tunnel vision and then again fainted. He thinks he hit his head after this as he did experience head pain. The patient thinks that he has had increased palpitations in his chest and he does continue to have intermittent atypical chest pain that has not changed in frequency or quality since prior stress test. The patient also reports he has had decreased urination recently and the color is darker. He denies dysuria or lower abdominal pain or fevers. The patient reports that he recently was started on medications for his chronic medical problems as he recently got health insurance. He denies abdominal pain, vomiting, difficulty breathing. HOSPITAL COURSE: In the emergency department, the patient's vital signs were notable only for blood pressure of 154/71. He was given normal saline liter bolus. Hospitalists were asked to admit the patient for evaluation for frequent episodes of syncope. He was placed on telemetry. The patient had vital signs performed to test for orthostatic hypotension: while he was seated, his blood pressure was 144/81 with heart rate 82 and standing his blood pressure was 124/74 with heart rate 100, which does meet the criteria for orthostatic hypotension. He had no events on telemetry for over 24 hours of admission. He had a transthoracic echocardiogram given his history of heart failure seen on a nuclear stress test a few years ago; however, this showed his ejection fraction of 60% to 65% with normal wall motion. His RV systolic function was normal. He had no significant valvular disease. He was seen and evaluated by Dr. Mahan of the neurology team, who suspected his symptoms were from orthostatic hypotension given his positive orthostatic vitals. He had a normal CT in this admission and no evidence for new onset of seizures. It was thought that dehydration from hydrochlorothiazide use was contributing to his presenting symptoms. He also could possibly have autonomic dysfunction related to poorly controlled diabetes. On day of discharge, the patient had his normal cardiac and neurologic workup explained to him. He reports that he takes atenolol due to what sounds like sinus tachycardia, so this medication was decreased but not discontinued. It was explained that he would be switched from a diuretic to an antihypertensive with less likelihood of causing orthostatic hypotension. All of his questions were answered. He was also encouraged to modify his lifestyle factors as much as possible. He was noted to be eating fried food and drinking significant amount of soda prior to discharge. He was educated on his elevated hemoglobin A1c of 10.1% and encouraged to follow up with the [facility] and he reports that he had been contacted by a block and case maker this admission with information on the center. His diabetes medications are not changed as he reports he just started them 1 month ago and an A1c at that time was 11.7, so he is responding appropriately and may not need up- titration of his medications at this time, especially if he is going to subsequently improve his diet and exercise habits. PERTINENT STUDIES AND LABS: Hemoglobin 15.3 at baseline with MCV 85. Sodium 133, thought likely from hydrochlorothiazide use. Hemoglobin A1c 10.1. LDL unable to be determined; triglycerides 497, not fasted; HDL 21. B12 364. TSH 4.54. Urine significant for protein, glucose, and squamous epithelial cells. U-tox unremarkable. Brain CT with no evidence of intracranial mass or hemorrhage. Cervical spine CT with straightening of the normal lordosis without definite evidence of fracture. Head CTA with no abnormalities. Transthoracic echocardiogram with systolic function 60% to 65%, no wall motion abnormalities, RV systolic function normal, no significant valvular abnormalities. DISCHARGE PLAN: The patient is to follow up with his primary care physician and possibly the [facility] for ongoing management of his chronic diseases, which are largely influenced by lifestyle factors such as diet and exercise. His diabetes medications were not changed this admission, but his patient primary care physician should consider discontinuing his glipizide as this can cause weight gain, and there are other medications outside the class of sulfonylureas that might be more efficacious in this gentleman who is trying to lose weight, such as injectables like liraglutide. His blood pressure medications were adjusted as follows: 1. His atenolol was decreased to 25 mg daily. 2 His hydrochlorothiazide was discontinued. This will hopefully help his symptoms of orthostatic hypotension as well as his hyponatremia that was noted this admission. Thiazide diuretics may cause hyperglycemia as well, so this discontinuation could result in better blood glucose control. Of note, the patient had also been started on buspirone by the admitting provider as he has a history of anxiety and the side effect profile of this medication was more acceptable for the patient. Him and his friends at bedside were educated on return precautions, which include but are not limited to further syncope, chest pain, or fevers. The patient was ordered for a blood pressure cuff and asked to record his vital signs to bring to his primary care physician for ongoing blood pressure medication titration. He is to eat a healthy diet, low in processed foods, and begin an exercise regimen. DISPOSITION: To home. CONDITION: Improved. TIME SPENT: Approximately 60 minutes was spent on discharge of this patient, more than half of which was spent with care coordination at bedside for interview and exam. [id number]/[facility] #: [id number] [facility]
== END 2019-06-04 14:34 | disposition home or self-care (01) ==
LOC: ED 15:32 → MEDTELE 18:14
PROVIDERS: ADMIT Internal Medicine; ATTEND Internal Medicine
DX: I95.1 Orthostatic hypotension (principal); E66.01 Morbid (severe) obesity due to excess calories; E11.9 Type 2 diabetes mellitus without complications; I10 Essential (primary) hypertension; F43.10 Post-traumatic stress disorder, unspecified; F41.0 Panic disorder [episodic paroxysmal anxiety]; Z79.82 Long term (current) use of aspirin; Z79.899 Other long term (current) drug therapy; I50.20 Unspecified systolic (congestive) heart failure; F41.9 Anxiety disorder, unspecified; J45.909 Unspecified asthma, uncomplicated; F17.210 Nicotine dependence, cigarettes, uncomplicated
CPT/HCPCS: 36415; 70450; 70496; 70498; 71046; 72125; 80048; 80053; 80061; 80307; 80320; 81003; 81015; 82607; 82803; 83036; 83605; 83721; 84443; 84484; 85025; 86140; 87086; 93005; 93306; 96360; 96361; 96372; 99283; A9270-GY; C8929; G0378; G0480; J1650; Q9967

== ENCOUNTER 2019-09-16 07:07 | Emergency (ER) | payer OTHER ==
--- NOTE | 2019-09-16 07:12 | ED ---
Abdominal Pain/Male - HPI Summary HPI Summary: 34-year-old male with significant past medical history of hypertension and type 2 diabetes presents to the emergency department today complaining of 10 out of 10 starting epigastric pain. He states he has had this epigastric pain for approximately 2 months for which he has a endoscopy scheduled in 4 days on September 20, 2019. Patient states he believes his bowel movements have been darker than usual lately but he denies araceli blood per rectum. 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 Patient states he takes omeprazole once daily which was prescribed by his doctor. Patient states he otherwise feels well and denies fever, abdominal pain, shortness of breath, rash, lightheadedness, changes in vision, syncope. - History of Current Complaint Chief Complaint: EDAbdPain Stated Complaint: UPPER ABD PAIN PER PT Time Seen by Provider: 09/16/19 07:12 Hx Obtained From: Patient Onset/Duration: Gradual Onset Timing: Constant, Intermittent, Lasting Weeks Severity Initially: Mild Severity Currently: Moderate Pain Intensity: 6 Pain Scale Used: 0-10 Numeric Location: Epigastric Radiates: No Character: Sharp, Cramping Aggravating Factor(s): Food Alleviating Factor(s): Nothing Associated Signs And Symptoms: Positive: Chest Pain, Nausea. Negative: Fever, Cough, Blood in Stool, Decreased Appetite - Allergies/Home Medications Allergies/Adverse Reactions: Allergies Allergy/AdvReac Type Severity Reaction Status Date / Time No Known Allergies Allergy Verified 04/26/19 21:42 Home Medications: Home Medications Albuterol HFA INHALER* [Ventolin HFA Inhaler*] 2 puff INH Q4H PRN 09/16/19 [ History Confirmed 09/16/19] Atenolol [Tenormin 100 MG] 100 mg PO DAILY 09/16/19 [History Confirmed 09/16/19] Atorvastatin* [Lipitor*] 40 mg PO DAILY 09/16/19 [History Confirmed 09/16/19] Omeprazole (Nf) [Prilosec (NF)] 40 mg PO DAILY 09/16/19 [History Confirmed 09/16] lisinopriL [Lisinopril] 40 mg PO DAILY 09/16/19 [History Confirmed 09/16/19] PMH/Surg Hx/FS Hx/Imm Hx Endocrine/Hematology History: Reports: Hx Diabetes - metformin and lantus Denies: Hx Anticoagulant Therapy, Hx Blood Disorders, Hx Blood Transfusions, Hx Bone Marrow Disease, Hx Systemic Lupus Erythematosus, Hx Sickle Cell Disease , Hx Thyroid Disease, Hx Anemia, Hx Unexplained Bleeding, Other Endocrine/ Hematological Disorders Cardiovascular History: Reports: Hx Angina, Hx Hypertension, Other Cardiovascular Problems/Disorders - CARDIAC CATH 2011 Denies: Hx Aneurysm, Hx Angioplasty, Hx Auto Implanted Cardiovert Defib, Hx Cardiac Arrest, Hx Cardiomegaly, Hx Congenital Heart Disease, Hx Congestive Heart Failure, Hx Coronary Artery Disease, Hx Deep Vein Thrombosis, Hx Embolism , Hx Hypercholesterolemia, Hx Hypotension, Hx Myocardial Infarction, Hx Pacemaker/ICD, Hx Peripheral Vascular Disease, Hx Rheumatic Fever, Hx Syncope, Hx Valvular Heart Disease Respiratory History: Reports: Hx Asthma - A CHILD, Hx Chronic Bronchitis, Hx Seasonal Allergies Denies: Hx Bronchopulmonary Dysplasia, Hx Chronic Obstructive Pulmonary Disease (COPD), Hx Cystic Fibrosis, Hx Lung Cancer, Hx Pleural Effusion, Hx Pneumonia, Hx Pulmonary Edema, Hx Pulmonary Embolism, Hx Sleep Apnea, Other Respiratory Problems/Disorders GI History: Reports: Hx Gastroesophageal Reflux Disease, Other GI Disorders - fatty liver Denies: Hx Cirrhosis, Hx Crohn's Disease, Hx Diverticulosis, Hx Gall Bladder Disease, Hx Gastrointestinal Bleed, Hx Hiatal Hernia, Hx Irritable Bowel, Hx Jaundice, Hx Obstructive Bowel, Hx Ileostomy, Hx Pyloric Stenosis, Hx Ulcer, Hx Urosepsis History: Reports: Hx Kidney Stones Denies: Hx Acute Renal Failure, Hx Benign Prostatic Hyperplasia, Hx Chronic Renal Failure, Hx Dialysis, Hx Kidney Infection, Hx Renal Disease, Other Problems/Disorders Musculoskeletal History: Reports: Hx Orthopedic Injury - Right Knee Denies: Hx Arthritis, Hx Back Problems, Hx Bursitis, Hx Congenital Bone Abnormalities, Hx Fibromyalgia, Hx Gout, Hx Osteoporosis, Hx Scoliosis, Hx Tendonitis, Other Musculoskeletal History Sensory History: Reports: Hx Contacts or Glasses Denies: Hx Cataracts, Hx Eye Injury, Hx Eye Prosthesis, Hx Glaucoma, Hx Legally Blind, Hx Macular Degeneration, Hx Vision Problem, Hx Deafness, Hx Hearing Aid, Hx Hearing Problem, Other Sensory Impairments Opthamlomology History: Reports: Hx Contacts or Glasses Denies: Hx Cataracts, Hx Eye Injury, Hx Eye Prosthesis, Hx Glaucoma, Hx Legally Blind, Hx Macular Degeneration, Hx Vision Problem, Other Sensory Impairments Neurological History: Denies: Hx Dementia, Hx Developmental Delay, Hx Headaches, Hx Migraine, Hx Nerve Disease, Hx Seizures, Hx Spinal Cord Injury, Hx Transient Ischemic Attacks (TIA), Other Neuro Impairments/Disorders Psychiatric History: Reports: Hx Anxiety, Hx Depression - no depression over a year., Hx Inpatient Treatment, Hx Community Mental Health Tx, Hx Suicide Attempt - OD/Jump from parking garage, Hx of Violent Episodes Against Others, Hx Substance Abuse Denies: Hx Attention Deficit Hyperactivity Disorder, Hx Autism, Hx Eating Disorder, Hx Oppositional [place] Disorder, Hx Panic Disorder, Hx Post Traumatic Stress Disorder, Hx Schizophrenia, Hx Bipolar Disorder, Other Psychiatric Issues/Disorders - Cancer History Hx Hematologic Symptoms: No Hx Chemotherapy: No Hx Radiation Therapy: No Hx Palliative Cancer Treatment: No - Surgical History Surgery Procedure, Year, and Place: T & A 1992. Knee surgery 2005. Left ankle surgery Hx Anesthesia Reactions: No - Immunization History Date of Tetanus Vaccine: utd Date of Influenza Vaccine: no Infectious Disease History: No Infectious Disease History: Denies: Hx Clostridium Difficile, Hx Hepatitis, Hx Human Immunodeficiency Virus (HIV), Hx of Known/Suspected MRSA, Hx Shingles, Hx Tuberculosis, Hx Known/ Suspected VRE, Hx Known/Suspected VRSA, History Other Infectious Disease, Traveled Outside the [place] in Last 30 Days - Family History Known Family History: Positive: Cardiac Disease - [place] - father, "9 times", father at 55 from [place], Hypertension, Other - EtOH abuse - Social History Alcohol Use: None Alcohol Amount: once a month - h/o ETOH abuse; bottle of vodka 10/28 Hx Substance Use: Yes - cocaine, marijuana - 2012 Substance Use Type: Reports: None Substance Use Comment - Amount & Last Used: none currently Hx Tobacco Use: Yes - not currently smoking - switched to smokeless tob Smoking Status (MU): Former Smoker Type: Cigarettes, Smokeless Tobacco Amount Used/How Often: 1 can of chew every 5 days Length of Time of Smoking/Using Tobacco: since 2003 Have You Smoked in the Last Year: Yes Review of Systems Constitutional: Negative Eyes: Negative ENT: Negative Positive: Chest Pain. Negative: Palpitations Respiratory: Negative Positive: Abdominal Pain, Nausea. Negative: Vomiting, Diarrhea Genitourinary: Negative Musculoskeletal: Negative Skin: Negative Neurological: Negative Psychological: Normal All Other Systems Reviewed And Are Negative: Yes Physical Exam - Summary Physical Exam Summary: Inspection reveals diastases recti but no other masses or ecchymosis. Auscultation reveals normoactive bowel sounds. Palpation reveals tenderness of the epigastric area with palpation. Negative McBurney's, psoas, Rovsing, Contreras 's sign. Triage Information Reviewed: Yes Vital Signs On Initial Exam: Initial Vitals Temp Pulse Resp BP Pulse Ox 95.8 F 80 18 162/103 98 09/16/19 07:08 09/16/19 07:08 09/16/19 07:08 09/16/19 07:08 09/16/19 07:08 Vital Signs Reviewed: Yes Appearance: Positive: Well-Appearing, No Pain Distress, Well-Nourished Skin: Positive: Warm, Skin Color Reflects Adequate Perfusion Eyes: Positive: EOMI, ASHLI ENT: Positive: Hearing grossly normal Respiratory/Lung Sounds: Positive: Clear to Auscultation, Breath Sounds Present Cardiovascular: Positive: RRR, S1, S2 Abdomen Description: Positive: Soft. Negative: Distended, Guarding, McBurney's Point Tenderness Bowel Sounds: Positive: Present Musculoskeletal: Positive: Strength/ROM Intact Neurological: Positive: Sensory/Motor Intact, Alert, Oriented to Person Place, Time, Normal Gait, Speech Normal Psychiatric: Positive: Normal AVPU Assessment: Alert Procedures - Sedation Patient Received Moderate/Deep Sedation with Procedure: No Diagnostics - Vital Signs Vital Signs Temp Pulse Resp BP Pulse Ox 09/16/19 07:08 95.8 F 80 18 162/103 98 - Laboratory Result Diagrams: 09/16/19 07:26 09/16/19 07:30 Lab Statement: Any lab studies that have been ordered have been reviewed, and results considered in the medical decision making process. Abdominal Pain Male Course/Dx - Course Course Of Treatment: Patient was evaluated for abdominal pain. Patient was seen , vitals noted. EKG was done promptly which showed sinus rhythm at 70 beats minute. No evidence of STEMI. Normal intervals. Normal axis. There are T- wave inversions in leads V1, V2, 3 however these are unchanged when compared to prior EKG done on 06/03/2019. Lab studies show normal lipase non-suggestive of pancreatitis. Normal lactic acid nonsuggestive of ischemic bowel. Patient has mild leukocytosis with white blood cell count of 12.3 with no evidence of significant anemia. there are no significant I abnormalities noted other than hyperglycemia BG 350 which appears to be the patient's baseline when compared to previous studies. Patient versus mild relief after being given Maalox plus, viscous lidocaine and follow, famotidine. Hemoccult stool sample sent which was negative for occult blood. Glascow Blanchford score for upper GI bleed risk is 0 , indicating low risk of upper GI bleed. Patient was discharged home with a likely diagnosis of peptic ulcer disease which can be worked up with endoscopically with his scheduled appointment for endoscope on March 20, 2020. Patient was discharged home with a prescription for Maalox plus and told to continue taking his omeprazole daily. - Diagnoses Differential Diagnosis/HQI/PQRI: ACS, AMI, Ischemic Bowel, Pancreatitis, Peptic Ulcer Disease Provider Diagnoses: Abdominal pain Discharge ED - Sign-Out/Discharge Documenting (check all that apply): Patient Departure - Discharge Plan Condition: Stable Disposition: HOME Patient Education Materials: Peptic Ulcer (ED) Forms: *Work Release Referrals: Satish Dobson DO [Primary Care Provider] - 5 Days Additional Instructions: You were seen in the emergency department today for epigastric pain. There appeared to be no life-threatening cause for your pain however it is likely you have a gastric ulcer. I have sent a prescription for Maalox plus to your pharmacy which is to be taken every 4 hours as needed for pain. You may also take your prescribed omeprazole daily for pain. Please stop taking NSAIDs such as ibuprofen, naproxen for pain as it can make your symptoms worse. Please follow-up with your scheduled endoscopy on Monday for further evaluation and management of your symptoms. Please return to the emergency department immediately if you develop any new or worsening symptoms. - Billing Disposition and Condition Condition: STABLE Disposition: Home - Attestation Statements Provider Attestation: I was available for consult. This patient was seen by the [facility]. The patient was not presented to, seen by, or examined by me. Darren Suresh MD
[2019-09-16] MEDS ORDERED: Lidocaine 2% VISCOUS* 15 ML UDC PO ONE (07:23)
[2019-09-16] MEDS ORDERED: Famotidine TAB* 20 MG PO ONE (07:23)
[2019-09-16] MEDS ORDERED: Al Hydrox/Mg Hydrox/Simet LIQ* 30 ML UDC PO ONE (07:23)
--- OUTSIDE RECORDS SUMMARY | 2019-09-16 07:41 | XMS REPORT | Summary of Care ---
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 TabIndications: Dyslipidemia glipiZIDE (GLUCOTROL) Take 1 Tab by mouth 90 Tab 4 05/03/2019 Active 5 MG Oral Tab DAILY. metFORMIN Take 1 Tab by mouth 180 Tab 3 05/03/2019 Active (GLUCOPHAGE) 850 MG TWICE DAILY. Oral Tab Blood Glucose Monitor 1 Device by Does 1 Device 0 05/14/2019 Active Software Does not not apply route apply Device DIRECTED. Test blood sugar twice a day DX: diabetes. Brand: Insurance preferred Glucose Blood In 1 Strip by In Maginatics 100 Strip 5 05/21/2019 Active Vitro Strip route TWICE DAILY. Brand:Freestyle lite DX: E11.65 Lancets Does not by Does not apply route TWICE DAILY. Brand: insurance preferred ( freestyle lite) Dx: diabetes (E11.65) 60 Each 5 05/21/2019 Active apply Misc Test Blood Glucose 2 time(s) A DAY ASPIRIN 81 PO Take by mouth. 0 Active albuterol HFA Take 2 Puffs by 1 Inhaler 0 08/21/2019 Active (VENTOLIN) 108 (90 inhalation EVERY Base) MCG/ACT FOUR HOURS Inhalation Aero Soln NEEDED (shortness of breath, cough or wheeze). atenolol (TENORMIN) Take 1 Tab by mouth 90 Tab 3 09/03/2019 Active 100 MG Oral DAILY. TabIndications: Essential hypertension lisinopril (PRINIVIL, Take 1 Tab by mouth 90 Tab 3 09/03/2019 Active ZESTRIL) 40 MG Oral DAILY. TabIndications: Essential hypertension Omeprazole 40 MG Oral Take 1 Cap by mouth 30 Cap 3 09/03/2019 Active CAPSULE DELAYED DAILY. RELEASE documented as of this encounter (statuses as of 09/13/2019) Active Problems Problem Noted Date Uncontrolled type 2 diabetes mellitus without complication, without 12/07/2017 long-term current use of insulin Hypertriglyceridemia 12/07/2017 BMI 40.0-44.9, adult 12/07/2017 Essential hypertension documented as of this encounter (statuses as of 09/13/2019) Resolved Problems Problem Noted Date Resolved Date Injury, other and unspecified, unspecified site 10/21/2005 08/05/2016 documented as of this encounter (statuses as of 09/13/2019) Social History Tobacco Use Types Packs/Day Years Used Date Current Every Day Smoker 0.25 Smokeless Tobacco: Former User Chew Alcohol Use Drinks/Week oz/Week Comments No Sex Assigned at Date Recorded Not on file Job Start Date Occupation Industry Not on file Not on file Not on file Travel History Travel Start Travel End No recent travel history available. documented as of this encounter Last Filed Vital Signs Vital Sign Reading Time Taken Comments Blood Pressure 148/90 09/13/2019 10:43 AM EST Pulse 80 09/13/2019 10:43 AM EST Temperature - - Respiratory Rate - - Oxygen Saturation 98% 09/13/2019 10:43 AM EST Inhaled Oxygen Concentration - - Weight 130.2 kg (287 lb) 09/13/2019 10:43 AM EST Height 180.3 cm (5' 11") 09/13/2019 10:43 AM EST Body Mass Index 40.03 09/13/2019 10:43 AM EST documented in this encounter Patient Instructions Patient InstructionsLesly Driscoll NP - 09/13/2019 10:40 AM ESTNo more aleve ! Please do your fasting labs. Please keep your upcoming appointments for testing and with GI, and with me for the diabetes. I wasn't able to find any ct scan results at [facility] - please ensure this gets done sowe can evaluate what the mass is in your abdomen. We wont know if this is contributing to your painwithout doing the imaging studies. I will keep an eye out as well in case the results are just notback yet and that's why we can't see it. Continue with other treatments as provided by GI. We had discussed possibly adding carafate and reglan to your regimen to see if this would help with the abdominal pain but you left before I was able to send in prescriptions. If you would like to give these a try please come back for an appointment to discuss with me. documented in this encounter Progress Notes Lesly Driscoll NP - 09/13/2019 10:40 AM EST PATIENT: Justin Carrillo : 1985 DATE OF SERVICE: 09/13/2019 CHIEF COMPLAINT: Chief Complaint Patient presents with Check Up stomach pain, had CT at [facility] on last week but has not gotten results Subjective HISTORY OF PRESENT ILLNESS: Justin Carrillo is a 34-y.o. male. HPI Patient in mid-workup for abdominal pain, epigastric starting about 1 hour after meals. Has EGD scheduled for September. CT abd with contrast and gastric emptying study done at [facility] last Monday. Fasting labs not yet done for uncontrolled diabetes from previous visit. Concern is for diabetic associated gastroparesis. Checking sugars - this am was 93. Usually checks at 2pm and 7pm - after dinner usually between 112 and 119. Susi started him on omeprazole - taking daily, in am before breakfast. No help with abd pain. Started on this medication 10 days. Still taking tylenol and aleve. Aleve gives him relief for 2 hours - taking 12 aleve in one day. Also advised certain lifestyle changes which he states he is adhering to. Pain is a 9/10 at night when trying to sleep. And 1 hour after eating. Lisinopril was increased last visit to 40 mg daily for uncontrolled hypertension. Also continued onatenolol 100mg daily. Not checking BP at home. Past Medical History: Diagnosis Date Anorexia Asthma Diabetes mellitus Drug abuse (HCC) cocaine, alcohol, and opiates Hematemesis HTN (hypertension) Family History Problem Relation Age of Onset Diabetes Mother Cancer Mother 46 non hodgkins lymphoma Lupus Mother Heart Father 57 Current Outpatient Medications Medication Sig albuterol HFA (VENTOLIN) 108 (90 Base) MCG/ACT Inhalation Aero Soln Take 2 Puffs by inhalation EVERY FOUR HOURS NEEDED (shortness of breath, cough or wheeze). ASPIRIN 81 PO Take by mouth. atenolol (TENORMIN) 100 MG Oral Tab Take 1 Tab by mouth DAILY. atorvastatin (LIPITOR) 40 MG Oral Tab Take 1 Tab by mouth DAILY. Blood Glucose Monitor Software Does not apply Device 1 Device by Does not apply route DIRECTED. Test blood sugar twice a day DX: diabetes. Brand: Insurance preferred glipiZIDE (GLUCOTROL) 5 MG Oral Tab Take 1 Tab by mouth DAILY. Glucose Blood In Vitro Strip 1 Strip by In Vitro route TWICE DAILY. Brand :Freestyle lite DX: E11.65 Lancets Does not apply Misc by Does not apply route TWICE DAILY. Brand: insurance preferred (freestyle lite) Dx: diabetes (E11.65) Test Blood Glucose 2 time(s) A DAY lisinopril (PRINIVIL, ZESTRIL) 40 MG Oral Tab Take 1 Tab by mouth DAILY. metFORMIN (GLUCOPHAGE) 850 MG Oral Tab Take 1 Tab by mouth TWICE DAILY. Omeprazole 40 MG Oral CAPSULE DELAYED RELEASE Take 1 Cap by mouth DAILY. No current facility-administered medications for this visit. No Known Allergies Social History Socioeconomic History Marital status: Single Spouse name: Not on file Number of children: Not on file Years of education: Not on file Highest education level: Not on file Occupational History Not on file Social Needs Financial resource strain: Not on file Food insecurity Worry: Not on file Inability: Not on file Transportation needs Medical: Not on file Non-medical: Not on file Tobacco Use Smoking status: Current Every Day Smoker Packs/day: 0.25 Smokeless tobacco: Former User Types: Chew Substance and Sexual Activity Alcohol use: No Drug use: No Sexual activity: Yes Lifestyle Physical activity Days per week: Not on file Minutes per session: Not on file Stress: Not on file Relationships Social connections Talks on phone: Not on file Gets together: Not on file Attends orthodox service: Not on file Active member of club or organization: Not on file Attends meetings of clubs or organizations: Not on file Relationship status: Not on file Intimate partner violence Fear of current or ex partner: Not [...] Weight Concern Not Asked 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 Physical Exam Vitals signs and nursing note reviewed. Constitutional: General: He is not in acute distress. Appearance: Normal appearance. He is well-developed. He is not ill-appearing. Cardiovascular: Rate and Rhythm: Normal rate and regular rhythm. Heart sounds: Normal heart sounds. No murmur. No friction rub. No gallop. Pulmonary: Effort: Pulmonary effort is normal. No respiratory distress. Breath sounds: Normal breath sounds. Abdominal: General: Abdomen is flat. Bowel sounds are normal. There is no distension. Palpations: Abdomen is soft. Abdomen is not rigid. There is no hepatomegaly, splenomegaly or mass. Tenderness: There is abdominal tenderness in the epigastric area. There is no right CVA tenderness, left CVA tenderness, guarding or rebound. Negative signs include Contreras's sign and McBurney's sign. Hernia: No hernia is present. Lymphadenopathy: Head: Right side of head: No submental, submandibular, tonsillar, preauricular or posterior auricular adenopathy. Left side of head: No submental, submandibular, tonsillar, preauricular or posterior auricular adenopathy. Cervical: No cervical adenopathy. Upper Body: Right upper body: No supraclavicular adenopathy. Left upper body: No supraclavicular adenopathy. Neurological: General: No focal deficit present. Mental Status: He is alert. Psychiatric: Behavior: Behavior is cooperative. ASSESSMENT / IMPRESSION: ICD-9-CM ICD-10-CM 1. Epigastric pain 789.06 R10.13 Plan 1. Epigastric pain Patient left before OV was complete - I stepped out of the room to print ct scan results from [facility] and he had left when I returned to the room. During visit I did advise him to stop taking aleve as this is likely contributing to his abdominal pain. I asked that he please do his fasting labs that were ordered last visit - he is not fasting today. Reiterated importance of getting his diabetes under control. He did have gastric emptying study done at [facility] and result was normal. Unclear whether he did have the CT scan at [facility], as no results are available to CT scan or lab work which would have been required in order to get the contrast as ordered. However he left before I was able to ask him about this. I'm hopeful he will keep his follow up appointments for GI and testing, and diabetes/fasting labs. If CT scan wasn't done at [facility] he will need to reschedule it. I will mail him his after visit summary. Author: Lesly Driscoll NP 09/13/2019 12:31 documented in this encounter Plan of Treatment Date Type Specialty Care Team Description 09/16/2019 Nurse/Clinical Internal Medicine Support 09/19/2019 Office Visit Gastroenterology Katharina Hoover NP [address] [place] [id number] [phone] 09/20/2019 GI Procedure Gastroenterology Romi Mayers MD [address] [place] [address] 09/20/2019 Hospital Encounter [facility] Romi Mayers MD Short Procedure [address] [address] 09/20/2019 Surgery Acute [facility] Romi Mayers MD ENDOSCOPY UPPER GI [address] [place] [address] 12/02/2019 Office Visit Family Practice Lesly Driscoll, CYNTHIA [address] [place] [address] Health Maintenance Due Date Last Done Comments Diabetic Eye Exam 1985 PNEUMOCOCCAL 0-64 YRS (1 of 1991 1 - PPSV23) DTaP/Tdap/Td Vaccines ( - 1996 Tdap) FOOT EXAM 2003 INFLUENZA VACCINE (#1) 2019 HEMOGLOBIN A1C 09/03/2019 06/04/2019, 06/04/2019, 04/27/2019, Additional history exists DEPRESSION SCREENING 01/30/2020 01/29/2019 HEPATITIS A IMMUNIZATION Aged Out No longer eligible SERIES based on patient's age to complete this topic HPV IMMUNIZATION SERIES Aged Out No longer eligible based on patient's age to complete this topic MENINGOCOCCAL VACCINE IMM Aged Out No longer eligible based on patient's age to complete this topic documented as of this encounter Goals Goal Patient Goal Associated Recent Patient-Stated? Author Type Problems Progress Blood Pressure Blood Pressure 148/90 No Satish Dobson < 140/90 (09/13/2019 DO Abby 10:43 AM EST) Note: This is an individualized treatment (blood [...] better. Weight loss vs. 18 mo Lifestyle 30.4 (09/13/2019 10:43 AM No Joy Blackburn RN max (lbs) >= 10 EST) Note: This is an individualized lifestyle goal [...] filedocumented in this encounter Visit Diagnoses Diagnosis Epigastric pain Abdominal pain, epigastric Diagnosis Epigastric pain Abdominal pain, epigastric documented in this encounter Insurance Payer Benefit Plan / Subscriber ID Effective Dates Phone Address Type Group [facility] xxxxxxxxxxx 2019-Present Hair Guarantor Name Account Type Relation to Date of Phone Billing Patient Address Justin Carrillo Personal/Family 1985 [address] (Home) [facility] [phone] [place], [place] (Work) [id number] documented as of this encounter Advance Directives Type Date Recorded 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
--- OUTSIDE RECORDS SUMMARY | 2019-09-16 07:41 | XMS REPORT | Summary of Care ---
:1985 Author Organization [facility] Address [address] [address] Care Team Providers Name Role Phone Renay Blackburn RN Unavailable Lesly Driscoll Primary Care Provider Reason for Referral MRI/CAT/PET Scan (Routine) Status Reason Specialty Diagnoses / Referred By Referred To Procedures Contact Contact Pending Review Diagnoses Epigastric pain Alexa Hoover NM GASTRIC EMPTYING STUDY Katharina Mora NP [address] [address] Outpatient Procedure (Routine) Status Reason Specialty Diagnoses / Referred By Referred To Procedures Contact Contact Pending Review Diagnoses Epigastric pain Katharina Hoover NP [address] [place] [address] Refer to Department Only (Routine) Status Reason Specialty Diagnoses / Referred By Referred To Procedures Contact Contact Pending GASTROENTEROLOGY / Diagnoses Epigastric pain Roma Hoover Review Gastroenterology Katharina Mora NP Gastroenterol [address] [address] [address] Phone: [address] [place] [phone] Fax: Scheduling Instructions Is the patient on cpap machine?No Is the patient on oxygen?No BP (!) 172/100 | Pulse 77 | Temp 97.6 F (36.4 C) | Ht 5' 11" (1.803 m) | Wt 275 lb (124.7 kg) | BMI 38.35 kg/m BMI Readings from Last 4 Encounters: 09/03/19 : 38.35 kg/m 09/03/19 : 38.35 kg/m 06/06/19 : 40.75 kg/m 05/15/19 : 41.84 kg/m Controlled Substance Medications: Anticoagulant Medications: Psychiatric/Antianxiety Medications: Antiretroviral Medications: Reason for Visit Reason Comments GI Problem New pt. referred by Lesly Driscoll for epigastric pain, possible gastroparesis. Refer to Department Only (Routine) Status Reason Specialty Diagnoses / Referred By Referred To Procedures Contact Contact Pending Review Gastroenterology Diagnoses Epigastric pain Radha Driscoll NP Gastroenterolog [facility] y/Hepatology [place] [id number] Phone: [place], [place] [phone] [address] Fax: Encounter Details Date Type Department Care Team Description 09/03/2019 Office Visit Radha Hoover, Epigastric pain Gastroenterology/Hepa Katharina Mora NP (Primary Dx) tology 1 [facility] [address] [place] [address] [place] [address] Allergies No Known Allergiesdocumented as of this encounter (statuses as of 09/03/2019) Medications Medication Sig Dispensed Refills Start Date [...] Glucose Blood In 1 Strip by In Vitro 100 Strip 5 05/21/2019 Active Vitro Strip [...] as of this encounter (statuses as of 09/03/2019) Active Problems Problem Noted Date Uncontrolled type 2 diabetes mellitus without complication, without 12/07/2017 long-term current use of insulin Hypertriglyceridemia 12/07/2017 BMI 40.0-44.9, adult 12/07/2017 Essential hypertension documented as of this encounter (statuses as of 09/03/2019) Resolved Problems Problem Noted Date Resolved Date Injury, other and unspecified, unspecified site 10/21/2005 08/05/2016 documented as of this encounter (statuses as of 09/03/2019) Social History Tobacco Use Types Packs/Day Years [...] Sign Reading Time Taken Comments Blood Pressure 172/100 09/03/2019 3:00 PM EST Pulse 77 09/03/2019 3:00 PM EST Temperature 36.4 09/03/2019 3:00 PM EST C (97.6 F) Respiratory Rate - - Oxygen Saturation - - Inhaled Oxygen Concentration - - Weight 124.7 kg (275 lb) 09/03/2019 3:00 PM EST Height 180.3 cm (5' 11") 09/03/2019 3:00 PM EST Body Mass Index 38.35 09/03/2019 3:00 PM EST documented in this encounter Patient Instructions Patient InstructionsKatharina Hoover NP - 09/03/2019 3:00 PM EST1. Will plan on an upper endoscopy in [place], they will contact you to schedule this, [place] [facility] 2. Schedule a gastric emptying study at [facility] 3. Will start Omeprazole once daily 4. Follow up after the above If you have not already been screened for Hepatitis C we would be happy to do that for you today. Currently we recommend screening for hepatitis C virus (HCV ) infection in persons at high risk for infection, and to adults born between 1945 and 1965. Thank you for choosing the [facility] for your needs today! -Katharina Hoover N.P. , Please call if you need to cancel or change your appt. time. Thank you for choosing [facility] for your health care needs, and for consulting with [facility] today. You may receive a survey following this visit, or after an upcoming hospital stay. As easy as it is to feel overloaded with surveys, we are required to send them out randomly and they do provide important feedback so that we may serve your needs in the best way. Please do take the few minutes required to complete the survey if you receive one. We get them too, after seeing the doctor, and they only take a few minutes to complete. documented in this encounter Progress Notes Katharina Hoover NP - 09/03/2019 3:00 PM EST PATIENT: Justin Carrillo : 1985 DATE OF SERVICE: 09/03/2019 REFERRING PRACTITIONER: Lesly Driscoll PRIMARY CARE PROVIDER: Lesly Driscoll CHIEF COMPLAINT: Chief Complaint Patient presents with GI Problem New pt. referred by Lesly Driscoll for epigastric pain, possible gastroparesis. Subjective HISTORY OF PRESENT ILLNESS: Justin Carrillo is a 34-y.o. male who presents for a consultation for evaluation of epigastric pain. With history of diabetes, last A1C 10.1. Onset was several weeks ago. Symptoms have been unchanged since. Diagnosed previously: no Symptoms include: abdominal bloating, early satiety, fullness after meals, midepigastric pain, nausea, regurgitation of undigested food and unexpected weight loss. He denies dysphagia. He has not lost weight. He denies melena, hematochezia, hematemesis, and coffee ground emesis. Aggravated by: eating Alleviated by: vomiting Associated signs and symptoms: constipation Medical therapy in the past has included none. The patient denies: dysphagia, dynophagia, bleeding, oropharynx esophageal manifestation symptoms. 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 Objective PHYSICAL EXAMINATION: VITALS: BP (!) 172/100 | Pulse 77 | Temp 97.6 F (36.4 C) | Ht 5' 11 " (1.803 m) | Wt 275lb (124.7 kg) | BMI 38.35 kg/m Body mass index is 38.35 kg/m. GENERAL: alert, oriented, no acute distress. HEENT: No scleral icterus, MMM Psych: Affect normal Neck: no lymphadenopathy LUNGS: clear to auscultation bilaterally. HEART: regular rhythm, no murmurs, no gallops, no rubs. ABDOMEN: general exam: soft, non-tender, obese, normal active bowel sounds, Contreras's sign negative. Extremities: no edema Skin: clear Neuro: gait normal, a&o x 3 RECTAL: exam deferred. IMPRESSION: ICD-9-CM ICD-10-CM 1. Epigastric pain 789.06 R10.13 REFER TO GI REFER TO GI EGD (CRESPO / NON CRESPO) NM GASTRIC EMPTYING STUDY Plan PLAN: Nonpharmacologic treatments were discussed including: eating smaller meals, elevation of the head of bed at night, avoidance of caffeine, chocolate, nicotine and peppermint, avoiding tight fitting clothing. Patient Instructions 1. Will plan on an upper endoscopy in [place], they will contact you to schedule this, [place] [facility] 2. Schedule a gastric emptying study at [facility] 3. Will start Omeprazole once daily 4. Follow up after the above If you have not already been screened for Hepatitis C we would be happy to do that for you today. Currently we recommend screening for hepatitis C virus (HCV ) infection in persons at high risk for infection, and to adults born between 1945 and 1965. Thank you for choosing the [facility] for your needs today! -Katharina Hoover N.P. , Please call if you need to cancel or change your appt. time. Thank you for choosing [facility] for your health care needs, and for consulting with [facility] today. You may receive a survey following this visit, or after an upcoming hospital stay. As easy as it is to feel overloaded with surveys, we are required to send them out randomly and they do provide important feedback so that we may serve your needs in the best way. Please do take the few minutes required to complete the survey if you receive one. We get them too, after seeing the doctor, and they only take a few minutes to complete. Author: Katharina Hoover NP 09/03/2019 15:21 documented in this encounter Plan of Treatment Date Type Specialty Care Team Description 09/16/2019 Nurse/Clinical Support Internal Medicine 12/02/2019 Office Visit Family Practice Yamila Lesly, [place] [address] [place] [address] [phone] Name Type Priority Associated Diagnoses Order Schedule NM GASTRIC EMPTYING Imaging Routine Epigastric pain Expected: 09/03/2019, STUDY Expires: 09/02/2020 Name Type Priority Associated Diagnoses Order Schedule REFER TO GI Referral Routine Epigastric pain Expected: 09/03/2019, Expires: 09/03/2020 EGD (CRESPO / NON Referral Routine Epigastric pain Expected: 09/03/2019, CRESPO) Expires: 09/03/2020 Health Maintenance Due Date Last Done Comments Diabetic Eye Exam 1985 PNEUMOCOCCAL 0-64 YRS (1991 1 - PPSV23) DTaP/Tdap/Td Vaccines ( - [...] Type Problems Progress Blood Pressure Blood Pressure 172/100 No Satish Dobson < 140/90 (09/03/2019 J, DO 3:00 PM EST) Note: This is an individualized treatment [...] better. Weight loss vs. 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
--- OUTSIDE RECORDS SUMMARY | 2019-09-16 07:41 | XMS REPORT | Summary of Care ---
:1985 Author Organization [facility] Address [address] [address] Care Team Providers Name Role Phone Renay Blackburn RN Unavailable Lesly Driscoll Primary Care Provider Reason for Referral Refer to Department Only (Routine) Status Reason Specialty Diagnoses / Referred By Referred To Procedures Contact Contact Pending Review Gastroenterology Diagnoses Epigastric pain Radha Driscoll NP Gastroenterolog [address] [place] [address] y/Hepatology [place] [address] [address] Phone: [place], [place] [phone] Fax: Scheduling Instructions Is the patient on cpap machine?No Is the patient on oxygen?No BP (!) 172/100 (BP Location: Right arm, Patient Position: Sitting) | Pulse 77 | Ht 5' 11" (1.803 m) | Wt 275 lb (124.7 kg) | SpO2 99% | BMI 38.35 kg/m BMI Readings from Last 4 Encounters: 09/03/19 : 38.35 kg/m 06/06/19 : 40.75 kg/m 05/15/19 : 41.84 kg/m 05/03/19 : 41.14 kg/m Controlled Substance Medications: Anticoagulant Medications: Psychiatric/Antianxiety Medications: Antiretroviral Medications: MRI/CAT/PET Scan (Routine) Status Reason Specialty Diagnoses / Referred By Referred To Procedures Contact Contact Pending Review Diagnoses Generalized abdominal mass [place], Procedures CT ABDOMEN WITH IV CONTRAST [place] [address] [place] [address] Reason for Visit Reason Comments Check Up pain in upper stomach everytime he eats he end up throwing up, able to keep yogurt and steamed veggies down Encounter Details Date Type Department Care Team Description 09/03/2019 Office Visit [facility] Lesly Driscoll, Essential hypertension (Primary Dx); Practice HEAD WAITRESS Generalized abdominal mass; [address] Epigastric pain; [place] [address] [place] [address] Uncontrolled type 2 diabetes mellitus without complication, without long-term current use of insulin ([facility]) [phone] Allergies No Known Allergiesdocumented as of this encounter (statuses as of 09/03/2019) Medications Medication Sig Dispensed Refills Start Date End Date Status atorvastatin Take 1 Tab by 90 Tab 1 04/24/2019 Active (LIPITOR) 40 MG mouth DAILY. Oral TabIndications: Dyslipidemia glipiZIDE Take 1 Tab by 90 Tab 4 05/03/2019 Active (GLUCOTROL) 5 MG mouth DAILY. Oral Tab metFORMIN Take 1 Tab by 180 Tab 3 05/03/2019 Active (GLUCOPHAGE) 850 mouth TWICE MG Oral Tab DAILY. Blood Glucose 1 Device by 1 Device 0 05/14/2019 Active Monitor Software Does not apply Does not apply route Device DIRECTED. Test blood sugar twice a day DX: diabetes. Brand: Insurance preferred Glucose Blood In 1 Strip by In 100 Strip 5 05/21/2019 Active Vitro Strip Vitro route TWICE DAILY. Brand:Freestyle lite DX: E11.65 Lancets Does not by Does not apply route TWICE DAILY. Brand: insurance preferred ( freestyle lite) Dx: diabetes (E11.65) 60 Each 05/21/2019 Active apply Misc Test Blood Glucose 2 time(s) A DAY ASPIRIN 81 PO Take by mouth. 0 Active albuterol HFA Take 2 Puffs by 1 Inhaler 0 08/21/2019 Active (VENTOLIN) 108 inhalation (90 Base) MCG/ACT EVERY FOUR Inhalation Aero HOURS NEEDED Soln (shortness of breath, cough or wheeze). atenolol Take 1 Tab by 90 Tab 3 09/03/2019 Active (TENORMIN) 100 MG mouth DAILY. Oral TabIndications: Essential hypertension lisinopril Take 1 Tab by 90 Tab 3 09/03/2019 Active (PRINIVIL, mouth DAILY. ZESTRIL) 40 MG Oral TabIndications: Essential hypertension atenolol Take 1 Tab by 30 Tab 1 07/08/2019 Discontinued (TENORMIN) 100 MG mouth DAILY. 9 (Reorder) Oral Tab lisinopril Take 1 Tab by 30 Tab 0 08/20/2019 Discontinued (PRINIVIL, mouth DAILY. 9 ZESTRIL) 20 MG Oral TabIndications: Hypertension, unspecified type documented as of [...] Time Taken Comments Blood Pressure 172/100 09/03/2019 1:43 PM EST Pulse 77 09/03/2019 1:43 PM EST Temperature - - Respiratory Rate - - Oxygen Saturation 99% 09/03/2019 1:43 PM EST Inhaled Oxygen Concentration - - Weight 124.7 kg (275 lb) 09/03/2019 1:43 PM EST Height 180.3 cm (5' 11") 09/03/2019 1:43 PM EST Body Mass Index 38.35 09/03/2019 1:43 PM EST documented in this encounter Patient Instructions Patient InstructionsLesly Driscoll NP - 09/03/2019 1:40 PM ESTIncrease lisinopril to 40mg daily - make a nurse visit to recheck your blood pressure in 1-2 weeks. If you start passing out again please go back down to 20 mg daily. Refill sent of atenolol. Do labwork today and schedule ct scan. Schedule appointment with GI please. We need to get your diabetes under better control - please work on a low fat/ low carb diet, and increase exercising. Start with walking daily, about 20 minutes per day. I will let you know if we need to make adjustments to your medication based on your lab results today. Follow up in 3 months or sooner if needed. documented in this encounter Progress Notes Lesly Driscoll NP - 09/03/2019 1:40 PM EST PATIENT: Justin Carrillo : 1985 DATE OF SERVICE: 09/03/2019 CHIEF COMPLAINT: Chief Complaint Patient presents with Check Up pain in upper stomach everytime he eats he end up throwing up, able to keep yogurt and steamed veggies down Subjective HISTORY OF PRESENT ILLNESS: Justin Carrillo is a 34-y.o. male. HPI Previous patient of dr. Herrera. For one month having abd pain and vomiting every single time he eats. The only thing he is able to keep down is yogurt. Pain is upper abdomen and then across both sides. Vomiting back up what he just ate. Pain comes about 30-45 minutes after eating, vomits about that time as well. He gets bulging in his upper abdomen when he goes to sit up - that's been there for about one year. He is having problems with his BM's in that he does not get an urge to go and having constipation - he does not get the normal pressure of a BM but will get a pain in his abdomen that lets him know that he needs to have a BM. He is having a BM about once per week. No blood in the stool. He is urinating ok. No chest pain, he does have palpitations which he gets daily. He was being worked up previously for cardiac issues - passing out a few times. Was unable to complete this work up d/t his work schedule, works every day with no days off. 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 He also has diabetes. The last time he checked his sugar was 3-4 weeks ago and it was 102. He stopped taking the metformin because he saw on tv that it can cause some kind of cancer. He does continue to take his glipizide. His last a1c in May was 10.1. He was previously on hctz but was stopped because of issues with syncope. Now on atenolol 100mg daily (for one year). Lisinopril (20mg daily) - since April. He has not passed out since these medication changes. Past Medical History: Diagnosis Date Anorexia Asthma [...] file Gets together: Not on file Attends judaism service: Not on file Active member of [...] History Narrative Cab company REVIEW OF SYSTEMS: Review of Systems Cardiovascular: Positive for palpitations. Negative for chest pain. Gastrointestinal: Positive for abdominal pain, constipation, nausea and vomiting. Negative for bloodin stool and diarrhea. Genitourinary: Negative for dysuria, frequency and urgency. Musculoskeletal: Positive for back pain. Neurological: Positive for headaches. Negative for dizziness and loss of consciousness. Psychiatric/Behavioral: Negative for depression. The patient is nervous/anxious (on buspar) and has insomnia. Objective PHYSICAL EXAM: VITALS: BP (!) 172/100 (BP Location: Right arm, Patient Position: Sitting) | Pulse 77 | Ht 5' 11"(1.803 m) | Wt 275 lb (124.7 kg) | SpO2 99% | BMI 38.35 kg/m Body mass index is 38.35 kg/m. Physical Exam Vitals signs and nursing [...] Normal breath sounds. Abdominal: General: Abdomen is flat and protuberant. Bowel sounds are normal. There is no distension. Palpations: Abdomen is soft. Abdomen is not rigid. There is no hepatomegaly, splenomegaly or mass. Tenderness: There is abdominal tenderness in the epigastric area. There is no right CVA tenderness, left CVA tenderness, guarding or rebound. Negative signs include Contreras's sign and McBurney's sign. Hernia: A hernia is present. Hernia is present in the ventral area. Lymphadenopathy: Head: Right side of head: No [...] cooperative. ASSESSMENT / IMPRESSION: ICD-9-CM ICD-10-CM 1. Essential hypertension 401.9 I10 atenolol (TENORMIN) 100 MG Oral Tab lisinopril (PRINIVIL, ZESTRIL) 40 MG Oral Tab 2. Generalized abdominal mass 789.[address] ABDOMEN WITH IV CONTRAST 3. Epigastric pain 789.06 R10.13 COMPREHENSIVE METABOLIC PANEL CBC NO DIFFERENTIAL REFER TO GI 4. Uncontrolled type 2 diabetes mellitus without complication, without long- term current use of insulin ([facility]) 250.02 E11.65 GLYCOHEMOGLOBIN A1C Plan 1. Essential hypertension He has had med changes in the last few months due to syncopal episodes and BP not well controlled since then. Increase lisinopril to 40 mg daily and recheck BP in 1-2 weeks. If any episodes of syncope or near syncope, instructed to go back down to 20 mg daily and follow up sooner. - atenolol (TENORMIN) 100 MG Oral Tab; Take 1 Tab by mouth DAILY. Dispense: 90 Tab; Refill: 3 - lisinopril (PRINIVIL, ZESTRIL) 40 MG Oral Tab; Take 1 Tab by mouth DAILY. Dispense: 90 Tab; Refill: 3 2. Generalized abdominal mass Mass felt in epigastric area approx 5cm, very tender, not pulsatile, does not bulge with increased intra-abdominal pressure - will get imaging. - CT ABDOMEN WITH IV CONTRAST; Future 3. Epigastric pain Differentials include intra-abdominal mass, blockage I think could be likely diabetic gastroparesis. Will do labs and imaging, send to GI for eval. He's been taking 6 aleve daily to help him sleep at night, advised to stop taking the aleve and taketylenol instead - he likely needs upper endoscopy. - COMPREHENSIVE METABOLIC PANEL; Future - CBC NO DIFFERENTIAL; Future - REFER TO GI; Future 4. Uncontrolled type 2 diabetes mellitus without complication, without long- term current use of insulin (HCC) Due for A1c, and he will restart his metformin. We spent time looking at studies done that show metformin has decreased risk of cancer for diabetic patients. It seems the item he saw on the news is that metformin in certain other countries has beencontaminated with MDMA which has been associated with cancer but so far the FDA has found no contamination in [place] metformin. Will make med changes as needed based on his a1c results and follow up in 3 months (labwork one weekprior). - GLYCOHEMOGLOBIN A1C; Future Author: Lesly Driscoll NP 09/03/2019 19:04 documented in this encounter Plan of Treatment Date Type Specialty Care Team Description 09/16/2019 Nurse/Clinical Support Internal Medicine 12/02/2019 Office Visit Family Practice Lesly Driscoll NP [address] [place] [address] [phone] Name Type Priority Associated Diagnoses Order Schedule CT ABDOMEN WITH IV Imaging Routine Generalized abdominal Expected: CONTRAST mass 09/03/2019, Expires: 09/02/2020 GLYCOHEMOGLOBIN A1C Lab Routine Uncontrolled type 2 Expected: diabetes mellitus 09/03/2019 without complication, (Approximate), without long-term Expires: 09/03/2020 current use of insulin (HCC) COMPREHENSIVE METABOLIC Lab Routine Epigastric pain Expected: PANEL 09/03/2019 (Approximate), Expires: 09/03/2020 CBC NO DIFFERENTIAL Lab Routine Epigastric pain Expected: 09/03/2019 (Approximate), Expires: 09/03/2020 GLYCOHEMOGLOBIN A1C Lab Routine Uncontrolled type 2 Expected: diabetes mellitus 09/03/2019 without complication, (Approximate), without long-term Expires: 09/03/2020 current use of insulin (HCC) Name Type Priority Associated Diagnoses Order Schedule REFER TO GI Referral Routine Epigastric pain Expected: 09/03/2019, Expires: 09/03/2020 Health Maintenance Due Date Last [...] filedocumented in this encounter Visit Diagnoses Diagnosis Essential hypertension Unspecified essential hypertension Generalized abdominal mass Abdominal or pelvic swelling, mass, or lump, generalized Epigastric pain Abdominal pain, epigastric Uncontrolled type 2 diabetes mellitus without complication, without long-term current use of insulin (HCC) documented in this encounter Insurance Payer Benefit Plan / Subscriber ID Effective Dates Phone Address Type Group [employer] 2019-Present 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
[2019-09-16 07:43] LABS: ABS Basophils 0.1 10^3/ul (0-0.2); ABS Eosinophils 0.2 10^3/ul (0-0.6); ABS Monocytes 0.7 10^3/ul (0-0.8); ABS Neutrophils 8.3 10^3/ul (1.5-7.7); Eosinophil % 1.9 %; Hematocrit 41 % (42-52); Hemoglobin 14.1 g/dL (14.0-18.0); Lymphocyte % 24.2 %; Mean Corpuscular HGB Conc 34 g/dL (31-36); Mean Corpuscular Hemoglobin 29 pg (27-31); Mean Corpuscular Volume 86 fL (80-94); Mean Platelet Volume 9.3 fL (7.4-10.4); Platelet Count 240 10^3/uL (150-450); Red Blood Count 4.81 10^6 /uL (4.18-5.48); Red Cell Distribution Width 13 % (10-15); White Blood Count 12.3 10^3/uL (3.5-10.8)
[2019-09-16 08:00] LABS: Albumin 3.9 g/dL (3.2-5.2); Albumin/Globulin Ratio 1.1 (1-3); BUN/Creatinine Ratio 14.3 (8-20); Calcium 9.7 mg/dL (8.6-10.3); EGFR African American 156.2 (>60); EGFR Non-African American 129.1 (>60); Globulin 3.7 g/dL (2-4); Potassium 4.3 mmol/L (3.5-5.0); Total Bilirubin 0.4 mg/dL (0.2-1.0); Total Protein 7.6 g/dL (6.4-8.9)
[2019-09-16 09:07] VITALS: BP 146/90
== END 2019-09-16 09:05 | disposition home or self-care (01) ==
LOC: ED 07:07
DX: R10.9 Unspecified abdominal pain (principal); E11.9 Type 2 diabetes mellitus without complications; I10 Essential (primary) hypertension; F41.9 Anxiety disorder, unspecified; F32.9 Major depressive disorder, single episode, unspecified; Z87.442 Personal history of urinary calculi; Z87.891 Personal history of nicotine dependence; Z79.4 Long term (current) use of insulin; Z79.899 Other long term (current) drug therapy
CPT/HCPCS: 36415; 80053; 82270; 83605; 83690; 84484; 85025; 93005; 99282; A9270-GY

== ENCOUNTER 2019-10-16 20:58 | Emergency (ER) | payer OTHER ==
--- NOTE | 2019-10-16 21:31 | ED ---
Throat Pain/Nasal Congestion - History of Current Complaint Chief Complaint: EDDentalPain Time Seen by Provider: 10/16/19 21:20 - Allergies/Home Medications Allergies/Adverse Reactions: Allergies Allergy/AdvReac Type Severity Reaction Status Date / Time No Known Allergies Allergy Verified 10/16/19 21:02 PMH/Surg Hx/FS Hx/Imm Hx Endocrine/Hematology History: Reports: Hx Diabetes - metformin and lantus Denies: Hx Anticoagulant Therapy, Hx Blood Disorders, Hx Blood Transfusions, Hx Bone Marrow Disease, Hx Systemic Lupus Erythematosus, Hx Sickle Cell Disease , Hx Thyroid Disease, Hx Anemia, Hx Unexplained Bleeding, Other Endocrine/ Hematological Disorders Cardiovascular History: Reports: Hx Angina, Hx Hypertension, Other Cardiovascular Problems/Disorders - CARDIAC CATH 2011 Denies: Hx Aneurysm, Hx Angioplasty, Hx Auto Implanted Cardiovert Defib, Hx Cardiac Arrest, Hx Cardiomegaly, Hx Congenital Heart Disease, Hx Congestive Heart Failure, Hx Coronary Artery Disease, Hx Deep Vein Thrombosis, Hx Embolism , Hx Hypercholesterolemia, Hx Hypotension, Hx Myocardial Infarction, Hx Pacemaker/ICD, Hx Peripheral Vascular Disease, Hx Rheumatic Fever, Hx Syncope, Hx Valvular Heart Disease Respiratory History: Reports: Hx Asthma - A CHILD, Hx Chronic Bronchitis, Hx Seasonal Allergies Denies: Hx Bronchopulmonary Dysplasia, Hx Chronic Obstructive Pulmonary Disease (COPD), Hx Cystic Fibrosis, Hx Lung Cancer, Hx Pleural Effusion, Hx Pneumonia, Hx Pulmonary Edema, Hx Pulmonary Embolism, Hx Sleep Apnea, Other Respiratory Problems/Disorders GI History: Reports: Hx Gastroesophageal Reflux Disease, Other GI Disorders - fatty liver Denies: Hx Cirrhosis, Hx Crohn's Disease, Hx Diverticulosis, Hx Gall Bladder Disease, Hx Gastrointestinal Bleed, Hx Hiatal Hernia, Hx Irritable Bowel, Hx Jaundice, Hx Obstructive Bowel, Hx Ileostomy, Hx Pyloric Stenosis, Hx Ulcer, Hx Urosepsis History: Reports: Hx Kidney Stones Denies: Hx Acute Renal Failure, Hx Benign Prostatic Hyperplasia, Hx Chronic Renal Failure, Hx Dialysis, Hx Kidney Infection, Hx Renal Disease, Other Problems/Disorders Musculoskeletal History: Reports: Hx Orthopedic Injury - Right Knee Denies: Hx Arthritis, Hx Back Problems, Hx Bursitis, Hx Congenital Bone Abnormalities, Hx Fibromyalgia, Hx Gout, Hx Osteoporosis, Hx Scoliosis, Hx Tendonitis, Other Musculoskeletal History Sensory History: Reports: Hx Contacts or Glasses Denies: Hx Cataracts, Hx Eye Injury, Hx Eye Prosthesis, Hx Glaucoma, Hx Legally Blind, Hx Macular Degeneration, Hx Vision Problem, Hx Deafness, Hx Hearing Aid, Hx Hearing Problem, Other Sensory Impairments Opthamlomology History: Reports: Hx Contacts or Glasses Denies: Hx Cataracts, Hx Eye Injury, Hx Eye Prosthesis, Hx Glaucoma, Hx Legally Blind, Hx Macular Degeneration, Hx Vision Problem, Other Sensory Impairments Neurological History: Denies: Hx Dementia, Hx Developmental Delay, Hx Headaches, Hx Migraine, Hx Nerve Disease, Hx Seizures, Hx Spinal Cord Injury, Hx Transient Ischemic Attacks (TIA), Other Neuro Impairments/Disorders Psychiatric History: Reports: Hx Anxiety, Hx Depression - no depression over a year., Hx Inpatient Treatment, Hx Community Mental Health Tx, Hx Suicide Attempt - OD/Jump from parking garage, Hx of Violent Episodes Against Others, Hx Substance Abuse Denies: Hx Attention Deficit Hyperactivity Disorder, Hx Autism, Hx Eating Disorder, Hx Oppositional [place] Disorder, Hx Panic Disorder, Hx Post Traumatic Stress Disorder, Hx Schizophrenia, Hx Bipolar Disorder, Other Psychiatric Issues/Disorders - Cancer History Hx Hematologic Symptoms: No Hx Chemotherapy: No Hx Radiation Therapy: No Hx Palliative Cancer Treatment: No - Surgical History Surgery Procedure, Year, and Place: T & A 1992. Knee surgery 2005. Left ankle surgery Hx Anesthesia Reactions: No - Immunization History Date of Tetanus Vaccine: utd Date of Influenza Vaccine: no Immunizations Up to Date: Yes Infectious Disease History: No Infectious Disease History: Denies: Hx Clostridium Difficile, Hx Hepatitis, Hx Human Immunodeficiency Virus (HIV), Hx of Known/Suspected MRSA, Hx Shingles, Hx Tuberculosis, Hx Known/ Suspected VRE, Hx Known/Suspected VRSA, History Other Infectious Disease, Traveled Outside the [place] in Last 30 Days - Family History Known Family History: Positive: Cardiac Disease - [place] - father, "9 times", father at 55 from [place], Hypertension, Other - EtOH abuse - Social History Alcohol Use: None Alcohol Amount: once a month - h/o ETOH abuse; bottle of vodka 10/28 Hx Substance Use: Yes - cocaine, marijuana - 2012 Substance Use Type: Reports: None Substance Use Comment - Amount & Last Used: none currently Hx Tobacco Use: Yes - not currently smoking - switched to smokeless tob Smoking Status (MU): Former Smoker Type: Cigarettes, Smokeless Tobacco Amount Used/How Often: 1 can of chew every 5 days Length of Time of Smoking/Using Tobacco: since 2003 Have You Smoked in the Last Year: Yes Physical Exam Vital Signs On Initial Exam: Initial Vitals Temp Pulse Resp BP Pulse Ox 97.7 F 82 15 141/93 97 10/16/19 21:00 10/16/19 21:00 10/16/19 21:00 10/16/19 21:00 10/16/19 21:00 Diagnostics - Vital Signs Vital Signs Temp Pulse Resp BP Pulse Ox 10/16/19 21:00 97.7 F 82 15 141/93 97 - Laboratory Lab Statement: Any lab studies that have been ordered have been reviewed, and results considered in the medical decision making process. EENT Course/Dx - Diagnoses Provider Diagnoses: Pain, dental Discharge ED - Sign-Out/Discharge Documenting (check all that apply): Patient Departure - Discharge Plan Condition: Stable Disposition: HOME Patient Education Materials: Toothache (ED) Referrals: Satish Dobson DO [Primary Care Provider] - Additional Instructions: Follow-up with her dental surgeon. Return to the ED for any new or worsening symptoms. - Billing Disposition and Condition Condition: STABLE Disposition: Home
[2019-10-16 22:19] VITALS: BP 141/95
== END 2019-10-16 22:00 | disposition home or self-care (01) ==
LOC: ED 20:58
DX: K08.89 Other specified disorders of teeth and supporting structures (principal); E11.9 Type 2 diabetes mellitus without complications; I10 Essential (primary) hypertension; J45.909 Unspecified asthma, uncomplicated; K21.9 Gastro-esophageal reflux disease without esophagitis; F41.9 Anxiety disorder, unspecified; F32.9 Major depressive disorder, single episode, unspecified; Z87.891 Personal history of nicotine dependence; Z79.4 Long term (current) use of insulin
CPT/HCPCS: 99281

== ENCOUNTER 2020-07-07 18:45 | Observation (INO) ==
[2020-07-07] MEDS ORDERED: NS 0.9% 1000 ml BAG 1,000 ML IV ONE ×2 (19:07→21:53)
[2020-07-07 19:19] LABS: ABS Basophils 0.1 10^3/ul (0-0.2); ABS Eosinophils 0.2 10^3/ul (0-0.6); ABS Lymphocytes 3.6 10^3/ul (1.0-4.8); ABS Monocytes 0.7 10^3/ul (0-0.8); ABS Neutrophils 8.2 10^3/ul (1.5-7.7); Eosinophil % 1.9 %; Hematocrit 37 % (42-52); Hemoglobin 13.2 g/dL (14.0-18.0); Lymphocyte % 28.1 %; Mean Corpuscular HGB Conc 36 g/dL (31-36); Mean Corpuscular Hemoglobin 30 pg (27-31); Mean Corpuscular Volume 83 fL (80-94); Mean Platelet Volume 8.6 fL (7.4-10.4); Platelet Count 261 10^3/uL (150-450); Red Blood Count 4.47 10^6 /uL (4.18-5.48); Red Cell Distribution Width 13 % (10-15); White Blood Count 12.9 10^3/uL (3.5-10.8)
[2020-07-07 20:59] LABS: TSH Ultra Thyroid Stim Horm 2.66 mcIU/mL (0.34-5.60)
[2020-07-07 21:51] LABS: Albumin 3.5 g/dL (3.2-5.2); Anion Gap 10 mmol/L (2-11); CO2 Carbon Dioxide 24 mmol/L (22-32); Chloride 99 mmol/L (101-111); Magnesium 1.8 mg/dL (1.9-2.7); Potassium 3.8 mmol/L (3.5-5.0); Sodium 133 mmol/L (135-145)
[2020-07-07] MEDS ORDERED: Magnesium Sulfate IV 1GM/100ML 1 GM/100 ML BAG IV ONE (21:54)
[2020-07-07 21:57] LABS: ALT 13 U/L (7-52); AST 29 U/L (13-39); Albumin/Globulin Ratio 0.9 (1-3); Alkaline Phosphatase 104 U/L (34-104); BUN/Creatinine Ratio 15.7 (8-20); Blood Urea Nitrogen 11 mg/dL (6-24); Creatine Kinase 54 U/L (10-223); EGFR African American 155.3 (>60); EGFR Non-African American 128.3 (>60); Globulin 3.7 g/dL (2-4); Glucose 366 mg/dL (70-100); Total Protein 7.2 g/dL (6.4-8.9)
[2020-07-08] MEDS ORDERED: Magnesium Sulfate IV 1GM/100ML 1 GM/100 ML BAG IV ONE (00:35)
[2020-07-08] MEDS ORDERED: Albuterol HFA INHALER 8 gm MDI INH PRN (01:46)
[2020-07-08 02:05] LABS: Salicylate < 2.50 mg/dL (<30)
[2020-07-08] MEDS: NS 0.9% 1000 ml BAG 1,000 ML IV SCH ×2 (02:05→13:16)
[2020-07-08] MEDS ORDERED: Dextrose 50% Syringe 50 ml 25 GM/50 ML SYRINGE IV PUSH PRN (03:43)
[2020-07-08 05:25] LABS: ABS Basophils 0.1 10^3/ul (0-0.2); ABS Eosinophils 0.2 10^3/ul (0-0.6); ABS Lymphocytes 3.9 10^3/ul (1.0-4.8); ABS Monocytes 0.7 10^3/ul (0-0.8); ABS Neutrophils 5.9 10^3/ul (1.5-7.7); Eosinophil % 2.2 %; Hematocrit 34 % (42-52); Hemoglobin 11.7 g/dL (14.0-18.0); Lymphocyte % 36.1 %; Mean Corpuscular HGB Conc 35 g/dL (31-36); Mean Corpuscular Hemoglobin 29 pg (27-31); Mean Corpuscular Volume 85 fL (80-94); Mean Platelet Volume 8.5 fL (7.4-10.4); Platelet Count 216 10^3/uL (150-450); Red Blood Count 3.97 10^6 /uL (4.18-5.48); Red Cell Distribution Width 13 % (10-15); White Blood Count 10.8 10^3/uL (3.5-10.8)
[2020-07-08 05:45] LABS: BUN/Creatinine Ratio 14.5 (8-20); Calcium 8.1 mg/dL (8.6-10.3); EGFR African American 141.2 (>60); EGFR Non-African American 116.7 (>60); Potassium 4.7 mmol/L (3.5-5.0)
[2020-07-08 15:24] LABS: Urine Appearance Clear; Urine Bilirubin Negative (Negative); Urine Blood Negative (Negative); Urine Color Yellow; Urine Glucose Negative (Negative); Urine Ketones Negative (Negative); Urine Nitrite Negative (Negative); Urine Protein 1+(30 mg/dL) (Negative); Urine Specific Gravity 1.023 (1.010-1.030); Urine Urobilinogen Positive (Negative)
[2020-07-08 15:46] VITALS: BP 138/74
[2020-07-08 23:10] LABS: Urine Bacteria Absent (Absent); Urine Red Blood Cell Absent (Absent); Urine Squamous Epithelial Cell Present (Absent); Urine White Blood Cell Absent (Absent)
== END 2020-07-08 16:56 | disposition home or self-care (01) ==
LOC: ED 18:45 → MEDTELE 18:45
PROVIDERS: ADMIT Internal Medicine; ATTEND Student in an Organized Health Care Education/Training Program

== ENCOUNTER 2023-03-23 22:43 | Observation (INO) ==
[2023-03-23 23:12] LABS: ABS Basophils 0.1 10^3/uL (0.0-0.1); ABS Eosinophils 0.3 10^3/uL (0.0-0.5); ABS Lymphocytes 3.7 10^3/uL (1.0-4.8); ABS Monocytes 0.6 10^3/uL (0.0-1.1); ABS Neutrophils 7.4 10^3/uL (1.5-7.6); ABS Nucleated RBC 0.01 10^3/ul; Eosinophil % 2.2 %; Hematocrit 35.1 % (38-53); Hemoglobin 12.1 g/dL (13.2-16.3); Lymphocyte % 30.7 %; Mean Corpuscular Hemoglobin 29.9 pg (27-33); Mean Corpuscular Hgb Conc 34.5 g/dL (31-36); Mean Corpuscular Volume 86.6 fL (80-97); Mean Platelet Volume 8.8 fL (7.5-11.2); Nucleated Red Blood Cells % 0.1 /100 WBC (0.0-0.4); Platelet Count 220 10^3/uL (150-450); Red Blood Count 4.06 10^6/uL (4.06-5.63); Red Cell Distribution Width 12.7 % (12-17); White Blood Count 12.1 10^3/uL (3.6-10.2)
[2023-03-23 23:17] LABS: INR 1.07 (0.88-1.18)
[2023-03-23 23:27] LABS: Albumin/Globulin Ratio 1.1 (1-3); Calcium 9.4 mg/dL (8.6-10.3); Creatinine, Serum 0.97 mg/dL (0.67-1.17); Globulin 3.6 g/dL (2-4); Potassium 3.9 mmol/L (3.5-5.0); Total Bilirubin 0.5 mg/dL (0.2-1.0); Total Protein 7.6 g/dL (6.4-8.9); eGFR CKD-EPI 102.5 (>60)
[2023-03-24 00:36] LABS: High Sensitivity Troponin 1 Hr 4 pg/mL (<20)
[2023-03-24] MEDS ORDERED: Lactated Ringers 1000 ml BAG 1,000 ML IV ONE (03:55)
[2023-03-24 04:09] LABS: Magnesium 1.7 mg/dL (1.9-2.7)
[2023-03-24] MEDS ORDERED: Magnesium Sulfate 2 gm BAG 2 GM/50 ML BAG IVPB ONE (04:32)
[2023-03-24] MEDS ORDERED: Dextrose 50% Syringe 50 ml 25 GM/50 ML SYRINGE IV PUSH PRN (04:34)
[2023-03-24 12:33] VITALS: BP 101/84
== END 2023-03-24 12:34 | disposition home or self-care (01) ==
LOC: ED 22:43 → EDHOLD 22:43 → SUATTDRO 03-24 04:32 → EDHOLD 03-24 12:33
PROVIDERS: ADMIT Student in an Organized Health Care Education/Training Program; ATTEND Internal Medicine

== ENCOUNTER 2023-05-23 07:49 | Observation (INO) ==
[2023-05-23 08:52] LABS: ABS Basophils 0.1 10^3/uL (0.0-0.1); ABS Eosinophils 0.3 10^3/uL (0.0-0.5); ABS Lymphocytes 3.1 10^3/uL (1.0-4.8); ABS Monocytes 0.6 10^3/uL (0.0-1.1); ABS Neutrophils 7.5 10^3/uL (1.5-7.6); ABS Nucleated RBC 0.01 10^3/ul; Eosinophil % 2.8 %; Hematocrit 34.9 % (38-53); Hemoglobin 12.3 g/dL (13.2-16.3); Lymphocyte % 26.4 %; Mean Corpuscular Hemoglobin 30.5 pg (27-33); Mean Corpuscular Hgb Conc 35.3 g/dL (31-36); Mean Corpuscular Volume 86.3 fL (80-97); Mean Platelet Volume 8.5 fL (7.5-11.2); Nucleated Red Blood Cells % 0.1 /100 WBC (0.0-0.4); Platelet Count 210 10^3/uL (150-450); Red Blood Count 4.05 10^6/uL (4.06-5.63); Red Cell Distribution Width 12.5 % (12-17); White Blood Count 11.6 10^3/uL (3.6-10.2)
[2023-05-23 09:00] LABS: INR 1.08 (0.83-1.13)
[2023-05-23 09:15] LABS: Albumin 3.7 g/dL (3.2-5.2); Albumin/Globulin Ratio 1.1 (1-3); Calcium 8.8 mg/dL (8.6-10.3); Creatinine, Serum 0.88 mg/dL (0.67-1.17); Globulin 3.3 g/dL (2-4); Potassium 3.8 mmol/L (3.5-5.0); Total Bilirubin 0.5 mg/dL (0.2-1.0); eGFR CKD-EPI 112.9 (>60)
[2023-05-23 10:09] LABS: Urine Benzodiazepine Screen None Detected (None Detect); Urine Cannabinoids Screen None Detected (None Detect); Urine Opiates Screen None Detected (None Detect)
[2023-05-23 10:11] LABS: High Sensitivity Troponin 1 Hr 7 pg/mL (<20)
[2023-05-23] MEDS ORDERED: Sulfur Hexaflouride MICROSPHR 25 MG VIAL ONE (13:47)
[2023-05-23] MEDS ORDERED: Albuterol HFA INHALER 8 gm MDI INH PRN (14:04)
[2023-05-23] MEDS ORDERED: Dextrose 50% Syringe 50 ml 25 GM/50 ML SYRINGE IV PUSH PRN (14:10)
[2023-05-23 23:11] LABS: Ferritin 669.2 ng/mL (24-336)
[2023-05-24 06:12] LABS: ABS Basophils 0.1 10^3/uL (0.0-0.1); ABS Eosinophils 0.3 10^3/uL (0.0-0.5); ABS Lymphocytes 3.5 10^3/uL (1.0-4.8); ABS Monocytes 0.7 10^3/uL (0.0-1.1); ABS Neutrophils 6.9 10^3/uL (1.5-7.6); Eosinophil % 2.9 %; Hematocrit 31.7 % (38-53); Hemoglobin 11.2 g/dL (13.2-16.3); Lymphocyte % 30.3 %; Mean Corpuscular Hemoglobin 30.6 pg (27-33); Mean Corpuscular Hgb Conc 35.2 g/dL (31-36); Mean Corpuscular Volume 86.7 fL (80-97); Mean Platelet Volume 8.5 fL (7.5-11.2); Platelet Count 202 10^3/uL (150-450); Red Blood Count 3.66 10^6/uL (4.06-5.63); Red Cell Distribution Width 12.6 % (12-17); White Blood Count 11.5 10^3/uL (3.6-10.2)
[2023-05-24 06:38] LABS: Calcium 8.6 mg/dL (8.6-10.3); Creatinine, Serum 0.8 mg/dL (0.67-1.17); Magnesium 1.7 mg/dL (1.9-2.7); Potassium 3.8 mmol/L (3.5-5.0); eGFR CKD-EPI 116.2 (>60)
[2023-05-24] MEDS ORDERED: Regadenoson 0.4 MG/5 ML SYRINGE ONE (14:43)
[2023-05-24] MEDS ORDERED: Magnesium Sulfate 2 gm BAG 2 GM/50 ML BAG IVPB ONE (17:22)
[2023-05-25 05:53] LABS: ABS Basophils 0.1 10^3/uL (0.0-0.1); ABS Eosinophils 0.2 10^3/uL (0.0-0.5); ABS Lymphocytes 3.4 10^3/uL (1.0-4.8); ABS Monocytes 0.7 10^3/uL (0.0-1.1); ABS Neutrophils 5.8 10^3/uL (1.5-7.6); ABS Nucleated RBC 0.01 10^3/ul; Eosinophil % 2.2 %; Hematocrit 30.6 % (38-53); Lymphocyte % 33.5 %; Mean Corpuscular Hemoglobin 30.9 pg (27-33); Mean Corpuscular Hgb Conc 35.8 g/dL (31-36); Mean Corpuscular Volume 86.1 fL (80-97); Mean Platelet Volume 8.4 fL (7.5-11.2); Nucleated Red Blood Cells % 0.1 /100 WBC (0.0-0.4); Platelet Count 194 10^3/uL (150-450); Red Blood Count 3.55 10^6/uL (4.06-5.63); Red Cell Distribution Width 12.5 % (12-17); White Blood Count 10.1 10^3/uL (3.6-10.2)
[2023-05-25 06:26] LABS: Calcium 8.6 mg/dL (8.6-10.3); Creatinine, Serum 0.74 mg/dL (0.67-1.17); Potassium 3.6 mmol/L (3.5-5.0); eGFR CKD-EPI 118.9 (>60)
[2023-05-25 12:21] VITALS: BP 138/81
== END 2023-05-25 11:45 | disposition home or self-care (01) ==
LOC: ED 07:49 → EDHOLD 07:49 → SUATTDRO 12:36 → MEDTELE 20:30
PROVIDERS: ADMIT Internal Medicine; ATTEND Internal Medicine